=== PATIENT | female | born 1945 | race Caucasian/White ===

== ENCOUNTER 2023-02-12 10:29 | Outpatient (OUT) | payer MEDICARE, SELFPAY ==
[2023-02-12 11:35] LABS: Basophils Absolute Auto 0.1 10^3/uL (0.0-0.1); Basophils Percent Auto 0.8 % (0.2-2.0); Eosinophils Absolute Auto 0.7 10^3/uL (0.0-0.7); Eosinophils Percent Auto 9.3 % (0.9-7.0); Hematocrit 41.9 % (36.0-48.0); Hemoglobin 14.3 g/dL (12.0-16.0); Immature Granulocytes Abs Auto 0.03 10^3/uL (0.00-0.03); Immature Granulocytes Pct Auto 0.4 % (0.0-0.5); Lymphocytes Absolute Auto 1.8 10^3/uL (1.2-3.8); Lymphocytes Percent Auto 24.4 % (20.5-60.0); Mean Corpuscular HGB Conc 34.1 g/dL (29.9-35.2); Mean Corpuscular Hemoglobin 32.3 pg (26.7-34.0); Mean Corpuscular Volume 94.6 fL (81.0-99.0); Mean Platelet Volume 10.2 fL (9.5-13.5); Monocytes Absolute Auto 0.6 10^3/uL (0.3-0.8); Monocytes Percent Auto 8.4 % (1.7-12.0); Neutrophils Absolute Auto 4.2 10^3/uL (1.4-6.5); Neutrophils Percent Auto 56.7 % (43.0-75.0); Platelet Count 222 10^3/uL (150-450); Red Blood Count 4.43 10^6/uL (4.20-5.40); Red Cell Distribution Width 11.9 % (11.0-15.0); White Blood Count 7.4 10^3/uL (4.0-11.0)
[2023-02-12 11:58] LABS: Alanine Aminotransferase 14 U/L (14-59); Albumin Globulin Ratio 0.9; Albumin Level 3.6 g/dL (3.4-5.0); Alkaline Phosphatase 58 U/L (46-116); Anion Gap 7.5; Aspartate Amino Transferase 17 U/L (15-37); BUN Creatinine Ratio 9.6; Bilirubin Total 0.9 mg/dL (0.2-1.0); Calcium 8.9 mg/dL (8.5-10.1); Carbon Dioxide 30.7 mmol/L (21.0-32.0); Chloride 98 mmol/L (98-107); Chol HDL Ratio 2.7; Cholesterol 138 mg/dL (<=200); Estimated GFR (African America 50 (>=60); Estimated GFR (Non-African Ame 41 (>=60); Globulin 3.8 g/dL; Glucose 113 mg/dL (74-106); HDL Cholesterol 51 mg/dL (40-60); LDL Cholesterol Calculated 67.2 mg/dL; Potassium 3.2 mmol/L (3.5-5.1); Sodium 133 mmol/L (136-145); Thyroid Stimulating Hormone 1.622 uIU/mL (0.358-3.740); Total Protein 7.4 g/dL (6.4-8.2); Triglycerides 99 mg/dL (<=150); VLDL CHOLESTEROL 19.8 mg/dL
[2023-02-12 13:27] LABS: Free T4 1.16 ng/dL (0.76-1.46)
== END 2023-02-12 10:30 | disposition home or self-care (01) ==
LOC: LAB 10:34
PROVIDERS: PCP Family Medicine; Visit Provider Family Medicine
DX: N18.32 Chronic kidney disease, stage 3b (principal); R53.82 Chronic fatigue, unspecified; I51.89 Other ill-defined heart diseases
CPT/HCPCS: 36415; 80053; 80061; 82607; 82746; 84439; 84443; 84481; 85025

== ENCOUNTER 2023-03-17 09:43 | Observation (INO) | payer MEDICARE, SELFPAY ==
[2023-03-17] VITALS (24 sets, daily range): BP systolic 120–167; BP diastolic 66–120; PULSE 74–140; RESP 12–33; TEMP 36.6–36.8; O2SAT 91–100; BMI 28.3; BMI 33.1
--- NOTE | 2023-03-17 10:01 | XR_ITS ---
The [address] [address] Patient Name: DEEPA GRIER MRN: [id number] date: 1945 Sex: F Assigned Patient Location: ER Current Patient Location: ED.MAIN Accession/Order Number: [id number] Exam Date: 03/17/2023 10:18 Report Date: 03/17/2023 10:51 At the request of: KIKI CONWAY Procedure: XR chest 1V EXAM: XR chest 1V HISTORY: shortness of breath COMPARISON: 02/10/2021. TECHNIQUE: Chest X-ray, 1 view. FINDINGS: Support devices: None. Lungs/pleura: There is mild pulmonary vascular congestion and interstitial prominence. Hazy opacities are demonstrated within the lower lungs, greater in the right. Question minimal blunting of the right costophrenic angle. No evidence of pneumothorax. Heart and mediastinum: There is new fullness of the right parahilar region. Mild enlargement of cardiac silhouette. Bones: No acute abnormality identified. XR/XR chest 1V IMPRESSION: 1. Combination of findings is suspicious for pulmonary edema/CHF pattern. Basilar predominant infiltrate should be considered on clinical grounds. 2. Increased fullness of the right parahilar region may represent edema or infiltrate. Hilar mass cannot be excluded on this examination. At minimum, recommend short-term radiographic follow-up to resolution. Otherwise, CT with intravenous contrast could further characterize. Electronically authenticated by: KONG DEAL Date: 03/17/2023 10:51
--- NOTE | 2023-03-17 10:01 | ECG_ITS ---
The [facility] Test Date: 2023-03-17 Pat Name: DEEPA GRIER Department: Room: - Gender: Female Progressive Care Unit Registered Nurse: : 1945 Requested By: Brian Kilgore Order Number: [id number] Reading MD: DAVID FREDERICK Measurements Intervals Riva Rate: 90 P: -57127 TX: -85201 QRS: -37 QRSD: 138 T: 107 QT: 390 QTc: 438 Interpretive Statements 07354 Atrial fibrillation with aberrant conduction, or ventricular premature complexes 2550 Left bundle branch block 7200 Abnormal left axis deviation 9150 abnormal ECG No previous ECG available for comparison Electronically Signed On 03-17-2023 11:10:42 EDT by DAVID FREDERICK
--- NOTE | 2023-03-17 10:10 | ED.SOB1 ---
HPI - SOB/Dyspnea General Chief Complaint: Shortness of Breath/Dyspnea Stated Complaint: SHORTNESS OF BREATH Time Seen by Provider: 03/17/23 09:50 Source: patient Mode of arrival: Wheelchair History of Present Illness HPI Narrative: shortness of breath began last night. She told me that she worked in her garden for the first time in two years. She said that she had a lot of energy to start the day and tried to take frequent breaks. But by the evening she was tired and the shortness of breath began. She has atrial fibrillation and a leaky valve . No fever or chills. No cough. No leg swelling. Related Data Home Medications Medication Instructions Recorded Confirmed eszopiclone 1 mg tablet 1 mg PO .qhs PRN sleep 03/17/23 03/17/23 lansoprazole 30 mg capsule,delayed 30 mg PO DAILY 03/17/23 03/17/23 release meclizine 25 mg tablet 25 mg PO TID PRN dizziness 03/17/23 03/17/23 metoprolol tartrate 25 mg tablet 25 mg PO BID 03/17/23 03/17/23 pravastatin 40 mg tablet 40 mg PO BEDTIME 03/17/23 03/17/23 Allergies Allergy/AdvReac Type Severity Reaction Status Date / Time No Known Drug Allergies Allergy Verified 03/17/23 09:58 Exam Narrative Exam Narrative: Nurses notes and vital signs reviewed and patient is not hypoxic. afebrile General: Well-appearing and in no apparent distress. Skin: Warm, dry, no pallor noted. Head: Normocephalic, atraumatic. Neck: Supple, non-tender. Eye: Pupils are equal, round and EOMI. No scleral icterus. Cardiovascular: irregular rhythm, rate less than 100. Respiratory: No accessory muscle use or respiratory distress. Lungs with diffuse wheezing, bibasilar rales Chest Wall: no tenderness Musculoskeletal: normal ROM, no calf or popliteal tenderness, no lower extremity edema/swelling Neurological: A&O x4. No cranial nerve dysfunction observed. No truncal ataxia. Moves all extremities. Sensation intact. Psychiatric: Cooperative and interactive. Normal mood and affect. Constitutional Vital Signs, click to edit/add: Last Vital Signs Temp 98.2 F 03/17/23 09:50 Pulse 105 H 03/17/23 11:20 Resp 19 03/17/23 11:20 BP 152/104 H 03/17/23 11:18 Pulse Ox 99 03/17/23 11:20 O2 Del Method Room Air 03/17/23 09:50 Course Vital Signs Vital signs: Vital Signs Temperature 98.2 F 03/17/23 09:50 Pulse Rate 107 H 03/17/23 09:50 Respiratory Rate 24 03/17/23 09:50 Blood Pressure 160/100 H 03/17/23 09:50 Pulse Oximetry 95 03/17/23 09:50 Oxygen Delivery Method Room Air 03/17/23 09:50 Temperature 98.2 F 03/17/23 09:50 Pulse Rate 105 H 03/17/23 11:20 Respiratory Rate 19 03/17/23 11:20 Blood Pressure 152/104 H 03/17/23 11:18 Pulse Oximetry 99 03/17/23 11:20 Oxygen Delivery Method Room Air 03/17/23 09:50 MDM - SOB/Dyspnea MDM Narrative Medical decision making narrative: Patient was placed on quality assurance monitor final and EKG obtained. Blood drawn and sent for evaluation. Swabbed for Covid. Her room air pulse ox was normal but her RR was 24 - I placed her on 2LPM NC oxygen. CXR obtained. She was given IV Lasix, IV Solumedrol and nebulized albuterol. Workup consistent with CHF but she also had elevated wbc at 12.9k and right parahilar changes suggestive of an infiltrate. Blood cultures and lactate ordered. She was ordered to receive Levaquin 750mg IV. Call placed to Dr Foster to discuss admission. he agreed to admit the patient to his service - [facility], [facility]. Patient informed of results, diagnosis and plan for treatment including admission. Lab Data Attestation: I reviewed the patient's lab results. Labs: Lab Results 03/17/23 03/17/23 Range/Units 10:31 10:37 WBC 12.9 H (4.0-11.0) 10^3/uL RBC 4.30 (4.20-5.40) 10^6/uL Hgb 13.7 (12.0-16.0) g/dL Hct 40.9 (36.0-48.0) % MCV 95.1 (81.0-99.0) fL MCH 31.9 (26.7-34.0) pg MCHC 33.5 (29.9-35.2) g/dL RDW 12.1 (11.0-15.0) % Plt Count 193 (150-450) 10^3/uL MPV 10.3 (9.5-13.5) fL Neut % (Auto) 79.8 H (43.0-75.0) % Lymph % (Auto) 9.4 L (20.5-60.0) % [place] % (Auto) 6.1 (1.7-12.0) % Eos % (Auto) 3.8 (0.9-7.0) % Baso % (Auto) 0.5 (0.2-2.0) % Neut # (Auto) 10.3 H (1.4-6.5) 10^3/uL Lymph # (Auto) 1.2 (1.2-3.8) 10^3/uL [place] # (Auto) 0.8 (0.3-0.8) 10^3/uL Eos # (Auto) 0.5 (0.0-0.7) 10^3/uL Baso # (Auto) 0.1 (0.0-0.1) 10^3/uL Abs Immat Gran (auto) 0.05 H (0.00-0.03) 10^3/uL Imm/Tot Granulo (auto) 0.4 (0.0-0.5) % Sodium 135 L (136-145) mmol/L Potassium 3.7 (3.5-5.1) mmol/L Chloride 101 (98-107) mmol/L Carbon Dioxide 25.9 (21.0-32.0) mmol/L Anion Gap 11.8 BUN 12.0 (7.0-18.0) mg/dL Creatinine 1.13 H (0.55-1.02) mg/dL Est GFR ( Amer) 56 L (>=60) Est GFR (Non-Af Amer) 46 L (>=60) BUN/Creatinine Ratio 10.6 Glucose 123 H (74-106) mg/dL Calcium 8.5 (8.5-10.1) mg/dL Troponin I High Sens 15.5 (4.0-51.3) pg/mL NT-Pro-B Natriuret Pep 6908.0 H* (<=1800.0) pg/mL SARS-CoV-2 (PCR) Negative (NEGATIVE) Imaging Data Chest x-ray: Radiologist's impression: Patient Name: DEEPA GRIER MRN: [id number] date: 1945 Sex: F Assigned Patient Location: ER Current Patient Location: ED.MAIN Accession/Order Number: [id number] Exam Date: 03/17/2023 10:18 Report Date: 03/17/2023 10:51 At the request of: KIKI CONWAY Procedure: XR chest 1V EXAM: XR chest 1V HISTORY: shortness of breath COMPARISON: 02/10/2021. TECHNIQUE: Chest X-ray, 1 view. FINDINGS: Support devices: None. Lungs/pleura: There is mild pulmonary vascular congestion and interstitial prominence. Hazy opacities are demonstrated within the lower lungs, greater in the right. Question minimal blunting of the right costophrenic angle. No evidence of pneumothorax. Heart and mediastinum: There is new fullness of the right parahilar region. Mild enlargement of cardiac silhouette. Bones: No acute abnormality identified. IMPRESSION: 1. Combination of findings is suspicious for pulmonary edema/CHF pattern. Basilar predominant infiltrate should be considered on clinical grounds. 2. Increased fullness of the right parahilar region may represent edema or infiltrate. Hilar mass cannot be excluded on this examination. At minimum, recommend short-term radiographic follow-up to resolution. Otherwise, CT with intravenous contrast could further characterize. Electronically authenticated by: KONG DEAL Date: 03/17/2023 10:51 Discharge Plan Discharge Chief Complaint: Shortness of Breath/Dyspnea Clinical Impression: Congestive heart failure, Community acquired pneumonia Patient Disposition: Admitted as Observation Time of Disposition Decision: 11:12 Additional Instructions: Dr Foster's service
[2023-03-17] MEDS: FUROSEMIDE 40 MG/4 ML VIAL IVP ×2 (10:28→21:11)
[2023-03-17] MEDS: METHYLPREDNISOLONE SOD SUCC PF 125 MG/2 ML VIAL IVP (10:28)
[2023-03-17] MEDS: ALBUTEROL SULFATE 2.5 MG/3 ML VIAL NEB IH (10:32)
[2023-03-17 10:46] LABS: Basophils Absolute Auto 0.1 10^3/uL (0.0-0.1); Basophils Percent Auto 0.5 % (0.2-2.0); Eosinophils Absolute Auto 0.5 10^3/uL (0.0-0.7); Eosinophils Percent Auto 3.8 % (0.9-7.0); Hematocrit 40.9 % (36.0-48.0); Hemoglobin 13.7 g/dL (12.0-16.0); Immature Granulocytes Abs Auto 0.05 10^3/uL (0.00-0.03); Immature Granulocytes Pct Auto 0.4 % (0.0-0.5); Lymphocytes Absolute Auto 1.2 10^3/uL (1.2-3.8); Lymphocytes Percent Auto 9.4 % (20.5-60.0); Mean Corpuscular HGB Conc 33.5 g/dL (29.9-35.2); Mean Corpuscular Hemoglobin 31.9 pg (26.7-34.0); Mean Corpuscular Volume 95.1 fL (81.0-99.0); Mean Platelet Volume 10.3 fL (9.5-13.5); Monocytes Absolute Auto 0.8 10^3/uL (0.3-0.8); Monocytes Percent Auto 6.1 % (1.7-12.0); Neutrophils Absolute Auto 10.3 10^3/uL (1.4-6.5); Neutrophils Percent Auto 79.8 % (43.0-75.0); Platelet Count 193 10^3/uL (150-450); Red Cell Distribution Width 12.1 % (11.0-15.0); White Blood Count 12.9 10^3/uL (4.0-11.0)
[2023-03-17 11:06] LABS: Anion Gap 11.8; BUN Creatinine Ratio 10.6; Calcium 8.5 mg/dL (8.5-10.1); Carbon Dioxide 25.9 mmol/L (21.0-32.0); Chloride 101 mmol/L (98-107); Estimated GFR (African America 56 (>=60); Estimated GFR (Non-African Ame 46 (>=60); Glucose 123 mg/dL (74-106); Potassium 3.7 mmol/L (3.5-5.1); Sodium 135 mmol/L (136-145); Troponin I High Sensitivity 15.5 pg/mL (4.0-51.3)
[2023-03-17 11:14] LABS: SARS-CoV-2 Ag NEGATIVE (NEGATIVE)
[2023-03-17] MEDS: DILTIAZEM HCL 25 MG/5 ML VIAL 20 MG IV (11:26)
[2023-03-17] MEDS: LEVOFLOXACIN IN DEXTROSE 5 % 750 MG/150 ML IV.SOLN 150 MG IV (12:06)
[2023-03-17 12:45] LABS: Lactate/Lactic Acid 1.8 mmol/L (0.4-2.0)
[2023-03-17] MEDS: METOPROLOL TARTRATE 25 MG TABLET PO (16:00)
[2023-03-17] MEDS: METOPROLOL TARTRATE 5 MG/5 ML VIAL IVP (16:47)
[2023-03-17] MEDS: METHYLPREDNISOLONE SOD SUCC PF 125 MG/2 ML VIAL 60 MG IVP (21:11)
[2023-03-17] MEDS: METOPROLOL TARTRATE 25 MG TABLET 50 MG PO (21:12)
[2023-03-17] MEDS: ZOLPIDEM TARTRATE 5 MG TABLET 1 MG PO (21:12)
[2023-03-17] MEDS: ATORVASTATIN CALCIUM 10 MG TABLET PO (21:12)
[2023-03-18] VITALS (9 sets, daily range): BP systolic 125; BP diastolic 60; PULSE 77–120; RESP 18; TEMP 36.8; O2SAT 93–95
[2023-03-18] MEDS: METHYLPREDNISOLONE SOD SUCC PF 125 MG/2 ML VIAL 60 MG IVP ×2 (04:02→08:22)
[2023-03-18] MEDS: OMEPRAZOLE 40 MG CAPSULE.DR PO (05:43)
--- NOTE | 2023-03-18 06:00 | XR_ITS ---
[address] [address] Patient Name: DEEPA GRIER MRN: [id number] date: 1945 Sex: F Assigned Patient Location: Current Patient Location: Accession/Order Number: [id number] Exam Date: 03/18/2023 06:00 Report Date: 03/18/2023 09:02 At the request of: GIULIA FRIED Procedure: XR chest 2V CLINICAL HISTORY: Pneumonia. EXAMINATION: PA and lateral chest: 03/18/2023 COMPARISON: Portable AP upright chest: 03/17/2023. FINDINGS: The patient remains somewhat rotated, lordotic. The visualized soft tissues appear intact. The trachea is midline. The heart size remains enlarged. The aorta is slightly tortuous. There is blunting of both costophrenic angles, compatible with small effusions with some atelectatic changes at lung bases. However the previously described interstitial edema pattern/congestive heart failure has near completely resolved. The remaining lungs demonstrate no focal infiltrates, pulmonary edema or pneumothorax. XR/XR chest 2V IMPRESSION: 1. Stable cardiomegaly. 2. Small bilateral pleural effusions. 3. The previously described congestive changes seem to have resolved. 4. No new findings or focal consolidating infiltrates. Electronically authenticated by: RAZIA RENEE Date: 03/18/2023 09:02
[2023-03-18 06:19] LABS: Basophils Percent Auto 0.1 % (0.2-2.0); Eosinophils Percent Auto 0.2 % (0.9-7.0); Hemoglobin 13.6 g/dL (12.0-16.0); Immature Granulocytes Abs Auto 0.04 10^3/uL (0.00-0.03); Immature Granulocytes Pct Auto 0.4 % (0.0-0.5); Lymphocytes Absolute Auto 1.1 10^3/uL (1.2-3.8); Lymphocytes Percent Auto 10.4 % (20.5-60.0); Mean Corpuscular HGB Conc 34.9 g/dL (29.9-35.2); Mean Corpuscular Hemoglobin 32.2 pg (26.7-34.0); Mean Corpuscular Volume 92.4 fL (81.0-99.0); Mean Platelet Volume 10.3 fL (9.5-13.5); Monocytes Absolute Auto 0.2 10^3/uL (0.3-0.8); Monocytes Percent Auto 1.8 % (1.7-12.0); Neutrophils Absolute Auto 8.9 10^3/uL (1.4-6.5); Neutrophils Percent Auto 87.1 % (43.0-75.0); Platelet Count 246 10^3/uL (150-450); Red Blood Count 4.22 10^6/uL (4.20-5.40); White Blood Count 10.2 10^3/uL (4.0-11.0)
[2023-03-18 06:26] LABS: Anion Gap 12.3; BUN Creatinine Ratio 13.8; Calcium 8.5 mg/dL (8.5-10.1); Carbon Dioxide 29.1 mmol/L (21.0-32.0); Chloride 99 mmol/L (98-107); Estimated GFR (African America 40 (>=60); Estimated GFR (Non-African Ame 33 (>=60); Glucose 168 mg/dL (74-106); Potassium 3.4 mmol/L (3.5-5.1); Sodium 137 mmol/L (136-145)
[2023-03-18] MEDS: FUROSEMIDE 40 MG/4 ML VIAL IVP (08:21)
[2023-03-18] MEDS: METOPROLOL TARTRATE 25 MG TABLET 50 MG PO (08:21)
--- NOTE | 2023-03-18 12:05 | PM.HP ---
H&P: HPI History of Present Illness Chief complaint: SOB, weakness Narrative: 77 y/o female with history of afib and CHF to ER with SOB. C/o worsening fatigue and SOB for several days. Out working in garden and required several breaks. Out of lasix for 1 week and noticed increased swelling in feet and ankles. Increased SOB with activity and not able to lay flat without wheezing. C/o increased palpitations and heart racing over past several weeks. To ER due to symptoms. WBC slightly elevated at 12.9. Chest x-ray with evidence of fluid overload and questionable infiltrate. Reports mild cough but no sputum and afebrile. Admitted for treatment. Started IV lasix for CHF and levaquin for possible pneumonia. On floor noted tachycardia when up and moving and increased metoprolol. Prior watchman device placed. Records show echo 12/23/21 with EF >55% and diastolic dysfunction. Much improved overnight. Mild SOB and no edema. Still fast heart rate when up and moving. Review of Systems ROS Constitutional Denies: fever, chills or night sweats Respiratory Reports: shortness of breath, cough and wheezing Gastrointestinal Denies: abdominal pain, nausea, vomiting or diarrhea Genitourinary Denies: painful urination [facility] Medical History (Updated 03/18/23 @ 12:01 by Jared Foster MD) Surgical History (Updated 03/17/23 @ 12:31 by Kathrin Gonsalves) Family History (Updated 03/17/23 @ 12:32 by Kathrin Gonsalves) Mother Family history of CHF (congestive heart failure) Family history of cancer Family history of diabetes mellitus Family history of hypertension Father Family history of cancer Family history of hypertension Family history of myocardial infarction Sister Family history of cancer Family history of diabetes mellitus Family history of hypertension Social History (Updated 03/17/23 @ 12:33 by Kathrin Gonsalves) Within the past year, how often did you have a drink containing alcohol: never Within the past year, how many standard drinks containing alcohol did you have on a typical day: 1 or 2 Within the past year, how often did you have six or more drinks on one occasion: never Total score: 0 Score interpretation: A score less than 3 is consistent with normal alcohol consumption. Smoking status: Never smoker Non-prescribed substance use: denies use Previous occupational history: retired Highest level of school completed/degree received: high school graduate Are you now , , , , never or living with a partner: In a typical week, how many times do you talk on the telephone with family, friends, or neighbors: 3 or more times per week How often do you get together with friends or relatives: 3 or more times per week How often do you attend latter day or yazidism services: 1-3 times per year Do you belong to any clubs or organizations such as latter day groups unions, [employer] or athletic groups, or school groups: no Total score: 1 Score interpretation: A score of less than or equal to 1 indicates the most socially isolated. Little interest or pleasure in doing things: not at all Feeling down, depressed, or hopeless: several days Feel stressed/tense/nervous/anxious/difficulty sleeping: not at all Do you think of yourself as: straight/heterosexual Gender Identity: female Meds Home Medications and Allergies Home Medications Medication Instructions Recorded Confirmed Type aspirin 81 mg capsule 81 mg PO DAILY 03/17/23 03/17/23 History eszopiclone 1 mg tablet 1 mg PO .qhs PRN sleep 03/17/23 03/17/23 History lansoprazole 30 mg capsule,delayed 30 mg PO DAILY 03/17/23 03/17/23 History release loratadine 10 mg tablet 10 mg PO DAILY 03/17/23 03/17/23 History meclizine 25 mg tablet 25 mg PO TID PRN dizziness 03/17/23 03/17/23 History pravastatin 40 mg tablet 40 mg PO BEDTIME 03/17/23 03/17/23 History furosemide 40 mg tablet 40 mg PO DAILY #30 tabs 03/18/23 Rx metoprolol tartrate 25 mg tablet 50 mg PO BID #60 tabs 03/18/23 Rx Allergies Allergy/AdvReac Type Severity Reaction Status Date / Time No Known Drug Allergies Allergy Verified 03/17/23 09:58 Exam Constitutional Vital Signs, click to edit/add: Last Vital Signs Temp 98.2 F 03/18/23 05:47 Pulse 98 H 03/18/23 10:56 Resp 18 03/18/23 05:47 BP 125/60 03/18/23 05:47 Pulse Ox 95 03/18/23 11:52 O2 Del Method Room Air 03/18/23 11:52 Documenting provider has reviewed patient's vital signs: yes Common normals: no apparent distress, oriented x3 and alert HENMT Common normals: normocephalic Eye Common normals: PERRL and EOMs intact bilaterally Respiratory Common normals: normal respiratory effort and clear to auscultation bilaterally Cardio Common normals: no gallops, no murmurs and no rub Rhythm: abnormal rhythm irregularly irregular GI Common normals: Normal to inspection, nondistended, normoactive bowel sounds present and non-tender Extremity Common normals: no pedal edema Results Labs Labs: Short CBC 03/18/23 Range/Units 06:10 WBC 10.2 (4.0-11.0) 10^3/uL Hgb 13.6 (12.0-16.0) g/dL Hct 39.0 (36.0-48.0) % Plt Count 246 (150-450) 10^3/uL BMP 03/18/23 06:10 Sodium 137 Potassium 3.4 L Chloride 99 Carbon Dioxide 29.1 BUN 21.0 H Creatinine 1.52 H Glucose 168 H Calcium 8.5 ECG Attestation: ?I have reviewed the pertinent ECG results. Imaging Chest x-ray: Attestation: I have reviewed the pertinent imaging results. Assessment and Plan Assessment and Plan (1) Acute on chronic heart failure with preserved ejection fraction (HFpEF): (2) Paroxysmal atrial fibrillation: (3) Hypertension: (4) Mitral regurgitation: (5) Stage 3a chronic kidney disease: Plan Out of lasix for 1 week and presented with fluid overload. Patient did not have pneumonia. Afebrile and asymptomatic. Chest x-ray cleared after diuresis. EF normal last year at 55%. Improved with IV lasix and discharge home. Resume oral lasix. Remains in afib and pulse improved with increased metoprolol. Continue 50 mg BID. F/u with cardiology in 1 week. Resume home medication as directed.
[2023-03-18 14:10] LABS: SARS-CoV-2 NAA NOT DETECTED (NOT DETECTE)
--- NOTE | 2023-03-20 10:41 | CM.DCFOLLOWU ---
Person spoke with: patient How are you feeling? pretty good How is your pain? none Did you understand your discharge instructions? yes Do you have any questions about your discharge instructions? no Were you given any prescriptions at discharge? yes Were you able to get your prescriptions filled? yes Do you understand how to take your medications as ordered? yes Do you have any questions about your follow up appointment and do you plan to keep your follow up appointment? Dr. Wynn and Cardiology: patient will call today to get those follow up appointments scheduled ALPESH. Reinforced the importance of getting these appointments scheduled and patient voiced understanding and stated she will call today and try to get them scheduled within 7 days or sooner. Is there anything else that you would like to discuss? pt. denies Questions/Comments/Concerns/Other: none
== END 2023-03-18 13:02 | disposition home or self-care (01) ==
LOC: ER 11:12 → MS 11:54
PROVIDERS: Admitting Provider Family Medicine; Emergency Provider Emergency Medicine; PCP Family Medicine; Visit Provider Family Medicine
DX: I13.0 Hypertensive heart and chronic kidney disease with heart failure and stage 1 through stage 4 chronic kidney disease, or unspecified chronic kidney disease (principal); N18.31 Chronic kidney disease, stage 3a; I50.33 Acute on chronic diastolic (congestive) heart failure; I48.0 Paroxysmal atrial fibrillation; I34.0 Nonrheumatic mitral (valve) insufficiency; Z79.82 Long term (current) use of aspirin; Z79.899 Other long term (current) drug therapy; Z20.822 Contact with and (suspected) exposure to COVID-19
CPT/HCPCS: 36415; 71045; 71046; 80048; 83605; 83880; 84484; 85025; 87040; 87635; 87811; 93005; 94640; 94761; 96365; 96375; 96376; 99285; G0378; J2930; U0003

== ENCOUNTER 2023-03-28 11:29 | Outpatient (OUT) | payer MEDICARE, SELFPAY ==
[2023-03-28 12:33] LABS: Anion Gap 10.9; BUN Creatinine Ratio 12.6; Calcium 8.7 mg/dL (8.5-10.1); Carbon Dioxide 32.3 mmol/L (21.0-32.0); Chloride 99 mmol/L (98-107); Estimated GFR (African America 46 (>=60); Estimated GFR (Non-African Ame 38 (>=60); Glucose 115 mg/dL (74-106); Potassium 3.2 mmol/L (3.5-5.1); Sodium 139 mmol/L (136-145)
== END 2023-03-28 11:30 | disposition home or self-care (01) ==
LOC: LAB 11:30
PROVIDERS: PCP Family Medicine; Visit Provider Internal Medicine Cardiovascular Disease
DX: I50.40 Unspecified combined systolic (congestive) and diastolic (congestive) heart failure (principal)
CPT/HCPCS: 36415; 80048

== ENCOUNTER 2023-04-24 11:08 | Outpatient (OUT) | payer MEDICARE, SELFPAY ==
--- NOTE | 2023-04-24 13:11 | CA_ITS ---
Patient: DEEPA GRIER Exam Date: 04/24/2023 : 1945 Gender:F Ordering : KURT NDIAYE Admission #: [id number] Family : Order #: [id number] CLICK HERE TO VIEW EXAM ECHOCARDIOGRAM REPORT PROCEDURE: CA ECHO DOPPLER COMPLETE INDICATIONS: CHF COMPARISON: None. DESCRIPTION: COMPLETE ECHOCARDIOGRAM Real-time transthoracic echocardiography with 2D, M-mode, spectral and color flow Doppler performed. QUALITY: Technical quality was good. LEFT VENTRICLE: Normal chamber size. Moderate concentric left ventricular hypertrophy. Abnormal septal motion likely due to bundle branch block. Global left ventricular systolic function is mildly to moderately decreased. Visual estimation of left ventricular ejection fraction is 35-40%. LV EF: DIASTOLIC: Not adequately assessed due to heart rhythm. ATRIAL SEPTUM: LEFT ATRIUM: Severe dilatation. RIGHT ATRIUM: Moderate dilatation. RIGHT VENTRICLE: Normal chamber size. Normal right ventricular systolic function. TRICUSPID VALVE: Normal mobility and thickness. No stenosis with moderate regurgitation. Mild pulmonary hypertension. RVSP 41 mmHg MITRAL VALVE: Normal mobility and thickness. No evidence of mitral valve stenosis. Mitral annular calcification. Severe mitral regurgitation. Reversal of flow is seen into the pulmonary veins. AORTIC VALVE: Normal trileaflet appearance. No visible sclerosis. Normal leaflet mobility. No evidence of aortic valve stenosis. Trivial aortic regurgitation. AORTIC ROOT: Normal diameter and appearance. PULMONIC VALVE: Normal thickness and mobility. No stenosis. Trivial regurgitation. PERICARDIUM: No evidence of pericardial effusion. IVC: Collapses with inspirations. Normal size. PLEURA: CONCLUSION: 1. Moderate concentric left ventricular hypertrophy with mildly to moderately reduced systolic function. Estimated ejection fraction is 35 to 40%. 2. Moderate to severe biatrial dilatation. 3. Normal right ventricular size and systolic function. 4. Severe mitral valve regurgitation. 5. Mildly elevated right-sided pressures. Adult Echocardiography Procedure Report Left Ventricle LVEDD (3.7 - 5.6 cm): 4.84 cm LVESD (2.2 - 4.0 cm): 3.85 cm LVIVS thickness (0.6 - 1.2 cm): 1.44 cm LVPW thickness (0.5 - 1.0 cm): 1.42 cm e': 0.10 m/s E - e': 12.60 LVOT Max Gradient: 1.59 mm[Hg] LVOT Area (cm2): 0.63 m/s Peak Velocity (LVOT): 0.63 m/s Mean Velocity (LVOT): 0.47 m/s LVOT Diameter 2.03 cm Left Ventricular Ejection Fraction: 50.07 % Left Atrium LA Volume Index (2D A2C): 57.09 ml/m2 Left Atrium Systolic Dimension: 3.84 cm Mitral Valve Mitral Valve E-Wave Peak Velocity: 1.24 m/s Right Ventricle RV Internal Diastolic Dimension: 3.46 cm Aorta AO Root Diam: 2.98 cm Ascending Ao Diam: 2.83 cm Aortic Valve AoV Area (Peak Khari): 2.12 cm2, 2.08 cm2 AoV Area (VTI): 1.69 cm2, 1.92 cm2 Peak Velocity(Antegrade Flow): 0.98 m/s, 0.94 m/s Peak Gradient(Antegrade Flow): 3.86 mm[Hg], 3.55 mm[Hg] Mean Velocity(Antegrade Flow): 0.71 m/s, 0.72 m/s Mean Gradient(Antegrade Flow): 2.27 mm[Hg], 2.19 mm[Hg] Velocity Time Integral: 21.06 cm, 26.74 cm Tricuspid Valve Peak Velocity (Regurgitant Flow): 2.50 m/s, 2.60 m/s, 3.10 m/s, 2.81 m/s Pulmonic Valve Mean Gradient: 1.21 mm[Hg], 1.22 mm[Hg], 1.28 mm[Hg] Mean Velocity: 0.51 m/s, 0.51 m/s, 0.53 m/s Peak Velocity: 0.76 m/s Peak Gradient: 2.26 mm[Hg], 2.22 mm[Hg], 2.44 mm[Hg] Right Atrium Right Atrium Systolic Pressure: 53.20 ml, 53.20 ml Dictated by: Zhou Renee M.D. on 04/24/2023 at 18:58 Approved by: Zhou Renee M.D. on 04/24/2023 at 19:04
== END 2023-04-24 11:09 | disposition home or self-care (01) ==
PROVIDERS: PCP Family Medicine; Visit Provider Internal Medicine Cardiovascular Disease
DX: I50.40 Unspecified combined systolic (congestive) and diastolic (congestive) heart failure (principal); I34.0 Nonrheumatic mitral (valve) insufficiency
CPT/HCPCS: 93306

== ENCOUNTER 2023-04-28 10:41 | Outpatient (OUT) | payer MEDICARE, SELFPAY ==
[2023-04-28 11:45] LABS: Anion Gap 11.4; BUN Creatinine Ratio 11.8; Calcium 9.2 mg/dL (8.5-10.1); Carbon Dioxide 32.1 mmol/L (21.0-32.0); Chloride 97 mmol/L (98-107); Estimated GFR (African America 37 (>=60); Estimated GFR (Non-African Ame 31 (>=60); Glucose 122 mg/dL (74-106); Potassium 3.5 mmol/L (3.5-5.1); Sodium 137 mmol/L (136-145)
== END 2023-04-28 10:42 | disposition home or self-care (01) ==
PROVIDERS: PCP Family Medicine; Visit Provider Nurse Practitioner
DX: I50.41 Acute combined systolic (congestive) and diastolic (congestive) heart failure (principal)
CPT/HCPCS: 36415; 80048

== ENCOUNTER 2023-05-14 11:28 | Outpatient (OUT) | payer MEDICARE, SELFPAY ==
[2023-05-14 12:52] LABS: Anion Gap 9.2; BUN Creatinine Ratio 10.3; Calcium 8.9 mg/dL (8.5-10.1); Carbon Dioxide 33.8 mmol/L (21.0-32.0); Chloride 100 mmol/L (98-107); Estimated GFR (African America 39 (>=60); Estimated GFR (Non-African Ame 32 (>=60); Glucose 109 mg/dL (74-106); Sodium 139 mmol/L (136-145)
== END 2023-05-14 11:29 | disposition home or self-care (01) ==
LOC: LAB 11:36
PROVIDERS: PCP Family Medicine; Visit Provider Nurse Practitioner
DX: I50.41 Acute combined systolic (congestive) and diastolic (congestive) heart failure (principal); I11.0 Hypertensive heart disease with heart failure; I43 Cardiomyopathy in diseases classified elsewhere
CPT/HCPCS: 36415; 80048

== ENCOUNTER 2023-06-21 13:51 | Outpatient (OUT) | payer MEDICARE, SELFPAY ==
[2023-06-21 14:40] LABS: Anion Gap 10.9; BUN Creatinine Ratio 10.1; Chloride 100 mmol/L (98-107); Estimated GFR (African America 38 (>=60); Estimated GFR (Non-African Ame 31 (>=60); Glucose 113 mg/dL (74-106); Sodium 139 mmol/L (136-145)
[2023-06-21 14:44] LABS: Potassium 2.9 mmol/L (3.5-5.1)
== END 2023-06-21 13:52 | disposition home or self-care (01) ==
LOC: LAB 13:52
PROVIDERS: PCP Family Medicine; Visit Provider Nurse Practitioner Family
DX: I50.22 Chronic systolic (congestive) heart failure (principal)
CPT/HCPCS: 36415; 80048

== ENCOUNTER 2023-07-02 12:00 | Outpatient (OUT) | payer MEDICARE, SELFPAY ==
[2023-07-02 12:30] LABS: Anion Gap 12.8; BUN Creatinine Ratio 14.2; Calcium 9.3 mg/dL (8.5-10.1); Carbon Dioxide 27.2 mmol/L (21.0-32.0); Chloride 101 mmol/L (98-107); Estimated GFR (African America 34 (>=60); Estimated GFR (Non-African Ame 28 (>=60); Glucose 136 mg/dL (74-106); Sodium 137 mmol/L (136-145)
== END 2023-07-02 12:01 | disposition home or self-care (01) ==
LOC: LAB 12:01
PROVIDERS: PCP Family Medicine; Visit Provider Nurse Practitioner Family
DX: E87.6 Hypokalemia (principal)
CPT/HCPCS: 36415; 80048

== ENCOUNTER 2023-07-20 16:24 | Outpatient (OUT) | payer MEDICARE, SELFPAY ==
--- OUTSIDE RECORDS SUMMARY | 2023-07-20 16:30 | XMS_ITS | CCD ---
Author Name Unknown Address [address] [place] [address] Organization [facility] Care Team Providers Care Naturopath Name Role Phone BEE GUEVARA V Attending Unavailable FLANAGANZAKI Primary Care Unavailable FLANAGANZAKI Referring Unavailable MOUKARBELBEE V Admitting Unavailable MOUKARBELBEE V Attending Unavailable FLANAGAN, ZAKI Primary Care Unavailable FLANAGANZAKI Referring Unavailable MOUKARBEL, BEE Martino Admitting Unavailable FLANAGANZAKI Primary Care Unavailable FLANAGANZAKI Referring Unavailable MOUKARBELBEE V Admitting Unavailable MOUKARBELBEE V Attending Unavailable BRITNIJOSE M Admitting Unavailable BRITNIJOSE M Attending Unavailable FLANAGAN, DR ZAKI Braden Primary Care Unavailable BRITNIJOSE M Consulting Unavailable MOUKARBEL, DR GAMBOA Admitting Unavailable MOUKARBEL, DR GAMBOA Attending Unavailable FLANAGAN, DR ZAKI Braden Primary Care Unavailable MOUKARBEL, DR GAMBOA Consulting Unavailable BRITNI, JOSE M Admitting Unavailable BRITNIJOSE M Attending Unavailable FLANAGAN, DR ZAKI Braden Primary Care Unavailable BRITNIJOSE M Consulting Unavailable BRITNI, JOSE M Admitting Unavailable BRITNIJOSE M Attending Unavailable FLANAGAN, DR ZAKI Braden Primary Care Unavailable BRITNIJOSE M Consulting Unavailable BRITNI, JOSE M Admitting Unavailable BRITNIVALA Attending Unavailable FLANAGAN, DR ZAKI Braden Primary Care Unavailable FLANAGAN, DR ZAKI Braden Admitting Unavailable FLANAGAN, DR ZAKI Braden Attending Unavailable FLANAGAN, DR ZAKI Barden Primary Care Unavailable WEST, DR MERARY Martino Consulting Unavailable FLANAGAN, DR ZAKI Braden Consulting Unavailable ZIEBER, DR ETHEL Jacinto Consulting Unavailable MOUKARBEL, DR GAMBOA Admitting Unavailable MOUKARBEL, DR GAMBOA Attending Unavailable FLANAGAN, DR ZAKI Braden Primary Care Unavailable MOUKARBEL, DR GAMBOA Consulting Unavailable BRITNI, JOSE M Attending Unavailable JEFFERSON SERNA Attending Unavailable JEFFERSON SERNA Attending Unavailable KURT NDIAYE Attending Unavailable BEE GUEVARA Attending Unavailable JEFFERSON SERNA Attending Unavailable JOSE M CABRERA Attending Unavailable Allergies Allergy Classification Reported Allergen(s) Allergy Type Date of Onset Reaction(s) Facility (1 source) Diclofenac; Translations: [DICLOFENAC] Drug Allergy 06-06-2023 [facility] Repository Problems Active Problems Problem Classification Problem Date Documented Da te Episodic/Chronic Cardiac dysrhythmias (9 sources) Paroxysmal atrial fibrillation; Translations: [Unspecified atrial flutter] Onset: 12-19-2021 Chronic Congestive heart failure; nonhypertensive (8 sources) Chronic systolic (congestive) heart failure; Translations: [Acute combined systolic (congestive) and diastolic (congestive) heart failure] Onset: 03-28-2023 Chronic Disorders of lipid metabolism (3 sources) Mixed hyperlipidemia; Translations: [MIXED HYPERLIPIDEMIA] Onset: 07-29-2021 Chronic Esophageal disorders (2 sources) Gastro-esophageal reflux disease without esophagitis; Translations: [Gastro-esophageal reflux disease without esophagitis] Onset: 05-09-2023 Chronic Essential hypertension (3 sources) Essential (primary) hypertension; Translations: [ESSENTIAL PRIMARY HYPERTENSION] Onset: 07-29-2021 Chronic Fluid and electrolyte disorders (2 sources) Hypokalemia; Translations: [Hypokalemia] Onset: 07-11-2023 Episodic Heart valve disorders (6 sources) Nonrheumatic mitral (valve) insufficiency; Translations: [NONRHEUMATIC MITRAL INSUFFICIENCY] Onset: 01-23-2022 Chronic Hypertension with complications and secondary hypertension (2 sources) Hypertensive heart disease with heart failure; Translations: [Hypertensive heart disease with heart failure] Onset: 04-25-2023 Chronic Nutritional deficiencies (1 source) Vitamin D deficiency, unspecified; Translations: [VITAMIN D DEFICIENCY UNSPECIFIED] Onset: 07-29-2021 Chronic Other circulatory disease (2 sources) Orthostatic hypotension; Translations: [Orthostatic hypotension] Onset: 10-12-2022 Episodic Chanel-; endo-; and myocarditis; cardiomyopathy (except that caused by tuberculosis or sexually transmitted disease) (2 sources) Cardiomyopathy in diseases classified elsewhere; Translations: [Cardiomyopathy in diseases classified elsewhere] Onset: 04-25-2023 Chronic Syncope (2 sources) Syncope and collapse; Translations: [Syncope and collapse] Onset: 10-12-2022 Episodic Unclassified (4 sources) CONTACT W/AND (SUSP) EXPOS COVID-19; Translations: [CONTACT W/AND (SUSP) EXPOS COVID-19] Onset: 01-25-2022 Viral infection (1 source) COVID-19; Translations: [COVID-19] Onset: 04-12-2022 Past or Other Problems Problem Classification Problem Date Documented Da te Episodic/Chronic Diabetes mellitus without complication (1 source) Prediabetes; Translations: [PREDIABETES] Onset: 07-29-2021 Episodic Malaise and fatigue (1 source) Other fatigue; Translations: [OTHER FATIGUE] Onset: 01-25-2022 Episodic Other screening for suspected conditions (not mental disorders or infectious disease) (1 source) Encounter for screening mammogram for malignant neoplasm of breast; Translations: [ENC SCR MAMMO MALIG NEOPLASM BREAST] Onset: 07-29-2021 Episodic Residual codes; unclassified (4 sources) Asymptomatic menopausal state; Translations: [ASYMPTOMATIC MENOPAUSAL STATE] Onset: 07-25-2021 Episodic Unclassified (1 source) CONTACT W/AND (SUSP) EXPOS COVID-19; Translations: [CONTACT W/AND (SUSP) EXPOS COVID-19] Onset: 02-20-2022 Results Test Name Value Interpretation Reference Range Facility 37on 07-11-2023 37 Stop entresto Decrease lasix/furosemide to 20 mg daily, if having increased weight- leg swelling- shortness of breath increase lasix to 20 mg twice a day for about 3 days. Decrease potassium to 1 tablet per day Continue all other medications Please have blood drawn next week to check kidney function and potassium level Normal [facility] Office Visiton 07-11-2023 Follow-up visit [id number] Odilia Schroeder 1945 F Date Provider Department Center 07/11/2023 [facility] Family History Problem Relation Age of Onset Cancer Mother Heart attack Father Cancer Father Family Status - Relation Status Age at Mother Father Level of Service:10752 [place] OFFICE/OUTPATIENT ESTABLISHED MOD MDM 30 MIN Normal [facility] 36on 12-07-2023 36 Please have her star t potassium chloride 40mEq daily with follow-up BMP in 1 week. Thanks [facility] 37on 06-06-2023 37 *Cut lasix in half t o 20mg daily *Get labs done around 06/20/2023 *Call us if you want to proceed with cardioversion *Follow-up ECHO at the end of July [facility] Office Visiton 06-06-2023 Follow-up visit [id number] Odilia Schroeder 1945 F Date Provider Department [facility] 06/06/2023 JOSE M SUMMERS Family History Problem Relation Age of Onset Cancer Mother Heart attack Father Cancer Father Family Status - Relation Status Age at Mother Father Level of Service:83782 [place] OFFICE/OUTPATIENT ESTABLISHED MOD MDM 30 MIN Reason for Visit and Comments: Follow-up [[id number]] [facility] 29on 05-09-2023 29 Addended by: JOSE M CABRERA on: 05/09/2023 05:06 PM Modules accepted: Orders [facility] 37on 05-09-2023 37 *If heart rate is <50, skip your dose of metoprolol. *Cut Entresto in half. *Drink water instead of pop. Try to drink 3 bottles a day. Avoid drinking over 4 bottles a day. *Continue to monitor your blood pressure and heart rate daily. Bring in your readings to your next visit. *Talk with your PCP about resuming your vitamin B12 injections. [facility] Office Visiton 05-09-2023 Follow-up visit [id number] Odilia Schroeder 1945 Date Provider Department [facility] 05/09/2023 JOSE M SUMMERS Family History Problem Relation Age of Onset Cancer Mother Heart attack Father Cancer Father Family Status - Relation Status Age at Mother Father Level of Service:46892 [place] OFFICE/OUTPATIENT ESTABLISHED MOD MDM 30-39 MIN Reason for Visit and Comments: Fatigue [46] Hypotension [407] Atrial Fibrillation [80] Congestive Heart Failure [127] [facility] Office Visiton 04-30-2023 Follow-up visit [id number] Odilia Schroeder 1945 F Date Provider Department Center 04/30/2023 JOEGamal JEFFERSON JUAN [facility] Family History Problem Relation Age of Onset Cancer Mother Heart attack Father Cancer Father Family Status - Relation Status Age at Mother Father Level of Service:38616 [place] OFFICE/OUTPATIENT ESTABLISHED MOD MDM 30-39 MIN Normal [facility] Office Visiton 04-25-2023 Follow-up visit [id number] Odilia Schroeder N 1945 F Date Provider Department Center 04/25/2023 120JEFFERSON OLSON [facility] Family History Problem Relation Age of Onset Cancer Mother Heart attack Father Cancer Father Family Status - Relation Status Age at Mother Father Level of Service:11421 [place] OFFICE/OUTPATIENT ESTABLISHED MOD MDM 30-39 MIN Normal [facility] Office Visiton 03-28-2023 Follow-up visit [id number] Odilia Schroeder N 1945 F Date Provider Department Center 03/28/2023 [id number] NDIAYE LINH [facility] Family History Problem Relation Age of Onset Cancer Mother Heart attack Father Cancer Father Family Status - Relation Status Age at Mother Father Level of Service:58712 [place] OFFICE/OUTPATIENT ESTABLISHED MOD MDM 30-39 MIN Normal [facility] Office Visiton 10-23-2022 Follow-up visit [id number] Odilia Schroeder N 1945 F Date Provider Department Center 10/23/2022 BEE MARIN [facility] Family History Problem Relation Age of Onset Cancer Mother Heart attack Father Cancer Father Family Status - Relation Status Age at Mother Father Level of Service:02729 [place] OFFICE/OUTPATIENT ESTABLISHED LOW MDM 20-29 MIN Normal [facility] Covid-19 PCR ([facility])on 03-17 SARS-CoV-2 (COVID-19) RNA EULA+probe Ql (Unsp spec) Detected Critically abnormal NOT DETECTED [facility] Comment on above: Result Comment: This test is not yet approved or cleared by the [place] FDA. When there are no FDA-approved or cleared tests available, and other criteria are met, FDA can make tests available under an emergency access mechanism called an Emergency Use Authorization (EUA). The EUA for this test is supported by the [place] of Health and Human Service's (HHS's) declaration that circumstances exist to justify the emergency use of in vitro diagnostics for the detection and/or diagnosis of the virus that causes COVID-19. This EUA will remain in effect (meaning this test can be used) for the duration of the COVID-19 declaration justifying emergency of IVDs, unless it is terminated or revoked by FDA (after which the test may no longer be used). Performed By: #### C MP #### [facility] [address] [address] [address] Kay Singh CBC COMPLETE BLOOD COUNTon 02-23-2022 Erythrocyte distribution width (RBC) [Ratio] 12.1 % Normal 11.5-15.0 [facility] Comment on above: Order Comment: No: D o not add to previous draw Performed By: #### 0 0071 #### [facility] [address] Hematocrit (Bld) [Volume fraction] 31.6 % Low 36.0-45.0 [facility] Comment on above: Order Comment: No: D o not add to previous draw Performed By: #### 0 0071 #### [facility] [address] [facility] [place] [address], [facility] Hemoglobin (Bld) [Mass/Vol] 10.8 g/dL Low 12.0-15.0 [facility] Comment on above: Order Comment: No: D o not add to previous draw Performed By: #### 0 0071 #### [facility] [address] [place] [id number], [facility] MCH (RBC) [Entitic mass] 32.8 pg Normal 27.0-33.0 [facility] Comment on above: Order Comment: No: D o not add to previous draw Performed By: #### 0 0071 #### [facility] [address] [place] [id number], [facility] MCHC (RBC) [Mass/Vol] 34.2 g/dL Normal 32.0-35.0 [facility] Comment on above: Order Comment: No: D o not add to previous draw Performed By: #### 0 0071 #### [facility] [address] [place] [address], [facility] MCV (RBC) [Entitic vol] 96.0 fL Normal 82.0-98.0 [facility] Comment on above: Order Comment: No: D o not add to previous draw Performed By: #### 0 0071 #### [facility] [address] [place] [address], [facility] Nucleated RBC/100 WBC (Bld) [Ratio] 0 % Normal 0-0 [facility] Comment on above: Order Comment: No: D o not add to previous draw Performed By: #### 0 0071 #### [facility] [address] [facility] [place] [place] [address], [facility] PLAT CNT 160 10*3/uL Normal 150-400 [facility] Comment on above: Order Comment: No: D o not add to previous draw Performed By: #### 0 0071 #### [facility] [address] [facility] [place] [place] [address], [facility] RBC (Bld) [#/Vol] 3.29 10*6/uL Low 3.80-5.[address] [facility] Comment on above: Order Comment: No: D o not add to previous draw Performed By: #### 0 0071 #### [facility] [address] [facility] [place] [place] [address], [facility] WBC (Bld) [#/Vol] 7.19 10*3/uL Normal 4.00-10.[address] [facility] Comment on above: Order Comment: No: D o not add to previous draw Performed By: #### 0 0071 #### [facility] [address] [facility]. [address] *MRSA/MSSA DNA NASALon 02-22 *MRSA/MSSA DNA NASAL Clinical Report: (D) Specimen: NASAL SWAB Collected: 02/22/2022 09:45 Status: Final Last Updated: 02/22/2022 12:59 MSSA DNA (Final) Methicillin Susceptible Staphylococcus aureus DNA Detected MRSA DNA (Final) Negative Normal [facility] Comment on above: Performed By: #### 3 [id number] #### [facility] [address] [facility]. [address] Cardiovascular Lab Reporton 02-22-2022 Cardiovascular Lab Report [facility] Patient Name: Odilia Schroeder [facility] MR #: [id number] Physician: Bee Lewis of [facility] Service Date: 02/22/2022 Division of Birthdate: 1945 Cardiology Room #: CC Adult Cardiovascular Services [facility] [address] [facility]. [place] [address] Cardiovascular Laboratory Report INDICATION: The patient is a 76-year-old woman with history of paroxysmal atrial fibrillation, with a CHADS2-VASc score of 6, due to age, female gender, hypertension, and prior TIA. She has history of significant blood loss anemia, with no clear site of bleeding identified with investigations. She also has history of falls and unsteady gait. She was offered the Watchman procedure as an alternative to long-term anticoagulation, and had shared decision making with several physicians including most recently, Dr. Argelia Rodas from Cardiology. She is brought today for the procedure. PROCEDURES: 1. Successful left atrial appendage closure using a 27 mm Watchman FLX device deployed under fluoroscopic and transesophageal echocardiographic guidance. 2. Left atrial appendage angiogram. 3. Transseptal puncture performed under fluoroscopic and transesophageal echocardiographic guidance. 4. Preclosure in the right common femoral vein. 5. Access in the right common femoral vein under ultrasound guidance. METHODS: Procedure was explained to the patient with risks and benefits. She signed informed consent. She was brought to medical lab specialist in a fasting state. The right groin area was prepped and draped in usual fashion. Micropuncture technique and ultrasound guidance were used for access in the right common femoral vein. A 6-Dominican x 11 cm sheath was placed. A 3000 units of heparin were administered intravenously over a wire. The access sheath was exchanged to the SL1 transseptal sheath, which was advanced to the left superior vena cava. A BRK-1 needle was then advanced and transseptal puncture in a posterior and inferior position in the atrial septum was performed using echocardiographic and fluoroscopic guidance. The sheath was advanced to the left atrium. Additional heparin was given and therapeutic ACT confirmed during the rest of the procedure. Then, using an exchange length Amplatz Super Stiff wire, the transseptal sheath was exchanged to a 14-Dominican Watchman anterior curve sheath. A pigtail catheter angled 6-Dominican was advanced, and used to select the left atrial appendage. Left atrial appendage angiography was performed and in the right anterior oblique with caudal angulation view. Based on the transesophageal echocardiogram, which was performed by Dr. Argelia Rodas (see his dictation for details), the maximum width of the appendage was 19.5 mm and the depth was 20 mm. The appendage had a very large anterior chicken wing configuration. Angiography of the appendage was performed, and with measurement by fluoroscopy, the width was around the values we were getting by transesophageal echocardiography. At this time, because of the anterior chicken wing configuration, we decided to proceed with a 31 mm Watchman FLX device, which was prepped using standard techniques. This was advanced and attempts at deployment were performed multiple times. However, the device would not sit in a proper way across the ostium of the appendage, and would either come out or be too deep inside the appendage. The device was retracted, and we went for a 27 mm Watchman FLX device. This was prepped using standard techniques. Again, repeated deployments were attempted without ability to obtain adequate position of the device in the appendage from the ostium into the appendage. Therefore, this device was recaptured, and we decided to exchange the sheath to the Watchman double curve sheath, which was performed using an exchange length Amplatz Super Stiff wire. An angled pigtail catheter was used to select the appendage again. The sheath was advanced into the appendage, and we went with a 27 mm Watchman FLX device. This was a new device that was prepped according to standard techniques. The device was then advanced and deployed using standard techniques in the appendage. Few deployment attempts were performed, and echocardiography was showing that the device still did not sit right at the ostium either too deep or too much outside of the appendage. A final recapture and deployment were performed, and this attempt showed that the device appeared to be in the optimal position. A tug test was performed, which showed the device to be stable. Angiography was performed in the right anterior oblique with caudal angulation, and then with the right anterior oblique with cranial angulation views showing the device sitting right at the ostium of the appendage, with no contrast passage around the device, and adequate (more content not included)... Normal [facility] TYPE AND SCREENon 02-22-2022 ABO INTERPRETATION O [facility] Comment on above: Performed By: #### 6 [id number] #### [facility] [address] [facility] [place] [address], [facility] RH INTERPRETATION Negative Normal [facility] Comment on above: Performed By: #### 6 2586 #### [facility] [address] [place] [address], [facility]on SARS-CoV-2 (COVID-19) RNA EULA+probe Ql (Unsp spec) Not detected Normal NOT DETECTED [facility] Comment on above: Result Comment: This test is not yet approved or cleared by the [place] FDA. When there are no FDA-approved or cleared tests available, and other criteria are met, FDA can make tests available under an emergency access mechanism called an Emergency Use Authorization (EUA). The EUA for this test is supported by the [place] of Health and Human Service's (HHS's) declaration that circumstances exist to justify the emergency use of in vitro diagnostics for the detection and/or diagnosis of the virus that causes COVID-19. This EUA will remain in effect (meaning this test can be used) for the duration of the COVID-19 declaration justifying emergency of IVDs, unless it is terminated or revoked by FDA (after which the test may no longer be used). When diagnostic testing is negative, the possibility of a false negative should be considered in the context of a patient's recent exposures and the presence of clinical signs and symptoms consistent with SARS-CoV-2. Performed By: #### C VDTBH #### [facility] [address] [address] [address] Kay Singh BASIC METABOLIC PANELon 07 Calcium [Mass/Vol] 9.2 mg/dL Normal 8.6-10.3 [facility] Comment on above: Performed By: #### 0 0071 #### [facility] [address] [place] [address], [place] Chloride [Moles/Vol] 102 mmol/L Normal 98-107 [facility] Comment on above: Performed By: #### 0 0071 #### [facility] [address] [place] [address], [place] CO2 [Moles/Vol] 27 mmol/L Normal 21-31 [facility] Comment on above: Performed By: #### 0 0071 #### [facility] [address] [place] [address], [place] Creatinine [Mass/Vol] 1.38 mg/dL High 0.60-1.20 [facility] Comment on above: Performed By: #### 0 0071 #### [facility] [address] [place] [address], [place] eGFR- 45 ml/min/1.73sq m Abnormal >60 [facility] Comment on above: Result Comment: Calc ulation may not be valid for patients over 70 years Performed By: #### 0 0071 #### [facility] [address] [place] [address], [place] eGFR- non- 37 ml/min/1.73sq m Abnormal >60 [facility] Comment on above: Result Comment: Calc ulation may not be valid for patients over 70 years Performed By: #### 0 0071 #### [facility] [address] [place] [address], [facility] Glucose [Mass/Vol] 102 mg/dL High 70-100 [facility] Comment on above: Performed By: #### 0 0071 #### [facility] [address] [place] [address], [facility] Potassium [Moles/Vol] 3.3 mmol/L Low 3.5-5.1 [facility] Comment on above: Performed By: #### 0 0071 #### [facility] [address] [place] [address], [facility] Sodium [Moles/Vol] 139 mmol/L Normal 136-145 [facility] Comment on above: Performed By: #### 0 0071 #### [facility] [address] [place] [address], [facility] Urea nitrogen [Mass/Vol] 16 mg/dL Normal 7-25 [facility] Comment on above: Performed By: #### 0 0071 #### [facility] [address] [place] [address], [facility] CBC COMPLETE BLOOD COUNTon - Erythrocyte distribution width (RBC) [Ratio] 12.3 % Normal 11.5-15.0 [facility] Comment on above: Performed By: #### 5 0608 #### [facility] [address] [place] [address], [facility] Hematocrit (Bld) [Volume fraction] 37.8 % Normal 36.0-45.0 [facility] Comment on above: Performed By: #### 5 0608 #### [facility] [address] [place] [address], [facility] Hemoglobin (Bld) [Mass/Vol] 13.3 g/dL Normal 12.0-15.0 [facility] Comment on above: Performed By: #### 5 0608 #### [facility] [address] [place], [place] [address] [place] [address] MCH (RBC) [Entitic mass] 32.6 pg Normal 27.0-33.0 [facility] Comment on above: Performed By: #### 5 0608 #### [facility] [address] [facility]. [address] MCHC (RBC) [Mass/Vol] 35.2 g/dL High 32.0-35.0 [facility] Comment on above: Performed By: #### 5 0608 #### [facility] [address] MCV (RBC) [Entitic vol] 92.6 fL Normal 82.0-98.0 [facility] Comment on above: Performed By: #### 5 [id number] #### [facility] [address] Nucleated RBC/100 WBC (Bld) [Ratio] 0 % Normal 0-0 [facility] Comment on above: Performed By: #### 5 0608 #### [facility] [address] PLAT CNT 187 10*3/uL Normal 150-400 [facility] Comment on above: Performed By: #### 5 0608 #### [facility] [address] RBC (Bld) [#/Vol] 4.08 10*6/uL Normal 3.80-5.[address] [facility] Comment on above: Performed By: #### 5 0608 #### [facility] [address] WBC (Bld) [#/Vol] 7.62 10*3/uL Normal 4.00-10.[address] [facility] Comment on above: Performed By: #### 5 0608 #### [facility] [address] Cardiovascular Lab Reporton 01-25-2022 Cardiovascular Lab Report [facility] Patient Name: Odilia Schroeder [facility] MR #: [id number] Physician: Bee Robles M.D. Medicine Service Date: 01/25/2022 Division of Birthdate: 1945 Cardiology Room #: [facility] Cardiovascular Services [address] [place] [address] Cardiovascular Laboratory Report INDICATION: Mitral regurgitation. PROCEDURES: 1. Right heart catheterization. 2. Access into the right internal jugular vein under ultrasound guidance. METHODS: Procedure was explained to the patient with risks and benefits. She signed informed consent. She was brought to medical lab specialist in a fasting state. The right neck area was prepped and draped in usual fashion. Micropuncture technique and ultrasound guidance were used for access in the right internal jugular vein. A 7-Dominican x 11 cm sheath was placed. A 7-Dominican Morelos catheter was used for right heart catheterization and measurement of pressures and calculation of cardiac output using the estimated Jeff method. Morelos catheter was removed. Access sheath was removed. Manual compression applied for hemostasis. She will be observed for 1 hour and then discharged to home. TOTAL SEDATION TIME: 0 minutes. TOTAL CONTRAST VOLUME: 0 mL. TOTAL FLUORO TIME: 1.46 minutes. TOTAL AIR KERMA: 70 mGy. HEMODYNAMICS: 1. RA 2. 2. RV 33/2, 6. 3. PA 25/7, mean 15. 4. Pulmonary capillary wedge pressure 5. 5. Blood pressure 112/56, mean 79. 6. Cardiac output 8.59. 7. Cardiac index 4.9. 8. PA sat 78%. 9. AO sat 96%. 10. SVC sat 79%. 11. IVC sat 81%. SUMMARY OF THE FINDINGS: 1. Normal filling pressures. 2. Normal pulmonary arterial pressures. 3. Mildly increased cardiac output and cardiac index. 4. No evidence of intracardiac shunt. RECOMMENDATIONS: 1. Continue current medical therapy. 2. The patient will proceed with evaluation for the Watchman procedure. The above study is not consistent with any significant mitral regurgitation. Electronically Signed by: Bee Guevara M.D. 01/29/2022 08:21 P Bee Guevara M.D. Date Dict: 01/25/2022/04:11 P/Bee Guevara M.D. Date Trans: 01/25/2022 08:47 P/vincento [id number] cc: Zaki Flanagan D.O. [address] [place] [id number] Normal [facility] Covid-19 PCR (CVDTBH)on 01-13 SARS-CoV-2 (COVID-19) RNA EULA+probe Ql (Unsp spec) Not detected Normal NOT DETECTED [facility] Comment on above: Result Comment: This test is not yet approved or cleared by the [place] FDA. When there are no FDA-approved or cleared tests available, and other criteria are met, FDA can make tests available under an emergency access mechanism called an Emergency Use Authorization (EUA). The EUA for this test is supported by the [place]n Tester of Health and Human Service's (HHS's) declaration that circumstances exist to justify the emergency use of in vitro diagnostics for the detection and/or diagnosis of the virus that causes COVID-19. This EUA will remain in effect (meaning this test can be used) for the duration of the COVID-19 declaration justifying emergency of IVDs, unless it is terminated or revoked by FDA (after which the test may no longer be used). When diagnostic testing is negative, the possibility of a false negative should be considered in the context of a patient's recent exposures and the presence of clinical signs and symptoms consistent with SARS-CoV-2. Performed By: #### C VDTBH #### [facility] [address] [place] [address] Dr. Kay Singh FREE T4on 01-23-2022 Free T4 [Mass/Vol] 1.10 ng/dL Normal 0.76-1.46 [facility] Comment on above: Performed By: #### C MP #### [facility] [address] [place] [address] Dr. Kay Singh TSHon 01-23-2022 TSH 1.794 uIU/mL Normal 0.358-3.740 [facility] Comment on above: Performed By: #### T #### [facility] [address] [place] [address] Dr. Kay Singh ECHOCARDIO M/2D COMPLETEon 0 12-23-2021 ECHOCARDIO M/2D COMPLETE Patient: ODILIA SCHROEDER Exam Date: 12/23/2021 : 1945 Gender:F Ordering : JOSE M CABRERA Admission #: [id number] Family : Order #: [id number] CLICK HERE TO VIEW EXAM ECHOCARDIOGRAM REPORT PROCEDURE: CARDIO PULMONARY ECHOCARDIO M/2D COMP INDICATIONS: Mitral valve regurgitation, hypertension COMPARISON: None. DESCRIPTION: COMPLETE ECHOCARDIOGRAM Real-time transthoracic echocardiography with 2D, M-mode, spectral and color flow Doppler performed. QUALITY: Technical quality was adequate. LEFT VENTRICLE: Normal chamber size. Thickened septal wall. Abnormal septal motion likely related to bundle branch block. Left ventricular systolic function is normal. LV EF: Normal left ventricular ejection fraction, (55%). DIASTOLIC: Grade I diastolic dysfunction. ATRIAL SEPTUM: Visually appears intact. LEFT ATRIUM: Mildly dilated. RIGHT ATRIUM: Normal chamber size. RIGHT VENTRICLE: Normal chamber size. Normal right ventricular systolic function. TRICUSPID VALVE: Normal mobility and thickness. No stenosis with mild regurgitation. No evidence of pulmonary hypertension. RVSP 21 mmHg MITRAL VALVE: Normal mobility and thickness. No evidence of mitral valve stenosis. Mild mitral annular calcification. Mild to moderate mitral regurgitation. AORTIC VALVE: Normal trileaflet appearance. No visible sclerosis. Normal leaflet mobility. No evidence of aortic valve stenosis. No aortic regurgitation. AORTIC ROOT: Normal diameter and appearance. PULMONIC VALVE: Not well visualized. No stenosis. No regurgitation. PERICARDIUM: No evidence of pericardial effusion. IVC: Collapses with inspirations. PLEURA: CONCLUSION: 1. Normal left ventricular systolic function. LVEF is 55%. 2. Normal right ventricular systolic function. 3. Mild diastolic dysfunction. 4. Mild to moderate mitral regurgitation. 5. Mild tricuspid regurgitation. 6. Normal right-sided pressures. Adult Echocardiography Procedure Report Left Ventricle LVEDD (3.7 - 5.6 cm): 3.46 cm LVESD (2.2 - 4.0 cm): 2.56 cm LVIVS thickness (0.6 - 1.2 cm): 1.55 cm LVPW thickness (0.5 - 1.0 cm): 1.21 cm e': 5.92 cm/s E - e': 9.70 LVOT Area (cm2): 3.14 cm2 LVOT Diameter 2.00 cm Left Ventricular Ejection Fraction: 55 % Left Atrium LA Volume Index (2D A2C): 27.60 ml/m2 Left Atrium Systolic Dimension: 2.70 cm Left Atrium Systolic Area(A2C): 17.60 cm2 Left Atrium Systolic Area(A4C): 15.50 cm2 Left Atrium Systolic Volume(A2C): 65600 mm3 Left Atrium Systolic Volume(A4C): 50013 mm3 Mitral Valve MV E to A Ratio: 0.60 Mitral Valve A-Wave Peak Velocity: 92.80 cm/s Mitral Valve E-Wave Peak Velocity: 57.30 cm/s Deceleration Time: 396 ms Right Ventricle Aorta AO Root Diam: 3.30 cm Aortic Valve AoV Area (Peak Khari): 2.22 cm2 Peak Velocity(Antegrade Flow): 113.00 cm/s Peak Gradient(Antegrade Flow): 5 mm[Hg] Tricuspid Valve Pulmonic Valve Peak Velocity: 64.00 cm/s Peak Gradient: 2 mm[Hg] Right Atrium Dictated by: Bee Guevara M.D. on 12/23/2021 at 15:13 Approved by: Bee Guevara M.D. on 12/23/2021 at 15:18 Normal [place] PROF 14(COMP METB)on 022 Albumin [Mass/Vol] 3.4 g/dL Normal 3.4-5.0 [facility] Comment on above: Performed By: #### C MP #### [facility] [address] [place] [address] [address] Kay Singh Albumin/Globulin [Mass ratio] 0.9 {ratio} Normal [place] Comment on above: Performed By: #### C MP #### [facility] [address] [place], [place] [address] Dr. Kay Singh ALP [Catalytic activity/Vol] 42 U/L Critically low 46-116 [place] Comment on above: Performed By: #### C MP #### [facility] [address] [place] [address] [address] Kay Singh ALT [Catalytic activity/Vol] 15 U/L Normal 14-59 [place] Comment on above: Performed By: #### C MP #### [facility] [address] [place] [address] [address] Kay Singh Anion gap [Moles/Vol] 8.9 mmol/L Normal [place] Comment on above: Performed By: #### C MP #### [facility] [address] [place] [address] [address] Kay Singh AST [Catalytic activity/Vol] 16 U/L Normal 15-37 [place] Comment on above: Performed By: #### C MP #### [facility] [address] [place] [address] Dr. Kay Singh Bilirubin [Mass/Vol] 0.5 mg/dL Normal 0.2-1.0 [place] Comment on above: Performed By: #### C MP #### [facility] [address] [place] [address] Dr. Kay Singh Calcium [Mass/Vol] 8.8 mg/dL Normal 8.5-10.1 [facility] Comment on above: Performed By: #### C MP #### [facility] [address] [place] [address] Dr. Kay Singh Chloride [Moles/Vol] 102 mmol/L Normal 98-107 [facility] Comment on above: Performed By: #### C MP #### [facility] [address] [place] [address] [address] Kay Singh CO2 [Moles/Vol] 31.3 mmol/L Normal 21.0-32.[address] [facility] Comment on above: Performed By: #### C MP #### [facility] [address] [place] [address] Dr. Kay Singh Creatinine [Mass/Vol] 1.30 mg/dL Critically high 0.55-1.02 [place] Comment on above: Performed By: #### C MP #### [facility] [address] [place] [address] [address] Kay Singh EGFR-AF VINCENTIAN 48 mL/min/1.73m2 Critically low >=60 [place] Comment on above: Performed By: #### C MP #### [facility] [address] [place] [address] [address] Kay Singh EGFR-NON AF VINCENTIAN 40 mL/min/1.73m2 Critically low >=60 [facility] Comment on above: Performed By: #### C MP #### [facility] [address] [place] [address] [address] Kay Singh Globulin (S) [Mass/Vol] 3.8 g/dL Normal [place] Comment on above: Performed By: #### C MP #### [facility] [address] [place] [address] [address] Kay Singh Glucose [Mass/Vol] 94 mg/dL Normal 74-106 [facility] Comment on above: Performed By: #### C MP #### [facility] [address] [place] [address] [address] Kay Singh Potassium [Moles/Vol] 4.2 mmol/L Normal 3.5-5.1 [place] Comment on above: Performed By: #### C MP #### [facility] [address] [place] [address] [address] Kay Singh Protein [Mass/Vol] 7.2 g/dL Normal 6.4-8.2 [facility] Comment on above: Performed By: #### C MP #### [facility] [address] [place] [address] [address] Kay Singh Sodium [Moles/Vol] 138 mmol/L Normal 136-145 [facility] Comment on above: Performed By: #### C MP #### [facility] [address] [place] [address] [address] Kay Singh Urea nitrogen [Mass/Vol] 17.0 mg/dL Normal 7.0-18.0 [facility] Comment on above: Performed By: #### C MP #### [facility] [address] [place] [address] [address] Kay Singh Urea nitrogen/Creatinine [Mass ratio] 13.1 mg/mg Normal [place] Comment on above: Performed By: #### C MP #### [facility] [address] [place] [address] [address] Kay Singh *MRSA/MSSA DNA NASALon 12-14 *MRSA/MSSA DNA NASAL Clinical Report: (D) Specimen: NASAL SWAB Collected: 12/14/2021 13:00 Status: Final Last Updated: 12/15/2021 14:36 MSSA DNA (Final) Methicillin Susceptible Staphylococcus aureus DNA Detected MRSA DNA (Final) Negative Normal [facility] Comment on above: Performed By: #### 3 [id number] #### [facility] [address] [place] [address], [facility] BASIC METABOLIC PANELon Calcium [Mass/Vol] 8.9 mg/dL Normal 8.6-10.3 [facility] Comment on above: Performed By: #### 0 0071 #### [facility] [address] [place] [address], [place] Chloride [Moles/Vol] 101 mmol/L Normal 98-107 [facility] Comment on above: Performed By: #### 0 0071 #### [facility] [address] [place] [address], [place] CO2 [Moles/Vol] 26 mmol/L Normal 21-31 [facility] Comment on above: Performed By: #### 0 0071 #### [facility] [address] [place] [address], [place] Creatinine [Mass/Vol] 1.18 mg/dL Normal 0.60-1.20 [facility] Comment on above: Performed By: #### 0 0071 #### [facility] [address] [place] [address], [place] eGFR- 53 ml/min/1.73sq m Abnormal >60 [facility] Comment on above: Result Comment: Calc ulation may not be valid for patients over 70 years Performed By: #### 0 0071 #### [facility] [address] [place] [address], [place] eGFR- non- 45 ml/min/1.73sq m Abnormal >60 [facility] Comment on above: Result Comment: Calc ulation may not be valid for patients over 70 years Performed By: #### 0 0071 #### [facility] [address] [place] [address], [place] Glucose [Mass/Vol] 95 mg/dL Normal 70-100 [facility] Comment on above: Performed By: #### 0 0071 #### [facility] [address] [place] [address], [place] Potassium [Moles/Vol] 4.5 mmol/L Normal 3.5-5.1 [facility] Comment on above: Performed By: #### 0 0071 #### [facility] [address] [place] [address], [place] Sodium [Moles/Vol] 133 mmol/L Low 136-145 [facility] Comment on above: Performed By: #### 0 0071 #### [facility] [address] [place] [address], [place] Urea nitrogen [Mass/Vol] 17 mg/dL Normal 7-25 [facility] Comment on above: Performed By: #### 0 0071 #### [facility] [address] [place] [address], [place] CBC COMPLETE BLOOD COUNTon 0 12-14-2021 Erythrocyte distribution width (RBC) [Ratio] 13.0 % Normal 11.5-15.0 [facility] Comment on above: Performed By: #### 0 0071 #### [facility] [address] [place] [address], [place] Hematocrit (Bld) [Volume fraction] 37.7 % Normal 36.0-45.0 [facility] Comment on above: Performed By: #### 0 0071 #### [facility] [address] [place] [address], [facility] Hemoglobin (Bld) [Mass/Vol] 13.2 g/dL Normal 12.0-15.0 [facility] Comment on above: Performed By: #### 0 0071 #### [facility] [address] [facility] [address] MCH (RBC) [Entitic mass] 32.9 pg Normal 27.0-33.0 [facility] Comment on above: Performed By: #### 0 0071 #### [facility] [address] MCHC (RBC) [Mass/Vol] 35.0 g/dL Normal 32.0-35.0 [facility] Comment on above: Performed By: #### 0 0071 #### [facility] [address] [facility] [place] [address], [facility] MCV (RBC) [Entitic vol] 94.0 fL Normal 82.0-98.0 [facility] Comment on above: Performed By: #### 0 0071 #### [facility] [address] [facility] [address] Nucleated RBC/100 WBC (Bld) [Ratio] 0 % Normal 0-0 [facility] Comment on above: Performed By: #### 0 0071 #### [facility] [address] [facility] [address], [facility] PLAT CNT 175 10*3/uL Normal 150-400 [facility] Comment on above: Performed By: #### 0 0071 #### [facility] [address] [place] [address], [facility] RBC (Bld) [#/Vol] 4.01 10*6/uL Normal 3.80-5.[address] [facility] Comment on above: Performed By: #### 0 0071 #### [address] WBC (Bld) [#/Vol] 6.40 10*3/uL Normal 4.00-10.[address] [facility] Comment on above: Performed By: #### 0 0071 #### [address] CHEST AND LATERALon 12-15-19 CHEST AND LATERAL [facility] Department of Radiology [address] [place] [id number] Patient Name: ODILIA SCHROEDER : 1945 Sex: F Age: Race: White Pt. Location: OUTP Patient Status: O Ordered Date: 12/14/2021 2:55:00 PM Completed Date: 12/14/2021 02:59 PM Requesting Provider: BEE GUEVARA V Attending Provider: BEE GUEVARA V Report Copy To: Signs & Symptoms: post cath procedure History: Comments: post cath procedure Exam: CHEST AND LATERAL CHEST AND LATERAL 12/14/2021 2:59 PM CLINICAL INDICATIONS: post cath procedure chest pain TECHNOLOGIST COMMENTS: Cardiac size evaluation; Pre watchmen procedure. QUESTION FOR THE RADIOLOGIST: post cath procedure PROTOCOL: AP(PA) and Lateral views were obtained. COMPARISON: 08/05/2019 FINDINGS: No focal airspace disease or infiltrate. No congestive features or pleural effusion. The degree of kyphosis appears unchanged. Degenerative changes along the lower thoracic spine are noted. No pneumothorax or acute process IMPRESSION: Stable exam Electronically signed: Nereida Vasquez. Transcribed by: [email or web address], User Resident: Electronically Signed by: NEREIDA VASQUEZ @ 12/14/2021 03:29 PM Normal [facility] Comment on above: Order Comment: post cath procedure POC SARS COV2 IDon SARS-CoV-2 (COVID-19) RNA EULA+probe Ql (Unsp spec) Negative Normal NEGATIVE [facility] Comment on above: Result Comment: ID N OW COVID-19 assay performed on the ID NOW Instrument is a rapid molecular in vitro diagnostic test utilizing an isothermal nucleic acid amplification technology intended for the qualitative detection of nucleic acid from the SARS-CoV-2 virus in direct anterior nasal (nasal), nasopharyngeal or throat swabs from individuals who are suspected of COVID-19 by their healthcare provider within the first seven days of the onset of symptoms. Testing is limited to laboratories certified under the Clinical Laboratory Improvement Amendments of 1988 (CLIA), 42 U.S.C. ???263a,that meet the requirements to perform high, moderate, or waived complexity tests. The ID NOW COVID-19 assay is also authorized for use at the Point of Care (POC), i.e., in patient care settings operating under a CLIA Certificate of Waiver, Certificate of Compliance, or Certificate of Accreditation. Performed By: #### 0 [id number] #### [facility] [address] [facility]. [address] Covid-19 PCR (CVDTB)on 11-15 SARS-CoV-2 (COVID-19) RNA EULA+probe Ql (Unsp spec) Not detected Normal NOT DETECTED [facility] Comment on above: Result Comment: This test is not yet approved or cleared by the [place] FDA. When there are no FDA-approved or cleared tests available, and other criteria are met, FDA can make tests available under an emergency access mechanism called an Emergency Use Authorization (EUA). The EUA for this test is supported by the [place] of Health and Human Service's (HHS's) declaration that circumstances exist to justify the emergency use of in vitro diagnostics for the detection and/or diagnosis of the virus that causes COVID-19. This EUA will remain in effect (meaning this test can be used) for the duration of the COVID-19 declaration justifying emergency of IVDs, unless it is terminated or revoked by FDA (after which the test may no longer be used). When diagnostic testing is negative, the possibility of a false negative should be considered in the context of a patient's recent exposures and the presence of clinical signs and symptoms consistent with SARS-CoV-2. Performed By: #### C MP #### [facility] [address] [place] [address] Dr. Kay Singh FOLATE ([facility])on Folate 7.3 ng/mL Normal >3.0 [facility] Comment on above: Result Comment: A se rum folate concentration of less than 3.1 ng/mL is considered to represent clinical deficiency. Performed By: #### C MP #### [facility] [address] [place] [address] Dr. Kay Singh VIT D 25-OH LABCORPon 2021 Vitamin D, 25-Hydroxy 62.3 ng/mL Normal 30.0-100.0 [facility] Comment on above: Result Comment: Nicky min D deficiency has been defined by the [place] of Medicine and an Endocrine Society practice guideline as a level of serum 25-OH vitamin D less than 20 ng/mL (1,2). The Endocrine Society went on to further define vitamin D insufficiency as a level between 21 and 29 ng/mL (2). 1. IOM ([place] of Medicine). 2010. Dietary reference intakes for calcium and D. [place]: The National Academies Press. 2. Jayesh MF, [place], Elizabet OWENS, et al. Evaluation, treatment, and prevention of vitamin D deficiency: an Endocrine Society clinical practice guideline. JCEM. 2010; 96(7):1911-30. Performed By: #### C MP #### [facility] [address] [place] [address] Dr. Kay Singh VITAMIN B12on 07-26-2021 Cobalamin (Vitamin B12) [Mass/Vol] 373 pg/mL Normal 232-1245 [place] Comment on above: Performed By: #### V B12LC #### [facility] [address] [place] [address] Dr. Kay Singh CBC AUTO DIFFon 07-25-2021 BASO # 0.0 103/ul Normal 0.0-0.1 [place] Comment on above: Performed By: #### C BC #### [facility] [address] [place] [address] Dr. Kay Singh Basophils/100 WBC (Bld) 0.5 % Normal 0.2-2.0 [place] Comment on above: Performed By: #### C BC #### [facility] [address] [place] [address] Dr. Kay Singh EO # 0.7 103/ul Normal 0.0-0.7 [place] Comment on above: Performed By: #### C BC #### [facility] [address] [place] [address] Dr. Kay Singh Eosinophils/100 WBC (Bld) 8.8 % Critically high 0.9-7.0 [place] Comment on above: Performed By: #### C BC #### [facility] [address] [place] [address] Dr. Kay Singh Erythrocyte distribution width (RBC) [Ratio] 11.8 % Normal 11.0-15.0 [facility] Comment on above: Performed By: #### C BC #### [facility] [address] [place] [address] Dr. Kay Singh Hematocrit (Bld) [Volume fraction] 37.3 % Normal 36.0-48.0 [facility] Comment on above: Performed By: #### C BC #### [facility] [address] [place] [address] Dr. Kay Singh Hemoglobin (Bld) [Mass/Vol] 12.8 g/dL Normal 12.0-16.0 [facility] Comment on above: Performed By: #### C BC #### [facility] [address] [place] [address] Dr. Kay Singh IG # 0.03 10e3/ul Normal 0.00-0.03 [place] Comment on above: Performed By: #### C BC #### [facility] [address] [place] [address] Dr. Kay Singh IG % 0.4 % Normal 0.0-0.5 [place] Comment on above: Performed By: #### C BC #### [facility] [address] [place] [address] Dr. Kay Singh LYMPH # 1.6 103/ul Normal 1.2-3.8 [place] Comment on above: Performed By: #### C BC #### [facility] [address] [place] [address] Dr. Kay Singh Lymphocytes/100 WBC (Bld) 19.5 % Critically low 20.5-60.0 [place] Comment on above: Performed By: #### C BC #### [facility] [address] [place] [address] Dr. Kay Singh MANUAL DIFF REQ NO Normal [facility] Comment on above: Performed By: #### C BC #### [facility] [address] [place] [address] Dr. Kay Singh MCH (RBC) [Entitic mass] 32.1 pg Normal 26.7-34.0 [place] Comment on above: Performed By: #### C BC #### [facility] [address] [place] [address] Dr. Kay Singh MCHC (RBC) [Mass/Vol] 34.3 g/dL Normal 29.9-35.2 [place] Comment on above: Performed By: #### C BC #### [facility] [address] [place] [address] Dr. Kya Singh MCV (RBC) [Entitic vol] 93.5 fL Normal 81.0-99.0 [place] Comment on above: Performed By: #### C BC #### [facility] [address] [place] [address] Dr. Kay Singh MONO # 0.7 103/ul Normal 0.3-0.8 [place] Comment on above: Performed By: #### C BC #### [facility] [address] [address] [address] Kay Singh Monocytes/100 WBC (Bld) 8.3 % Normal 1.7-12.0 [place] Comment on above: Performed By: #### C BC #### [facility] [address] [address] [address] Kay Singh NEUT # 5.2 103/ul Normal 1.4-6.5 [place] Comment on above: Performed By: #### C BC #### [facility] [address] [place] [address] Dr. Kay Singh Neutrophils/100 WBC (Bld) 62.5 % Normal 43.0-75.0 [place] Comment on above: Performed By: #### C BC #### [facility] [address] [place] [address] Dr. Kay Singh Platelet mean volume (Bld) [Entitic vol] 10.1 fL Normal 9.5-13.5 [facility] Comment on above: Performed By: #### C BC #### [facility] [address] [place] [address] Dr. Kay Singh PLT 221 103/ul Normal 150-450 [facility] Comment on above: Performed By: #### C BC #### [facility] [address] [address] [address] Kay Singh RBC 3.99 106/ul Critically low 4.20-5.40 [facility] Comment on above: Performed By: #### C BC #### [facility] [address] [place] [address] Dr. Kay Singh WBC 8.3 103/ul Normal 4.0-11.0 [facility] Comment on above: Performed By: #### C BC #### [facility] [address] [place] [address] Dr. Kay Singh GLYCOHEMOGLOBIN A1Con 2021 ADA RECOMMENDATION ADA THERAPEUTIC TARGET 6.0 - 7.0 ACTION SUGGESTED > 7.0 Normal [place] Comment on above: Performed By: #### A 1C #### [facility] [address] [address] [address] Kay Singh Glucose [Mass/Vol] 108 mg/dL Normal [facility] Comment on above: Performed By: #### A 1C #### [facility] [address] [address] [address] Kay Singh HbA1c (Bld) [Mass fraction] 5.4 % Normal <=6.0 [place] Comment on above: Performed By: #### A 1C #### [facility] [address] [place] [address] Dr. Kay Singh LIPID PROFILEon 07-25-2021 CHOL-HDL RATIO NORM SEE BELOW Normal [facility] Comment on above: Result Comment: 3.3 - 4.4 LOW RISK 4.4 - 7.1 AVERAGE RISK 7.1 - 11.0 MODERATE RISK >11.0 HIGH RISK Performed By: #### T SH, LIPID, CMP #### [facility] [address] [address] [address] Kay Singh Cholesterol [Mass/Vol] 139 mg/dL Normal <=200 [place] Comment on above: Performed By: #### T SH, LIPID, CMP #### [facility] [address] [address] [address] Kay Singh Cholesterol in HDL [Mass/Vol] 52 mg/dL Normal [place] Comment on above: Performed By: #### T SH, LIPID, CMP #### [facility] [address] [address] [address] Kay Singh Cholesterol in LDL [Mass/Vol] 69.8 mg/dL Normal [place] Comment on above: Performed By: #### T SH, LIPID, CMP #### [facility] [address] [address] [address] Kay Singh Cholesterol.total/C holesterol in HDL [Mass ratio] 2.7 {ratio} Normal [place] Comment on above: Performed By: #### T SH, LIPID, CMP #### [facility] [address] [address] [address] Kay Singh HDL NORMAL > or = 60 mg/dl - LO W CARDIOVASCULAR RISK <40 mg/dl - HIGH CARDIOVASCULAR RISK Normal [facility] Comment on above: Performed By: #### T BARB, LIPID, CMP #### [facility] [address] [address] [address] Kay Singh LDL CALC NORMAL SEE BELOW Normal [facility] Comment on above: Result Comment: <100 mg/dl OPTIMAL 100 - 129 mg/dl NEAR OR ABOVE OPTIMAL 130 - 159 mg/dl BORDERLINE HIGH 160 - 189 mg/dl HIGH >190 mg/dl VERY HIGH Performed By: #### T SH, LIPID, CMP #### [facility] [address] [address] [address] Kay Singh Triglyceride [Mass/Vol] 86 mg/dL Normal <=150 [facility] Comment on above: Performed By: #### T BARB, LIPID, CMP #### [facility] [address] [address] [address] Kay Singh VLDL CALC 17.2 mg/dL Normal [facility] Comment on above: Performed By: #### T BARB, LIPID, CMP #### [facility] [address] [address] [address] Kay Singh MG MAMM SCREEN 3D TRINITY CADon 07-25-2021 MG MAMM SCREEN 3D TRINITY CAD Patient: ODILIA SCHROEDER Exam Date: 07/25/2021 : 1945 Gender:F Ordering : DR ZAKI FLANAGAN DSalazar Admission #: [id number] Family : Order #: [id number] CLICK HERE TO VIEW EXAM RADIOLOGY REPORT PROCEDURE: MAMMOGRAM SCREENING 3D BILATERAL CAD COMPARISON: MG MAMM TRINITY SCRN W CAD DIG, 09/07/2015. MG MAMM SCREEN TRINITY W CAD, 07/24/2019. INDICATIONS: Screening mammography Calculator Name NCI Breast Cancer Risk Assessment Tool 5 Year Breast Cancer Risk Not Reported. Lifetime Breast Cancer Risk Not Reported. Personal Breast Cancer No Personal Ovarian Cancer No Treatments None Family Cancers None LOCATION: [facility] BREAST COMPOSITION: Scattered areas fibroglandular density. FINDINGS: DIAGNOSTIC CATEGORY 2--BENIGN FINDING. NO CHANGE FROM COMPARISON. Scattered benign-appearing nodules are present. Scattered benign-appearing calcifications are present. Scattered benign-appearing lymph nodes are present. RIGHT BREAST: No significant suspicious finding. LEFT BREAST: No significant suspicious finding. RECOMMENDATIONS: ROUTINE MAMMOGRAM AND CLINICAL EVALUATION IN 12 MONTHS. PLEASE NOTE: A NORMAL MAMMOGRAM DOES NOT EXCLUDE THE POSSIBILITY OF BREAST CANCER. A CLINICALLY SUSPICIOUS PALPABLE LUMP SHOULD BE BIOPSIED. Dictated by: Merary Tirado MD on 07/25/2021 at 10:50 Approved by: Merary Tirado MD on 07/25/2021 at 11:10 Normal [place] PROF 14(COMP METB)on 022 Albumin [Mass/Vol] 3.7 g/dL Normal 3.5-5.0 [facility] Comment on above: Performed By: #### T SH, LIPID, CMP #### [facility] [address] [place] [address] Dr. Kay Singh Albumin/Globulin [Mass ratio] 1.1 {ratio} Normal [place] Comment on above: Performed By: #### T SH, LIPID, CMP #### [facility] [address] [place] [address] Dr. Kay Singh ALP [Catalytic activity/Vol] 46 U/L Normal 38-126 [place] Comment on above: Performed By: #### T SH, LIPID, CMP #### [facility] [address] [place] [address] Dr. Kay Singh ALT [Catalytic activity/Vol] 12 U/L Normal 9-52 [place] Comment on above: Performed By: #### T SH, LIPID, CMP #### [facility] [address] [place] [address] Dr. Kay Singh Anion gap [Moles/Vol] 12.1 mmol/L Normal [place] Comment on above: Performed By: #### T SH, LIPID, CMP #### [facility] [address] [place] [address] Dr. Kay Singh AST [Catalytic activity/Vol] 18 U/L Normal 14-36 [place] Comment on above: Performed By: #### T SH, LIPID, CMP #### [facility] [address] [address] [address] Kay Singh Bilirubin [Mass/Vol] 0.6 mg/dL Normal 0.2-1.3 [place] Comment on above: Performed By: #### T SH, LIPID, CMP #### [facility] [address] [address] [address] Kay Singh Calcium [Mass/Vol] 9.1 mg/dL Normal 8.4-10.2 [facility] Comment on above: Performed By: #### T SH, LIPID, CMP #### [facility] [address] [place] [address] Dr. Kay Singh Chloride [Moles/Vol] 99 mmol/L Normal 98-107 [place] Comment on above: Performed By: #### T SH, LIPID, CMP #### [facility] [address] [place] [address] Dr. Kay Singh CO2 [Moles/Vol] 29.4 mmol/L Normal 22.0-30.0 [facility] Comment on above: Performed By: #### T SH, LIPID, CMP #### [facility] [address] [address] [address] Kay Singh Creatinine [Mass/Vol] 1.39 mg/dL Critically high 0.52-1.04 [place] Comment on above: Performed By: #### T SH, LIPID, CMP #### [facility] [address] [place] [address] Dr. Kay Singh EGFR-AF VINCENTIAN 44 mL/min/1.73m2 Critically low >=60 [place] Comment on above: Performed By: #### T SH, LIPID, CMP #### [facility] [address] [place] [address] Dr. Kay Singh EGFR-NON AF VINCENTIAN 37 mL/min/1.73m2 Critically low >=60 [place] Comment on above: Performed By: #### T SH, LIPID, CMP #### [facility] [address] [address] [address] Kay Singh Globulin (S) [Mass/Vol] 3.3 g/dL Normal [place] Comment on above: Performed By: #### T BARB, LIPID, CMP #### [facility] [address] [place] [address] Dr. Kay Singh Glucose [Mass/Vol] 118 mg/dL Critically high 74-106 [facility] Comment on above: Performed By: #### T BARB, LIPID, CMP #### [facility] [address] [place] [address] Dr. Kay Singh Potassium [Moles/Vol] 3.5 mmol/L Normal 3.4-5.0 [place] Comment on above: Performed By: #### T BARB LIPID, CMP #### [facility] [address] [place] [address] Dr. Kay Singh Protein [Mass/Vol] 7.0 g/dL Normal 6.1-8.2 [facility] Comment on above: Performed By: #### T BARB LIPID, CMP #### [facility] [address] [place] [address] Dr. Kay Singh Sodium [Moles/Vol] 137 mmol/L Normal 137-145 [facility] Comment on above: Performed By: #### T BARB LIPID, CMP #### [facility] [address] [place] [address] Dr. Kay Singh Urea nitrogen [Mass/Vol] 16.0 mg/dL Normal 7.0-17.0 [place] Comment on above: Performed By: #### T BARB, LIPID, CMP #### [facility] [address] [place] [address] Dr. Kay iSngh Urea nitrogen/Creatinine [Mass ratio] 11.5 mg/mg Normal [place] Comment on above: Performed By: #### T BARB, LIPID, CMP #### [facility] [address] [place] [address] Dr. Kay Singh TSHon 07-25-2021 TSH 3.226 uIU/mL Normal 0.470-4.680 [facility] Comment on above: Performed By: #### T BARB, LIPID, CMP #### [facility] [address] [place], [place] [address] Dr. Kay Singh TSH RANGE SEE BELOW Normal [place] Comment on above: Result Comment: <0.3 4 UIU/ml HYPERTHYROID 0.34-5.60 UIU/ml EUTHYROID >5.60 UIU/ml HYPOTHYROID Performed By: #### T SH, LIPID, CMP #### [facility] [address] [place], [place] [address] Dr. Kay Singh XR DEXA BONE DENSITYon 07-25 XR DEXA BONE DENSITY EXAMINATION: XR DEXA BONE DENSITY, 07/25/2021 9:42 AM EST HISTORY: Menopause present COMPARISON: DEXA bone densitometry 07/24/2019 TECHNIQUE: Dual-energy X-ray absorptiometry (DEXA) bone density study performed for the axial skeleton. FINDINGS: SPINE ANALYSIS: Average bone mineral density is 1.593 g/cm2. T-score (standard deviation relative to young adult mean): 3.4 . -1.6% change since prior study. FOREARM ANALYSIS: Average bone mineral density is 0.501 g/cm2. T-score (standard deviation relative to young adult mean): -3.0 . -15.2% change since prior study. HIP ANALYSIS: Lowest bone mineral density is within the femoral neck, 1.025 g/cm2. T-score (standard deviation relative to young adult mean): -0.1 . -2.3% change since prior study. IMPRESSION: 1. Patient is considered osteoporotic by left forearm density, however, femur and spine place patient in normal range. World Nick Organization Classification: Osteoporosis - High Fracture Risk Electronically authenticated by: ETHEL SANDERSON Date: 2021-07-25 10:44 Normal [place] Encounters Encounter Date Encounter Type Care Provider Facility Start: 07-11-2023 End: 07-11-2023 ambulatory [facility] Start: 06-06-2023 End: 06-06-2023 ambulatory [facility] Start: 05-09-2023 End: 05-09-2023 ambulatory [facility] Start: 04-30-2023 End: 04-30-2023 ambulatory [facility] Start: 04-25-2023 End: 04-25-2023 ambulatory JEFFERSON [facility] Start: 03-28-2023 End: 03-28-2023 ambulatory KURT PALOMARESROBERTRACHNA [facility] Start: 10-23-2022 End: 10-23-2022 ambulatory BEE GUEVARA [facility] Start: 04-10-2022 End: 04-11-2022 ambulatory JOSE M CABRERA Facility:[facility] Start: 02-22-2022 End: 02-23-2022 Evaluation and management of inpatient ZAKI FLANAGAN Facility:[facility] Start: 02-20-2022 End: 02-21-2022 ambulatory JOSE M CABRERA Facility:[facility] Start: 01-25-2022 End: 01-26-2022 ambulatory BEE GUEVARA Facility:[facility] Start: 01-23-2022 End: 01-24-[address] BEE GUEVARA Facility:[facility] Start: 12-23-2021 End: 12-24-2021 ambulatory JOSE M CABRERA Facility:[facility] Start: 12-14-2021 End: 12-15-2021 ambulatory BEE GUEVARA Facility:[facility] Start: 12-12-2021 End: 12-13-[address] BEE GUEVARA Facility:[facility] Start: 07-25-2021 End: 07-26-[address] ZAKI FLANAGAN Facility:[facility] Procedures Date Procedure Procedure Detail Performing Clinician Start: 02-22-2022 Antibody screen BEE GUEVARA Comment on above: Performed By: #### 6 [id number] #### [address] Payers Date Payer Category Payer Private Health Insurance [id number] 1945 Unknown [id number] 2.16.8 [id number] 1945 Unknown [id number] 2.16.8 [id number] 1945 Unknown [id number] 2.16.8 [id number] 1945 Unknown [id number] 2.16.84 [id number] 1945 Unknown [id number] 2.16.84 [id number] 1945 Unknown [id number] 2.16.84 [id number] 1945 Unknown [id number] 2.16.84 [id number] 1945 Unknown [id number] 2.16.84 [id number] 1945 Unknown [id number] 2.16.84 [id number] 1945 Unknown [id number] 2.16.84 [id number] Clinical Notes 02-24-2022 to 07-11-2023 Note Date & Type Note Facility 07-11-2023 Note B/p currently labile 90/60 with generalized fatigue [facility] 07-11-2023 Note [facility] III- currently euvolemic if not a bit dehydrated today. Continue GDMT- Will stop entresto with elevated renal function and diarrhea, continue farxiga as long as this is affordable- she may need to stop after this script runs out, continue ASA, toprol and pravastatin Diuretic therapy- decrease lasix to 20 mg daily and may increase to 20 mg bid for 3 days as needed for fluid retention. Monitor daily weights, I&O, fluid restriction 1.5-2L/day, renal function and electrolytes- Repeat BMP in 1 week [facility] 07-11-2023 Note Currently I feel she is dehydrated, therefore again instructed her to decrease lasix to 20 mg daily. Monitor fluid status and may increase to bid for 3 days as needed for fluid overload. [facility] 07-11-2023 Note EKG today remains in A fib States anticoagulation was unaffordable and she stopped taking it, voiced understanding of risk ofr stroke yearly. Today she is agreeable to proceeding with CELINA/CV in about 2 weeks- hopefully her daughters are recovered from illness and she is feeling better herself- she will call office to schedule. [facility] 07-11-2023 Note Patient here for 1 m o follow up. Metoprolol was switched to Toprol XL at 100mg daily. Furosemide was reduced to 20mg daily, but patient states she is still taking 40mg daily. She is due for echo in Jul 2023. C/o weakness and diarrhea. Denies chest pain, palpitations, and lightheadedness. Review of Systems Constitutional: Positive for decreased appetite and malaise/fatigue. Cardiovascular: Positive for dyspnea on exertion. Musculoskeletal: Positive for muscle weakness. Gastrointestinal: Positive for diarrhea. Neurological: Positive for loss of balance and weakness. All other systems reviewed and are negative. [facility] 07-11-2023 Note [facility] CARDIOLOGY PROGR ESS NOTE HPI: Odilia Schroeder is a 78 y.o. female here for 1 month F/U for HFrEF, Persistent a fib- tachy/rich, hypotension and fatigue Patient here for 1 mo follow up. Metoprolol was switched to Toprol XL at 100mg daily. Furosemide was reduced to 20mg daily, but patient states she is still taking 40mg daily. She is due for echo in Jul 2023. C/o weakness and diarrhea. Denies chest pain, palpitations, and lightheadedness. Overall states she is rather tired and fatigued, admits diarrhea started about the time she started entresto and farxiga. States that currently both of her daughters are currently sick and in bed at home. Review of Systems Constitutional: Positive for decreased appetite and malaise/fatigue. Cardiovascular: Positive for dyspnea on exertion. Musculoskeletal: Positive for muscle weakness. Gastrointestinal: Positive for diarrhea. Neurological: Positive for loss of balance and weakness. All other systems reviewed and are negative. Visit Vitals BP 90/60 (BP Location: Left arm, Patient Position: Sitting) Pulse 71 Ht 1.575 m (5' 2 ) Wt 71.2 kg (157 lb) SpO2 99% BMI 28.72 kg/m??? Smoking Status Never BSA 1.76 m??? Allergies Allergen Reactions Diclofenac Other reaction(s): diarrhea/stomach cramping Medications: Current Outpatient Medications on File Prior to Visit Medication Sig Dispense Refill aspirin 81 mg EC tablet Take 81 mg by mouth in the morning. dapagliflozin propanediol (Farxiga) 10 mg Take 1 tablet (10 mg) by mouth in the morning. 30 tablet 11 DULoxetine (Cymbalta) [address] capsule 1 capsule 1 (one) time each day at the same time. eszopiclone (Lunesta) 1 mg tablet 1 (one) time each day at the same time. lansoprazole (Prevacid) [address] capsule TAKE 1 CAPSULE BY MOUTH ONCE DAILY before a meal 90 capsule 3 loratadine (Claritin) 10 mg tablet Take 10 mg by mouth in the morning. meclizine (Antivert) 25 mg tablet Take 25 mg by mouth if needed in the morning, at noon, and at bedtime for dizziness. metoprolol succinate XL (Toprol-XL) 100 mg 24 hr tablet Take 1 tablet (100 mg) by mouth in the morning. Do not crush or chew. 90 tablet 3 pravastatin (Pravachol) 40 mg tablet Take 1 tablet (40 mg) by mouth at bedtime. 90 tablet 3 [DISCONTINUED] furosemide (Lasix) 40 mg tablet Take 1 tablet (40 mg) by mouth once daily as directed. 90 tablet 3 [DISCONTINUED] potassium chloride CR (K-Tab) 20 mEq ER tablet Take 2 tablets (40 mEq) by mouth in the morning. Do not crush, chew, or split. 180 tablet 3 [DISCONTINUED] sacubitril-valsartan (Entresto) 24-26 mg tablet Take 1 tablet in the AM and 1/2 tablet in the PM 180 tablet 3 [DISCONTINUED] metoprolol tartrate (Lopressor) 50 mg tablet Take 50 mg by mouth in the morning and at bedtime. No current facility-administered medications on file prior to visit. Physical Exam: Constitutional: Appearance: Normal appearance. Without apparent distress, chronically ill HENT: Head: Normocephalic and atraumatic. Nose: Nose normal. Mouth/Throat: Mouth: Mucous membranes are moist. Eyes: Extraocular Movements: Extraocular movements intact. Conjunctiva/sclera: Conjunctivae normal. Neck: Vascular: No JVD. Cardiovascular: Rate and Rhythm: Irregular rate and rhythm. Pulses: Dorsalis pedis pulses are 3 on the right side and 3on the left side. Posterior tibial pulses are 3 on the right side and 3 on the left side. Heart sounds: Normal heart sounds, S1 normal and S2 normal. Pulmonary: Effort: Pulmonary effort is normal. Breath sounds: Normal breath sounds. Abdominal: General: Bowel sounds are normal. Palpations: Abdomen is soft. Musculoskeletal: General: Normal range of motion. Cervical back: Normal range of motion. Right lower leg: No edema. Left lower leg: No edema. Skin: General: Skin is warm and dry. Capillary Refill: Capillary refill takes less than 2 seconds. Neurological: General: No focal deficit present. Mental Status: She is alert and oriented to person, place, and time. Psychiatric: Mood and Affect: Mood normal. Behavior: Behavior normal. Thought Content: Thought content normal. Judgment: Judgment normal. Labs: 07/02/23 renal function elevated Labs 05/14/23: Cr 1.56, BUN 15, K 4, Na 139, eGFR 32 BUN 19, Cr 1.61- elevated- will repeat BMP in 1-2 weeks NA- 137, K + 3.5 03/28/23 BUN 17, CR 1.35- elevated but typical for her K+ 3.2 Blood testing 12/23/2021: BUN 17, creatinine 1.3, potassium 4.2, EGFR 40. Testing/Procedures: 04/24/23 TTE- Reduced EF and severe MR with elevated Rt sided pressures [id number] CELINA (01/25/22) Left Ventricle: The left ventricle is normal size. Global left ventricular systolic function is normal. The EF is 55 % visually. No regional wall motion abnormality. Right Ventricle: The right ventricle is normal in size. Normal right ventricular systolic function. Left Atrium: The left atrium is mildly enlarged. Left (more content not included)... [facility] 06-06-2023 Note Cardiovascular Medic [facility] SUBJECTIVE Chief Complaint Patient presents with Follow-up Odilia Schroeder is a 78 y.o. female here for follow-up on her dizziness and a low BP/low HR. Her daughter accompanied her today. HPI PMHx: persisent a.fib s/p Watchman implant, systolic and diastolic heart failure, mitral regurg, HTN, hypotension, [place] 05/09/23 She hasn't been feeling well. She c/o fatigue and weakness. She feels more nauseated lately. Thinking it may be due to her Farxiga. She has been having constant heart burn for the past week or so. Sx's start after she eats something. She has been without her prevacid, waiting her PCP to call in a Rx. She tried taking pepto-bismal, tums, omeprazole, etc without relief. She c/o dizziness since starting Entresto. Her BP has been running 90s-100s/60-70s. Her HR has been running 50-80. Intermittently it has ran in the 40s. She previously was taking vit b12 injections from her PCP when I last saw her. She hasn't had one in a while for no known reason. Recommended she follow-up with PCP regarding this as this can contribute to her fatigue. 06/06/2023 She has noticed some improvement with adjusting her medications after her last visit. Dizziness is better and she is no longer having nausea. She c/o continued fatigue along with intermittent palpitations/jittering that cause her body to shake. She gets the jitteriness 2-3 times a day. She brought her home BP cuff with her. BP at home has been running 100-120s/50-60s ... HR 55-70. She states she thinks she has been taking 100mg of metoprolol twice daily instead of 50mg BID. Denies CP, dyspnea, orthopnea, PND, leg swelling, syncope. 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) Dyslipidemia Congestive heart failure, NYHA class IV, acute, combined (CMS/HCC) Chronic kidney disease, stage 3a (CMS/HCC) Major depressive disorder, single episode, mild (CMS/HCC) Past Medical History: Diagnosis Date AF (paroxysmal atrial fibrillation) (CMS/HCC) Hyperlipidemia Hypertension Stroke (CMS/HCC) TIA (transient ischemic attack) Family History Problem Relation Name Age of Onset Cancer Mother Heart attack Father Cancer Father Social History Tobacco Use Smoking status: Never Passive exposure: Current Smokeless tobacco: Never Substance Use Topics Alcohol use: Not Currently Allergies Allergen Reactions Diclofenac Other reaction(s): diarrhea/stomach cramping Review of Systems Constitutional: Positive for malaise/fatigue. Negative for chills, decreased appetite, fever and weight gain. Cardiovascular: Positive for palpitations. Negative for chest pain, dyspnea on exertion, irregular heartbeat, leg swelling, near-syncope, orthopnea, paroxysmal nocturnal dyspnea and syncope. Hematologic/Lymphatic: Negative for bleeding problem. Does not bruise/bleed easily. OBJECTIVE Visit Vitals BP 106/78 (BP Location: Left arm, Patient Position: Sitting, BP Cuff Size: Adult) Pulse 67 Resp 12 Ht 1.575 m (5' 2 ) Wt 73.1 kg (161 lb 3.2 oz) SpO2 99% BMI 29.48 kg/m??? Smoking Status Never BSA 1.79 m??? Medications: Current Outpatient Medications: aspirin 81 mg EC tablet, Take 81 mg by mouth in the morning., Disp: , Rfl: dapagliflozin propanediol (Farxiga) 10 mg, Take 1 tablet (10 mg) by mouth in the morning., Disp: 30 tablet, Rfl: 11 DULoxetine (Cymbalta) [address] capsule, 1 capsule 1 (one) time each day at the same time., Disp: , Rfl: eszopiclone (Lunesta) 1 mg tablet, 1 (one) time each day at the same time., Disp: , Rfl: furosemide (Lasix) 40 mg tablet, Take 1 tablet (40 mg) by mouth once daily as directed., Disp: 90 tablet, Rfl: 3 lansoprazole (Prevacid) [address] capsule, TAKE 1 CAPSULE BY MOUTH ONCE DAILY before a meal, Disp: 90 capsule, Rfl: 3 loratadine (Claritin) 10 mg tablet, Take 10 mg by mouth in the morning., Disp: , Rfl: meclizine (Antivert) 25 mg tablet, Take 25 mg by mouth if needed in the morning, at noon, and at bedtime for dizziness., Disp: , Rfl: metoprolol tartrate (Lopressor) 50 mg tablet, Take 50 mg by mouth in the morning and at bedtime., Disp: , Rfl: metoprolol succinate XL (Toprol-XL) 100 mg 24 hr tablet, Take 1 tablet (100 mg) by mouth in the morning. Do not crush or chew., Disp: 90 tablet, Rfl: 3 pravastatin (Pravachol) 40 mg tablet, Take 1 tablet (40 mg) by mouth at bedtime., Disp: 90 tablet, Rfl: 3 sacubitril-valsartan (Entresto) 24-26 mg tablet, Take 1 tablet in the AM and 1/2 tablet in the PM, Disp: 180 tablet, Rfl: 3 Physical Exam Vitals reviewed. Constitutional: (more content not included)... [facility] 05-09-2023 Note Patient here today f or heart rate and blood pressure all over the place per daughter. She had labs last week after she saw Marley Serna CNP in clinic. Daughter states her heartburn has been horrible lately. She's been nauseated and vomiting. Thinks it may be from the Farxiga. Says she's been out of Prevacid but she's been taking her other daughter's omeprazole. Daughter is concerned about this as heartburn is a sign of a heart attack . C/o fatigue. Says her LE edema has been much better since resuming lasix. Has been taking her meclizine lately for vertigo/dizziness. Review of Systems Constitutional: Positive for malaise/fatigue. Eyes: Positive for blurred vision. Cardiovascular: Positive for chest pain ( tightness ) and palpitations. Respiratory: Positive for cough. Hematologic/Lymphatic: Bruises/bleeds easily. Gastrointestinal: Positive for heartburn, nausea and vomiting. Neurological: Positive for light-headedness, loss of balance and vertigo. All other systems reviewed and are negative. [facility] 05-09-2023 Note Cardiovascular Medic ine [facility] SUBJECTIVE Chief Complaint Patient presents with Fatigue Hypotension Atrial Fibrillation Congestive Heart Failure Odilia Schroeder is a 78 y.o. female here for a sick visit for concerns of dizziness and a low BP/low HR. Her daughter accompanied her today. HPI PMHx: persisent a.fib s/p Watchman implant, systolic and diastolic heart failure, mitral regurg, HTN, hypotension She hasn't been feeling well. She c/o fatigue and weakness. She feels more nauseated lately. Thinking it may be due to her Farxiga. She has been having constant heart burn for the past week or so. Sx's start after she eats something. She has been without her prevacid, waiting her PCP to call in a Rx. She tried taking pepto-bismal, tums, omeprazole, etc without relief. She c/o dizziness since starting Entresto. Her BP has been running 90s-100s/60-70s. Her HR has been running 50-80. Intermittently it has ran in the 40s. She previously was taking vit b12 injections from her PCP when I last saw her. She hasn't had one in a while for no known reason. Recommended she follow-up with PCP regarding this as this can contribute to her fatigue. 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) Dyslipidemia Congestive heart failure, NYHA class IV, acute, combined (CMS/HCC) Chronic kidney disease, stage 3a (CMS/HCC) Major depressive disorder, single episode, mild (CMS/HCC) Past Medical History: Diagnosis Date AF (paroxysmal atrial fibrillation) (CMS/HCC) Hyperlipidemia Hypertension Stroke (CMS/HCC) TIA (transient ischemic attack) Family History Problem Relation Name Age of Onset Cancer Mother Heart attack Father Cancer Father Social History Tobacco Use Smoking status: Never Passive exposure: Current Smokeless tobacco: Never Substance Use Topics Alcohol use: Not Currently No Known Allergies ROS Constitutional: Positive for malaise/fatigue. Eyes: Positive for blurred vision. Cardiovascular: Positive for chest pain ( burning/tightness ) and palpitations. Respiratory: Positive for cough. Hematologic/Lymphatic: Bruises/bleeds easily. Gastrointestinal: Positive for heartburn, nausea and vomiting. Neurological: Positive for light-headedness, loss of balance and vertigo. All other systems reviewed and are negative. OBJECTIVE Visit Vitals BP 104/72 (BP Location: Left wrist, Patient Position: Sitting) Pulse 64 Ht 1.575 m (5' 2 ) Wt 73.5 kg (162 lb) SpO2 97% BMI 29.63 kg/m??? Smoking Status Never BSA 1.79 m??? Medications: Current Outpatient Medications: aspirin 81 mg EC tablet, Take 81 mg by mouth in the morning., Disp: , Rfl: dapagliflozin propanediol (Farxiga) 10 mg, Take 1 tablet (10 mg) by mouth in the morning., Disp: 30 tablet, Rfl: 11 furosemide (Lasix) 40 mg tablet, Take 1 tablet (40 mg) by mouth once daily as directed., Disp: 90 tablet, Rfl: 3 loratadine (Claritin) 10 mg tablet, Take 10 mg by mouth in the morning., Disp: , Rfl: meclizine (Antivert) 25 mg tablet, Take 25 mg by mouth if needed in the morning, at noon, and at bedtime for dizziness., Disp: , Rfl: metoprolol tartrate (Lopressor) 25 mg tablet, Take 50 mg by mouth in the morning and at bedtime., Disp: , Rfl: pravastatin (Pravachol) 40 mg tablet, Take 40 mg by mouth at bedtime., Disp: , Rfl: sacubitril-valsartan (Entresto) 24-26 mg tablet, Take 1 tablet by mouth in the morning and at bedtime., Disp: 180 tablet, Rfl: 3 DULoxetine (Cymbalta) [address] capsule, 1 capsule 1 (one) time each day at the same time., Disp: , Rfl: eszopiclone (Lunesta) 1 mg tablet, 1 (one) time each day at the same time., Disp: , Rfl: lansoprazole (Prevacid) [address] capsule, Take 1 capsule (30 mg) by mouth before breakfast. Do not crush or chew., Disp: 90 capsule, Rfl: 3 Physical Exam Vitals reviewed. Constitutional: Appearance: Normal appearance. She is normal weight. She is ill-appearing. HENT: Head: Normocephalic and atraumatic. Right Ear: External ear normal. Left Ear: External ear normal. Eyes: Extraocular Movements: Extraocular movements intact. Conjunctiva/sclera: Conjunctivae normal. Pupils: Pupils are equal, round, and reactive to light. Neck: Vascular: No carotid bruit. Cardiovascular: Rate and Rhythm: Normal rate. Rhythm irregular. Pulses: Normal pulses. Heart sounds: Normal heart sounds. Pulmonary: Effort: Pulmonary effort is normal. Breath sounds: Normal breath sounds. Abdominal: General: Bowel sounds are normal. Palpations: Abdomen is soft. Musculoskeletal: Cervical back: Neck supple. Right lower leg: No edema. Left lower (more content not included)... [facility] 04-30-2023 Note Currently stable wit hout any lightheadedness, dizziness or syncope since last visit [facility] 04-30-2023 Note Currently hypertensi on is well controlled [facility] 04-30-2023 Note [facility] II-IIIc, Curren tly pt is euvolemic without Continue GDMT- Aspirin, pravastatin, Entresto, Farxiga, Lasix and metoprolol ( she states she has a lot of metoprolol tartrate currently at home and does not want to change to toprol as of yet.) Diuretic therapy- lasix 40 mg daily with prn lasix 40 mg bid for fluid gain. Monitor daily weights, I&O, fluid restriction 1.5-2L/day, renal function and electrolytes Renal function was slightly more elevated this past Sunday, but she was most likely still fluid overloaded. [facility] 04-30-2023 Note Currently stable [facility] 04-30-2023 Note Patient here for 1 w nulato follow up. Had BMP 2 days ago. She was started on Entresto and Farxiga last week, and lasix was resumed. Review of Systems Constitutional: Positive for weight loss (6# since last week). Eyes: Positive for blurred vision. Cardiovascular: Positive for dyspnea on exertion and palpitations (intermittent). Respiratory: Positive for wheezing. Neurological: Positive for light-headedness, loss of balance and vertigo. All other systems reviewed and are negative. [facility] 04-30-2023 Note [facility] CARDIOLOGY PROGR ESS NOTE HPI: Odilia Schroeder is a 78 y.o. female here for 1 week f/U Combined Heart failure, PAF HPI 78-year-old female presents today for 1 week follow-up status post recent addition of heart failure optimization with Entresto, Farxiga, increase Lasix. She states she had difficulty obtaining Lasix and Farxiga from pharmacy so she was not able to start these until Sunday or Sunday. States she lost 7 pounds since Sunday, leg swelling is resolved. She admits continued shortness of breath with exertion, denies orthopnea, denies chest pain. Labs were drawn on Sunday which showed slightly elevated renal function, with normal potassium and sodium. Denies dizziness, lightheadedness, syncope since last visit. Review of Systems Constitutional: Positive for fatigue. Respiratory: Positive for shortness of breath. Cardiovascular: Negative. Neurological: Negative. All other systems reviewed and are negative. Visit Vitals BP 122/74 (BP Location: Left arm, Patient Position: Sitting) Pulse 62 Ht 1.575 m (5' 2 ) Wt 73.9 kg (163 lb) SpO2 97% BMI 29.81 kg/m??? Smoking Status Never BSA 1.8 m??? No Known Allergies Medications: Current Outpatient Medications on File Prior to Visit Medication Sig Dispense Refill aspirin 81 mg EC tablet Take 81 mg by mouth in the morning. dapagliflozin propanediol (Farxiga) 10 mg Take 1 tablet (10 mg) by mouth in the morning. 30 tablet 11 DULoxetine (Cymbalta) [address] capsule 1 capsule 1 (one) time each day at the same time. eszopiclone (Lunesta) 1 mg tablet 1 (one) time each day at the same time. furosemide (Lasix) 40 mg tablet Take 1 tablet (40 mg) by mouth once daily as directed. 90 tablet 3 furosemide (Lasix) 40 mg tablet Take 1 tablet (40 mg) by mouth if needed each day (Take lasix 40 mg twice a day for 2-3 days as needed for 2-3 days and then return to 40 mg daily.). 15 tablet 11 lansoprazole (Prevacid) [address] capsule Take 30 mg by mouth before breakfast. Do not crush or chew. loratadine (Claritin) 10 mg tablet Take 10 mg by mouth in the morning. meclizine (Antivert) 25 mg tablet Take 25 mg by mouth if needed in the morning, at noon, and at bedtime for dizziness. metoprolol tartrate (Lopressor) 25 mg tablet Take 50 mg by mouth in the morning and at bedtime. pravastatin (Pravachol) 40 mg tablet Take 40 mg by mouth at bedtime. sacubitril-valsartan (Entresto) 24-26 mg tablet Take 1 tablet by mouth in the morning and at bedtime. 180 tablet 3 [DISCONTINUED] furosemide (Lasix) 40 mg tablet Take 40 mg by mouth in the morning. No current facility-administered medications on file prior to visit. Physical Exam: Constitutional: Appearance: Normal appearance. Without apparent distress, chronically ill HENT: Head: Normocephalic and atraumatic. Nose: Nose normal. Mouth/Throat: Mouth: Mucous membranes are moist. Eyes: Extraocular Movements: Extraocular movements intact. Conjunctiva/sclera: Conjunctivae normal. Neck: Vascular: No JVD. Cardiovascular: Rate and Rhythm: Normal rate and regular rhythm. Pulses: Dorsalis pedis pulses are 3 on the right side and 3on the left side. Posterior tibial pulses are 3 on the right side and 3 on the left side. Heart sounds: Normal heart sounds, S1 normal and S2 normal. Pulmonary: Effort: Pulmonary effort is normal. Breath sounds: Normal breath sounds. Abdominal: General: Bowel sounds are normal. Palpations: Abdomen is soft. Musculoskeletal: General: Normal range of motion. Cervical back: Normal range of motion. Right lower leg: No edema. Left lower leg: No edema. Skin: General: Skin is warm and dry. Capillary Refill: Capillary refill takes less than 2 seconds. Neurological: General: No focal deficit present. Mental Status: She is alert and oriented to person, place, and time. Psychiatric: Mood and Affect: Mood normal. Behavior: Behavior normal. Thought Content: Thought content normal. Judgment: Judgment normal. Labs: BUN 19, Cr 1.61- elevated- will repeat BMP in 1-2 weeks NA- 137, K + 3.5 03/28/23 BUN 17, CR 1.35- elevated but typical for her K+ 3.2 last lab values have been reviewed CV Testin04/24/23 TTE- Reduced EF and severe MR with elevated Rt sided pressures [id number] CELINA (01/25/22) Left Ventricle: The left ventricle is normal size. Global left ventricular systolic function is normal. The EF is 55 % visually. No regional wall motion abnormality. Right Ventricle: The right ventricle is normal in size. Normal right ventricular systolic function. Left Atrium: The left atrium is mildly enlarged. Left Atrium Appendage: The left atrial appendage is multilobular. Normal left atrial appendage, no thrombus seen. Mitral Valve: Mild to moderate mitral regurgitation. Pericardium: There is a small anterior pericardial effusion nothing posteriorly. Overall Conclusions: Mild to moderate mitral regurgitation i (more content not included)... [facility] 04-25-2023 Note [facility] IVc- currently fluid overloaded, dyspneic at rest and had ran out of lasix. Continue GDMT- continue ASA, pravastatin, and will start entresto 24-26mg bid- sample given, and farxiga 10 mg daily- coupon for 1 month free provided. Diuretic therapy- resume lasix 40 mg daily and script for 40 mg bid prn given Repeat BMP next week and RTC next week Monitor daily weights, I&O, fluid restriction 1.5-2L/day, renal function and electrolytes [facility] 04-25-2023 Note Stable- no syncope [facility] 04-25-2023 Note Currently uncontroll ed, add entresto and farxga, continue lasix Monitor b/p at home [facility] 04-25-2023 Note stable [facility] 04-25-2023 Note [id number]= 6 Age, female, HTN, CHF, TIA No anticoagulation s/p watchman implantation Continue metoprolol tartrate- will plan to transition to GDMT- for CHF possibly at next visit- toprol, coreg or bisprolol [facility] 04-25-2023 Note [facility] CARDIOLOGY PROGR ESS NOTE HPI: Odilia Schroeder is a 78 y.o. female here for Combined Heart failure, PAF, Patient here for follow up echo done yesterday. Didn't take lasix for a few days last week. Had some chest tightness a few days ago. Reports that she ran out of lasix a while ago and was admitted to [facility]. Admits weight gain of about 3-4 pounds, increased shortness of breath- at rest and + orthopnea and difficulty sleeping. Was recently admitted to [facility] for SOB, weakness, CHF, A fib with RVR. 03/17/23-03/18/23. She was diuresed and metoprolol increased. Review of Systems Eyes: Positive for blurred vision. Cardiovascular: Positive for dyspnea on exertion and palpitations (intermittent). Respiratory: Positive for wheezing. Neurological: Positive for light-headedness, loss of balance and vertigo. All other systems reviewed and are negative. Visit Vitals BP (!) 154/102 (BP Location: Left arm, Patient Position: Sitting) Pulse 68 Ht 1.575 m (5' 2 ) Wt 76.7 kg (169 lb) SpO2 97% BMI 30.91 kg/m??? Smoking Status Never BSA 1.83 m??? No Known Allergies Medications: Current Outpatient Medications on File Prior to Visit Medication Sig Dispense Refill aspirin 81 mg EC tablet Take 81 mg by mouth in the morning. DULoxetine (Cymbalta) [address] capsule 1 capsule 1 (one) time each day at the same time. eszopiclone (Lunesta) 1 mg tablet 1 (one) time each day at the same time. lansoprazole (Prevacid) [address] capsule Take 30 mg by mouth before breakfast. Do not crush or chew. loratadine (Claritin) 10 mg tablet Take 10 mg by mouth in the morning. meclizine (Antivert) 25 mg tablet Take 25 mg by mouth if needed in the morning, at noon, and at bedtime for dizziness. metoprolol tartrate (Lopressor) 25 mg tablet Take 50 mg by mouth in the morning and at bedtime. pravastatin (Pravachol) 40 mg tablet Take 40 mg by mouth at bedtime. [DISCONTINUED] furosemide (Lasix) 40 mg tablet Take 40 mg by mouth in the morning. No current facility-administered medications on file prior to visit. Physical Exam: Constitutional: Appearance: Normal appearance. Without apparent distress, obese, chronically ill HENT: Head: Normocephalic and atraumatic. Nose: Nose normal. Mouth/Throat: Mouth: Mucous membranes are moist. Eyes: Extraocular Movements: Extraocular movements intact. Conjunctiva/sclera: Conjunctivae normal. Neck: Vascular: No JVD. Cardiovascular: Rate and Rhythm: Normal rate and regular rhythm. Pulses: Dorsalis pedis pulses are 3 on the right side and 3on the left side. Posterior tibial pulses are 3 on the right side and 3 on the left side. Heart sounds: Normal heart sounds, S1 normal and S2 normal. Pulmonary: Effort: Pulmonary effort is normal. Breath sounds: Normal breath sounds. Abdominal: General: Bowel sounds are normal. Palpations: Abdomen is soft. Musculoskeletal: General: Normal range of motion. Ambulatory via cane Right lower le+ pitting edema. Left lower le+ pitting edema. Skin: General: Skin is warm and dry. Capillary Refill: Capillary refill takes less than 2 seconds. Neurological: General: No focal deficit present. Mental Status: She is alert and oriented to person, place, and time. Psychiatric: Mood and Affect: Mood normal. Behavior: Behavior normal. Thought Content: Thought content normal. Judgment: Judgment normal. Labs: 03/28/23 BUN 17, CR 1.35- elevated but typical for her K+ 3.2 Last lab values have been reviewed CV Testing: CELINA (01/25/22) Left Ventricle: The left ventricle is normal size. Global left ventricular systolic function is normal. The EF is 55 % visually. No regional wall motion abnormality. Right Ventricle: The right ventricle is normal in size. Normal right ventricular systolic function. Left Atrium: The left atrium is mildly enlarged. Left Atrium Appendage: The left atrial appendage is multilobular. Normal left atrial appendage, no thrombus seen. Mitral Valve: Mild to moderate mitral regurgitation. Pericardium: There is a small anterior pericardial effusion nothing posteriorly. Overall Conclusions: Mild to moderate mitral regurgitation is seen with BP 119/61 mmHg. Compared to the study of 12/14/2021 the mitral regurgitation severity is significantly reduced and the left ventricular function is now normal. Prior findings were likely related to elevated blood pressure at the time of the previous study. [facility] (01/25/22) SUMMARY OF THE FINDINGS: 1. Normal filling pressures. 2. Normal pulmonary arterial pressures. 3. Mildly increased cardiac output and cardiac index. 4. No evidence of intracardiac shunt. RECOMMENDATIONS: 1. Continue current medical therapy. 2. The patient will proceed with evaluation for the Watchman procedure. The above study is not consistent with any significant mitral regurgitation. Echocardiogram 12/23/2021: Normal LV systolic function, EF is 55%, nor (more content not included)... [facility] 04-25-2023 Note Patient here for [facility] up echo done yesterday. Didn't take lasix for a few days last week. Had some chest tightness a few days ago. Review of Systems Eyes: Positive for blurred vision. Cardiovascular: Positive for dyspnea on exertion and palpitations (intermittent). Respiratory: Positive for wheezing. Neurological: Positive for light-headedness, loss of balance and vertigo. All other systems reviewed and are negative. [facility] 03-28-2023 Note Patient here for [facility]. She presented to the ED for worsening fatigue and SOB. She had been out of her lasix for about a week. Metoprolol was doubled to 50mg bid. Lasix was also doubled to 40mg. Review of Systems Eyes: Positive for blurred vision. Cardiovascular: Positive for dyspnea on exertion and palpitations (intermittent). Neurological: Positive for light-headedness, loss of balance and vertigo. All other systems reviewed and are negative. [facility] 03-28-2023 Note [facility] Subjective Odilia Schroeder is a 77 y.o. year old female who follows with our clinic for PAF and hypertension. Patient presents today for follow-up. She was recently evaluated in the emergency department for worsening shortness of breath. She states that she had been out of her Lasix for several weeks. Her Lasix was increased to 40 mg, and her metoprolol was increased to 50 mg twice daily given some tachycardia with her atrial fibrillation. She was asked to follow-up with cardiology. Today, patient states that she is doing significantly better. She states that her symptoms have resolved. She denies any shortness of breath. She adamantly denies any chest pain. She denies any lower extremity edema, orthopnea, or paroxysmal nocturnal dyspnea. Her weight has been stable. Her heart rates have been well controlled at home. She is accompanied by her daughter, who corroborates her story. Patient Active Problem List Diagnosis Tremor of right hand Syncope and collapse Paroxysmal atrial flutter (CMS/HCC) Paroxysmal atrial fibrillation (CMS/HCC) Orthostatic hypotension Normocytic anemia Iron deficiency anemia due to chronic blood loss History of transient ischemic attack Essential hypertension Dyslipidemia Acute diastolic (congestive) heart failure (CMS/HCC) Chronic kidney disease, stage 3a (CMS/HCC) Major depressive disorder, single episode, mild (CMS/HCC) Family History Problem Relation Name Age of Onset Cancer Mother Heart attack Father Cancer Father Social History Tobacco Use Smoking status: Never Passive exposure: Current Smokeless tobacco: Never Substance Use Topics Alcohol use: Not Currently ROS 10 point ROS is performed and is negative unless otherwise specified in HPI Objective Visit Vitals BP 112/74 (BP Location: Left arm, Patient Position: Sitting) Pulse 65 Ht 1.575 m (5' 2 ) Wt 74.4 kg (164 lb) SpO2 98% BMI 30.00 kg/m??? Smoking Status Never BSA 1.8 m??? Physical Exam Constitutional: Appearance: She is well-developed. She is not ill-appearing. HENT: Head: Normocephalic and atraumatic. Nose: Nose normal. Eyes: General: No scleral icterus. Pupils: Pupils are equal, round, and reactive to light. Neck: Thyroid: No thyromegaly. Vascular: No JVD. Cardiovascular: Rate and Rhythm: Normal rate and regular rhythm. Pulses: Radial pulses are 2+ on the right side and 2+ on the left side. Heart sounds: Normal heart sounds. No murmur heard. No friction rub. No gallop. Pulmonary: Effort: Pulmonary effort is normal. No respiratory distress. Breath sounds: Normal breath sounds. No wheezing or rales. Chest: Chest wall: No tenderness. Abdominal: General: Bowel sounds are normal. There is no distension. Palpations: Abdomen is soft. Tenderness: There is no abdominal tenderness. Musculoskeletal: General: No swelling. Cervical back: Neck supple. Skin: General: Skin is warm and dry. Neurological: General: No focal deficit present. Mental Status: She is alert and oriented to person, place, and time. Psychiatric: Mood and Affect: Mood normal. Behavior: Behavior is cooperative. Judgment: Judgment normal. Allergies No Known Allergies Medications Current Outpatient Medications: aspirin 81 mg EC tablet, Take 81 mg by mouth in the morning., Disp: , Rfl: DULoxetine (Cymbalta) [address] capsule, 1 capsule 1 (one) time each day at the same time., Disp: , Rfl: eszopiclone (Lunesta) 1 mg tablet, 1 (one) time each day at the same time., Disp: , Rfl: furosemide (Lasix) 40 mg tablet, Take 40 mg by mouth in the morning., Disp: , Rfl: lansoprazole (Prevacid) [address] capsule, Take 30 mg by mouth before breakfast. Do not crush or chew., Disp: , Rfl: loratadine (Claritin) 10 mg tablet, Take 10 mg by mouth in the morning., Disp: , Rfl: meclizine (Antivert) 25 mg tablet, Take 25 mg by mouth if needed in the morning, at noon, and at bedtime for dizziness., Disp: , Rfl: metoprolol tartrate (Lopressor) 25 mg tablet, Take 50 mg by mouth in the morning and at bedtime., Disp: , Rfl: pravastatin (Pravachol) 40 mg tablet, Take 40 mg by mouth at bedtime., Disp: , Rfl: Recent Labs No visits with results within 6 Month(s) from this visit. Latest known visit with results is: [facility] Encounter on 02/22/2022 Component Date Value Ventricular Rate 02/22/2022 64 Atrial Rate 02/22/2022 64 VT Interval 02/22/2022 228 QRS DURATION 02/22/2022 164 QT Interval 02/22/2022 502 QTC CALCULATION(BAZETT) 02/22/2022 517 P [place] 02/22/2022 58 R-[place] 02/22/2022 -57 T Wave [place] 02/22/2022 59 Diagnosis 02/22/2022 Value:Sinus rhythm with 1st degree A-V block Left axis deviation Left bundle branch block Abnormal ECG When compared with ECG of 22-FEB-2022 09:58, (unconfirmed) No significant change was found Confirmed by Julian Bolivar ([id number]) on 02/23/2022 12:55:57 AM Blood testing (more content not included)... [facility] 10-23-2022 Note [facility] - [facility] Subjective Odilia Schroeder is a 77 y.o. year old female patient being seen for 6 mo follow up PAF and hypertension. Took her last dose of Plavix a few days ago. She also stopped taking furosemide a few months ago because her BP has been normal . She denies LE edema. Says her SOB w/wo exertion has been stable, same as it was the past 2 years . Denies chest pain. Patient Active Problem List Diagnosis Tremor of right hand Syncope and collapse Paroxysmal atrial flutter (CMS/HCC) Paroxysmal atrial fibrillation (CMS/HCC) Orthostatic hypotension Normocytic anemia Iron deficiency anemia due to chronic blood loss History of transient ischemic attack Essential hypertension Dyslipidemia Family History Problem Relation Name Age of Onset Cancer Mother Heart attack Father Cancer Father Social History Tobacco Use Smoking status: Never Passive exposure: Current Smokeless tobacco: Never Substance Use Topics Alcohol use: Not Currently HPI Odilia is seen in follow-up. She is a 77-year-old woman with prior history of paroxysmal atrial fibrillation and atrial flutter. She has prior history of TIA, hypertension and hyperlipidemia. She was previously maintained on anticoagulation therapy for atrial fibrillation. Her [id number] score is 6 for age, history of TIA, female gender and hypertension. Due to prior to unexplained profound blood loss anemia she was recommended the Watchman procedure which she underwent on 02/22/2022. This was a 27 mm Watchman FLX device. Follow-up transesophageal echocardiogram on 04/21/2022 showed adequate device placement with no peridevice leak and no thrombus. She has been maintained on dual antiplatelet therapy with aspirin and Plavix. She recently stopped the Plavix. She is currently on aspirin only. What is noteworthy is that during her investigation for the Watchman procedure she underwent a transesophageal echocardiogram and was found to have severe mitral valve regurgitation at the time when her blood pressure was very elevated. Follow-up transesophageal echocardiogram showed only mild mitral regurgitation when her blood pressure was under good control. Today she reports that she has been doing reasonably well. No angina. He has she has occasional shortness of breath on exertion and palpitations. She reports that her blood pressure usually at home is well controlled but it is mildly elevated today. She has stopped taking furosemide as she did not feel she needs it. No significant leg swelling. Review of Systems Cardiovascular: Positive for dyspnea on exertion and palpitations (intermittent). Respiratory: Positive for shortness of breath. Neurological: Positive for light-headedness, loss of balance and vertigo. Objective Visit Vitals BP 140/84 (BP Location: Left arm, Patient Position: Sitting) Pulse 69 Ht 1.575 m (5' 2 ) Wt 74.4 kg (164 lb) SpO2 97% BMI 30.00 kg/m??? Smoking Status Never BSA 1.8 m??? Physical Exam Constitutional: Appearance: She is well-developed. She is not ill-appearing. HENT: Head: Normocephalic and atraumatic. Nose: Nose normal. Eyes: General: No scleral icterus. Pupils: Pupils are equal, round, and reactive to light. Neck: Thyroid: No thyromegaly. Vascular: No JVD. Cardiovascular: Rate and Rhythm: Normal rate and regular rhythm. Pulses: Radial pulses are 2+ on the right side and 2+ on the left side. Heart sounds: Normal heart sounds. No murmur heard. No friction rub. No gallop. Pulmonary: Effort: Pulmonary effort is normal. No respiratory distress. Breath sounds: Normal breath sounds. No wheezing or rales. Chest: Chest wall: No tenderness. Abdominal: General: Bowel sounds are normal. There is no distension. Palpations: Abdomen is soft. Tenderness: There is no abdominal tenderness. Musculoskeletal: General: No swelling. Cervical back: Neck supple. Skin: General: Skin is warm and dry. Neurological: General: No focal deficit present. Mental Status: She is alert and oriented to person, place, and time. Psychiatric: Mood and Affect: Mood normal. Behavior: Behavior is cooperative. Judgment: Judgment normal. Allergies No Known Allergies Medications Current Outpatient Medications: aspirin 81 mg EC tablet, Take 81 mg by mouth in the morning., Disp: , Rfl: celecoxib (CeleBREX) 200 mg capsule, Take 200 mg by mouth in the morning., Disp: , Rfl: lansoprazole (Prevacid) [address] capsule, Take 30 mg by mouth before breakfast. Do not crush or chew., Disp: , Rfl: loratadine (Claritin) 10 mg tablet, Take 10 mg by mouth in the morning., Disp: , Rfl: meclizine (Antivert) 25 mg tablet, Take 25 mg by mouth if needed in the morning, at noon, and at bedtime for dizziness., Disp: , Rfl: metoprolol tartrate (Lopressor) 25 mg tablet, Take 25 mg by mouth in the morning and at bedtime., Disp: , Rfl: pravastatin (Pravachol (more content not included)... [facility] 02-24-2022 Note MR#: [id number] [facility] Pt. Name: Odilia Schroeder Admitted: 02/22/2022 Discharged: 02/23/2022 Date of : 1945 Physician: Bee Guevara M.D. DISCHARGE SUMMARY PRIMARY DIAGNOSIS: Paroxysmal atrial fibrillation. SECONDARY DIAGNOSES: 1. History of significant blood loss anemia. 2. History of falls and unsteady gait. 3. Hypertension. 4. Prior transient ischemic attack. PROCEDURES PERFORMED: JUAN RAMON occlusion with a 27 mm Watchman FLX device. HOSPITAL COURSE: The patient is a 76-year-old female with a history of paroxysmal atrial fibrillation and a CHADS2-VASc score of 6 due to age, female gender, hypertension, prior TIAs. She is noted to have a history of falls, unsteady gait, along with significant blood loss anemia with no clear source identified. The Watchman device was discussed with several physicians, including most recently Dr. Argelia Rodas from [facility] and they all agreed she should be considered for Watchman device, which is what brought her to the medical lab specialist on admission. On 02/22/2022, she underwent successful implantation of the Watchman device via right transfemoral access with transesophageal echocardiography guidance. The patient tolerated the procedure well and had no acute issues overnight. Her followup limited echocardiogram showed no evidence of pericardial effusion. Her vitals were stable and she was discharged to home. DISCHARGE MEDICATIONS: Eliquis 2.5 mg b.i.d., aspirin 81 mg daily, please see discharge reconcile medication list for further list of medications. DISCHARGE INSTRUCTIONS: 1. Continue to take current medications as prescribed. Do not stop taking Eliquis or aspirin unless instructed by your dampproofer. 2. Follow up with Cardiology as scheduled, with POLICE CAPTAIN SENIOR, Jose M Cabrera in the [facility]. 3. A followup transesophageal echocardiogram will be performed around 6 weeks post implant for Watchman protocol. 4. She will need endocarditis prophylaxis for 6 months following the Watchman procedure. Electronically Signed by: Bee Guevara M.D. 02/26/2022 09:50 P Bee Guevara M.D. I have reviewed this discharge summary and confirmed the resident's documentation. Please note that there may be additional documentation from me. Date Dict: 02/23/2022/02:46 P/Jose M Cabrera, ZANJERO Date Trans: 02/24/2022 09:55 A/deja [id number] cc: Zaki Flanagan D.O. [id number] [place] [id number] [facility] Summary Purpose Family History No Family History Records FoundNo Family History Records FoundNo Family History Records Found Advance Directives No Advanced Directives Records FoundNo Advanced Directives Records FoundNo Advanced Directives Records Found Additional Source Comments INFORMATION SOURCE (unrecogn ized section and content) DATE CREATED AUTHOR 03/08/2022 [facility] DATE CREATED AUTHOR AUTHOR'S ORGANIZ ATION 05/06/2022 [facility] DATE CREATED AUTHOR AUTHOR'S ORGANIZ ATION 07/13/2023 [facility] FOR RECORDS PERTAINING TO PATIENTS WHO ARE OR HAVE BEEN ENROLLED IN A CHEMICAL DEPENDENCY/SUBSTANCEABUSE PROGRAM, SOME INFORMATION MAY BE OMITTED. This clinical summary was aggregated from multiple sources. Caution should be exercised in using it in the provision of clinical care. This summary normalizes information from multiple sources, and as a consequence, information in this document may materially change the coding, format and clinical context of patient data. In addition, data may be omitted in some cases. CLINICAL DECISIONS SHOULD BE BASED ON THE PRIMARY CLINICAL RECORDS. [facility] [employer] provides no warranty or guarantee of the accuracy or completeness of information in this document.
[2023-07-20 16:59] LABS: Anion Gap 8.2; BUN Creatinine Ratio 17.6; Calcium 9.3 mg/dL (8.5-10.1); Carbon Dioxide 31.1 mmol/L (21.0-32.0); Chloride 101 mmol/L (98-107); Estimated GFR (African America 40 (>=60); Estimated GFR (Non-African Ame 33 (>=60); Glucose 114 mg/dL (74-106); Potassium 4.3 mmol/L (3.5-5.1); Sodium 136 mmol/L (136-145)
== END 2023-07-20 16:25 | disposition home or self-care (01) ==
LOC: LAB 16:27
PROVIDERS: PCP Family Medicine; Visit Provider Nurse Practitioner
DX: I50.41 Acute combined systolic (congestive) and diastolic (congestive) heart failure (principal)
CPT/HCPCS: 36415; 80048

== ENCOUNTER 2023-08-13 13:40 | Outpatient (OUT) | payer MEDICARE, SELFPAY ==
--- OUTSIDE RECORDS SUMMARY | 2023-08-13 13:48 | XMS_ITS | CCD ---
Author Name Unknown Address [address] [place] [address] Organization [facility] Care Team Providers Care Ambulatory Care Coordinator Name Role Phone BEE GUEVARA V Attending [...] ZAKI Braden Attending Unavailable FLANAGAN, DR ZAKI Braden Primary Care Unavailable WEST, DR MERARY Martino [...] source) Diclofenac; Translations: [DICLOFENAC] Drug Allergy 06-06-2023 [facility] Repository Problems Active Problems Problem Classification Problem [...] check kidney function and potassium level Normal [facility] Office Visiton 07-11-2023 Follow-up visit [id number] Odilia Schroeder 1945 F Date Provider Department Center 07/11/2023 [facility] Family History Problem Relation Age of Onset Cancer Mother Heart attack Father Cancer Father Family Status - Relation Status Age at Mother Father Level of Service:23804 NM OFFICE/OUTPATIENT ESTABLISHED MOD MDM 30 MIN Normal [facility] 36on 12-07-2023 36 Please have her star t potassium chloride 40mEq daily with follow-up BMP in 1 week. Thanks [facility] 37on 06-06-2023 37 *Cut lasix in half t o 20mg daily *Get labs done around 06/20/2023 *Call us if you want to proceed with cardioversion *Follow-up ECHO at the end of July [facility] Office Visiton 06-06-2023 Follow-up visit [id number] Odilia Schroeder 1945 F Date Provider Department [place] 06/06/2023 JOSE M SUMMERS Family History Problem Relation Age of Onset Cancer Mother Heart attack Father Cancer Father Family Status - Relation Status Age at Mother Father Level of Service:76501 NM OFFICE/OUTPATIENT ESTABLISHED MOD MDM 30 MIN Reason for Visit and Comments: Follow-up [[id number]] [facility] 29on 05-09-2023 29 Addended by: JOSE M CABRERA on: 05/09/2023 05:06 PM Modules accepted: Orders [facility] 37on 05-09-2023 37 *If heart rate [...] PCP about resuming your vitamin B12 injections. [facility] Office Visiton 05-09-2023 Follow-up visit [id number] Odilia Schroeedr 1945 Date Provider Department [place] 05/09/2023 JOSE M SUMMERS Family History Problem Relation Age of Onset Cancer Mother Heart attack Father Cancer Father Family Status - Relation Status Age at Mother Father Level of Service:37862 NM OFFICE/OUTPATIENT ESTABLISHED MOD MDM 30-39 MIN Reason for Visit and Comments: Fatigue [46] Hypotension [407] Atrial Fibrillation [80] Congestive Heart Failure [127] [facility] Office Visiton 04-30-2023 Follow-up visit [id number] Odilia Schroeder 1945 F Date Provider Department Center 04/30/2023 JOEGamal JEFFERSON JUAN [facility] Family History Problem Relation Age of Onset Cancer Mother Heart attack Father Cancer Father Family Status - Relation Status Age at Mother Father Level of Service:99620 NM OFFICE/OUTPATIENT ESTABLISHED MOD MDM 30-39 MIN Normal [facility] Office Vis[place] 04-25-2023 Follow-up visit [id number] Odilia Schroeder N 1945 F Date Provider Department Center 04/25/2023 120JEFFERSON OLSON [facility] Family History Problem Relation Age of Onset Cancer Mother Heart attack Father Cancer Father Family Status - Relation Status Age at Mother Father Level of Service:97448 NM OFFICE/OUTPATIENT ESTABLISHED MOD MDM 30-39 MIN Normal [facility] Office Vis[place] 03-28-2023 Follow-up visit [id number] Odilia Schroeder N 1945 F Date Provider Department Center 03/28/2023 [id number] NDIAYE LINH [facility] Family History Problem Relation Age of Onset Cancer Mother Heart attack Father Cancer Father Family Status - Relation Status Age at Mother Father Level of Service:11270 NM OFFICE/OUTPATIENT ESTABLISHED MOD MDM 30-39 MIN Normal [facility] Office Vis[place] 10-23-2022 Follow-up visit [id number] Odilia Schroeder N 1945 F Date Provider Department Center 10/23/2022 BEE MARIN Zulema [facility] Family History Problem Relation Age of Onset Cancer Mother Heart attack Father Cancer Father Family Status - Relation Status Age at Mother Father Level of Service:26305 NM OFFICE/OUTPATIENT ESTABLISHED LOW MDM 20-29 MIN Normal [facility] Covid-19 PCR (CVDTBH)on 03-17 SARS-CoV-2 (COVID-19) RNA EULA+probe Ql (Unsp spec) Detected Critically abnormal NOT DETECTED [facility] Comment on above: Result Comment: This test is not yet approved or cleared by the [place] FDA. When there are no FDA-approved or cleared tests available, and other criteria are met, FDA can make tests available under an emergency access mechanism called an Emergency Use Authorization (EUA). The EUA for this test is supported by the [place] of Health and Human Service's (HHS's) declaration [...] used). Performed By: #### C MP #### [facility] [address] [address] [address] Kay Singh CBC COMPLETE BLOOD COUNTon 02-23-2022 Erythrocyte distribution width (RBC) [Ratio] 12.1 % Normal 11.5-15.0 [facility] Comment on above: Order Comment: No: D o not add to previous draw Performed By: #### 0 0071 #### [facility] [address] Hematocrit (Bld) [Volume fraction] 31.6 % Low 36.0-45.0 [facility] Comment on above: Order Comment: No: D o not add to previous draw Performed By: #### 0 0071 #### [facility] [address] [place] [address], [facility] Hemoglobin (Bld) [Mass/Vol] 10.8 g/dL Low 12.0-15.0 [facility] Comment on above: Order Comment: No: D o not add to previous draw Performed By: #### 0 0071 #### [facility] [address] [place] [id number], [facility] MCH (RBC) [Entitic mass] 32.8 pg Normal 27.0-33.0 [facility] Comment on above: Order Comment: No: D o not add to previous draw Performed By: #### 0 0071 #### [facility] [address] [place] [id number], [facility] MCHC (RBC) [Mass/Vol] 34.2 g/dL Normal 32.0-35.0 [facility] Comment on above: Order Comment: No: D o not add to previous draw Performed By: #### 0 0071 #### [facility] [address] [place] [address], [facility] MCV (RBC) [Entitic vol] 96.0 fL Normal 82.0-98.0 [facility] Comment on above: Order Comment: No: D o not add to previous draw Performed By: #### 0 0071 #### [facility] [address] [place] [address], [facility] Nucleated RBC/100 WBC (Bld) [Ratio] 0 % Normal 0-0 [facility] Comment on above: Order Comment: No: D o not add to previous draw Performed By: #### 0 0071 #### [facility] [address] [place] [address], [facility] PLAT CNT 160 10*3/uL Normal 150-400 [facility] Comment on above: Order Comment: No: D o not add to previous draw Performed By: #### 0 0071 #### [facility] [address] [place] [address], [facility] RBC (Bld) [#/Vol] 3.29 10*6/uL Low 3.80-5.00 The [facility] Comment on above: Order Comment: No: D o not add to previous draw Performed By: #### 0 0071 #### [facility] [address] [place] [address], [facility] WBC (Bld) [#/Vol] 7.19 10*3/uL Normal 4.00-10.60 The [facility] Comment on above: Order Comment: No: D o not add to previous draw Performed By: #### 0 0071 #### [facility] [address] [facility]. [address] *MRSA/MSSA DNA NASALon 02-22 *MRSA/MSSA DNA NASAL Clinical Report: (D) Specimen: NASAL SWAB Collected: 02/22/2022 09:45 Status: Final Last Updated: 02/22/2022 12:59 MSSA DNA (Final) Methicillin Susceptible Staphylococcus aureus DNA Detected MRSA DNA (Final) Negative Normal [facility] Comment on above: Performed By: #### 3 1595 #### [facility] [address] [facility]. [address] Cardiovascular Lab Reporton 02-22-2022 Cardiovascular Lab Report [facility] Patient Name: Odilia Schroeder [facility] MR #: [id number] Physician: Bee Lewis of Kiana Guevara Medicine Service Date: 02/22/2022 Division of Birthdate: 1945 Cardiology Room #: [facility] Adult Cardiovascular Services [facility] [address] [facility]. [place] [address] Cardiovascular Laboratory Report INDICATION: The patient is [...] signed informed consent. She was brought to slabbing machine operator in a fasting state. The right groin area was prepped and draped in usual fashion. Micropuncture technique and ultrasound guidance were used for access in the right common femoral vein. A 6-Haitian x 11 cm sheath was placed. A [...] the transseptal sheath was exchanged to a 14-Haitian Watchman anterior curve sheath. A pigtail catheter angled 6-Haitian was advanced, and used to select the [...] adequate (more content not included)... Normal [facility] TYPE AND SCREENon 02-22-2022 ABO INTERPRETATION O Normal [facility] Comment on above: Performed By: #### 6 2586 #### [facility] [address] [place] [place] [address], [facility] RH INTERPRETATION Negative Normal The [facility] Comment on above: Performed By: #### 6 2586 #### [facility] [address] [place] [address], [facility] Cov[facility]19 [facility]on SARS-CoV-2 (COVID-19) RNA EULA+probe Ql (Unsp spec) Not detected Normal NOT DETECTED [facility] Comment on above: Result Comment: This test is not yet approved or cleared by the [place] FDA. When there are no FDA-approved or cleared tests available, and other criteria are met, FDA can make tests available under an emergency access mechanism called an Emergency Use Authorization (EUA). The EUA for this test is supported by the [place] [employer] of Health and Human Service's (HHS's) declaration [...] SARS-CoV-2. Performed By: #### C VDTBH #### [facility] [address] [address] [address] Kay Singh BASIC METABOLIC PANELon 07 Calcium [Mass/Vol] 9.2 mg/dL Normal 8.6-10.3 [facility] Comment on above: Performed By: #### 0 0071 #### [facility] [address] [place] [address], [place] Chloride [Moles/Vol] 102 mmol/L Normal 98-107 [facility] Comment on above: Performed By: #### 0 0071 #### [facility] [address] [place] [address], [place] CO2 [Moles/Vol] 27 mmol/L Normal 21-31 [facility] Comment on above: Performed By: #### 0 0071 #### [facility] [address] [place] [address], [place] Creatinine [Mass/Vol] 1.38 mg/dL High 0.60-1.20 [facility] Comment on above: Performed By: #### 0 0071 #### [facility] [address] [place] [address], [place] eGFR- 45 ml/min/1.73sq m Abnormal >60 The [facility] Comment on above: Result Comment: Calc ulation may not be valid for patients over 70 years Performed By: #### 0 0071 #### [facility] [address] [place] [address], [place] eGFR- non- 37 ml/min/1.73sq m Abnormal >60 [facility] Comment on above: Result Comment: Calc ulation may not be valid for patients over 70 years Performed By: #### 0 0071 #### [facility] [address] [place] [address], [facility] Glucose [Mass/Vol] 102 mg/dL High 70-100 The [facility] Comment on above: Performed By: #### 0 0071 #### [facility] [address] [place] [address], [facility] Potassium [Moles/Vol] 3.3 mmol/L Low 3.5-5.1 [facility] Comment on above: Performed By: #### 0 0071 #### [facility] [address] [place] [address], [facility] Sodium [Moles/Vol] 139 mmol/L Normal 136-145 [facility] Comment on above: Performed By: #### 0 0071 #### [facility] [address] [place] [address], [facility] Urea nitrogen [Mass/Vol] 16 mg/dL Normal 7-25 [facility] Comment on above: Performed By: #### 0 0071 #### [facility] [address] [place] [address], [facility] CBC COMPLETE BLOOD COUNTon - Erythrocyte distribution width (RBC) [Ratio] 12.3 % Normal 11.5-15.0 [facility] Comment on above: Performed By: #### 5 0608 #### [facility] [address] [place] [address], [facility] Hematocrit (Bld) [Volume fraction] 37.8 % Normal 36.0-45.0 [facility] Comment on above: Performed By: #### 5 0608 #### [facility] [address] [place] [address], [facility] Hemoglobin (Bld) [Mass/Vol] 13.3 g/dL Normal 12.0-15.0 [facility] Comment on above: Performed By: #### 5 0608 #### [facility] [address] [place], [place] [address] [place] [address] MCH (RBC) [Entitic mass] 32.6 pg Normal 27.0-33.0 [facility] Comment on above: Performed By: #### 5 0608 #### [facility] [address] [facility]. [address] MCHC (RBC) [Mass/Vol] 35.2 g/dL High 32.0-35.0 [facility] Comment on above: Performed By: #### 5 0608 #### [facility] [address] MCV (RBC) [Entitic vol] 92.6 fL Normal 82.0-98.0 [facility] Comment on above: Performed By: #### 5 0608 #### [facility] [address] Nucleated RBC/100 WBC (Bld) [Ratio] 0 % Normal 0-0 [facility] Comment on above: Performed By: #### 5 0608 #### [facility] [address] PLAT CNT 187 10*3/uL Normal 150-400 The [facility] Comment on above: Performed By: #### 5 0608 #### [facility] [address] RBC (Bld) [#/Vol] 4.08 10*6/uL Normal 3.80-5.00 The [facility] Comment on above: Performed By: #### 5 0608 #### [facility] [address] WBC (Bld) [#/Vol] 7.62 10*3/uL Normal 4.00-10.60 [facility] Comment on above: Performed By: #### 5 0608 #### [facility] [address] Cardiovascular Lab Reporton 01-25-2022 Cardiovascular Lab Report [facility] Patient Name: Odilia Schroeder [facility] MR #: [id number] Physician: Bee Robles M.D. Medicine Service Date: 01/25/2022 Division of Birthdate: 1945 Cardiology Room #: [facility] Cardiovascular Services [address] [place] [address] Cardiovascular Laboratory Report INDICATION: Mitral regurgitation. PROCEDURES: 1. Right heart catheterization. 2. Access into the right internal jugular vein under ultrasound guidance. METHODS: Procedure was explained to the patient with risks and benefits. She signed informed consent. She was brought to slabbing machine operator in a fasting state. The right neck area was prepped and draped in usual fashion. Micropuncture technique and ultrasound guidance were used for access in the right internal jugular vein. A 7-Haitian x 11 cm sheath was placed. A 7-Haitian Morelos catheter was used for right heart [...] Guevara M.D. Date Trans: 01/25/2022 08:47 P/vincento [id number] cc: Zaki Flanagan D.O. [address] [place] [address] Normal [facility] Covid-19 PCR (CVDTBH)on 01-13 SARS-CoV-2 (COVID-19) RNA EULA+probe Ql (Unsp spec) Not detected Normal NOT DETECTED [facility] Comment on above: Result Comment: This test is not yet approved or cleared by the [place] FDA. When there are no FDA-approved or cleared tests available, and other criteria are met, FDA can make tests available under an emergency access mechanism called an Emergency Use Authorization (EUA). The EUA for this test is supported by the [place] [employer] of Health and Human Service's (HHS's) declaration [...] SARS-CoV-2. Performed By: #### C VDTBH #### [facility] [address] [place] [address] Dr. Kay Singh FREE T4on 01-23-2022 Free T4 [Mass/Vol] 1.10 ng/dL Normal 0.76-1.46 [facility] Comment on above: Performed By: #### C MP #### [facility] [address] [place] [address] Dr. Kay Singh TSHon 01-23-2022 TSH 1.794 uIU/mL Normal 0.358-3.740 [facility] Comment on above: Performed By: #### T #### [facility] [address] [place] [address] Dr. Kay Singh ECHOCARDIO M/2D COMPLETEon 0 12-23-2021 ECHOCARDIO M/2D COMPLETE Patient: ODILIA SCHROEDER Exam Date: 12/23/2021 : 1945 Gender:F Ordering : JOSE M CABRERA Admission #: [id number] Family : Order #: [id number] CLICK HERE TO VIEW EXAM ECHOCARDIOGRAM REPORT [...] Area(A4C): 15.50 cm2 Left Atrium Systolic Volume(A2C): 01455 mm3 Left Atrium Systolic Volume(A4C): 07061 mm3 Mitral Valve MV E to A [...] Guevara M.D. on 12/23/2021 at 15:18 Normal [facility] PROF 14(COMP METB)on 022 Albumin [Mass/Vol] 3.4 g/dL Normal 3.4-5.0 [facility] Comment on above: Performed By: #### C MP #### [facility] [address] [address] [address] Kay Singh Albumin/Globulin [Mass ratio] 0.9 {ratio} Normal [facility] Comment on above: Performed By: #### C MP #### [facility] [address] [place], [place] [address] Dr. Kay Singh ALP [Catalytic activity/Vol] 42 U/L Critically low 46-116 [facility] Comment on above: Performed By: #### C MP #### [facility] [address] [address] [address] Kay Singh ALT [Catalytic activity/Vol] 15 U/L Normal 14-59 [facility] Comment on above: Performed By: #### C MP #### [facility] [address] [address] [address] Kay Singh Anion gap [Moles/Vol] 8.9 mmol/L Normal [facility] Comment on above: Performed By: #### C MP #### [facility] [address] [address] [address] Kay Singh AST [Catalytic activity/Vol] 16 U/L Normal 15-37 [facility] Comment on above: Performed By: #### C MP #### [facility] [address] [place] [address] Dr. Kay Singh Bilirubin [Mass/Vol] 0.5 mg/dL Normal 0.2-1.0 [facility] Comment on above: Performed By: #### C MP #### [facility] [address] [place] [address] Dr. Kay Singh Calcium [Mass/Vol] 8.8 mg/dL Normal 8.5-10.1 [facility] Comment on above: Performed By: #### C MP #### [facility] [address] [place] [address] Dr. Kay Singh Chloride [Moles/Vol] 102 mmol/L Normal 98-107 [facility] Comment on above: Performed By: #### C MP #### [facility] [address] [address] [address] Kay Singh CO2 [Moles/Vol] 31.3 mmol/L Normal 21.0-32.0 The [facility] Comment on above: Performed By: #### C MP #### [facility] [address] [place] [address] Dr. Kay Singh Creatinine [Mass/Vol] 1.30 mg/dL Critically high 0.55-1.02 [facility] Comment on above: Performed By: #### C MP #### [facility] [address] [place] [address] [address] Kay Singh EGFR-AF ROMANIAN 48 mL/min/1.73m2 Critically low >=60 [facility] Comment on above: Performed By: #### C MP #### [facility] [address] [address] [address] Kay Singh EGFR-NON AF ROMANIAN 40 mL/min/1.73m2 Critically low >=60 [facility] Comment on above: Performed By: #### C MP #### [facility] [address] [place] [address] [address] Kay Singh Globulin (S) [Mass/Vol] 3.8 g/dL Normal [facility] Comment on above: Performed By: #### C MP #### [facility] [address] [place] [address] [address] Kay Singh Glucose [Mass/Vol] 94 mg/dL Normal 74-106 [facility] Comment on above: Performed By: #### C MP #### [facility] [address] [address] [address] Kay Singh Potassium [Moles/Vol] 4.2 mmol/L Normal 3.5-5.1 [facility] Comment on above: Performed By: #### C MP #### [facility] [address] [address] [address] Kay Singh Protein [Mass/Vol] 7.2 g/dL Normal 6.4-8.2 [facility] Comment on above: Performed By: #### C MP #### [facility] [address] [place] [address] [address] Kay Singh Sodium [Moles/Vol] 138 mmol/L Normal 136-145 [facility] Comment on above: Performed By: #### C MP #### [facility] [address] [address] [address] Kay Singh Urea nitrogen [Mass/Vol] 17.0 mg/dL Normal 7.0-18.0 [facility] Comment on above: Performed By: #### C MP #### [facility] [address] [place] [address] [address] Kay Singh Urea nitrogen/Creatinine [Mass ratio] 13.1 mg/mg Normal [facility] Comment on above: Performed By: #### C MP #### [facility] [address] [address] [address] Kay Singh *MRSA/MSSA DNA NASALon 12-14 *MRSA/MSSA DNA NASAL Clinical Report: (D) Specimen: NASAL SWAB Collected: 12/14/2021 13:00 Status: Final Last Updated: 12/15/2021 14:36 MSSA DNA (Final) Methicillin Susceptible Staphylococcus aureus DNA Detected MRSA DNA (Final) Negative Normal [facility] Comment on above: Performed By: #### 3 1595 #### [facility] [address] [place] [address], [facility] BASIC METABOLIC PANELon Calcium [Mass/Vol] 8.9 mg/dL Normal 8.6-10.3 [facility] Comment on above: Performed By: #### 0 0071 #### [facility] [address] [place] [address], [place] Chloride [Moles/Vol] 101 mmol/L Normal 98-107 [facility] Comment on above: Performed By: #### 0 0071 #### [facility] [address] [place] [address], [place] CO2 [Moles/Vol] 26 mmol/L Normal 21-31 [facility] Comment on above: Performed By: #### 0 0071 #### [facility] [address] [place] [address], [place] Creatinine [Mass/Vol] 1.18 mg/dL Normal 0.60-1.20 [facility] Comment on above: Performed By: #### 0 0071 #### [facility] [address] [place] [address], [place] eGFR- 53 ml/min/1.73sq m Abnormal >60 [facility] Comment on above: Result Comment: Calc ulation may not be valid for patients over 70 years Performed By: #### 0 0071 #### [facility] [address] [place] [address], [place] eGFR- non- 45 ml/min/1.73sq m Abnormal >60 [facility] Comment on above: Result Comment: Calc ulation may not be valid for patients over 70 years Performed By: #### 0 0071 #### [facility] [address] [place] [address], [place] Glucose [Mass/Vol] 95 mg/dL Normal 70-100 [facility] Comment on above: Performed By: #### 0 0071 #### [facility] [facility] [address] [place] [address], [place] Potassium [Moles/Vol] 4.5 mmol/L Normal 3.5-5.1 [facility] Comment on above: Performed By: #### 0 [id number] #### [facility] [address] [place] [address], [place] Sodium [Moles/Vol] 133 mmol/L Low 136-145 The [facility] Comment on above: Performed By: #### 0 [id number] #### [facility] [address] [place] [address], [place] Urea nitrogen [Mass/Vol] 17 mg/dL Normal 7-25 [facility] Comment on above: Performed By: #### 0 [id number] #### [facility] [address] [place] [address], [place] CBC COMPLETE BLOOD COUNTon 0 12-14-2021 Erythrocyte distribution width (RBC) [Ratio] 13.0 % Normal 11.5-15.0 [facility] Comment on above: Performed By: #### 0 [id number] #### [facility] [address] [place] [address], [place] Hematocrit (Bld) [Volume fraction] 37.7 % Normal 36.0-45.0 [facility] Comment on above: Performed By: #### 0 [id number] #### [facility] [address] [place] [address], [facility] Hemoglobin (Bld) [Mass/Vol] 13.2 g/dL Normal 12.0-15.0 [facility] Comment on above: Performed By: #### 0 [id number] #### [facility] [address] MCH (RBC) [Entitic mass] 32.9 pg Normal 27.0-33.0 [facility] Comment on above: Performed By: #### 0 [id number] #### [facility] [address] MCHC (RBC) [Mass/Vol] 35.0 g/dL Normal 32.0-35.0 [facility] Comment on above: Performed By: #### 0 [id number] #### [facility] [address] [place] [address], [facility] MCV (RBC) [Entitic vol] 94.0 fL Normal 82.0-98.0 [facility] Comment on above: Performed By: #### 0 [id number] #### [facility] [address] Nucleated RBC/100 WBC (Bld) [Ratio] 0 % Normal 0-0 [facility] Comment on above: Performed By: #### 0 [id number] #### [facility] [address] [facility] [place] [address], [facility] PLAT CNT 175 10*3/uL Normal 150-400 The [facility] Comment on above: Performed By: #### 0 [id number] #### [facility] [address] [place] [address], [facility] RBC (Bld) [#/Vol] 4.01 10*6/uL Normal 3.80-5.00 The [facility] Comment on above: Performed By: #### 0 0071 #### [address] WBC (Bld) [#/Vol] 6.40 10*3/uL Normal 4.00-10.60 The [facility] Comment on above: Performed By: #### 0 0071 #### [address] CHEST AND LATERALon 12-15-19 CHEST AND LATERAL [facility] Department of Radiology [address] [place] [id number] Patient Name: ODILIA SCHROEDER : 1945 [...] exam Electronically signed: Nereida Vasquez. Transcribed by: [email or web address], User Resident: Electronically Signed by: NEREIDA VASQUEZ @ 12/14/2021 03:29 PM Normal [facility] Comment on above: Order Comment: post cath procedure POC SARS COV2 IDon SARS-CoV-2 (COVID-19) RNA EULA+probe Ql (Unsp spec) Negative Normal NEGATIVE [facility] Comment on above: Result Comment: ID N [...] Accreditation. Performed By: #### 0 [id number] #### [facility] [address] [facility]. [address] Covid-19 PCR (CVDTB)on 11-15 SARS-CoV-2 (COVID-19) RNA EULA+probe Ql (Unsp spec) Not detected Normal NOT DETECTED The [facility] Comment on above: Result Comment: This test is not yet approved or cleared by the [place] FDA. When there are no FDA-approved or cleared tests available, and other criteria are met, FDA can make tests available under an emergency access mechanism called an Emergency Use Authorization (EUA). The EUA for this test is supported by the [place] of Health and Human Service's (HHS's) declaration [...] SARS-CoV-2. Performed By: #### C MP #### [facility] [address] [place] [address] Dr. Kay Singh FOLATE ([facility])on Folate 7.3 ng/mL Normal >3.0 [facility] Comment on above: Result Comment: A se rum folate concentration of less than 3.1 ng/mL is considered to represent clinical deficiency. Performed By: #### C MP #### [facility] [address] [place] [address] Dr. Kay Singh VIT D 25-OH LABCORPon 2021 Vitamin D, 25-Hydroxy 62.3 ng/mL Normal 30.0-100.0 [facility] Comment on above: Result Comment: Nicky min D deficiency has been defined by the [place] of Medicine and an Endocrine Society practice guideline as a level of serum 25-OH vitamin D less than 20 ng/mL (1,2). The Endocrine Society went on to further define vitamin D insufficiency as a level between 21 and 29 ng/mL (2). 1. IOM ([place] [employer]). 2010. Dietary reference intakes for calcium and D. [place]: The National Academies Press. 2. Jayesh MF, [place], Elizabet OWENS, et al. Evaluation, treatment, and prevention of vitamin D deficiency: an Endocrine Society clinical practice guideline. JCEM. 2010; 96(7):1911-30. Performed By: #### C MP #### [facility] [address] [place] [address] Dr. Kay Singh VITAMIN B12on 07-26-2021 Cobalamin (Vitamin B12) [Mass/Vol] 373 pg/mL Normal 232-1245 [facility] Comment on above: Performed By: #### V B12LC #### [facility] [address] [place] [address] Dr. Kay Singh CBC AUTO DIFFon 07-25-2021 BASO # 0.0 103/ul Normal 0.0-0.1 [facility] Comment on above: Performed By: #### C BC #### [facility] [address] [place] [address] Dr. Kay Singh Basophils/100 WBC (Bld) 0.5 % Normal 0.2-2.0 [facility] Comment on above: Performed By: #### C BC #### [facility] [address] [place] [address] Dr. Kay Singh EO # 0.7 103/ul Normal 0.0-0.7 [facility] Comment on above: Performed By: #### C BC #### [facility] [address] [place] [address] Dr. Kay Singh Eosinophils/100 WBC (Bld) 8.8 % Critically high 0.9-7.0 [facility] Comment on above: Performed By: #### C BC #### [facility] [address] [place] [address] Dr. Kay Singh Erythrocyte distribution width (RBC) [Ratio] 11.8 % Normal 11.0-15.0 [facility] Comment on above: Performed By: #### C BC #### [facility] [address] [place] [address] Dr. Kay Singh Hematocrit (Bld) [Volume fraction] 37.3 % Normal 36.0-48.0 [facility] Comment on above: Performed By: #### C BC #### [facility] [address] [place] [address] Dr. Kay Singh Hemoglobin (Bld) [Mass/Vol] 12.8 g/dL Normal 12.0-16.0 [facility] Comment on above: Performed By: #### C BC #### [facility] [address] [place] [address] Dr. Kay Singh IG # 0.03 10e3/ul Normal 0.00-0.03 [facility] Comment on above: Performed By: #### C BC #### [facility] [address] [place] [address] Dr. Kay Singh IG % 0.4 % Normal 0.0-0.5 [facility] Comment on above: Performed By: #### C BC #### [facility] [address] [place] [address] Dr. Kay Singh LYMPH # 1.6 103/ul Normal 1.2-3.8 [facility] Comment on above: Performed By: #### C BC #### [facility] [address] [place] [address] Dr. Kay Singh Lymphocytes/100 WBC (Bld) 19.5 % Critically low 20.5-60.0 [facility] Comment on above: Performed By: #### C BC #### [facility] [address] [place] [address] Dr. Kay Singh MANUAL DIFF REQ NO Normal [facility] Comment on above: Performed By: #### C BC #### [facility] [address] [place] [address] Dr. Kay Singh MCH (RBC) [Entitic mass] 32.1 pg Normal 26.7-34.0 [facility] Comment on above: Performed By: #### C BC #### [facility] [address] [place] [address] Dr. Kay Singh MCHC (RBC) [Mass/Vol] 34.3 g/dL Normal 29.9-35.2 [facility] Comment on above: Performed By: #### C BC #### [facility] [address] [place] [address] Dr. Kay Singh MCV (RBC) [Entitic vol] 93.5 fL Normal 81.0-99.0 [facility] Comment on above: Performed By: #### C BC #### [facility] [address] [place] [address] Dr. Kay Singh MONO # 0.7 103/ul Normal 0.3-0.8 [facility] Comment on above: Performed By: #### C BC #### [facility] [address] [address] [address] Kay Singh Monocytes/100 WBC (Bld) 8.3 % Normal 1.7-12.0 [facility] Comment on above: Performed By: #### C BC #### [facility] [address] [address] [address] Kay Singh NEUT # 5.2 103/ul Normal 1.4-6.5 [facility] Comment on above: Performed By: #### C BC #### [facility] [address] [place] [address] Dr. Kay Singh Neutrophils/100 WBC (Bld) 62.5 % Normal 43.0-75.0 [facility] Comment on above: Performed By: #### C BC #### [facility] [address] [place] [address] Dr. Kay Singh Platelet mean volume (Bld) [Entitic vol] 10.1 fL Normal 9.5-13.5 [facility] Comment on above: Performed By: #### C BC #### [facility] [address] [place] [address] Dr. Kay Singh PLT 221 103/ul Normal 150-450 [facility] Comment on above: Performed By: #### C BC #### [facility] [address] [address] [address] Kay Singh RBC 3.99 106/ul Critically low 4.20-5.40 [facility] Comment on above: Performed By: #### C BC #### [facility] [address] [place] [address] Dr. Kay Singh WBC 8.3 103/ul Normal 4.0-11.0 [facility] Comment on above: Performed By: #### C BC #### [facility] [address] [place] [address] Dr. Kay Singh GLYCOHEMOGLOBIN A1Con 2021 ADA RECOMMENDATION ADA THERAPEUTIC TARGET 6.0 - 7.0 ACTION SUGGESTED > 7.0 Normal [facility] Comment on above: Performed By: #### A 1C #### [facility] [address] [address] [address] Kay Singh Glucose [Mass/Vol] 108 mg/dL Normal [facility] Comment on above: Performed By: #### A 1C #### [facility] [address] [address] [address] Kay Singh HbA1c (Bld) [Mass fraction] 5.4 % Normal <=6.0 [facility] Comment on above: Performed By: #### A 1C #### [facility] [address] [place] [address] Dr. Kay Singh LIPID PROFILEon 07-25-2021 CHOL-HDL RATIO NORM SEE BELOW Normal [facility] Comment on above: Result Comment: 3.3 - 4.4 LOW RISK 4.4 - 7.1 AVERAGE RISK 7.1 - 11.0 MODERATE RISK >11.0 HIGH RISK Performed By: #### T SH, LIPID, CMP #### [facility] [address] [address] [address] Kay Singh Cholesterol [Mass/Vol] 139 mg/dL Normal <=200 [facility] Comment on above: Performed By: #### T SH, LIPID, CMP #### [facility] [address] [address] [address] Kay Singh Cholesterol in HDL [Mass/Vol] 52 mg/dL Normal [facility] Comment on above: Performed By: #### T SH, LIPID, CMP #### [facility] [address] [address] [address] Kay Singh Cholesterol in LDL [Mass/Vol] 69.8 mg/dL Normal [facility] Comment on above: Performed By: #### T SH, LIPID, CMP #### [facility] [address] [address] [address] Kay Singh Cholesterol.total/C holesterol in HDL [Mass ratio] 2.7 {ratio} Normal [facility] Comment on above: Performed By: #### T SH, LIPID, CMP #### [facility] [address] [address] [address] Kay Singh HDL NORMAL > or = 60 mg/dl - LO W CARDIOVASCULAR RISK <40 mg/dl - HIGH CARDIOVASCULAR RISK Normal [facility] Comment on above: Performed By: #### T BARB, LIPID, CMP #### [facility] [address] [address] [address] Kay Singh LDL CALC NORMAL SEE BELOW Normal [facility] Comment on above: Result Comment: <100 mg/dl OPTIMAL 100 - 129 mg/dl NEAR OR ABOVE OPTIMAL 130 - 159 mg/dl BORDERLINE HIGH 160 - 189 mg/dl HIGH >190 mg/dl VERY HIGH Performed By: #### T SH, LIPID, CMP #### [facility] [address] [address] [address] Kay Singh Triglyceride [Mass/Vol] 86 mg/dL Normal <=150 [facility] Comment on above: Performed By: #### T BARB, LIPID, CMP #### [facility] [address] [address] [address] Kay Singh VLDL CALC 17.2 mg/dL Normal [facility] Comment on above: Performed By: #### T BARB, LIPID, CMP #### [facility] [address] [address] [address] Kay Singh MG MAMM SCREEN 3D TRINITY CADon 07-25-2021 MG MAMM SCREEN 3D TRINITY CAD Patient: ODILIA SCHROEDER Exam Date: 07/25/2021 : 1945 Gender:F Ordering : DR ZAKI FLANAGAN DSalazar Admission #: [id number] Family : Order #: [id number] CLICK HERE TO VIEW EXAM RADIOLOGY REPORT [...] Treatments None Family Cancers None LOCATION: [facility] BREAST COMPOSITION: Scattered areas fibroglandular density. [...] Tirado MD on 07/25/2021 at 11:10 Normal [facility] PROF 14(COMP METB)on 022 Albumin [Mass/Vol] 3.7 g/dL Normal 3.5-5.0 [facility] Comment on above: Performed By: #### T SH, LIPID, CMP #### [facility] [address] [place] [address] Dr. Kay Singh Albumin/Globulin [Mass ratio] 1.1 {ratio} Normal [facility] Comment on above: Performed By: #### T SH, LIPID, CMP #### [facility] [address] [place] [address] Dr. Kay Singh ALP [Catalytic activity/Vol] 46 U/L Normal 38-126 [facility] Comment on above: Performed By: #### T SH, LIPID, CMP #### [facility] [address] [place] [address] Dr. Kay Singh ALT [Catalytic activity/Vol] 12 U/L Normal 9-52 [facility] Comment on above: Performed By: #### T SH, LIPID, CMP #### [facility] [address] [place] [address] Dr. Kay Singh Anion gap [Moles/Vol] 12.1 mmol/L Normal [facility] Comment on above: Performed By: #### T SH, LIPID, CMP #### [facility] [address] [place] [address] Dr. Kay Singh AST [Catalytic activity/Vol] 18 U/L Normal 14-36 [facility] Comment on above: Performed By: #### T SH, LIPID, CMP #### [facility] [address] [address] [address] Kay Singh Bilirubin [Mass/Vol] 0.6 mg/dL Normal 0.2-1.3 [facility] Comment on above: Performed By: #### T SH, LIPID, CMP #### [facility] [address] [address] [address] Kay Singh Calcium [Mass/Vol] 9.1 mg/dL Normal 8.4-10.2 [facility] Comment on above: Performed By: #### T SH, LIPID, CMP #### [facility] [address] [place] [address] Dr. Kay Singh Chloride [Moles/Vol] 99 mmol/L Normal 98-107 [facility] Comment on above: Performed By: #### T SH, LIPID, CMP #### [facility] [address] [place] [address] Dr. Kay Singh CO2 [Moles/Vol] 29.4 mmol/L Normal 22.0-30.0 [facility] Comment on above: Performed By: #### T SH, LIPID, CMP #### [facility] [address] [address] [address] Kay Singh Creatinine [Mass/Vol] 1.39 mg/dL Critically high 0.52-1.04 [facility] Comment on above: Performed By: #### T SH, LIPID, CMP #### [facility] [address] [place] [address] Dr. Kay Singh EGFR-AF ROMANIAN 44 mL/min/1.73m2 Critically low >=60 [facility] Comment on above: Performed By: #### T SH, LIPID, CMP #### [facility] [address] [place] [address] Dr. Kay Singh EGFR-NON AF ROMANIAN 37 mL/min/1.73m2 Critically low >=60 [facility] Comment on above: Performed By: #### T SH, LIPID, CMP #### [facility] [address] [address] [address] Kay Singh Globulin (S) [Mass/Vol] 3.3 g/dL Normal [facility] Comment on above: Performed By: #### T BARB, LIPID, CMP #### [facility] [address] [place] [address] Dr. Kay Singh Glucose [Mass/Vol] 118 mg/dL Critically high 74-106 [facility] Comment on above: Performed By: #### T BARB, LIPID, CMP #### [facility] [address] [place] [address] Dr. Kay Singh Potassium [Moles/Vol] 3.5 mmol/L Normal 3.4-5.0 [facility] Comment on above: Performed By: #### T BARB LIPID, CMP #### [facility] [address] [place] [address] Dr. Kay Singh Protein [Mass/Vol] 7.0 g/dL Normal 6.1-8.2 [facility] Comment on above: Performed By: #### T BARB LIPID, CMP #### [facility] [address] [place] [address] Dr. Kay Singh Sodium [Moles/Vol] 137 mmol/L Normal 137-145 [facility] Comment on above: Performed By: #### T BARB LIPID, CMP #### [facility] [address] [place] [address] Dr. Kay Singh Urea nitrogen [Mass/Vol] 16.0 mg/dL Normal 7.0-17.0 [facility] Comment on above: Performed By: #### T BARB, LIPID, CMP #### [facility] [address] [place] [address] Dr. Kay Singh Urea nitrogen/Creatinine [Mass ratio] 11.5 mg/mg Normal [facility] Comment on above: Performed By: #### T BARB, LIPID, CMP #### [facility] [address] [place] [address] Dr. Kay Singh TSHon 07-25-2021 TSH 3.226 uIU/mL Normal 0.470-4.680 [facility] Comment on above: Performed By: #### T BARB, LIPID, CMP #### [facility] [address] [place], [place] [address] Dr. Kay Singh TSH RANGE SEE BELOW Normal [facility] Comment on above: Result Comment: <0.3 4 UIU/ml HYPERTHYROID 0.34-5.60 UIU/ml EUTHYROID >5.60 UIU/ml HYPOTHYROID Performed By: #### T SH, LIPID, CMP #### [facility] [address] [place], [place] [address] Dr. Kay Singh XR DEXA BONE DENSITYon [...] by: ETHEL SANDERSON Date: 2021-07-25 10:44 Normal [facility] Encounters Encounter Date Encounter Type Care Provider Facility Start: 07-11-2023 End: 07-11-2023 ambulatory [facility] Start: 06-06-2023 End: 06-06-2023 ambulatory [facility] Start: 05-09-2023 End: 05-09-2023 ambulatory [facility] Start: 04-30-2023 End: 04-30-2023 ambulatory [facility] Start: 04-25-2023 End: 04-25-2023 ambulatory JEFFERSON [facility] Start: 03-28-2023 End: 03-28-2023 ambulatory KURT PALOMARESROBERTRACHNA [facility] Start: 10-23-2022 End: 10-23-2022 ambulatory BEE GUEVARA [facility] Start: 04-10-2022 End: 04-11-2022 ambulatory JOSE M CABRERA Facility:[facility] Start: 02-22-2022 End: 02-23-2022 Evaluation and management of inpatient ZAKI FLANAGAN Facility:[facility] Start: 02-20-2022 End: 02-21-2022 ambulatory JOSE M CABRERA Facility:[facility] Start: 01-25-2022 End: 01-26-2022 ambulatory BEE GUEVARA Facility:[facility] Start: 01-23-2022 End: 01-24-[address] BEE GUEVARA Facility:[facility] Start: 12-23-2021 End: 12-24-2021 ambulatory JOSE M CABRERA Facility:[facility] Start: 12-14-2021 End: 12-15-2021 ambulatory BEE GUEVARA Facility:[facility] Start: 12-12-2021 End: 12-13-[address] BEE GUEVARA Facility:[facility] Start: 07-25-2021 End: 07-26-[address] ZAKI FLANAGAN Facility:[facility] Procedures Date Procedure Procedure Detail Performing Clinician Start: 02-22-2022 Antibody screen BEE GUEVARA Comment on above: Performed By: #### 6 [id number] #### [address] Payers Date Payer Category Payer Private Health Insurance [id number] 1945 Unknown [id number] 2.16.8 [id number] 1945 Unknown [id number] 2.16.8 [id number] 1945 Unknown [id number] 2.16.8 [id number] 1945 Unknown [id number] 2.16.84 [id number] 1945 Unknown [id number] 2.16.84 [id number] 1945 Unknown [id number] 2.16.84 [id number] 1945 Unknown [id number] 2.16.84 [id number] 1945 Unknown [id number] 2.16.84 [id number] 1945 Unknown [id number] 2.16.84 [id number] 1945 Unknown [id number] 2.16.84 [id number] Clinical Notes 02-24-2022 to 07-11-2023 Note Date & Type Note Facility 07-11-2023 Note B/p currently labile 90/60 with generalized fatigue [facility] 07-11-2023 Note [facility] III- currently euvolemic if not a bit [...] and electrolytes- Repeat BMP in 1 week [facility] 07-11-2023 Note Currently I feel she is dehydrated, therefore again instructed her to decrease lasix to 20 mg daily. Monitor fluid status and may increase to bid for 3 days as needed for fluid overload. [facility] 07-11-2023 Note EKG today remains in A fib States anticoagulation was unaffordable and she stopped taking it, voiced understanding of risk ofr stroke yearly. Today she is agreeable to proceeding with CELINA/CV in about 2 weeks- hopefully her daughters are recovered from illness and she is feeling better herself- she will call office to schedule. [facility] 07-11-2023 Note Patient here for 1 m [...] All other systems reviewed and are negative. [facility] 07-11-2023 Note [facility] CARDIOLOGY PROGR ESS NOTE [...] mildly enlarged. Left (more content not included)... [facility] 06-06-2023 Note Cardiovascular Medic [facility] SUBJECTIVE Chief Complaint Patient presents with [...] Vitals reviewed. Constitutional: (more content not included)... [facility] 05-09-2023 Note Patient here today f or [...] All other systems reviewed and are negative. [facility] 05-09-2023 Note Cardiovascular Medic ine [facility] SUBJECTIVE Chief Complaint Patient presents with [...] edema. Left lower (more content not included)... [facility] 04-30-2023 Note Currently stable wit hout any lightheadedness, dizziness or syncope since last visit [facility] 04-30-2023 Note Currently hypertensi on is well controlled [facility] 04-30-2023 Note [facility] II-IIIc, Curren tly pt [...] she was most likely still fluid overloaded. [facility] 04-30-2023 Note Currently stable [facility] 04-30-2023 Note Patient here for 1 w crow follow up. Had BMP 2 days ago. [...] All other systems reviewed and are negative. [facility] 04-30-2023 Note [facility]TP CARDIOLOGY PROGR ESS NOTE [...] mitral regurgitation i (more content not included)... [facility] 04-25-2023 Note [facility] IVc- currently fluid overloaded, dyspneic at rest [...] fluid restriction 1.5-2L/day, renal function and electrolytes [facility] 04-25-2023 Note Stable- no syncope [facility] 04-25-2023 Note Currently uncontroll ed, add entresto and farxga, continue lasix Monitor b/p at home [facility] 04-25-2023 Note stable [facility] 04-25-2023 Note [id number]= 6 Age, female, HTN, CHF, TIA No anticoagulation s/p watchman implantation Continue metoprolol tartrate- will plan to transition to GDMT- for CHF possibly at next visit- toprol, coreg or bisprolol [facility] 04-25-2023 Note [facility]TP CARDIOLOGY PROGR ESS NOTE HPI: Odilia Schroeder is a 78 y.o. female here for Combined Heart failure, PAF, Patient here for follow up echo done yesterday. Didn't take lasix for a few days last week. Had some chest tightness a few days ago. Reports that she ran out of lasix a while ago and was admitted to [facility]. Admits weight gain of about 3-4 pounds, increased shortness of breath- at rest and + orthopnea and difficulty sleeping. Was recently admitted to [facility] for SOB, weakness, CHF, A fib [...] is 55%, nor (more content not included)... [facility] 04-25-2023 Note Patient here for fol [facility] up echo done yesterday. Didn't take lasix for a few days last week. Had some chest tightness a few days ago. Review of Systems Eyes: Positive for blurred vision. Cardiovascular: Positive for dyspnea on exertion and palpitations (intermittent). Respiratory: Positive for wheezing. Neurological: Positive for light-headedness, loss of balance and vertigo. All other systems reviewed and are negative. [facility] 03-28-2023 Note Patient here for [facility]. She presented to the ED for worsening [...] All other systems reviewed and are negative. [facility] 03-28-2023 Note [facility] Subjective Odilia Schroeder is a 77 [...] Rate 02/22/2022 64 Atrial Rate 02/22/2022 64 NM Interval 02/22/2022 228 QRS DURATION 02/22/2022 164 QT Interval 02/22/2022 502 QTC CALCULATION(BAZETT) 02/22/2022 517 P [place] 02/22/2022 58 R-[place] 02/22/2022 -57 T Wave [place] 02/22/2022 59 Diagnosis 02/22/2022 Value:Sinus rhythm with 1st degree A-V block Left axis deviation Left bundle branch block Abnormal ECG When compared with ECG of 22-FEB-2022 09:58, (unconfirmed) No significant change was found Confirmed by Julian Bolivar ([id number]) on 02/23/2022 12:55:57 AM Blood testing (more content not included)... [facility] 10-23-2022 Note [facility] Subjective Odilia Schroeder is a 77 [...] on anticoagulation therapy for atrial fibrillation. Her [id number] score is 4 for age, history of [...] Rfl: pravastatin (Pravachol (more content not included)... [facility] 02-24-2022 Note MR#: [id number] [facility] Pt. Name: Odilia Schroeder Admitted: 02/22/2022 Discharged: [...] including most recently Dr. Argelia Rodas from [facility] and they all agreed she should be considered for Watchman device, which is what brought her to the slabbing machine operator on admission. On 02/22/2022, she underwent successful [...] Eliquis or aspirin unless instructed by your small boat engineer. 2. Follow up with Cardiology as scheduled, with BAT BOY/GIRL, Jose M Cabrera in the [facility]. 3. A followup transesophageal echocardiogram will be [...] me. Date Dict: 02/23/2022/02:46 P/Jose M Cabrera, PACKAGE CENTER SUPERVISOR Date Trans: 02/24/2022 09:55 A/deja [id number] cc: Zaki Flanagan D.O. [id number] [place] [id number] [facility] Summary Purpose Family History No Family History Records FoundNo Family History Records FoundNo Family History Records Found Advance Directives No Advanced Directives Records FoundNo Advanced Directives Records FoundNo Advanced Directives Records Found Additional Source Comments INFORMATION SOURCE (unrecogn ized section and content) DATE CREATED AUTHOR 03/08/2022 [facility] DATE CREATED AUTHOR AUTHOR'S ORGANIZ ATION 05/06/2022 [facility] DATE CREATED AUTHOR AUTHOR'S ORGANIZ ATION 07/13/2023 [facility] FOR RECORDS PERTAINING TO PATIENTS WHO [...] BE BASED ON THE PRIMARY CLINICAL RECORDS. [facility] [employer] provides no warranty or guarantee of the accuracy or completeness of information in this document.
--- NOTE | 2023-08-13 14:43 | CA_ITS ---
Patient Name: DEEPA GRIER MR#: [id number] : 1945 Exam Date: 08/13/2023 Ordering Doctor: JOSE M RYDER CNP ECHOCARDIOGRAM REPORT PROCEDURE: CA ECHO DOPPLER COMPLETE INDICATIONS: Heart failure with reduced ejection fraction, hypertension COMPARISON: None. DESCRIPTION: COMPLETE ECHOCARDIOGRAM Real-time transthoracic echocardiography with 2D, M-mode, spectral and color flow Doppler performed. QUALITY: Technical quality was good. 60 , 157#, BSA 1.68 m2 LEFT VENTRICLE: Normal chamber size. Proximal septal hypertrophy (sigmoid septum). Systolic function is difficult to assess but appears moderately reduced. LV EF: Moderately reduced left ventricular ejection fraction, (35-40%). DIASTOLIC: Not adequately assessed due to heart rhythm. ATRIAL SEPTUM: LEFT ATRIUM: Moderate dilatation. RIGHT ATRIUM: Moderate dilatation. RIGHT VENTRICLE: Mild dilatation. Normal systolic function. TRICUSPID VALVE: Normal mobility and thickness. No stenosis with moderate regurgitation. No evidence of pulmonary hypertension. RVSP 34 mmHg MITRAL VALVE: Normal mobility and thickness. Mitral annular calcification. Moderate mitral regurgitation. AORTIC VALVE: Normal trileaflet appearance. No visible sclerosis. Normal leaflet mobility. No evidence of aortic valve stenosis. Trivial aortic regurgitation. AORTIC ROOT: Normal diameter and appearance. PULMONIC VALVE: Normal thickness and mobility. No stenosis. Trivial regurgitation. PERICARDIUM: No evidence of pericardial effusion. IVC: Collapses with inspirations. IVC is normal in size. PLEURA: CONCLUSION: 1. Left ventricular systolic function is difficult to assess due to rhythm but appears moderately reduced. LVEF is 35 to 40%. 2. Mildly dilated right ventricle with normal systolic function. 3. Moderate biatrial dilatation. 4. Moderate mitral and tricuspid regurgitation. 5. Normal right-sided pressures. Adult Echocardiography Procedure Report Left Ventricle LVEDD (3.7 - 5.6 cm): 4.80 cm LVESD (2.2 - 4.0 cm): 3.33 cm LVIVS thickness (0.6 - 1.2 cm): 0.92 cm LVPW thickness (0.5 - 1.0 cm): 0.94 cm LVOT Max Gradient: 1.01 mm[Hg], 1.18 mm[Hg] LVOT Area (cm2): 0.52 m/s Peak Velocity (LVOT): 0.50 m/s, 0.54 m/s Mean Velocity (LVOT): 0.37 m/s LVOT Diameter 2.03 cm Left Atrium LA Volume Index (2D A2C): 42.88 ml/m2 Left Atrium Systolic Dimension: 3.57 cm Mitral Valve Mitral Valve E-Wave Peak Velocity: 0.89 m/s Right Ventricle Aorta AO Root Diam: 2.70 cm Ascending Ao Diam: 2.97 cm Aortic Valve Tricuspid Valve Peak Velocity (Regurgitant Flow): 2.40 m/s, 2.70 m/s, 2.77 m/s Pulmonic Valve Mean Gradient: 1.27 mm[Hg], 1.09 mm[Hg] Mean Velocity: 0.53 m/s, 0.47 m/s Peak Velocity: 0.75 m/s, 0.85 m/s Peak Gradient: 2.91 mm[Hg], 2.44 mm[Hg], 2.05 mm[Hg] Right Atrium Right Atrium Systolic Pressure: 51.47 ml, 51.47 ml Dictated by: Zhou Renee M.D. on 08/14/2023 at 18:51 Approved by: Zhou Renee M.D. on 08/14/2023 at 18:55
== END 2023-08-13 13:41 | disposition home or self-care (01) ==
LOC: CARD 13:41
PROVIDERS: PCP Family Medicine; Visit Provider Nurse Practitioner Family
DX: I50.31 Acute diastolic (congestive) heart failure (principal); I50.23 Acute on chronic systolic (congestive) heart failure; I08.1 Rheumatic disorders of both mitral and tricuspid valves
CPT/HCPCS: 93306

== ENCOUNTER 2023-09-12 12:42 | Outpatient (OUT) | payer MEDICARE, SELFPAY ==
[2023-09-12 13:26] LABS: Basophils Absolute Auto 0.1 10^3/uL (0.0-0.1); Basophils Percent Auto 1.3 % (0.2-2.0); Eosinophils Absolute Auto 0.6 10^3/uL (0.0-0.7); Eosinophils Percent Auto 8.5 % (0.9-7.0); Hematocrit 42.5 % (36.0-48.0); Immature Granulocytes Abs Auto 0.02 10^3/uL (0.00-0.03); Immature Granulocytes Pct Auto 0.3 % (0.0-0.5); Lymphocytes Absolute Auto 2.1 10^3/uL (1.2-3.8); Lymphocytes Percent Auto 30.6 % (20.5-60.0); Mean Corpuscular HGB Conc 32.9 g/dL (29.9-35.2); Mean Platelet Volume 10.3 fL (9.5-13.5); Monocytes Absolute Auto 0.6 10^3/uL (0.3-0.8); Monocytes Percent Auto 7.9 % (1.7-12.0); Neutrophils Absolute Auto 3.6 10^3/uL (1.4-6.5); Neutrophils Percent Auto 51.4 % (43.0-75.0); Platelet Count 201 10^3/uL (150-450); Red Blood Count 4.38 10^6/uL (4.20-5.40); Red Cell Distribution Width 12.8 % (11.0-15.0); White Blood Count 6.9 10^3/uL (4.0-11.0)
[2023-09-12 13:37] LABS: Anion Gap 9.5; Calcium 8.7 mg/dL (8.5-10.1); Carbon Dioxide 31.5 mmol/L (21.0-32.0); Chloride 103 mmol/L (98-107); Estimated GFR (African America 45 (>=60); Estimated GFR (Non-African Ame 37 (>=60); Glucose 96 mg/dL (74-106); Sodium 140 mmol/L (136-145)
== END 2023-09-12 12:43 | disposition home or self-care (01) ==
LOC: LAB 12:46
PROVIDERS: PCP Family Medicine; Visit Provider Nurse Practitioner
DX: I10 Essential (primary) hypertension (principal)
CPT/HCPCS: 36415; 80048; 85025

== ENCOUNTER 2023-10-15 13:30 | Outpatient (OUT) | payer MEDICARE, SELFPAY ==
[2023-10-15 14:00] LABS: Anion Gap 11.2; BUN Creatinine Ratio 17.6; Calcium 8.7 mg/dL (8.5-10.1); Carbon Dioxide 30.7 mmol/L (21.0-32.0); Chloride 101 mmol/L (98-107); Estimated GFR (African America 43 (>=60); Estimated GFR (Non-African Ame 36 (>=60); Glucose 93 mg/dL (74-106); Potassium 3.9 mmol/L (3.5-5.1); Sodium 139 mmol/L (136-145)
== END 2023-10-15 13:31 | disposition home or self-care (01) ==
LOC: LAB 13:31
PROVIDERS: PCP Family Medicine; Visit Provider Internal Medicine Interventional Cardiology
DX: I50.22 Chronic systolic (congestive) heart failure (principal)
CPT/HCPCS: 36415; 80048

== ENCOUNTER 2023-12-19 10:11 | Outpatient (OUT) | payer MEDICARE, SELFPAY ==
--- OUTSIDE RECORDS SUMMARY | 2023-12-19 10:34 | XMS_ITS | CCD ---
Author Organization [facility] Care Team Providers Care Director Of Logistics Name Role Phone BEE GUEVARA V Attending Unavailable FLANAGANZAKI Primary Care Unavailable FLANAGANZAKI Referring Unavailable MOUKARBEL, BEE Martino Admitting Unavailable MOUKARBELBEE V Attending Unavailable FLANAGANZAKI Primary Care Unavailable FLANAGANZAKI Referring Unavailable MOUKARBEL, [...] Primary Care Unavailable BRITNIJOSE M Consulting Unavailable BRITNIVALA Admitting Unavailable BRITNIJOSE M Attending Unavailable FLANAGAN, DR ZAKI Braden Primary Care Unavailable BRITNIJOSE M Consulting Unavailable BRITNIVALA Admitting Unavailable BRITNIJOSE M Attending Unavailable FLANAGAN, [...] Care Unavailable MOUKARBEL, DR GAMBOA Consulting Unavailable JEFFERSON SERNA Attending Unavailable ALGHOTHANI, MOHAMAD Attending Unavailable ARGELIA RODAS Attending Unavailable BEE GUEVARA Attending Unavailable MOBEE SELLERS Attending Unavailable JEFFERSON SERNA Attending Unavailable JOSE M CABRERA Attending Unavailable DANIEL RODRÍGUEZ Referring Unavailable RODRÍGUEZ, DANIEL Referring Unavailable RODRÍGUEZ, DANIEL Admitting Unavailable DANIEL RODRÍGUEZ Attending Unavailable JEFFERSON SERNA Referring Unavailable BEE GUEVARA Admitting Unavailable BEE GUEVARA Attending Unavailable ELIS CORTEZ Referring Unavailable JOSE M CABRERA Attending Unavailable DAPHNE, JEFFERSON Attending Unavailable Allergies Allergy Classification Reported Allergen(s) Allergy Type Date of Onset Reaction(s) Facility (1 source) Diclofenac; Translations: [DICLOFENAC] Drug Allergy 06-06-2023 [facility] Repository Problems Active Problems Problem [...] Translations: [ESSENTIAL PRIMARY HYPERTENSION] Onset: 07-29-2021 Chronic Heart valve disorders (6 sources) Nonrheumatic mitral (valve) insufficiency; Translations: [NONRHEUMATIC MITRAL INSUFFICIENCY] Onset: 01-23-2022 Chronic Hypertension with complications and secondary hypertension (2 sources) Hypertensive heart disease with heart failure; Translations: [Hypertensive heart disease with heart failure] Onset: 04-25-2023 Chronic Nutritional deficiencies (1 source) Vitamin D deficiency, unspecified; Translations: [VITAMIN D DEFICIENCY UNSPECIFIED] Onset: 07-29-2021 Chronic Other circulatory disease (2 sources) Presence of other cardiac implants and grafts; Translations: [Presence of other cardiac implants and grafts] Onset: 11-02-2023 Chronic Chanel-; endo-; and myocarditis; cardiomyopathy (except that caused by tuberculosis or sexually transmitted disease) (2 sources) Cardiomyopathy in diseases classified elsewhere; Translations: [Cardiomyopathy in diseases classified elsewhere] Onset: 04-25-2023 Chronic Unclassified (4 sources) CONTACT W/AND (SUSP) EXPOS COVID-19; Translations: [CONTACT W/AND (SUSP) EXPOS COVID-19] Onset: 01-25-2022 Viral infection (1 source) COVID-19; Translations: [COVID-19] Onset: 04-12-2022 Past or Other Problems Problem Classification Problem Date Documented Da te Episodic/Chronic Diabetes mellitus without complication (1 source) Prediabetes; Translations: [PREDIABETES] Onset: 07-29-2021 Episodic Fluid and electrolyte disorders (2 sources) Hypokalemia; Translations: [Hypokalemia] Onset: 07-11-2023 Episodic Malaise and fatigue (1 source) Other fatigue; Translations: [OTHER FATIGUE] Onset: 01-25-2022 Episodic Other circulatory disease (2 sources) Orthostatic hypotension; Translations: [Orthostatic hypotension] Onset: 10-12-2022 Episodic Other screening for suspected conditions (not mental disorders or infectious disease) (1 source) Encounter for screening mammogram for malignant neoplasm of breast; Translations: [ENC SCR MAMMO MALIG NEOPLASM BREAST] Onset: 07-29-2021 Episodic Residual codes; unclassified (4 sources) Asymptomatic menopausal state; Translations: [ASYMPTOMATIC MENOPAUSAL STATE] Onset: 07-25-2021 Episodic Syncope (2 sources) Syncope and collapse; Translations: [Syncope and collapse] Onset: 10-12-2022 Episodic Unclassified (1 source) CONTACT W/AND (SUSP) EXPOS COVID-19; Translations: [CONTACT W/AND (SUSP) EXPOS COVID-19] Onset: 02-20-2022 Results Test Name Value Interpretation Reference Range Facility BASIC METABOLIC PANELon 05-2 Anion gap [Moles/Vol] 12 mmol/L Normal 7-20 [facility] Comment on above: Performed By: #### L [id number] ####[facility] ([facility])[address] [place] [address] Calcium [Mass/Vol] 9.5 mg/dL Normal 8.6-10.3 [facility] Comment on above: Performed By: #### L [id number] ####[facility] ([facility])[address] [place] [address] Chloride [Moles/Vol] 97 mmol/L Low 98-107 [facility] Comment on above: Performed By: #### L [id number] ####[facility] ([facility])[address] [place] [address] CO2 [Moles/Vol] 27 mmol/L Normal 21-31 [facility] Comment on above: Performed By: #### L [id number] ####[facility] ([facility])[address] [place] [address] Creatinine [Mass/Vol] 1.64 mg/dL High 0.60-1.20 [facility] Comment on above: Performed By: #### L [id number] ####[facility] ([facility])[address] [place] [address] GLOMERULAR FILTRATION RATE ML/MIN/1.73 SQ M.PREDICTED 31.5 mL/min/1.73m*2 Low >60.0 [facility] Comment on above: Result Comment: The [facility]???s estimated glomerular filtration rate (eGFR) will no longer include consideration of race in its calculation. The National Kidney Foundation???s eGFR Task Force developed new recommendations for the estimation of the glomerular filtration rate in the [place] They recommend immediate implementation of the new equation refit without the race variable in all laboratories because the calculation does not include race. In addition to not including race in the calculation and reporting, it included diversity in its development, and has acceptable performance characteristics and potential consequences that do not disproportionately affect any one group of individuals. Performed By: #### L [id number] ####[facility] ([facility])[address] [place] [address] Glucose [Mass/Vol] 100 mg/dL Normal 70-100 [facility] Comment on above: Performed By: #### L [id number] ####[facility] ([facility])[address] [place] [address] Potassium [Moles/Vol] 3.9 mmol/L Normal 3.5-5.1 [facility] Comment on above: Performed By: #### L [id number] ####[facility] ([facility])[address] [place] [address] Sodium [Moles/Vol] 132 mmol/L Low 136-145 [facility] Comment on above: Performed By: #### L [id number] ####[facility] ([facility])[address] [place] [address] Urea nitrogen [Mass/Vol] 27 mg/dL High 7-25 [facility] Comment on above: Performed By: #### L [id number] ####[facility] ([facility])[address] [place] [address] UREA NITROGEN/CREATININE (MASS RATIO) IN SER/PLAS 16.5 Normal [facility] Comment on above: Performed By: #### L [id number] ####[facility] ([facility])[address] [place] [address] CBC WITH AUTO DIFFERENTIALon 12-05-2023 Basophils (Bld) [#/Vol] 0.05 10*3/uL Normal 0.00-0.20 [facility] Comment on above: Performed By: #### L [id number] #### [facility] ([facility]) [address] [place] [address] Basophils/100 WBC (Bld) 0.6 % Normal 0.0-1.0 [facility] Comment on above: Performed By: #### L [id number] #### [facility] ([facility]) [address] [place] [address] Eosinophils (Bld) [#/Vol] 0.89 10*3/uL High 0.00-0.50 [facility] Comment on above: Performed By: #### L [id number] #### [facility] ([facility]) [address] [place] [address] Eosinophils/100 WBC (Bld) 10.0 % High 0.0-6.0 [facility] Comment on above: Performed By: #### L [id number] #### [facility] ([facility]) [address] [place] [address] Erythrocyte distribution width (RBC) [Ratio] 12.6 % Normal 11.5-15.0 [facility] Comment on above: Performed By: #### L [id number] #### [facility] ([facility] [address] [place] [address] ERYTHROCYTE MEAN CORPUSCULAR HEMOGLOBIN CONCENTRATION (G/DL) BY AUTOMATED 35.5 g/dL High 32.0-35.0 [facility] Comment on above: Performed By: #### L [id number] #### [facility] ([facility]) [address] [place] [address] Hematocrit (Bld) [Volume fraction] 38.6 % Normal 36.0-48.0 [facility] Comment on above: Performed By: #### L [id number] #### [facility] ([facility]) [address] [place] [address] Hemoglobin (Bld) [Mass/Vol] 13.7 g/dL Normal 12.0-15.0 [facility] Comment on above: Performed By: #### L [id number] #### [facility] ([facility] [place]) [address] [place] [address] Immature granulocytes (Bld) [#/Vol] 0.04 10*3/uL Normal 0.00-0.20 [facility] Comment on above: Performed By: #### L [id number] #### [facility] ([facility] [place]) [address] [place] [address] Immature granulocytes/100 WBC (Bld) 0.4 % Normal 0.0-1.0 [facility] Comment on above: Performed By: #### L [id number] #### [facility] ([facility]) [address] [place] [address] Lymphocytes (Bld) [#/Vol] 2.11 10*3/uL Normal 1.20-4.00 [facility] Comment on above: Performed By: #### L [id number] #### [facility] ([facility]) [address] [place] [address] Lymphocytes/100 WBC (Bld) 23.7 % Normal 20.0-45.0 [facility] Comment on above: Performed By: #### L [id number] #### [facility] ([facility] [place]) [address] [place] [address] MCH (RBC) [Entitic mass] 32.9 pg Normal 27.0-33.0 [facility] Comment on above: Performed By: #### L [id number] #### [facility] ([facility] [place]) [address] [place] [address] MCV (RBC) [Entitic vol] 92.6 fL Normal 82.0-98.0 [facility] Comment on above: Performed By: #### L [id number] #### [facility] ([facility]) [address] [place] [address] Monocytes (Bld) [#/Vol] 0.81 10*3/uL Normal 0.10-1.00 [facility] Comment on above: Performed By: #### L [id number] #### [facility] ([facility] [place]) [address] [place] [address] Monocytes/100 WBC (Bld) 9.1 % Normal 5.0-12.0 [facility] Comment on above: Performed By: #### L [id number] #### [facility] ([facility]) [address] [place] [address] Neutrophils (Bld) [#/Vol] 5.00 10*3/uL Normal 1.60-7.60 [facility] Comment on above: Performed By: #### L [id number] #### [facility] ([facility]) [address] [place] [address] Neutrophils/100 WBC (Bld) 56.2 % Normal 40.0-72.0 [facility] Comment on above: Performed By: #### L [id number] #### [facility] ([facility]) [address] [place] [address] NRBC (PER 100 WBCS) BY AUTOMATED COUNT 0.0 % Normal 0 [facility] Comment on above: Performed By: #### L [id number] #### [facility] ([facility]) [address] [place] [address] PLATELETS (10*3/UL) IN BLOOD AUTOMATED COUNT 207 10*3/uL Normal 150-400 [facility] Comment on above: Performed By: #### L [id number] #### [facility] ([facility]) [address] [place] [address] RBC (Bld) [#/Vol] 4.17 10*6/uL Normal 3.80-5.00 [facility] Comment on above: Performed By: #### L [id number] #### [facility] ([facility]) [address] [place] [address] WBC (Bld) [#/Vol] 8.90 10*3/uL Normal 4.00-10.60 [facility] Comment on above: Performed By: #### L [id number] #### [facility] ([facility]) [address] [place] [address] DSon 12-05-2023 DS Admission Admitted 12/05/2023 for Nonrheumatic mitral valve regurgitation. Discharge Diagnosis Nonrheumatic mitral valve regurgitation Discharge Disposition Home or Self Care () Discharge Medications Your medication list CONTINUE taking these medications Instructions Last Dose Given Next Dose Due aspirin 81 mg EC tablet furosemide 20 mg tablet Commonly known as: Lasix Take 1 tablet (20 mg) by mouth in the morning. lansoprazole [address] capsule Commonly known as: Prevacid TAKE 1 CAPSULE BY MOUTH ONCE DAILY before a meal loratadine 10 mg tablet Commonly known as: Claritin losartan 50 mg tablet Commonly known as: Cozaar Take 0.5 tablets (25 mg) by mouth in the morning. Lunesta 1 mg tablet Generic drug: eszopiclone meclizine 25 mg tablet Commonly known as: Antivert metoprolol succinate XL 100 mg 24 hr tablet Commonly known as: Toprol-XL Take 1 tablet (100 mg) by mouth in the morning. Do not crush or chew. potassium chloride CR 20 mEq ER tablet Commonly known as: K-Tab Take 1 tablet (20 mEq) by mouth in the morning. Do not crush, chew, or split. pravastatin 40 mg tablet Commonly known as: Pravachol Take 1 tablet (40 mg) by mouth at bedtime. spironolactone 25 mg tablet Commonly known as: Aldactone Take 0.5 tablets (12.5 mg) by mouth in the morning. Vitamin D3 25 MCG (1000 units) tablet Generic drug: cholecalciferol Where to Get Your Medications You can get these medications from any pharmacy Bring a paper prescription for each of these medications losartan 50 mg tablet Activity Patient currently has no discharge activity orders Diet Patient currently has no discharge diet orders Allergies Patient has no known allergies. Hospital Course The patient was admitted for MitraClip procedure for treatment of her nonrheumatic mitral valve regurgitation. She was placed under general anesthesia and mechanical ventilation. Baseline transesophageal echocardiogram showed the mitral regurgitation to be mild to moderate in severity when her blood pressure was low. After multidisciplinary discussions between interventional cardiology and echocardiography attendings, it was decided to abort the MitraClip procedure and not proceed at this time. Efforts will be taken to maintain adequate blood pressure control at all times and reassess the mitral regurgitation for need of further therapy in the future. The patient was extubated and recovered by the anesthesiology team and was discharged home. Pertinent Physical Exam At Time of Discharge Physical Exam Constitutional: Appearance: She is well-developed. [...] 2+ on the left side. Heart sounds: Murmur heard. Systolic (apex) murmur is present with a grade of 2/6. No friction rub. No gallop. Pulmonary: Effort: [...] Behavior: Behavior is cooperative. Judgment: Judgment normal. Lab Results Labs Reviewed BASIC METABOLIC PANEL - Abnormal Result Value Sodium 132 (*) Potassium 3.9 Chloride 97 (*) CO2 27 BUN 27 (*) Creatinine 1.64 (*) Glucose 100 Calcium 9.5 Anion Gap 12 eGFR 31.5 (*) BUN/Creatinine Ratio 16.5 CBC WITH AUTO DIFFERENTIAL - Abnormal Auto WBC 8.90 RBC 4.17 Hemoglobin 13.7 Hematocrit 38.6 MCV 92.6 MCH 32.9 MCHC 35.5 (*) RDW 12.6 Neutrophils Relative 56.2 Lymphocytes Relative 23.7 Monocytes Relative 9.1 Eosinophils Relative 10.0 (*) Basophils Relative 0.6 Neutrophils Absolute 5.00 Lymphocytes Absolute 2.11 Monocytes Absolute 0.81 Eosinophils Absolute 0.89 (*) Basophils Absolute 0.05 Platelets 207 nRBC % 0.0 Immature Granulocytes Relative 0.4 Immature Granulocytes Absolute 0.04 POCT GLUCOSE METER UNSOLICITED RESULTS - Normal Glucose POC 105 Narrative: Waived Testing in the ED is performed under the ED CLIA certificate #[id number]. MRSA/MSSA DNA NASAL TYPE AND SCREEN ABO Grouping O Rh Type NEG Ab Scrn NEG CBC AND DIFFERENTIAL Narrative: The following orders were created for panel order CBC and differential. Procedu (more content not included)... Normal [facility] HPon 12-05-2023 HP H&P reviewed. The patient was examined and there are no changes to the H&P. 78-year-old woman with prior history of Paroxysmal atrial fibrillation and atrial flutter s/p Watchman FLX device, TIA, Hypertension and Hyperlipidemia and Severe mitral valve regurgitation, patient is here for her scheduled mitral clip procedure. Patient is NYHA Class III, EF 40-45% Patient will be undergoing Mitral clip today. I explained the risks and benefits of the procedure. She would like to proceed. [facility] MRSA/MSSA DNA NASALon 2023 MRSA DNA Negative Normal Negative [facility] Comment on above: Order Comment: Testi ng methodology is an automated qualitative in vitro diagnostic test for the directdetection and differentiation of Staphylococcus aureus (SA) DNA and methicillin-resistant Staphylococcus aureus (MRSA) DNA from nasal swabs in patients at risk for nasal colonization. The test utilizes real-time polymerase chain reaction (PCR) for the amplification of MRSA/SA DNA and fluorogenic target-specific hybridization probes for the detection of the amplified DNA. A negative result does not preclude nasal colonization. Performed By: #### L [id number] ####[facility] ([facility])[address] [place] [address] MSSA DNA Positive Abnormal Negative [facility] Comment on above: Order Comment: Testi ng methodology is an automated qualitative in vitro diagnostic test for the directdetection and differentiation of Staphylococcus aureus (SA) DNA and methicillin-resistant Staphylococcus aureus (MRSA) DNA from nasal swabs in patients at risk for nasal colonization. The test utilizes real-time polymerase chain reaction (PCR) for the amplification of MRSA/SA DNA and fluorogenic target-specific hybridization probes for the detection of the amplified DNA. A negative result does not preclude nasal colonization. Performed By: #### L [id number] ####[facility] ([facility])[address] [place] [address] POCT GLUCOSE METER UNSOLICIT ED RESULTSon 12-05-2023 Glucose [Mass/Vol] 105 mg/dL Normal 70-105 [facility] Comment on above: Order Comment: Waive d Testing in the ED is performed under the ED CLIA certificate #[id number]. Result Comment: [email or web address] [email or web address] Performed By: #### L [id number] ####[facility] ([facility] [place])[address] [place] [address] TYPE AND SCREENon 12-05-2023 AB SCREEN Negative Normal [facility] Comment on above: Performed By: #### L [id number] #### [facility] , ABO group Nom (Bld) O Normal [facility] Comment on above: Performed By: #### L [id number] #### [facility] , RH TYPE IN BLOOD Negative Normal [facility] Comment on above: Performed By: #### L [id number] #### [facility] , Orders Onlyon 12-04-2023 Orders Only [id number] Ada Schroeder en N 1945 F Date Provider Department Center 12/04/2023 Mary Jane-LISA JAEGER [facility] Family History Problem Relation Age of Onset Cancer Mother Heart attack Father Cancer Father Family Status - Relation Status Age at Mother Father Normal [facility] [id number] 12-03-2023 [id number] ARRIVAL TIME 0930, P T COMING EARLY FOR LABS DUE TO AGE AND LIVES OUT OF TOWN. NO MEDICATIONS TO HOLD PRIOR TO PROCEDURE DATE 12/04 MEDICATIONS TO TAKE DAY OF SURGERY WITH SIP OF WATER PREVACID METOPROLOL PRE OP INSTRUCTIONS GIVEN NOTHING TO EAT OR DRINK AFTER MIDNIGHT Normal [facility] Orders Onlyon 12-03-2023 Orders Only [id number] Ada Schroeder en N 1945 F Date Provider Department [place] 12/03/2023 ELIS BEGUM HV CARD [facility] Family History Problem Relation Age of Onset Cancer Mother Heart attack Father Cancer Father Family Status - Relation Status Age at Mother Father Normal [facility] Telephoneon 12-03-2023 Telephone [id number] Ada Schroeder en N 1945 F Date Provider Department [place] 12/03/2023 [id number] [place] [facility] Family History Problem Relation Age of Onset Cancer Mother Heart attack Father Cancer Father Family Status - Relation Status Age at Mother Father Reason for Visit and Comments: [facility] [Other] Normal [facility] Orders Onlyon 11-29-2023 Orders Only [id number] Ada Schroeder en N 1945 F Date Provider Department [place] 11/29/2023 ELIS BEGUM HVC CARD [facility] Family History Problem Relation Age of Onset Cancer Mother Heart attack Father Cancer Father Family Status - Relation Status Age at Mother Father Normal [facility] 36on 11-27-2023 36 Elis is organizing the clips. I'll let her know. Thanks! Normal [facility] Follow-Upon 11-21-2023 Follow-Up [id number] Ada Schroeder 1945 F Date Provider Department Center 11/21/2023 ARGELIA ROSALES [facility] Family History Problem Relation Age of Onset Cancer Mother Heart attack Father Cancer Father Family Status - Relation Status Age at Mother Father Level of Service:[id number] [place] OFFICE/OUTPATIENT ESTABLISHED MOD MDM 30 MIN (GC) [facility] 11-21-2023 [facility] Clinic Note Chief Complaint: SOB HPI: Odilia Schroeder is a She is a 78-year-old woman with prior history of paroxysmal atrial fibrillation and atrial flutter. She has prior history of TIA, hypertension and hyperlipidemia. She was previously maintained on anticoagulation therapy for atrial fibrillation. Her [id number] score is 6 for age, history of TIA, female gender and hypertension. Due to prior to unexplained profound blood loss anemia she was recommended the Watchman procedure which she underwent on 02/22/2022. This was a 27 mm Watchman FLX device. Follow-up transesophageal echocardiogram on 04/21/2022 showed adequate device placement with no peridevice leak and no thrombus. She was maintained on dual antiplatelet therapy with aspirin and Plavix for 6 months post JUAN RAMON closure followed by aspirin only. During her investigation for the Watchman procedure she underwent a transesophageal echocardiogram and was found to have severe mitral valve regurgitation at the time when her blood pressure was very elevated. Follow-up transesophageal echocardiogram showed only mild mitral regurgitation when her blood pressure was under good control. Recently she was evaluated in cardiology clinic and was in atrial fibrillation. Eventually she underwent CELINA guided cardioversion into sinus rhythm. She has been maintained on Eliquis therapy since then. Of note her transesophageal echocardiogram during the cardioversion on 09/19/2023 showed evidence of severe mitral regurgitation. Her ejection fraction was 40 to 45%. Following the cardioversion she had a lot of shortness of breath and wheezing. She had to increase the Lasix to double dose for 3 days based on our instruction and this helped with improvement in her symptoms. She is currently on heart failure GDMT with ARB, BB and Aldactone. She complains to complain of shortness of breath on exertion NYHA class III symptoms. No chest pain. She feels occasional palpitations. No significant leg swelling. She continues to take aspirin 81 mg daily. She says she can hardly do anything due to limitations from shortness of breath. She is being evaluated for valeri clip by Dr. Guevara. Cardiology ROS: Negative except as mentioned. Past Medical History She has a past medical history of AF (paroxysmal atrial fibrillation) (CMS/HCC), Hyperlipidemia, Hypertension, Stroke (CMS/HCC), and TIA (transient ischemic attack). Surgical History She has a past surgical history that includes MRA head wo IV contrast (08/08/2019); MRA neck w and wo IV contrast (08/08/2019); CTA Lower Extremity Left W IV Contrast (Left, 08/10/2019); Hysterectomy; and Cardiac catheterization. Social History She reports that she has never smoked. She has been exposed to tobacco smoke. She has never used smokeless tobacco. She reports that she does not currently use alcohol. No history on file for drug use. Family History Family History Problem Relation Name Age of Onset Cancer Mother Heart attack Father Cancer Father Allergies Patient has no known allergies. Medications (Not in a hospital admission) Last Recorded Vitals @IPVITALS@ Physical Examination: GENERAL: alert and oriented x3, well developed, in no acute distress. HEAD: atraumatic, normocephalic. EYES: DEWAYNE, EOMI. NECK: trachea midline, no JVD present, no carotid bruits present. CARDIAC: S1, S2 present. RRR. No murmur, rubs, or gallops. RESPIRATORY: CTAB, no increased effort of breathing, no rales, rhonchi, or wheezing. ABDOMEN: soft, nontender, nondistended. EXTREMITIES: no lower extremity edema, peripheral pulses are 2+ bilaterally. No rash/skin discoloration present. NEURO: strength/sensation equal and symmetric in bilateral upper and lower extremities. PSYCH: appropriate mood, affect, and judgement. Assessment and plan: Chronic heart failure with reduced EF, NYHA III; EF 40-45%; Euvolemic on physical exam. Stable symptoms but has severe dyspnea on minimal exertion. Volume control with lasix GDMT: metoprolol 100 mg po daily, aldactone 25 mg po daily and Losartan 25 mg po daily. Documented to have not tolerated SGLT2i and ARNi in the past. Pt is on maximal GDMT that she can tolerate. Severe MR Noted on last CELINA Evaluation for Mitraclip per Dr. Guevara Paroxysmal Atrial fibrillation s/p cardioversion Has watchman device Off of AC due to high bleeding risk Now on ASA monotherapy Continue metoprolol HTN BP controlled Continue current meds Follow up with Dr. Guevara in 3 months for Valeri Cade MD PGY-4 Cardiology Fellowship Program [facility] Pager # [phone] By using the attestations below, the signing clinician agrees that I have read and verify that the documentation has been personally reviewed by me and ensure that the documentation accurately reflects the encounter. GC: I personally saw th (more content not included)... Normal [facility] Office Visiton 11-02-2023 Follow-up visit [id number] Eldridge low N 1945 Date Provider Department Center 11/02/2023 BEE MARIN Family History Problem Relation Age of Onset Cancer Mother Heart attack Father Cancer Father Family Status - Relation Status Age at Mother Father Level of Service:72512 [place] OFFICE/OUTPATIENT ESTABLISHED HIGH MDM 40 MIN Reason for Visit and Comments: Follow-up [323753] - 1 month follow up [facility] 36on 10-25-2023 36 Daughter called to make you aware of her mother's BP running low lately. She's been dizzy. BP around 90's/40's. Can she cut back her losartan until she sees you next Sunday? You also added spironolactone at last visit. Do you have other recommendations? Please advise. Normal [facility] Office Visiton 10-01-2023 Follow-up visit [id number] Eldridge low N 1945 F Date Provider Department Center 10/01/2023 BEE MARIN Family History Problem Relation Age of Onset Cancer Mother Heart attack Father Cancer Father Family Status - Relation Status Age at Mother Father Level of Service:79136 [place] OFFICE/OUTPATIENT ESTABLISHED MOD MDM 30 MIN [facility] HPon 09-19-2023 HP History Of Present Illness Odilia Schroeder is a 78 y.o. female presenting with past medical history of persistent a.fib s/p Watchman implant, systolic and diastolic heart failure, mitral regurg, HTN, hypotension, [place]. She is here today for CELINA and potentially cardioversion. Past Medical History She has a past medical history of AF (paroxysmal atrial fibrillation) (CMS/HCC), Hyperlipidemia, Hypertension, Stroke (CMS/HCC), and TIA (transient ischemic attack). Surgical History She has a past surgical history that includes MRA head wo IV contrast (08/08/2019); MRA neck w and wo IV contrast (08/08/2019); CTA Lower Extremity Left W IV Contrast (Left, 08/10/2019); Hysterectomy; and Cardiac catheterization. Social History She reports that she has never smoked. She has been exposed to tobacco smoke. She has never used smokeless tobacco. She reports that she does not currently use alcohol. No history on file for drug use. Allergies Patient has no known allergies. Medications Medications Prior to Admission Medication Sig Dispense Refill Last Dose aspirin 81 mg EC tablet Take 81 mg by mouth in the morning. 09/19/2023 cholecalciferol (Vitamin D3) 25 MCG (1000 units) tablet Take 1,000 Units by mouth in the morning. 09/19/2023 eszopiclone (Lunesta) 1 mg tablet 1 (one) time each day at the same time. 09/18/2023 furosemide (Lasix) 20 mg tablet Take 1 tablet (20 mg) by mouth in the morning. 90 tablet 3 09/19/2023 lansoprazole (Prevacid) [address] capsule TAKE 1 CAPSULE BY MOUTH ONCE DAILY before a meal 90 capsule 3 09/19/2023 loratadine (Claritin) 10 mg tablet Take 10 mg by mouth in the morning. 09/19/2023 meclizine (Antivert) 25 mg tablet Take 25 mg by mouth if needed in the morning, at noon, and at bedtime for dizziness. 09/19/2023 metoprolol succinate XL (Toprol-XL) 100 mg 24 hr tablet Take 1 tablet (100 mg) by mouth in the morning. Do not crush or chew. 30 tablet 0 09/18/2023 potassium chloride CR (K-Tab) 20 mEq ER tablet Take 1 tablet (20 mEq) by mouth in the morning. Do not crush, chew, or split. 90 tablet 3 09/19/2023 pravastatin (Pravachol) 40 mg tablet Take 1 tablet (40 mg) by mouth at bedtime. 90 tablet 3 09/18/2023 Limited Echo (TTE) w/wo Limited Doppler, Color Flow, Imaging Agent, Strain, 3D, Bubble Study 02/23/2022 [id number] Final Review of Systems Constitutional: Negative for activity change. Respiratory: Negative for apnea. Cardiovascular: Negative for chest pain. Physical Exam Cardiovascular: Rate and Rhythm: Normal rate. Rhythm irregular. Pulses: Normal pulses. Heart sounds: Normal heart sounds. Pulmonary: Effort: Pulmonary effort is normal. No respiratory distress. Breath sounds: Normal breath sounds. Abdominal: General: Abdomen is flat. Neurological: Mental Status: She is alert. Last Recorded Vitals Blood pressure (!) 144/96, pulse 80, resp. rate 13, weight 71.2 kg (157 lb), SpO2 98 %. Relevant Results 04/24/23 TTE- Reduced EF and severe MR [...] Normal LV systolic function, EF is 55%, normal RV systolic function, mild diastolic dysfunction, mild to moderate mitral regurgitation, mild tricuspid regurgitation, normal right-sided pressures. CELINA 12/14/2021: The left ventricle is normal size. Global left ventricular systolic function is mildly reduced. The EF is 45 % visually. The septum is abnormal in its motion; maybe due to bundle branch block. The right ventricle appears normal in size. Right ventricular systolic function appears normal. The left atrium appears enlarged. N (more content not included)... [facility] NURSNOTEon 09-19-2023 NURSNOTE Pt was wheeled off o f unit with all of belongings. [facility] NURSNOTE Bedside swallow stud y completed and passed. [facility] NURSNOTE RN educated pt on d/ c instructions. RN encouraged pt to voice any questions or concerns. Pt verbalizes no questions or concerns at this time. [facility] Orders Onlyon 09-19-2023 Orders Only [id number] Ada Schroeder N 1945 F Date Provider Department Center 09/19/2023 TIMMY LR [facility] Family History Problem Relation Age of Onset Cancer Mother Heart attack Father Cancer Father Family Status - Relation Status Age at Mother Father [facility] 36on 09-18-2023 36 I called and spoke with her. Thanks [facility] 36 PLEASE CALL DAUGHTER [phone] [facility] 09-13-2023 36 Regarding lab result s from 09/12/2023: Jose M Cabrera, KEVON Coles MA Can let her know her labs look okay. Kidney function is better. Thanks. LM on patient's VM. [facility] 09-11-2023 29 Addended by: JOSE M CABRERA on: 09/11/2023 12:35 PM Modules accepted: Orders [facility] 09-11-2023 36 Error [facility] 36 Patient is scheduled to have a CELINA with cardioversion on 09/19/2023. I called and spoke with patient that she will need to be on anticoagulation after the cardioversion x4 weeks for stroke prophylaxis. She states understanding. [facility] Telephoneon 09-11-2023 Telephone [id number] Ada Schroeder N 1945 F Date Provider Department Center 09/11/2023 JOSE M SUMMERS Family History Problem Relation Age of Onset Cancer Mother Heart attack Father Cancer Father Family Status - Relation Status Age at Mother Father Normal [facility] Telephone [id number] Ada Schroeder N 1945 Date Provider Department [place] 09/11/2023 TIMMY LR [facility] Family History Problem Relation Age of Onset Cancer Mother Heart attack Father Cancer Father Family Status - Relation Status Age at Mother Father Normal [facility] 36on 08-16-2023 36 Please let her know her heart function remains reduced. She last saw Marley and they discussed doing the CELINA with cardioversion to help try to get her out of a.fib to help with her heart failure. Please see if she is agreeable to proceed with this. Thank you! Normal [facility] Telephoneon 08-15-2023 Telephone [id number] Ada Schroeder N 1945 Date Provider Department [place] 08/15/2023 JOSE M SUMMERS Family History Problem Relation Age of Onset Cancer Mother Heart attack Father Cancer Father Family Status - Relation Status Age at Mother Father [facility] 37on 07-11-2023 37 Stop entresto Decrease lasix/furosemide to 20 mg daily, if having increased weight- leg swelling- shortness of breath increase lasix to 20 mg twice a day for about 3 days. Decrease potassium to 1 tablet per day Continue all other medications Please have blood drawn next week to check kidney function and potassium level Normal [facility] Office Visiton 07-11-2023 Follow-up visit [id number] Ada Schroeder N 1945 Date Provider Department Center 07/11/2023 Diamond-JEFFERSON SERNA Family History Problem Relation Age of Onset Cancer Mother Heart attack Father Cancer Father Family Status - Relation Status Age at Mother Father Level of Service:99974 [place] OFFICE/OUTPATIENT ESTABLISHED MOD MDM 30 MIN [facility] 36on 06-21-2023 36 Please have her star t potassium chloride 40mEq daily with follow-up BMP in 1 week. Thanks [facility] 37on 06-06-2023 37 *Cut lasix in half t o 20mg daily *Get labs done around 06/20/2023 *Call us if you want to proceed with cardioversion *Follow-up ECHO at the end of July [facility] Office Visiton 06-06-2023 Follow-up visit [id number] Ada Schroeder N 1945 F Date Provider Department [place] 06/06/2023 JOSE M SUMMERS Family History Problem Relation Age of Onset Cancer Mother Heart attack Father Cancer Father Family Status - Relation Status Age at Mother Father Level of Service:29976 [place] OFFICE/OUTPATIENT ESTABLISHED MOD MDM 30 MIN Reason for Visit and Comments: Follow-up [[id number]] [facility] 29on 05-09-2023 29 Addended by: JOSE M CABRERA on: 05/09/2023 05:06 PM Modules accepted: Orders [facility] 37on 05-09-2023 37 *If heart rate is <5 0, skip your dose of metoprolol. *Cut Entresto in half. *Drink water instead of pop. Try to drink 3 bottles a day. Avoid drinking over 4 bottles a day. *Continue to monitor your blood pressure and heart rate daily. Bring in your readings to your next visit. *Talk with your PCP about resuming your vitamin B12 injections. [facility] Office Visiton 05-09-2023 Follow-up visit [id number] Ada Schroeder N 1945 Date Provider Department [place] 05/09/2023 JOSE M SUMMERS Family History Problem Relation Age of Onset Cancer Mother Heart attack Father Cancer Father Family Status - Relation Status Age at Mother Father Level of Service:16395 [place] OFFICE/OUTPATIENT ESTABLISHED MOD MDM 30-39 MIN Reason for Visit and Comments: Fatigue [46] Hypotension [407] Atrial Fibrillation [80] Congestive Heart Failure [127] [facility] Office Visiton 04-30-2023 Follow-up visit [id number] Ada Schroeder N 1945 F Date Provider Department Center 04/30/2023 KORIN JEFFERSON [facility] Family History Problem Relation Age of Onset Cancer Mother Heart attack Father Cancer Father Family Status - Relation Status Age at Mother Father Level of Service:02095 [place] OFFICE/OUTPATIENT ESTABLISHED MOD MDM 30-39 MIN Normal [facility] Office Visiton 04-25-2023 Follow-up visit [id number] Ada Schroeder en N 1945 F Date Provider Department Center 04/25/2023 120JEFFERSON [facility] Family History Problem Relation Age of Onset Cancer Mother Heart attack Father Cancer Father Family Status - Relation Status Age at Mother Father Level of Service:50088 [place] OFFICE/OUTPATIENT ESTABLISHED MOD MDM 30-39 MIN Normal [facility] Office Visiton 03-28-2023 Follow-up visit [id number] Ada Schroeder en N 1945 F Date Provider Department Center 03/28/2023 [id number] NDIAYE JUAN [facility] Family History Problem Relation Age of Onset Cancer Mother Heart attack Father Cancer Father Family Status - Relation Status Age at Mother Father Level of Service:65302 [place] OFFICE/OUTPATIENT ESTABLISHED MOD MDM 30-39 MIN Normal [facility] Covid-19 PCR (CVDTB)on 03-17 SARS-CoV-2 (COVID-19) RNA EULA+probe Ql (Unsp spec) Detected Critically abnormal NOT DETECTED [facility] Comment on above: Result Comment: This test is not yet approved or cleared by the [place] FDA. When there are no FDA-approved or cleared tests available, and other criteria are met, FDA can make tests available under an emergency access mechanism called an Emergency Use Authorization (EUA). The EUA for this test is supported by the [place] of Health and Human Service's (HHS's) declaration [...] used). Performed By: #### C MP #### [facility] Laboratory [address] [place], [place] [address] Dr. Kay Singh CBC COMPLETE BLOOD COUNTon 0 02-23-2022 Erythrocyte distribution width (RBC) [Ratio] 12.1 % Normal 11.5-15.0 [facility] Comment on above: Order Comment: No: D o not add to previous draw Performed By: #### 0 0071 #### [facility] [address] [place] [address], [facility] [[email or web address]] Hematocrit (Bld) [Volume fraction] 31.6 % Low 36.0-45.0 [facility] Comment on above: Order Comment: No: D o not add to previous draw Performed By: #### 0 0071 #### [facility] [address] [place] [address], [facility] [[email or web address]] Hemoglobin (Bld) [Mass/Vol] 10.8 g/dL Low 12.0-15.0 [facility] Comment on above: Order Comment: No: D o not add to previous draw Performed By: #### 0 0071 #### [facility] [address] [place] [address], [facility] [[email or web address]] MCH (RBC) [Entitic mass] 32.8 pg Normal 27.0-33.0 [facility] Comment on above: Order Comment: No: D o not add to previous draw Performed By: #### 0 0071 #### [facility] [address] [place] [address], [facility] [[email or web address]] MCHC (RBC) [Mass/Vol] 34.2 g/dL Normal 32.0-35.0 [facility] Comment on above: Order Comment: No: D o not add to previous draw Performed By: #### 0 0071 #### [facility] [address] [place] [address], [place] MCV (RBC) [Entitic vol] 96.0 fL Normal 82.0-98.0 [facility] Comment on above: Order Comment: No: D o not add to previous draw Performed By: #### 0 0071 #### [facility] [address] [place] [address], [facility] [[email or web address]] Nucleated RBC/100 WBC (Bld) [Ratio] 0 % Normal 0-0 [facility] Comment on above: Order Comment: No: D o not add to previous draw Performed By: #### 0 0071 #### [facility] [address] [facility] [place] [address], [facility] [[email or web address]] PLAT CNT 160 10*3/uL Normal 150-400 [facility] Comment on above: Order Comment: No: D o not add to previous draw Performed By: #### 0 0071 #### [facility] [address] [place] [address], [facility] [[email or web address]] RBC (Bld) [#/Vol] 3.29 10*6/uL Low 3.80-5.00 [facility] Comment on above: Order Comment: No: D o not add to previous draw Performed By: #### 0 0071 #### [facility] [address] [place] [address], [facility] [[email or web address]] WBC (Bld) [#/Vol] 7.19 10*3/uL Normal 4.00-10.60 [facility] Comment on above: Order Comment: No: D o not add to previous draw Performed By: #### 0 0071 #### [facility] [address] *MRSA/MSSA DNA NASALon 02-22 *MRSA/MSSA DNA NASAL Clinical Report: (D) Specimen: NASAL SWAB Collected: 02/22/2022 09:45 Status: Final Last Updated: 02/22/2022 12:59 MSSA DNA (Final) Methicillin Susceptible Staphylococcus aureus DNA Detected MRSA DNA (Final) Negative Normal [facility] Comment on above: Performed By: #### 3 1595 #### [facility] [address] Cardiovascular Lab Reporton 02-22-2022 Cardiovascular Lab Report [facility] Patient Name: Odilia Schroeder [facility] MR #: [id number] Physician: Bee Lewis of [facility] Medicine Service Date: 02/22/2022 Division of Birthdate: 1945 Cardiology Room #: [facility] Cardiovascular Services [address] [place] [address] Cardiovascular Laboratory Report INDICATION: The patient is [...] consent. She was brought to medical lab assistant in a fasting state. The right groin area was prepped and draped in usual fashion. Micropuncture technique and ultrasound guidance were used for access in the right common femoral vein. A 6-Gibraltarian x 11 cm sheath was placed. A [...] the transseptal sheath was exchanged to a 14-Gibraltarian Watchman anterior curve sheath. A pigtail catheter angled 6-Gibraltarian was advanced, and used to select the [...] adequate (more content not included)... Normal [facility] TYPE AND SCREENon 02-22-2022 ABO INTERPRETATION O Normal [facility] Comment on above: Performed By: #### 6 2586 #### [facility] [address] [place] [address], [facility] [[email or web address]] RH INTERPRETATION Negative Normal [facility] Comment on above: Performed By: #### 6 2586 #### [facility] [address] [place] [address], [facility] [[email or web address]] Covid-19 PCR (CVDTB)on SARS-CoV-2 (COVID-19) RNA EULA+probe Ql (Unsp spec) Not detected Normal NOT DETECTED [facility] Comment on above: Result Comment: This test is not yet approved or cleared by the [place] FDA. When there are no FDA-approved or cleared tests available, and other criteria are met, FDA can make tests available under an emergency access mechanism called an Emergency Use Authorization (EUA). The EUA for this test is supported by the [place] of Health and Human Service's (HHS's) declaration [...] SARS-CoV-2. Performed By: #### C VDTBH #### [facility] [address] [place] [address] Dr. Kay Singh BASIC METABOLIC PANELon 01-13 Calcium [Mass/Vol] 9.2 mg/dL Normal 8.6-10.3 [facility] Comment on above: Performed By: #### 0 0071 #### [facility] [address] [place] [address], [facility] [[email or web address]] Chloride [Moles/Vol] 102 mmol/L Normal 98-107 [facility] Comment on above: Performed By: #### 0 0071 #### [facility] [address] [place] [address], [place] CO2 [Moles/Vol] 27 mmol/L Normal 21-31 [facility] Comment on above: Performed By: #### 0 0071 #### [facility] [address] [place] [address], [facility] [[email or web address]] Creatinine [Mass/Vol] 1.38 mg/dL High 0.60-1.20 [facility] Comment on above: Performed By: #### 0 0071 #### [facility] [address] [place] [address], [facility] [[email or web address]] eGFR- 45 ml/min/1.73sq m Abnormal >60 [facility] Comment on above: Result Comment: Calc ulation may not be valid for patients over 70 years Performed By: #### 0 0071 #### [facility] [address] [place] [address], [facility] [[email or web address]] eGFR- non- 37 ml/min/1.73sq m Abnormal >60 [facility] Comment on above: Result Comment: Calc ulation may not be valid for patients over 70 years Performed By: #### 0 0071 #### [facility] [address] [place] [address], [place] Glucose [Mass/Vol] 102 mg/dL High 70-100 [facility] Comment on above: Performed By: #### 0 0071 #### [facility] [address] [place] [address], [place] Potassium [Moles/Vol] 3.3 mmol/L Low 3.5-5.1 [facility] Comment on above: Performed By: #### 0 0071 #### [facility] [address] Sodium [Moles/Vol] 139 mmol/L Normal 136-145 [facility] Comment on above: Performed By: #### 0 1 #### [facility] [address] [facility] [place] [address], [facility] [[email or web address]] Urea nitrogen [Mass/Vol] 16 mg/dL Normal 7-25 [facility] Comment on above: Performed By: #### 0 1 #### [facility] [address] [place] [place] [id number] [place] [address] CBC COMPLETE BLOOD COUNTon 0 01-25-2022 Erythrocyte distribution width (RBC) [Ratio] 12.3 % Normal 11.5-15.0 [facility] Comment on above: Performed By: #### 5 0608 #### [facility] [address] Hematocrit (Bld) [Volume fraction] 37.8 % Normal 36.0-45.0 [facility] Comment on above: Performed By: #### 5 0608 #### [facility] [address] [facility] [address], [facility] [[email or web address]] Hemoglobin (Bld) [Mass/Vol] 13.3 g/dL Normal 12.0-15.0 [facility] Comment on above: Performed By: #### 5 0608 #### [facility] [address] [facility] [place] [address], [facility] [[email or web address]] MCH (RBC) [Entitic mass] 32.6 pg Normal 27.0-33.0 [facility] Comment on above: Performed By: #### 5 0608 #### [facility] [address] [place] [address], [facility] [[email or web address]] MCHC (RBC) [Mass/Vol] 35.2 g/dL High 32.0-35.0 [facility] Comment on above: Performed By: #### 5 0608 #### [facility] [address] MCV (RBC) [Entitic vol] 92.6 fL Normal 82.0-98.0 [facility] Comment on above: Performed By: #### 5 0608 #### [facility] [address] Nucleated RBC/100 WBC (Bld) [Ratio] 0 % Normal 0-0 [facility] Comment on above: Performed By: #### 5 0608 #### [facility] [address] PLAT CNT 187 10*3/uL Normal 150-400 [facility] Comment on above: Performed By: #### 5 0608 #### [facility] [address] RBC (Bld) [#/Vol] 4.08 10*6/uL Normal 3.80-5.00 [facility] Comment on above: Performed By: #### 5 0608 #### [facility] [address] [place] [address], [facility] [[email or web address]] WBC (Bld) [#/Vol] 7.62 10*3/uL Normal 4.00-10.60 [facility] Comment on above: Performed By: #### 5 0608 #### [facility] [address] Cardiovascular Lab Reporton 01-25-2022 Cardiovascular Lab Report [facility] Patient Name: Odilia Schroeder [facility] MR #: [id number] Physician: Bee Robles M.D. Medicine Service Date: 01/25/2022 Division of Birthdate: 1945 Cardiology Room #: [facility] [place] [address] Cardiovascular Laboratory Report INDICATION: Mitral regurgitation. PROCEDURES: 1. Right heart catheterization. 2. Access into the right internal jugular vein under ultrasound guidance. METHODS: Procedure was explained to the patient with risks and benefits. She signed informed consent. She was brought to medical lab assistant in a fasting state. The right neck area was prepped and draped in usual fashion. Micropuncture technique and ultrasound guidance were used for access in the right internal jugular vein. A 7-Gibraltarian x 11 cm sheath was placed. A 7-Gibraltarian Morelos catheter was used for right heart [...] P/Bee Guevara M.D. Date Trans: 01/25/2022 08:47 P/deja [id number] cc: Zaki Flanagan D.O. [address] [place] [address] [facility] Covid-19 PCR (CVDTB)on 01-13 SARS-CoV-2 (COVID-19) RNA EULA+probe Ql (Unsp spec) Not detected Normal NOT DETECTED [facility] Comment on above: Result Comment: This test is not yet approved or cleared by the [place] FDA. When there are no FDA-approved or cleared tests available, and other criteria are met, FDA can make tests available under an emergency access mechanism called an Emergency Use Authorization (EUA). The EUA for this test is supported by the [place] of Health and Human Service's (HHS's) declaration [...] SARS-CoV-2. Performed By: #### C VDTBH #### [facility] [address] [place] [address] Dr. Kay Singh FREE T4on 01-23-2022 Free T4 [Mass/Vol] 1.10 ng/dL Normal 0.76-1.46 [facility] Comment on above: Performed By: #### C MP #### [facility] [address] [place] [address] [address] Kay Singh TSHon 01-23-2022 TSH 1.794 uIU/mL Normal 0.358-3.740 [facility] Comment on above: Performed By: #### T SH #### [facility] [address] [place] [address] Dr. Kay Singh ECHOCARDIO M/2D COMPLETEon 0 12-23-2021 ECHOCARDIO M/2D COMPLETE Patient: ODILIA SCHROEDER Exam Date: 12/23/2021 : 1945 Gender:F Ordering : JOSE M CABRERA Admission #: [id number] Family : Order #: [id number] CLICK HERE TO VIEW EXAM ECHOCARDIOGRAM REPORT [...] Area(A4C): 15.50 cm2 Left Atrium Systolic Volume(A2C): 19620 mm3 Left Atrium Systolic Volume(A4C): 66565 mm3 Mitral Valve MV E to A [...] Guevara M.D. on 12/23/2021 at 15:18 Normal [facility] PROF 14(COMP METB)on 022 Albumin [Mass/Vol] 3.4 g/dL Normal 3.4-5.0 [facility] Comment on above: Performed By: #### C MP #### [facility] [address] [place] [address] Dr. Kay Singh Albumin/Globulin [Mass ratio] 0.9 {ratio} Normal [facility] Comment on above: Performed By: #### C MP #### [facility] [address] [place] [address] Dr. Kay Singh ALP [Catalytic activity/Vol] 42 U/L Critically low 46-116 [facility] Comment on above: Performed By: #### C MP #### [facility] [address] [place] [address] Dr. Kay Singh ALT [Catalytic activity/Vol] 15 U/L Normal 14-59 [facility] Comment on above: Performed By: #### C MP #### [facility] [address] [place] [address] Dr. Kay Singh Anion gap [Moles/Vol] 8.9 mmol/L Normal [facility] Comment on above: Performed By: #### C MP #### [facility] [address] [place] [address] Dr. Kay Singh AST [Catalytic activity/Vol] 16 U/L Normal 15-37 [facility] Comment on above: Performed By: #### C MP #### [facility] [address] [place] [address] [address] Kay Singh Bilirubin [Mass/Vol] 0.5 mg/dL Normal 0.2-1.0 [facility] Comment on above: Performed By: #### C MP #### [facility] [address] [place] [address] [address] Kay Singh Calcium [Mass/Vol] 8.8 mg/dL Normal 8.5-10.1 [facility] Comment on above: Performed By: #### C MP #### [facility] [address] [place] [address] Dr. Kay Singh Chloride [Moles/Vol] 102 mmol/L Normal 98-107 [facility] Comment on above: Performed By: #### C MP #### [facility] [address] [place] [address] [address] Kay Singh CO2 [Moles/Vol] 31.3 mmol/L Normal 21.0-32.0 [facility] Comment on above: Performed By: #### C MP #### [facility] [address] [place] [address] Dr. Kay Singh Creatinine [Mass/Vol] 1.30 mg/dL Critically high 0.55-1.02 [facility] Comment on above: Performed By: #### C MP #### [facility] [address] [place] [address] [address] Kay Singh EGFR-AF BAHRAINI 48 mL/min/1.73m2 Critically low >=60 [facility] Comment on above: Performed By: #### C MP #### [facility] [address] [place] [address] Dr. Kay Singh EGFR-NON AF BAHRAINI 40 mL/min/1.73m2 Critically low >=60 [facility] Comment on above: Performed By: #### C MP #### [facility] [address] [place] [address] Dr. Kay Singh Globulin (S) [Mass/Vol] 3.8 g/dL Normal [facility] Comment on above: Performed By: #### C MP #### [facility] [address] [place] [address] Dr. Kay Singh Glucose [Mass/Vol] 94 mg/dL Normal 74-106 [facility] Comment on above: Performed By: #### C MP #### [facility] [address] [place] [address] Dr. Kay Singh Potassium [Moles/Vol] 4.2 mmol/L Normal 3.5-5.1 [facility] Comment on above: Performed By: #### C MP #### [facility] [address] [place] [address] Dr. Kay Singh Protein [Mass/Vol] 7.2 g/dL Normal 6.4-8.2 [facility] Comment on above: Performed By: #### C MP #### [facility] [address] [place] [address] Dr. Kay Singh Sodium [Moles/Vol] 138 mmol/L Normal 136-145 [facility] Comment on above: Performed By: #### C MP #### [facility] [address] [place] [address] Dr. Kay Singh Urea nitrogen [Mass/Vol] 17.0 mg/dL Normal 7.0-18.0 [facility] Comment on above: Performed By: #### C MP #### [facility] [address] [place] [address] Dr. Kay Singh Urea nitrogen/Creatinine [Mass ratio] 13.1 mg/mg Normal [facility] Comment on above: Performed By: #### C MP #### [facility] [address] [place] [address] Dr. Kay Singh *MRSA/MSSA DNA NASALon 12-14 *MRSA/MSSA DNA NASAL Clinical Report: (D) Specimen: NASAL SWAB Collected: 12/14/2021 13:00 Status: Final Last Updated: 12/15/2021 14:36 MSSA DNA (Final) Methicillin Susceptible Staphylococcus aureus DNA Detected MRSA DNA (Final) Negative Normal [facility] Comment on above: Performed By: #### 3 [id number] #### [facility] [address] [place] [address], [facility] [[email or web address]] BASIC METABOLIC PANELon 06-0 Calcium [Mass/Vol] 8.9 mg/dL Normal 8.6-10.3 [facility] Comment on above: Performed By: #### 0 0071 #### [facility] [address] [place] [address], [facility] [[email or web address]] Chloride [Moles/Vol] 101 mmol/L Normal 98-107 [facility] Comment on above: Performed By: #### 0 0071 #### [facility] [address] [place] [address], [facility] [[email or web address]] CO2 [Moles/Vol] 26 mmol/L Normal 21-31 [facility] Comment on above: Performed By: #### 0 0071 #### [facility] [address] [place] [address], [place] Creatinine [Mass/Vol] 1.18 mg/dL Normal 0.60-1.20 [facility] Comment on above: Performed By: #### 0 0071 #### [facility] [address] [place] [address], [facility] [[email or web address]] eGFR- 53 ml/min/1.73sq m Abnormal >60 [facility] Comment on above: Result Comment: Calc ulation may not be valid for patients over 70 years Performed By: #### 0 0071 #### [facility] [address] [place] [address], [place] eGFR- non- 45 ml/min/1.73sq m Abnormal >60 [facility] Comment on above: Result Comment: Calc ulation may not be valid for patients over 70 years Performed By: #### 0 0071 #### [facility] [address] [place] [address], [place] Glucose [Mass/Vol] 95 mg/dL Normal 70-100 [facility] Comment on above: Performed By: #### 0 0071 #### [facility] [address] [place] [address], [facility] [[email or web address]] Potassium [Moles/Vol] 4.5 mmol/L Normal 3.5-5.1 [facility] Comment on above: Performed By: #### 0 0071 #### [facility] [address] [place] [address], [facility] [[email or web address]] Sodium [Moles/Vol] 133 mmol/L Low 136-145 [facility] Comment on above: Performed By: #### 0 0071 #### [facility] [address] [facility]. [address] Urea nitrogen [Mass/Vol] 17 mg/dL Normal 7-25 [facility] Comment on above: Performed By: #### 0 0071 #### [facility] [address] [facility]. [address] CBC COMPLETE BLOOD COUNTon 0 12-14-2021 Erythrocyte distribution width (RBC) [Ratio] 13.0 % Normal 11.5-15.0 [facility] Comment on above: Performed By: #### 0 0071 #### [facility] [address] [facility] [place], [place] [id number] [place] [address] Hematocrit (Bld) [Volume fraction] 37.7 % Normal 36.0-45.0 [facility] Comment on above: Performed By: #### 0 0071 #### [facility] [address] [facility] [address], [facility] [[email or web address]] Hemoglobin (Bld) [Mass/Vol] 13.2 g/dL Normal 12.0-15.0 [facility] Comment on above: Performed By: #### 0 0071 #### [facility] [address] [place] [id number], [facility] [[email or web address]] MCH (RBC) [Entitic mass] 32.9 pg Normal 27.0-33.0 [facility] Comment on above: Performed By: #### 0 0071 #### [facility] [address] MCHC (RBC) [Mass/Vol] 35.0 g/dL Normal 32.0-35.0 [facility] Comment on above: Performed By: #### 0 0071 #### [facility] [address] MCV (RBC) [Entitic vol] 94.0 fL Normal 82.0-98.0 [facility] Comment on above: Performed By: #### 0 0071 #### [address] Nucleated RBC/100 WBC (Bld) [Ratio] 0 % Normal 0-0 [facility] Comment on above: Performed By: #### 0 0071 #### [address] PLAT CNT 175 10*3/uL Normal 150-400 [facility] Comment on above: Performed By: #### 0 0071 #### [address] RBC (Bld) [#/Vol] 4.01 10*6/uL Normal 3.80-5.00 [facility] Comment on above: Performed By: #### 0 0071 #### [address] WBC (Bld) [#/Vol] 6.40 10*3/uL Normal 4.00-10.60 [facility] Comment on above: Performed By: #### 0 0071 #### [address] CHEST AND LATERALon 12-15-19 CHEST AND LATERAL [facility] Department of Radiology [address] [place] [address] ======== Patient Name: ODILIA SCHROEDER : 1945 Sex: F Age: Race: White Pt. Location: OUTP Patient Status: O Ordered Date: 12/14/2021 2:55:00 PM Completed Date: 12/14/2021 02:59 PM Requesting Provider: BEE GUEVARA V Attending Provider: BEE GUEVARA V Report Copy To: Signs & Symptoms: post cath procedure History: Comments: post cath procedure Exam: CHEST AND LATERAL ======== CHEST AND LATERAL 12/14/2021 2:59 PM CLINICAL [...] exam Electronically signed: Nereida Vasquez. Transcribed by: [email or web address], User Resident: Electronically Signed by: NEREIDA VASQUEZ @ 12/14/2021 03:29 PM Normal [facility] Comment on above: Order Comment: post cath procedure POC SARS COV2 IDon 2 SARS-CoV-2 (COVID-19) RNA EULA+probe Ql (Unsp spec) Negative Normal NEGATIVE [facility] Comment on above: Result Comment: [...] Accreditation. Performed By: #### 0 0071 #### [address] Covid-19 PCR (CVDTB)on 11-15 SARS-CoV-2 (COVID-19) RNA EULA+probe Ql (Unsp spec) Not detected Normal NOT DETECTED [facility] Comment on above: Result Comment: This test is not yet approved or cleared by the [place] FDA. When there are no FDA-approved or cleared tests available, and other criteria are met, FDA can make tests available under an emergency access mechanism called an Emergency Use Authorization (EUA). The EUA for this test is supported by the [place] of Health and Human Service's (HHS's) declaration [...] SARS-CoV-2. Performed By: #### C MP #### [facility] [address] [place] [address] [address] Kay Singh FOLATE ([facility])on 2 Folate 7.3 ng/mL Normal >3.0 [facility] Comment on above: Result Comment: A se rum folate concentration of less than 3.1 ng/mL is considered to represent clinical deficiency. Performed By: #### C MP #### [facility] [address] [address] [address] Kay Singh VIT D 25-[place] LABCORPon 2021 Vitamin D, 25-Hydroxy 62.3 ng/mL Normal 30.0-100.0 [facility] Comment on above: Result Comment: Nicky min D deficiency has been defined by the [place] of Medicine and an Endocrine Society practice guideline as a level of serum 25-OH vitamin D less than 20 ng/mL (1,2). The Endocrine Society went on to further define vitamin D insufficiency as a level between 21 and 29 ng/mL (2). 1. IOM ([place] of Medicine). 2010. Dietary reference intakes for calcium and D. [place]: The National Academies Press. 2. Jayesh MF, [place], Elizabet OWENS, et al. Evaluation, treatment, and prevention of vitamin D deficiency: an Endocrine Society clinical practice guideline. JCEM. 2010; 96(7):1911-30. Performed By: #### C MP #### [facility] [address] [address] [address] Kay Singh VITAMIN B12on 07-26-2021 Cobalamin (Vitamin B12) [Mass/Vol] 373 pg/mL Normal 232-1245 [facility] Comment on above: Performed By: #### V B12LC #### [facility] [address] [address] [address] Kay Singh CBC AUTO DIFFon 07-25-2021 BASO # 0.0 103/ul Normal 0.0-0.1 [facility] Comment on above: Performed By: #### C BC #### [facility] [address] [address] [address] Kay Singh Basophils/100 WBC (Bld) 0.5 % Normal 0.2-2.0 [facility] Comment on above: Performed By: #### C BC #### [facility] [address] [address] [address] Kay Singh EO # 0.7 103/ul Normal 0.0-0.7 [facility] Comment on above: Performed By: #### C BC #### [facility] [address] [place] [address] Dr. Kay Singh Eosinophils/100 WBC (Bld) 8.8 % Critically high 0.9-7.0 [facility] Comment on above: Performed By: #### C BC #### [facility] [address] [place] [address] Dr. Kay Singh Erythrocyte distribution width (RBC) [Ratio] 11.8 % Normal 11.0-15.0 [facility] Comment on above: Performed By: #### C BC #### [facility] [address] [place] [address] Dr. Kay Singh Hematocrit (Bld) [Volume fraction] 37.3 % Normal 36.0-48.0 [facility] Comment on above: Performed By: #### C BC #### [facility] [address] [place] [address] Dr. Kay Singh Hemoglobin (Bld) [Mass/Vol] 12.8 g/dL Normal 12.0-16.0 [facility] Comment on above: Performed By: #### C BC #### [facility] [address] [place] [address] Dr. Kay Singh IG # 0.03 10e3/ul Normal 0.00-0.03 [facility] Comment on above: Performed By: #### C BC #### [facility] [address] [place] [address] Dr. Kay Singh IG % 0.4 % Normal 0.0-0.5 [facility] Comment on above: Performed By: #### C BC #### [facility] [address] [place] [address] Dr. Kay Singh LYMPH # 1.6 103/ul Normal 1.2-3.8 [facility] Comment on above: Performed By: #### C BC #### [facility] [address] [place] [address] Dr. Kay Singh Lymphocytes/100 WBC (Bld) 19.5 % Critically low 20.5-60.0 [facility] Comment on above: Performed By: #### C BC #### [facility] [address] [place] [address] Dr. Kay Singh MANUAL DIFF REQ NO Normal [facility] Comment on above: Performed By: #### C BC #### [facility] [address] [place] [address] Dr. Kay Singh MCH (RBC) [Entitic mass] 32.1 pg Normal 26.7-34.0 [facility] Comment on above: Performed By: #### C BC #### [facility] [address] [place] [address] Dr. Kay Singh MCHC (RBC) [Mass/Vol] 34.3 g/dL Normal 29.9-35.2 [facility] Comment on above: Performed By: #### C BC #### [facility] [address] [place] [address] Dr. Kay Singh MCV (RBC) [Entitic vol] 93.5 fL Normal 81.0-99.0 [facility] Comment on above: Performed By: #### C BC #### [facility] [address] [place] [address] Dr. Kay Singh MONO # 0.7 103/ul Normal 0.3-0.8 [facility] Comment on above: Performed By: #### C BC #### [facility] [address] [place] [address] Dr. Kay Singh Monocytes/100 WBC (Bld) 8.3 % Normal 1.7-12.0 [facility] Comment on above: Performed By: #### C BC #### [facility] [address] [place] [address] Dr. Kay Singh NEUT # 5.2 103/ul Normal 1.4-6.5 [facility] Comment on above: Performed By: #### C BC #### [facility] [address] [address] [address] Kay Singh Neutrophils/100 WBC (Bld) 62.5 % Normal 43.0-75.0 [facility] Comment on above: Performed By: #### C BC #### [facility] [address] [address] [address] Kay Singh Platelet mean volume (Bld) [Entitic vol] 10.1 fL Normal 9.5-13.5 [facility] Comment on above: Performed By: #### C BC #### [facility] [address] [address] [address] Kay Singh PLT 221 103/ul Normal 150-450 [facility] Comment on above: Performed By: #### C BC #### [facility] [address] [address] [address] Kay Singh RBC 3.99 106/ul Critically low 4.20-5.40 [facility] Comment on above: Performed By: #### C BC #### [facility] [address] [address] [address] Kay Singh WBC 8.3 103/ul Normal 4.0-11.0 [facility] Comment on above: Performed By: #### C BC #### [facility] [address] [place] [address] Dr. Kay Singh GLYCOHEMOGLOBIN A1Con 2021 ADA RECOMMENDATION ADA THERAPEUTIC TARG ET 6.0 - 7.0 ACTION SUGGESTED > 7.0 Normal [facility] Comment on above: Performed By: #### A 1C #### [facility] [address] [place] [address] Dr. Kay Singh Glucose [Mass/Vol] 108 mg/dL Normal [facility] Comment on above: Performed By: #### A 1C #### [facility] [address] [address] [address] Kay Singh HbA1c (Bld) [Mass fraction] 5.4 % Normal <=6.0 [facility] Comment on above: Performed By: #### A 1C #### [facility] [address] [address] [address] Kay Singh LIPID PROFILEon 07-25-2021 CHOL-HDL RATIO NORM SEE BELOW Normal [facility] Comment on above: Result Comment: 3.3 - 4.4 LOW RISK 4.4 - 7.1 AVERAGE RISK 7.1 - 11.0 MODERATE RISK >11.0 HIGH RISK Performed By: #### T SH, LIPID, CMP #### [facility] [address] [address] [address] Kay Singh Cholesterol [Mass/Vol] 139 mg/dL Normal <=200 [facility] Comment on above: Performed By: #### T SH, LIPID, CMP #### [facility] [address] [address] [address] Kay Singh Cholesterol in HDL [Mass/Vol] 52 mg/dL Normal [facility] Comment on above: Performed By: #### T SH, LIPID, CMP #### [facility] [address] [address] [address] Kay Singh Cholesterol in LDL [Mass/Vol] 69.8 mg/dL Normal [facility] Comment on above: Performed By: #### T SH, LIPID, CMP #### [facility] [address] [place] [address] [address] Kay Singh Cholesterol.total/C holesterol in HDL [Mass ratio] 2.7 {ratio} Normal [facility] Comment on above: Performed By: #### T SH, LIPID, CMP #### [facility] [address] [address] [address] Kay Singh HDL NORMAL > or = 60 mg/dl - LO W CARDIOVASCULAR RISK <40 mg/dl - HIGH CARDIOVASCULAR RISK Normal [facility] Comment on above: Performed By: #### T SH, LIPID, CMP #### [facility] [address] [place] [address] Dr. Kay Singh LDL CALC NORMAL SEE BELOW Normal [facility] Comment on above: Result Comment: <100 mg/dl OPTIMAL 100 - 129 mg/dl NEAR OR ABOVE OPTIMAL 130 - 159 mg/dl BORDERLINE HIGH 160 - 189 mg/dl HIGH >190 mg/dl VERY HIGH Performed By: #### T SH, LIPID, CMP #### [facility] [address] [place], [place] [address] Dr. Kay Singh Triglyceride [Mass/Vol] 86 mg/dL Normal <=150 [facility] Comment on above: Performed By: #### T SH, LIPID, CMP #### [facility] [address] [place], [place] [address] Dr. Kay Singh VLDL CALC 17.2 mg/dL Normal [facility] Comment on above: Performed By: #### T SH, LIPID, CMP #### [facility] [facility] [address], [place] [address] Dr. Kay Singh MG MAMM SCREEN 3D TRINITY CADon 07-25-2021 MG MAMM SCREEN 3D TRINITY CAD Patient: ODILIA SCHROEDER Exam Date: 07/25/2021 : 1945 Gender:F Ordering : DR ZAKI FLANAGAN D.O. Admission #: [id number] Family : Order #: [id number] CLICK HERE TO VIEW EXAM RADIOLOGY REPORT [...] Treatments None Family Cancers None LOCATION: [facility] BREAST COMPOSITION: Scattered areas fibroglandular density. FINDINGS: [...] Tirado MD on 07/25/2021 at 11:10 Normal [facility] PROF 14(COMP METB)on 022 Albumin [Mass/Vol] 3.7 g/dL Normal 3.5-5.0 [facility] Comment on above: Performed By: #### T SH, LIPID, CMP #### [facility] [address] [place] [address] Dr. Kay Singh Albumin/Globulin [Mass ratio] 1.1 {ratio} Normal [facility] Comment on above: Performed By: #### T SH, LIPID, CMP #### [facility] [address] [address] [address] Kay Singh ALP [Catalytic activity/Vol] 46 U/L Normal 38-126 [facility] Comment on above: Performed By: #### T SH, LIPID, CMP #### [facility] [address] [place] [address] Dr. Kay Singh ALT [Catalytic activity/Vol] 12 U/L Normal 9-52 [facility] Comment on above: Performed By: #### T SH, LIPID, CMP #### [facility] [address] [place] [address] Dr. Kay Singh Anion gap [Moles/Vol] 12.1 mmol/L Normal [facility] Comment on above: Performed By: #### T SH, LIPID, CMP #### [facility] [address] [place] [address] Dr. Kay Singh AST [Catalytic activity/Vol] 18 U/L Normal 14-36 [facility] Comment on above: Performed By: #### T SH, LIPID, CMP #### [facility] [address] [place] [address] Dr. Kay Singh Bilirubin [Mass/Vol] 0.6 mg/dL Normal 0.2-1.3 [facility] Comment on above: Performed By: #### T SH, LIPID, CMP #### [facility] [address] [place] [address] Dr. Kay Singh Calcium [Mass/Vol] 9.1 mg/dL Normal 8.4-10.2 [facility] Comment on above: Performed By: #### T SH, LIPID, CMP #### [facility] [address] [place] [address] Dr. Kay Singh Chloride [Moles/Vol] 99 mmol/L Normal 98-107 [facility] Comment on above: Performed By: #### T SH, LIPID, CMP #### [facility] [address] [place] [address] Dr. Kay Singh CO2 [Moles/Vol] 29.4 mmol/L Normal 22.0-30.0 [facility] Comment on above: Performed By: #### T SH, LIPID, CMP #### [facility] [address] [place] [address] Dr. Kay Singh Creatinine [Mass/Vol] 1.39 mg/dL Critically high 0.52-1.04 [facility] Comment on above: Performed By: #### T SH, LIPID, CMP #### [facility] [address] [place] [address] Dr. Kay Singh EGFR-AF BAHRAINI 44 mL/min/1.73m2 Critically low >=60 [facility] Comment on above: Performed By: #### T SH, LIPID, CMP #### [facility] [address] [place] [address] Dr. Kay Singh EGFR-NON AF BAHRAINI 37 mL/min/1.73m2 Critically low >=60 [facility] Comment on above: Performed By: #### T SH, LIPID, CMP #### [facility] [address] [place] [address] Dr. Kay Singh Globulin (S) [Mass/Vol] 3.3 g/dL Normal [facility] Comment on above: Performed By: #### T SH, LIPID, CMP #### [facility] [address] [place] [address] Dr. Kay Singh Glucose [Mass/Vol] 118 mg/dL Critically high 74-106 [facility] Comment on above: Performed By: #### T SH, LIPID, CMP #### [facility] [address] [place] [address] Dr. Kay Singh Potassium [Moles/Vol] 3.5 mmol/L Normal 3.4-5.0 [facility] Comment on above: Performed By: #### T SH, LIPID, CMP #### [facility] [address] [place] [address] Dr. Kay Singh Protein [Mass/Vol] 7.0 g/dL Normal 6.1-8.2 [facility] Comment on above: Performed By: #### T SH, LIPID, CMP #### [facility] [address] [place] [address] Dr. Kay Singh Sodium [Moles/Vol] 137 mmol/L Normal 137-145 [facility] Comment on above: Performed By: #### T SH, LIPID, CMP #### [facility] [address] [place] [address] Dr. Kay Singh Urea nitrogen [Mass/Vol] 16.0 mg/dL Normal 7.0-17.0 [facility] Comment on above: Performed By: #### T SH, LIPID, CMP #### [facility] [address] [place] [address] Dr. Kay Singh Urea nitrogen/Creatinine [Mass ratio] 11.5 mg/mg Normal [facility] Comment on above: Performed By: #### T SH, LIPID, CMP #### [facility] [address] [place] [address] Dr. Kay Singh TSHon 07-25-2021 TSH 3.226 uIU/mL Normal 0.470-4.680 [facility] Comment on above: Performed By: #### T SH, LIPID, CMP #### [facility] [address] [place] [address] Dr. Kay Singh TSH RANGE SEE BELOW Normal [facility] Comment on above: Result Comment: <0.3 4 UIU/ml HYPERTHYROID 0.34-5.60 UIU/ml EUTHYROID >5.60 UIU/ml HYPOTHYROID Performed By: #### T SH, LIPID, CMP #### [facility] [address] [place] [address] Dr. Kay Singh XR DEXA BONE DENSITYon [...] by: ETHEL SANDERSON Date: 2021-07-25 10:44 Normal [facility] Encounters Encounter Date Encounter Type Care Provider Facility Start: 12-05-2023 ambulatory ELIS CORTEZ [facility] Start: 12-05-2023 End: 12-05-2023 Evaluation and management of inpatient [facility] Start: 11-21-2023 End: 11-21-2023 ambulatory ARGELIA Dowling [facility] Start: 11-02-2023 End: 11-02-2023 ambulatory [facility] Start: 10-01-2023 End: 10-01-2023 ambulatory [facility] Start: 09-19-2023 ambulatory [facility] Start: 09-19-2023 End: 09-19-2023 ambulatory [facility] Start: 07-11-2023 End: 07-11-2023 ambulatory JEFFERSON SERNA [facility] Start: 06-06-2023 End: 06-06-2023 ambulatory [facility] Start: 05-09-2023 End: 05-09-2023 ambulatory [facility] Start: 04-30-2023 End: 04-30-2023 ambulatory [facility] Start: 04-25-2023 End: 04-25-2023 ambulatory [facility] Start: 03-28-2023 End: 03-28-2023 ambulatory KURT MARIELLEBENNYPAPITO [facility] Start: 04-10-2022 End: 04-11-2022 ambulatory JOSE M CABRERA Facility:[facility] Start: 02-22-2022 End: 02-23-2022 Evaluation and management of inpatient ZAKI FLANAGAN Facility:[facility] Start: 02-20-2022 End: 02-21-2022 ambulatory JOSE M CABRERA Facility:[facility] Start: 01-25-2022 End: 01-26-2022 ambulatory BEE GUEVARA Facility:[facility] Start: 01-23-2022 End: 01-24-[address] BEE GUEVARA Facility:[facility] Start: 12-23-2021 End: 12-24-2021 ambulatory JOSE M CABRERA Facility:[facility] Start: 12-14-2021 End: 12-15-2021 ambulatory BEE GUEVARA Facility:[facility] Start: 12-12-2021 End: 12-13-[address] BEE GUEVARA Facility:[facility] Start: 07-25-2021 End: 07-26-[address] ZAKI FLANAGAN Facility:[facility] Procedures Date Procedure Procedure Detail Performing Clinician Start: 02-22-2022 Antibody screen BEE GUEVARA Comment on above: Performed By: #### 6 [id number] #### [address] Payers Date Payer Category Payer Private Health Insurance [id number] 1945 Unknown [id number] 2.16.8 [id number] 1945 Unknown [id number] 2.16.8 [id number] 1945 Unknown [id number] 2.16.8 [id number] 1945 Unknown [id number] 2.16.84 [id number] 1945 Unknown [id number] 2.16.84 [id number] 1945 Unknown [id number] 2.16.84 [id number] 1945 Unknown [id number] 2.16.84 [id number] 1945 Unknown [id number] 2.16.84 [id number] 1945 Unknown [id number] 2.16.84 [id number] 1945 Unknown [id number] 2.16.84 [id number] Clinical Notes 02-24-2022 to 12-05-2023 Note Date & Type Note Facility 12-05-2023 Note Patient: Odilia ames Procedure Summary Date: 12/05/23 Room / Location: [facility] / [facility] (Cath) Anesthesia Start: 1322 Anesthesia Stop: 1518 Procedure: Procedure aborted Diagnosis: Nonrheumatic mitral valve regurgitation (Nonrheumatic mitral valve regurgitation [I34.0]) Providers: Bee Guevara MD Responsible Provider: Josephine Colón MD Anesthesia Type: general ASA Status: 3 Anesthesia Type: general Vitals Value Taken Time BP 116/76 12/05/23 1626 Temp 36,9 12/05/23 1626 Pulse 78 12/05/23 1626 Resp 15 12/05/23 1626 SpO2 100 12/05/23 1626 Anesthesia Post Evaluation Patient location during evaluation: PACU Patient participation: complete - patient participated Level of consciousness: awake Pain score: 0 Pain management: adequate Cardiovascular status: acceptable Respiratory status: acceptable and room air Hydration status: acceptable Patient is hemodynamically stable and is able to be discharged from PACU per anesthesia protocol. There were no known notable events for this encounter. [facility] 12-05-2023 Note Airway Date/Time: 12/05/2023 1:39 PM Urgency: elective Airway not difficult General Information and Staff Patient location during procedure: OR Anesthesiologist: Josephine Colón MD Resident/MEAT SOAKER/CAA: Luca Peterson MD Performed: resident/MEAT SOAKER/CAA Indications and Patient Condition Indications for airway management: anesthesia Spontaneous Ventilation: absent Sedation level: deep Preoxygenated: yes Patient position: sniffing Mask difficulty assessment: 1 - vent by mask Final Airway Details Final airway type: endotracheal airway Successful airway: ETT Cuffed: yes Successful intubation technique: video laryngoscopy Facilitating devices/methods: intubating stylet Endotracheal tube insertion site: oral Blade: Mccormick Blade size: #3 ETT size (mm): 7.5 Cormack-Lehane Classification: grade I - full view of glottis Placement verified by: chest auscultation and capnometry Measured from: lips ETT to lips (cm): 22 Number of attempts at approach: 1 Number of other approaches attempted: 0 [facility] 12-05-2023 Note Patient: Odilia ames Procedure Information Date/Time: 12/05/23 113 Procedure: Transcatheter mitral valve repair Location: [facility] / [facility] (Cath) Providers: Bee Guevara MD Clinical information reviewed: Tobacco Allergies Meds Problems Med Hx Surg Hx OB Status Fam Hx Soc Hx Physical Exam Airway Mallampati: III Cardiovascular Rhythm: irregular Rate: normal Dental Pulmonary - normal exam Abdominal - normal exam Anesthesia Plan ASA 3 other and general intravenous induction Anesthetic plan and risks discussed with patient. Use of blood products discussed with patient who consented to blood products. Plan discussed with attending. Additional Equipment Requests [facility] 12-05-2023 Note Patient: Odilia ames Procedure Information Date/Time: 12/05/23 1130 Procedure: Transcatheter mitral valve repair Location: [facility] / [facility] (Cath) Providers: Bee Guevara MD Relevant Problems Cardio (+) Chronic systolic congestive heart failure (CMS/HCC) (+) Nonrheumatic mitral valve regurgitation (+) Paroxysmal atrial fibrillation (CMS/HCC) (+) Paroxysmal atrial flutter (CMS/HCC) (+) Primary hypertension (+) Severe mitral regurgitation /Renal (+) Chronic kidney disease, stage 3a ([facility]) Clinical information reviewed: Tobacco Allergies Meds Problems Med Hx Surg Hx OB Status Fam Hx Soc Hx Physical Exam Airway Mallampati: II TM distance: >3 FB Neck ROM: full Cardiovascular Rhythm: irregular Rate: normal Dental - normal exam Pulmonary (+) decreased breath sounds Abdominal Abdomen: soft Anesthesia Plan ASA 3 general (A line) intravenous induction Anesthetic plan and risks discussed with patient and sibling. Use of blood products discussed with patient and sibling who. Plan discussed with resident and attending. Additional Equipment Requests [facility] 12-03-2023 Note Medications to take AM day of procedure with sips water only: Medication Hold instructions: NSAIDs (Motrin,Aleve): 5 days prior to procedure Vitamins/Supplements: 5 days prior to procedure IF YOU ARE GOING HOME AFTER YOUR SURGERY OR PROCEDURE, FOR YOUR SAFETY, YOUR SURGERY WILL BE CANCELLED IF BOTH OF THE FOLLOWING ARE NOT AVAILABLE: An adult assembly line driver over the age of 18, that can receive information about your care after surgery, and drive you home. A responsible adult to stay with you for 24 hours in case of an emergency. Can be same as above. The highest risk of complications is within the first 24 hours after sedation/anesthesia. Nothing to eat or drink after midnight the night before surgery. This includes gum, candy, mints, and lozenges. No alcohol, marijuana, or tobacco products including vaping for 24 hours. Please brush your teeth; don't swallow the toothpaste or water. If you use dentures, wear them but do not use paste. Please leave any other removable dental hardware at home. Do not put in contact lenses. Do not wear perfume, make-up, nail icelandic, or lotions on the day of your surgery or procedure. Follow skin-prep/wipe instructions as below if required. Bring with you: *Insurance card *Photo ID *Medication list *Co-pay for visit/prescriptions If applicable: *Rescue inhalers *Green bracelet from lab *CPAP or BiPAP machine, if staying overnight *Any braces, splints, or equipment ordered preoperatively *Remote controls for implanted devices Leave at home: *Purse/Wallet/Pollack- unless needed for co-pay *Cell phone (can leave with family/friend or place in locker if needed) *Jewelry (including piercings and wedding bands) *If not possible, ask the person who is waiting with you to keep them Children under the age of 12 will not be allowed into patient care areas. We will call you between 3pm and 4pm the day before your surgery to give you an arrival time. If you do not receive this call, have any questions, or need to make any changes, please call [phone]. Notify your surgeon if you develop any illness such as a cold, cough, fever, sore throat or vomiting between now and your surgery. Thank you for entrusting us with your care. [facility] Surgical Services Team [facility] 11-21-[address] [facility] Note Chief Complaint: SOB HPI: Odilia Schroeder is a She is a 78-year-old woman with prior history of paroxysmal atrial fibrillation and atrial flutter. She has prior history of TIA, hypertension and hyperlipidemia. She was previously maintained on anticoagulation therapy for atrial fibrillation. Her [id number]-VJSy score is 6 for age, history of TIA, female gender and hypertension. Due to prior to unexplained profound blood loss anemia she was recommended the Watchman procedure which she underwent on 02/22/2022. This was a 27 mm Watchman FLX device. Follow-up transesophageal echocardiogram on 04/21/2022 showed adequate device placement with no peridevice leak and no thrombus. She was maintained on dual antiplatelet therapy with aspirin and Plavix for 6 months post JUAN RAMON closure followed by aspirin only. During her investigation for the Watchman procedure she underwent a transesophageal echocardiogram and was found to have severe mitral valve regurgitation at the time when her blood pressure was very elevated. Follow-up transesophageal echocardiogram showed only mild mitral regurgitation when her blood pressure was under good control. Recently she was evaluated in cardiology clinic and was in atrial fibrillation. Eventually she underwent CELINA guided cardioversion into sinus rhythm. She has been maintained on Eliquis therapy since then. Of note her transesophageal echocardiogram during the cardioversion on 09/19/2023 showed evidence of severe mitral regurgitation. Her ejection fraction was 40 to 45%. Following the cardioversion she had a lot of shortness of breath and wheezing. She had to increase the Lasix to double dose for 3 days based on our instruction and this helped with improvement in her symptoms. She is currently on heart failure GDMT with ARB, BB and Aldactone. She complains to complain of shortness of breath on exertion NYHA class III symptoms. No chest pain. She feels occasional palpitations. No significant leg swelling. She continues to take aspirin 81 mg daily. She says she can hardly do anything due to limitations from shortness of breath. She is being evaluated for valeri clip by Dr. Guevara. Cardiology ROS: Negative except as mentioned. Past Medical History She has a past medical history of AF (paroxysmal atrial fibrillation) (CMS/HCC), Hyperlipidemia, Hypertension, Stroke (CMS/HCC), and TIA (transient ischemic attack). Surgical History She has a past surgical history that includes MRA head wo IV contrast (08/08/2019); MRA neck w and wo IV contrast (08/08/2019); CTA Lower Extremity Left W IV Contrast (Left, 08/10/2019); Hysterectomy; and Cardiac catheterization. Social History She reports that she has never smoked. She has been exposed to tobacco smoke. She has never used smokeless tobacco. She reports that she does not currently use alcohol. No history on file for drug use. Family History Family History Problem Relation Name Age of Onset Cancer Mother Heart attack Father Cancer Father Allergies Patient has no known allergies. Medications (Not in a hospital admission) Last Recorded Vitals @IPVITALS@ Physical Examination: GENERAL: alert and oriented x3, well developed, in no acute distress. HEAD: atraumatic, normocephalic. EYES: DEWAYNE, EOMI. NECK: trachea midline, no JVD present, no carotid bruits present. CARDIAC: S1, S2 present. RRR. No murmur, rubs, or gallops. RESPIRATORY: CTAB, no increased effort of breathing, no rales, rhonchi, or wheezing. ABDOMEN: soft, nontender, nondistended. EXTREMITIES: no lower extremity edema, peripheral pulses are 2+ bilaterally. No rash/skin discoloration present. NEURO: strength/sensation equal and symmetric in bilateral upper and lower extremities. PSYCH: appropriate mood, affect, and judgement. Assessment and plan: Chronic heart failure with reduced EF, NYHA III; EF 40-45%; Euvolemic on physical exam. Stable symptoms but has severe dyspnea on minimal exertion. Volume control with lasix GDMT: metoprolol 100 mg po daily, aldactone 25 mg po daily and Losartan 25 mg po daily. Documented to have not tolerated SGLT2i and ARNi in the past. Pt is on maximal GDMT that she can tolerate. Severe MR Noted on last CELINA Evaluation for Mitraclip per Dr. Guevara Paroxysmal Atrial fibrillation s/p cardioversion Has watchman device Off of AC due to high bleeding risk Now on ASA monotherapy Continue metoprolol HTN BP controlled Continue current meds Follow up with Dr. Guevara in 3 months for Valeri Clip Bonnie Cade MD PGY-4 Cardiology Fellowship Program [facility] Pager # [phone] By using the attestations below, the signing clinician agrees that I have read and verify that the documentation has been personally reviewed by me and ensure that the documentation accurately reflects the encounter. GC: I personally saw th (more content not included)... [facility] 11-02-2023 Note [place] [facility] - [facility] Subjective Odilia Schroeder is a 78 y.o. year old female patient being seen for follow up. Patient Active Problem List Diagnosis Tremor of [...] is seen in follow-up. She is a 78-year-old woman with prior history of paroxysmal atrial fibrillation and atrial flutter. She has prior history of TIA, hypertension and hyperlipidemia. She was previously maintained on anticoagulation therapy for atrial fibrillation. Her [id number]-WHNm score is 6 for age, history of TIA, female gender and hypertension. Due to prior to unexplained profound blood loss anemia she was recommended the Watchman procedure which she underwent on 02/22/2022. This was a 27 mm Watchman FLX device. Follow-up transesophageal echocardiogram on 04/21/2022 showed adequate device placement with no peridevice leak and no thrombus. She was maintained on dual antiplatelet therapy with aspirin and Plavix for 6 months post JUAN RAMON closure followed by aspirin only. What is noteworthy is that during her investigation for the Watchman procedure she underwent a transesophageal echocardiogram and was found to have severe mitral valve regurgitation at the time when her blood pressure was very elevated. Follow-up transesophageal echocardiogram showed only mild mitral regurgitation when her blood pressure was under good control. Recently she was evaluated in cardiology clinic and was in atrial fibrillation. Eventually she underwent CELINA guided cardioversion into sinus rhythm. She has been maintained on Eliquis therapy since then. Of note her transesophageal echocardiogram during the cardioversion on 09/19/2023 showed evidence of severe mitral regurgitation. Her ejection fraction was 40 to 45%. Following the cardioversion she had a lot of shortness of breath and wheezing. She had to increase the Lasix to double dose for 3 days based on our instruction and this helped with improvement in her symptoms. At last visit of 10/01/2023 I added losartan 50 mg daily and spironolactone 12.5 mg daily. I continued metoprolol succinate 100 mg once daily. I then reduced losartan to 25 mg daily due to low blood pressure. Today she complains of shortness of breath on exertion NYHA class III symptoms. No chest pain. She feels occasional palpitations. No significant leg swelling. She continues to take aspirin 81 mg daily. She says she can hardly do anything due to limitations from shortness of breath. Review of Systems Constitutional: Positive for decreased appetite and malaise/fatigue. Cardiovascular: Positive for dyspnea on exertion. Negative for irregular heartbeat and palpitations. Respiratory: Positive for shortness of breath. Hematologic/Lymphatic: Bruises/bleeds easily. Musculoskeletal: Positive for muscle weakness. Gastrointestinal: Positive for diarrhea. Neurological: Positive for loss of balance, vertigo and weakness. All other systems reviewed and are negative. Objective Visit Vitals BP 120/82 (BP Location: Left arm, Patient Position: Sitting, BP Cuff Size: Adult) Pulse 65 Resp 12 Ht 1.575 m (5' 2 ) Wt 69.4 kg (153 lb) SpO2 99% BMI 27.98 kg/m??? Smoking Status Never BSA 1.74 m??? Physical Exam Constitutional: Appearance: She is well-developed. She is not ill-appearing. [place]IS[place]: Head: Normocephalic and atraumatic. Nose: Nose normal. Eyes: General: No scleral icterus. Pupils: Pupils are equal, round, and reactive to light. Neck: Thyroid: No thyromegaly. Vascular: No JVD. Cardiovascular: Rate and Rhythm: Normal rate and regular rhythm. Pulses: Radial pulses are 2+ on the right side and 2+ on the left side. Heart sounds: Murmur heard. Systolic (apex) murmur is present with a grade of 2/6. No friction rub. No gallop. Pulmonary: Effort: Pulmonary effort is normal. No respiratory distress. Breath sounds: Normal breath sounds. No wheezing or rales. Chest: Chest wall: No tenderness. Abdominal: General: Bowel sounds are normal. There is no distension. Palpations: Abdomen is soft. Tenderness: There is no abdominal tenderness. Musculoskeletal: General: No swelling. Cervical back: Neck supple. Skin: General: Ski (more content not included)... [facility] 10-01-2023 Note [place] [facility] Subjective Odilia Schroeder is a 78 y.o. year old female patient being seen for follow up CELINA with cardioversion. She called the office 2 days after procedure c/o wheezing, SOB, and LE edema. She was advised to double her lasix x3 days. Patient states she did this for 3 days and it helped. Currently taking Eliquis and wants to know when she can stop. Denies bleeding issues but is bruising easily. Patient Active Problem List Diagnosis Tremor of [...] is seen in follow-up. She is a 78-year-old woman with prior history of paroxysmal atrial fibrillation and atrial flutter. She has prior history of TIA, hypertension and hyperlipidemia. She was previously maintained on anticoagulation therapy for atrial fibrillation. Her [id number] score is 6 for age, history of TIA, female gender and hypertension. Due to prior to unexplained profound blood loss anemia she was recommended the Watchman procedure which she underwent on 02/22/2022. This was a 27 mm Watchman FLX device. Follow-up transesophageal echocardiogram on 04/21/2022 showed adequate device placement with no peridevice leak and no thrombus. She was maintained on dual antiplatelet therapy with aspirin and Plavix for 6 months post JUAN RAMON closure followed by aspirin only. What is noteworthy is that during her investigation for the Watchman procedure she underwent a transesophageal echocardiogram and was found to have severe mitral valve regurgitation at the time when her blood pressure was very elevated. Follow-up transesophageal echocardiogram showed only mild mitral regurgitation when her blood pressure was under good control. Recently she was evaluated in cardiology clinic and was in atrial fibrillation. Eventually she underwent CELINA guided cardioversion into sinus rhythm. She has been maintained on Eliquis therapy since then. Of note her transesophageal echocardiogram during the cardioversion on 09/19/2023 showed evidence of severe mitral regurgitation. Her ejection fraction was 40 to 45%. Following the cardioversion she had a lot of shortness of breath and wheezing. She had to increase the Lasix to double dose for 3 days based on our instruction and this helped with improvement in her symptoms. Today she complains of shortness of breath on exertion NYHA class II-III symptoms. No chest pain. She feels occasional palpitations. No significant leg swelling. She continues to take aspirin 81 mg daily along with Eliquis 5 mg twice daily. Review of Systems Constitutional: Positive for decreased appetite and malaise/fatigue. Cardiovascular: Positive for dyspnea on exertion, irregular heartbeat and palpitations. Respiratory: Positive for shortness of breath. Hematologic/Lymphatic: Bruises/bleeds easily. Musculoskeletal: Positive for muscle weakness. Gastrointestinal: Positive for diarrhea. Neurological: Positive for loss of balance, vertigo and weakness. All other systems reviewed and are negative. Objective Visit Vitals BP 160/90 (BP Location: Left arm, Patient Position: Sitting) Pulse 62 Ht 1.575 m (5' 2 ) Wt 68.9 kg (152 lb) SpO2 99% BMI 27.80 kg/m??? Smoking Status Never BSA 1.74 m??? Physical Exam Constitutional: Appearance: She is [...] 2+ on the left side. Heart sounds: Murmur heard. Systolic (apex) murmur is present with a grade of 2/6. No friction rub. No gallop. Pulmonary: Effort: Pulmonary effort is normal. No respiratory distress. Breath sounds: Normal breath sounds. No wheezing or rales. Chest: Chest wall: No tenderness. Abdominal: General: Bowel sounds are normal. There is no distension. Palpations: Abdomen is soft. Tenderness: There is no abdominal tenderness. Musculoskeletal: General: No swelling. Cervical back: Neck supple. Ski (more content not included)... [facility] 09-19-2023 Note Pt is seeing Dr Nayely sawyer today in office [facility] 09-19-2023 Note Patient: Odilia ames Procedure Information Date/Time: 09/19/23 1130 Procedure: TRANSESOPHAGEAL ECHO (CELINA) W/ POSSIBLE CARDIOVERSION Location: [facility] Vascular Lab Clinical information reviewed: Allergies Meds Physical Exam Airway Mallampati: III Cardiovascular Rhythm: irregular Dental Pulmonary Abdominal Anesthesia Plan ASA 3 other (Subconscious sedation. ) Additional Equipment Requests [facility] 07-11-2023 Note B/p currently labile 90/60 with generalized fatigue [facility] 07-11-2023 Note [facility] III- currently euvolemic if not a bit [...] and electrolytes- Repeat BMP in 1 week [facility] 07-11-2023 Note Currently I feel she is dehydrated, therefore again instructed her to decrease lasix to 20 mg daily. Monitor fluid status and may increase to bid for 3 days as needed for fluid overload. [facility] 07-11-2023 Note EKG today remains in A fib States anticoagulation was unaffordable and she stopped taking it, therefore persisent a.fib s/p Watchman implant Today she is agreeable to proceeding with CELINA/CV in about 2 weeks- hopefully her daughters are recovered from illness and she is feeling better herself- she will call office to schedule. [facility] 07-11-2023 Note [facility] [...] mildly enlarged. Left (more content not included)... [facility] 07-11-2023 Note Patient here for [...] All other systems reviewed and are negative. [facility] 06-06-2023 Note [facility] SUBJECTIVE Chief Complaint Patient presents with Follow-up Odilia Schroeder is a 78 y.o. female here for follow-up on her dizziness and a low BP/low HR. Her daughter accompanied her today. HPI PMHx: fco glover s/p Watchman implant, systolic and diastolic heart [...] Vitals reviewed. Constitutional: (more content not included)... [facility] 05-09-2023 Note Patient here today [...] All other systems reviewed and are negative. [facility] 05-09-2023 Note Cardi[facility] Medic [facility] SUBJECTIVE Chief Complaint Patient presents with Fatigue Hypotension Atrial Fibrillation Congestive Heart Failure Odilia Schroeder is a 78 y.o. female here for a sick visit for concerns of dizziness and a low BP/low HR. Her daughter accompanied her today. HPI PMHx: persismaelt shashifib s/p Watchman implant, systolic and diastolic heart [...] edema. Left lower (more content not included)... [facility] 04-30-2023 Note Currently stable wit hout any lightheadedness, dizziness or syncope since last visit [facility] 04-30-2023 Note Currently hypertensi on is well controlled [facility] 04-30-2023 Note [facility] II-IIIc, Curren [...] she was most likely still fluid overloaded. [facility] 04-30-2023 Note Currently stable [facility] 04-30-2023 Note Patient here for 1 w [employer] follow up. Had BMP 2 days ago. [...] All other systems reviewed and are negative. [facility] 04-30-2023 Note [facility] C[facility] [...] mitral regurgitation i (more content not included)... [facility] 04-25-2023 Note [facility] IVc- currently fluid overloaded, dyspneic at rest [...] fluid restriction 1.5-2L/day, renal function and electrolytes [facility] 04-25-2023 Note Stable- no syncope [facility] 04-25-2023 Note Currently uncontroll ed, add entresto and farxga, continue lasix Monitor b/p at home [facility] 04-25-2023 Note stable [facility] 04-25-2023 Note [id number]= 6 Age, female, HTN, CHF, TIA No anticoagulation s/p watchman implantation Continue metoprolol tartrate- will plan to transition to GDMT- for CHF possibly at next visit- toprol, coreg or bisprolol [facility] 04-25-2023 Note [facility] PRO[facility] ESS NOTE HPI: Odilia Schroeder is a 78 y.o. female here for Combined Heart failure, PAF, Patient here for follow up echo done yesterday. Didn't take lasix for a few days last week. Had some chest tightness a few days ago. Reports that she ran out of lasix a while ago and was admitted to [facility]. Admits weight gain of about 3-4 pounds, increased shortness of breath- at rest and + orthopnea and difficulty sleeping. Was recently admitted to [facility] for SOB, weakness, CHF, A fib [...] is 55%, nor (more content not included)... [facility] 04-25-2023 Note Patient here for fol low up echo done yesterday. Didn't take lasix for a few days last week. Had some chest tightness a few days ago. Review of Systems Eyes: Positive for blurred vision. Cardiovascular: Positive for dyspnea on exertion and palpitations (intermittent). Respiratory: Positive for wheezing. Neurological: Positive for light-headedness, loss of balance and vertigo. All other systems reviewed and are negative. [facility] 03-28-2023 Note Patient here for fol low up [facility]. She presented to the ED for worsening [...] All other systems reviewed and are negative. [facility] 03-28-2023 Note [place] [facility] Subjective Odilia Schroeder is a 77 [...] Rate 02/22/2022 64 Atrial Rate 02/22/2022 64 FL Interval 02/22/2022 228 QRS DURATION 02/22/2022 164 QT Interval 02/22/2022 502 QTC CALCULATION(BAZETT) 02/22/2022 517 P Reliance 02/22/2022 58 R-Reliance 02/22/2022 -57 T Wave Reliance 02/22/2022 59 Diagnosis 02/22/2022 Value:Sinus rhythm with 1st degree A-V block Left axis deviation Left bundle branch block Abnormal ECG When compared with ECG of 22-FEB-2022 09:58, (unconfirmed) No significant change was found Confirmed by Julian Bolivar ([id number]) on 02/23/2022 12:55:57 AM Blood testing 10/10/ (more content not included)... [facility] 02-24-2022 Note MR#: [id number] I [facility] Pt. Name: Odilia Schroeder Admitted: [...] including most recently Dr. Argelia Rodas from [facility] and they all agreed she should be considered for Watchman device, which is what brought her to the medical lab assistant on admission. On 02/22/2022, she underwent successful [...] Eliquis or aspirin unless instructed by your stamp presser. 2. Follow up with Cardiology as scheduled, with WORKERS COMPENSATION DEFENSE ATTORNEY, Jose M Cabrera in the [facility]. 3. A followup transesophageal echocardiogram will be [...] me. Date Dict: 02/23/2022/02:46 P/Jose M Cabrera, END PACKER Date Trans: 02/24/2022 09:55 A/deja [id number] cc: Zaki Flanagan D.O. [address] [facility] [id number] [facility] Summary Purpose Family History No Family History Records FoundNo Family History Records FoundNo Family History Records Found Advance Directives No Advanced Directives Records FoundNo Advanced Directives Records FoundNo Advanced Directives Records Found Additional Source Comments INFORMATION SOURCE (unrecogn ized section and content) DATE CREATED AUTHOR 03/08/2022 [facility] DATE CREATED AUTHOR AUTHOR'S ORGANIZ ATION 05/06/2022 [facility] DATE CREATED AUTHOR AUTHOR'S ORGANIZ ATION 12/07/2023 [facility] FOR RECORDS PERTAINING TO PATIENTS WHO [...] BE BASED ON THE PRIMARY CLINICAL RECORDS. [facility] [employer] [facility]. provides no warranty or guarantee of the accuracy or completeness of information in this document.
[2023-12-19 11:18] LABS: Basophils Absolute Auto 0.1 10^3/uL (0.0-0.1); Basophils Percent Auto 0.9 % (0.2-2.0); Eosinophils Absolute Auto 0.7 10^3/uL (0.0-0.7); Eosinophils Percent Auto 8.3 % (0.9-7.0); Hemoglobin 12.9 g/dL (12.0-16.0); Immature Granulocytes Abs Auto 0.05 10^3/uL (0.00-0.03); Immature Granulocytes Pct Auto 0.6 % (0.0-0.5); Lymphocytes Absolute Auto 2.5 10^3/uL (1.2-3.8); Lymphocytes Percent Auto 31.3 % (20.5-60.0); Mean Corpuscular HGB Conc 33.9 g/dL (29.9-35.2); Mean Corpuscular Hemoglobin 31.3 pg (26.7-34.0); Mean Corpuscular Volume 92.2 fL (81.0-99.0); Mean Platelet Volume 10.2 fL (9.5-13.5); Monocytes Absolute Auto 0.6 10^3/uL (0.3-0.8); Monocytes Percent Auto 7.3 % (1.7-12.0); Neutrophils Percent Auto 51.6 % (43.0-75.0); Platelet Count 265 10^3/uL (150-450); Red Blood Count 4.12 10^6/uL (4.20-5.40); Red Cell Distribution Width 12.3 % (11.0-15.0); White Blood Count 7.8 10^3/uL (4.0-11.0)
[2023-12-19 12:31] LABS: Erythrocyte Sedimentation Rate 40 mm/hr (<=30)
[2023-12-19 12:34] LABS: Alanine Aminotransferase 13 U/L (14-59); Albumin Level 3.7 g/dL (3.4-5.0); Alkaline Phosphatase 57 U/L (46-116); Anion Gap 12.8; Aspartate Amino Transferase 17 U/L (15-37); BUN Creatinine Ratio 13.2; Bilirubin Total 0.8 mg/dL (0.2-1.0); C Reactive Protein <0.50 mg/dL (<=0.50); Calcium 9.3 mg/dL (8.5-10.1); Carbon Dioxide 26.2 mmol/L (21.0-32.0); Chloride 98 mmol/L (98-107); Chol HDL Ratio 2.9; Cholesterol 131 mg/dL (<=200); Estimated GFR (African America 40 (>=60); Estimated GFR (Non-African Ame 33 (>=60); Globulin 3.6 g/dL; Glucose 99 mg/dL (74-106); HDL Cholesterol 45 mg/dL (40-60); LDL Cholesterol Calculated 64.2 mg/dL; Sodium 133 mmol/L (136-145); Total Protein 7.3 g/dL (6.4-8.2); Triglycerides 109 mg/dL (<=150); Uric Acid 6.5 mg/dL (2.6-6.0); VLDL CHOLESTEROL 21.8 mg/dL
--- NOTE | 2023-12-19 13:16 | XR_ITS ---
[address] [address] Patient Name: DEEPA GRIER MRN: [id number] date: 1945 Sex: F Assigned Patient Location: [facility] Current Patient Location: [facility] Accession/Order Number: [id number] Exam Date: 12/19/2023 13:40 Report Date: 12/19/2023 13:59 At the request of: DELGADO FLANAGAN Procedure: XR DEXA axial skeleton EXAMINATION: XR DEXA axial skeleton HISTORY: Age Related Osteoporosis M81.0 COMPARISON: DEXA bone densitometry 07/25/2021 TECHNIQUE: Dual-energy X-ray absorptiometry (DXA) was performed. FINDINGS: SPINE ANALYSIS: Average bone mineral density is 1.590 g/cm2. T-score (standard deviation relative to young adult mean): 3.4 . -0.2% change since prior study. HIP ANALYSIS: Lowest bone mineral density is within the right femoral neck, 0.930 g/cm2. T-score (standard deviation relative to young adult mean): -0.8 . -5.6% change since prior study. XR/XR DEXA axial skeleton IMPRESSION: World Nick Organization Classification: Normal - Low Fracture Risk FRAX: Electronically authenticated by: ETHEL SANDERSON Date: 12/19/2023 13:59
--- NOTE | 2023-12-19 13:22 | XR_ITS ---
The [address] [address] Patient Name: DEEPA GRIER MRN: [id number] date: 1945 Sex: F Assigned Patient Location: [facility] Current Patient Location: Accession/Order Number: [id number] Exam Date: 12/19/2023 13:25 Report Date: 12/21/2023 07:19 At the request of: DELGADO FLANAGAN Procedure: XR shoulder RT min 2V PROCEDURE: XR shoulder RT min 2V HISTORY: Pain In Right Shoulder M25.511 COMPARISON: XR chest 03/18/2023, XR shoulder bilateral 08/28/2016 FINDINGS: BONES:Small, thin ossification along inferior margin of the glenoid. Unremarkable humeral head which remains seated within the glenoid. Narrowing of the acromioclavicular joint with small undersurface osteophytes. SOFT TISSUES:No visible soft tissue swelling. EFFUSION:None visible. OTHER: Negative. XR/XR shoulder RT min 2V IMPRESSION: 1. Small ossification along the inferior margin of the glenoid which may represent a small fracture fragment or a degenerative enthesophyte; finding is new versus better seen compared to 03/18/2023. 2. Mild degenerative changes of the acromioclavicular joint. Electronically authenticated by: ETHEL SANDERSON Date: 12/21/2023 07:19
[2023-12-20 06:11] LABS: Rheumatoid Factor (RF) <10.0 IU/mL (<14.0)
[2023-12-20 15:10] LABS: ANA Direct Negative (Negative)
== END 2023-12-19 10:12 | disposition home or self-care (01) ==
LOC: RAD 10:11
PROVIDERS: PCP Family Medicine; Visit Provider Family Medicine
DX: M81.0 Age-related osteoporosis without current pathological fracture (principal); M25.50 Pain in unspecified joint; E55.9 Vitamin D deficiency, unspecified; I10 Essential (primary) hypertension; M25.511 Pain in right shoulder
CPT/HCPCS: 36415; 73030; 77080; 80053; 80061; 82306; 84550; 85025; 85652; 86038; 86140; 86431

== ENCOUNTER 2023-12-20 11:00 | Outpatient (OUT) | payer MEDICARE, SELFPAY ==
--- OUTSIDE RECORDS SUMMARY | 2023-12-20 11:21 | XMS_ITS ---
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 Role Phone BEE GUEVARA V Attending Unavailable FLANAGANZAKI Primary Care Unavailable FLANAGANZAKI Referring Unavailable MOUKARBEL, BEE Martino Admitting Unavailable MOUKARBEL, BEE Martino Attending Unavailable FLANAGAN, ZAKI Primary Care Unavailable FLANAGANZAKI Referring Unavailable MOUKARBEL, BEE Martino Admitting Unavailable FLANAGAN, ZAKI Primary Care Unavailable FLANAGANZAKI Referring Unavailable MOUKARBELBEE V Admitting Unavailable MOUKARBEL, BEE Martino Attending Unavailable BRITNI, JOSE M Admitting Unavailable BRITNIVALA Attending Unavailable FLANAGAN, DR ZAKI Braden Primary Care Unavailable BRITNIJOSE M Consulting Unavailable MOUKARBEL, DR GAMBOA Admitting Unavailable MOUKARBEL, DR GAMBOA Attending Unavailable FLANAGAN, DR ZAKI Braden Primary Care Unavailable MOUKARBEL, DR GAMBOA Consulting Unavailable BRITNI, JOSE M Admitting Unavailable BRITNIVALA Attending Unavailable FLANAGAN, DR ZAKI Braden Primary Care Unavailable BRITNI, JOSE M Consulting Unavailable BRITNI, JOSEM Admitting Unavailable BRITNIJOSE M Attending Unavailable FLANAGAN, [...] GAMBOA Consulting Unavailable JEFFERSON SERNA Attending Unavailable KURT NDIAYE Attending Unavailable ARGELIA BELTRE Attending Unavailable BEE GUEVARA Attending Unavailable BEE GUEVARA Attending Unavailable JEFFERSON SERNA Attending Unavailable JOSE M CABRERA Attending Unavailable DANIEL RODRÍGUEZ Referring Unavailable DANIEL RODRÍGUEZ Referring Unavailable DANIEL RODRÍGUEZ Admitting Unavailable DANIEL RODRÍGUEZ Attending Unavailable JEFFERSON SERNA Referring Unavailable BEE GUEVARA Admitting Unavailable BEE GUEVARA Attending Unavailable ELIS CORTEZ Referring Unavailable JOSE M CABRERA Attending Unavailable JEFFERSON SERNA Attending Unavailable Allergies Allergy Classification Reported Allergen(s) Allergy Type Date of Onset Reaction(s) Facility (1 source) Diclofenac; Translations: [DICLOFENAC] Drug Allergy 06-06-2023 [facility] Repository Encounters Encounter Date Encounter Type Care Provider Facility Start: 12-05-2023 ambulatory ELIS CORTEZ [facility] Start: 12-05-2023 End: 12-05-2023 Evaluation and management of inpatient [facility] Start: 11-21-2023 End: 11-21-2023 ambulatory ARGELIA Dowling [facility] Start: 11-02-2023 End: 11-02-2023 ambulatory [facility] Start: 10-01-2023 End: 10-01-2023 ambulatory [facility]: [facility]: [facility] End[facility]: 07-11-2023 End: 07-11-2023 ambulatory [facility] Start: 06-06-2023 End: 06-06-2023 ambulatory JOSE M [facility] Start: 05-09-2023 End: 05-09-2023 ambulatory [facility] Start: 04-30-2023 End: 04-30-2023 ambulatory [facility] Start: 04-25-2023 End: 04-25-2023 ambulatory JEFFERSON DAPHNE [facility] Start: 03-28-2023 End: 03-28-2023 ambulatory KURT NDIAYE [facility] Start: 04-10-2022 End: 04-11-2022 ambulatory JOSE M CABRERA Facility:[facility] Start: 02-22-2022 End: 02-23-2022 Evaluation and management of inpatient ZAKI FLANAGAN Facility:[facility] Start: 02-20-2022 End: 02-21-2022 ambulatory JOSE M CABRERA Facility:[facility] Start: 01-25-2022 End: 01-26-2022 ambulatory BEE GUEVARA Facility:[facility] Start: 01-23-2022 End: 01-24-[address] BEE GUEVARA Facility:[facility] Start: 12-23-2021 End: 12-24-2021 ambulatory JOSE M CABRERA Facility:[facility] Start: 12-14-2021 End: 12-15-2021 ambulatory BEE GUEVARA Facility:[facility] Start: 12-12-2021 End: 12-13-[address] BEE GUEVARA Facility:[facility] Start: 07-25-2021 End: 07-26-[address] ZAKI FLANAGAN Facility:[facility] Payers Date Payer Category Payer Private Health Insurance [id number] 1945 Unknown [id number] 2.16.8 [id number] 1945 Unknown [id number] 2.16.8 [id number] 1945 Unknown [id number] 2.16.8 [id number] 1945 Unknown [id number] 2.16.84 [id number] 1945 Unknown [id number] 2.16.84 [id number] 1945 Unknown [id number] 2.16.84 [id number] 1945 Unknown [id number] 2.16.84 [id number] 1945 Unknown [id number] 2.16.84 [id number] 1945 Unknown [id number] 2.16.84 [id number] 1945 Unknown [id number] 2.16.84 [id number] Problems Active Problems Problem Classification Problem Date [...] [CONTACT W/AND (SUSP) EXPOS COVID-19] Onset: 02-20-2022 Procedures Date Procedure Procedure Detail Performing Clinician Start: 02-22-2022 Antibody screen BEE GUEVARA Comment on above: Performed By: #### 6 [id number] #### [facility] [address] [place] [address], [facility] Results Test Name Value Interpretation Reference Range Facility BASIC METABOLIC PANELon 11-14 Anion gap [Moles/Vol] 12 mmol/L Normal 7-20 [facility] Comment on above: Performed By: #### L [id number] ####[facility] ([facility])[address] [place] [address] Calcium [Mass/Vol] 9.5 mg/dL Normal 8.6-10.3 [facility] Comment on above: Performed By: #### L [id number] ####[facility] ([facility] [place] [address] Chloride [Moles/Vol] 97 mmol/L Low 98-107 [facility] Comment on above: Performed By: #### L [id number] ####[facility] ([facility])[address] [place] [address] CO2 [Moles/Vol] 27 mmol/L Normal 21-31 [facility] Comment on above: Performed By: #### L [id number] ####[facility] ([facility])[address] [place] [address] Creatinine [Mass/Vol] 1.64 mg/dL High 0.60-1.20 [facility] Comment on above: Performed By: #### L [id number] ####[facility] ([facility])[address] [place] [address] GLOMERULAR FILTRATION RATE ML/MIN/1.73 SQ M.PREDICTED 31.5 mL/min/1.73m*2 Low >60.0 [facility] Comment on above: Result Comment: The [facility]???s estimated glomerular filtration rate (eGFR) [...] of individuals. Performed By: #### L [id number] ####[facility] ([facility] [place] [address] Glucose [Mass/Vol] 100 mg/dL Normal 70-100 [facility] Comment on above: Performed By: #### L [id number] ####[facility] ([facility] [place] [address] Potassium [Moles/Vol] 3.9 mmol/L Normal 3.5-5.1 [facility] Comment on above: Performed By: #### L [id number] ####[facility] ([facility])[address] [place] [address] Sodium [Moles/Vol] 132 mmol/L Low 136-145 [facility] Comment on above: Performed By: #### L [id number] ####[facility] ([facility])[address] [place] [address] Urea nitrogen [Mass/Vol] 27 mg/dL High 7-25 [facility] Comment on above: Performed By: #### L [id number] ####[facility] ([facility])[address] [place] [address] UREA NITROGEN/CREATININE (MASS RATIO) IN SER/PLAS 16.5 Normal [facility] Comment on above: Performed By: #### L [id number] ####[facility] ([facility])[address] [place] [address] CBC WITH AUTO DIFFERENTIALon 12-05-2023 Basophils (Bld) [#/Vol] 0.05 10*3/uL Normal 0.00-0.20 [facility] Comment on above: Performed By: #### L [id number] #### [facility] ([facility]) [address] [place] [address] Basophils/100 WBC (Bld) 0.6 % Normal 0.0-1.0 [facility] Comment on above: Performed By: #### L [id number] #### [facility] ([facility] [address] [place] [address] Eosinophils (Bld) [#/Vol] 0.89 10*3/uL High 0.00-0.50 [facility] Comment on above: Performed By: #### L [id number] #### [facility] ([facility] [address] [place] [address] Eosinophils/100 WBC (Bld) 10.0 % High 0.0-6.0 [facility] Comment on above: Performed By: #### L [id number] #### [facility] ([facility] [address] [place] [address] Erythrocyte distribution width (RBC) [Ratio] 12.6 % Normal 11.5-15.0 [facility] Comment on above: Performed By: #### L [id number] #### [facility] ([facility]) [address] [place] [address] ERYTHROCYTE MEAN CORPUSCULAR HEMOGLOBIN CONCENTRATION (G/DL) BY AUTOMATED 35.5 g/dL High 32.0-35.0 [facility] Comment on above: Performed By: #### L [id number] #### [facility] ([facility]) [address] [place] [address] Hematocrit (Bld) [Volume fraction] 38.6 % Normal 36.0-48.0 [facility] Comment on above: Performed By: #### L [id number] #### [facility] ([facility]) [address] [place] [address] Hemoglobin (Bld) [Mass/Vol] 13.7 g/dL Normal 12.0-15.0 [facility] Comment on above: Performed By: #### L [id number] #### [facility] ([facility]) [address] [place] [address] Immature granulocytes (Bld) [#/Vol] 0.04 10*3/uL Normal 0.00-0.20 [facility] Comment on above: Performed By: #### L [id number] #### [facility] ([facility]) [address] [place] [address] Immature granulocytes/100 WBC (Bld) 0.4 % Normal 0.0-1.0 [facility] Comment on above: Performed By: #### L [id number] #### [facility] ([facility]) [address] [place] [address] Lymphocytes (Bld) [#/Vol] 2.11 10*3/uL Normal 1.20-4.00 [facility] Comment on above: Performed By: #### L [id number] #### [facility] ([facility] [address] [place] [address] Lymphocytes/100 WBC (Bld) 23.7 % Normal 20.0-45.0 [facility] Comment on above: Performed By: #### L [id number] #### [facility] ([facility]) [address] [place] [address] MCH (RBC) [Entitic mass] 32.9 pg Normal 27.0-33.0 [facility] Comment on above: Performed By: #### L [id number] #### [facility] ([facility]) [address] [place] [address] MCV (RBC) [Entitic vol] 92.6 fL Normal 82.0-98.0 [facility] Comment on above: Performed By: #### L [id number] #### [facility] ([facility]) [address] [place] [address] Monocytes (Bld) [#/Vol] 0.81 10*3/uL Normal 0.10-1.00 [facility] Comment on above: Performed By: #### L [id number] #### [facility] ([facility] [address] [place] [address] Monocytes/100 WBC (Bld) 9.1 % Normal 5.0-12.0 [facility] Comment on above: Performed By: #### L [id number] #### [facility] ([facility] [address] [place] [address] Neutrophils (Bld) [#/Vol] 5.00 10*3/uL Normal 1.60-7.60 [facility] Comment on above: Performed By: #### L [id number] #### [facility] ([facility]) [address] [place] [address] Neutrophils/100 WBC (Bld) 56.2 % Normal 40.0-72.0 [facility] Comment on above: Performed By: #### L [id number] #### [facility] ([facility]) [address] [place] [address] NRBC (PER 100 WBCS) BY AUTOMATED COUNT 0.0 % Normal 0 [facility] Comment on above: Performed By: #### L [id number] #### [facility] ([facility]) [address] [place] [address] PLATELETS (10*3/UL) IN BLOOD AUTOMATED COUNT 207 10*3/uL Normal 150-400 [facility] Comment on above: Performed By: #### L [id number] #### [facility] ([facility]) [address] [place] [address] RBC (Bld) [#/Vol] 4.17 10*6/uL Normal 3.80-5.00 [facility] Comment on above: Performed By: #### L [id number] #### [facility] ([facility]) [address] [place] [address] WBC (Bld) [#/Vol] 8.90 10*3/uL Normal 4.00-10.60 [facility] Comment on above: Performed By: #### L [id number] #### [facility] ([facility]) [address] [place] [address] DSon 12-05-2023 DS Admission Admitted 12/05/2023 for [...] is performed under the ED CLIA certificate #[id number]. MRSA/MSSA DNA NASAL TYPE AND SCREEN ABO Grouping O Rh Type NEG Ab Scrn NEG CBC AND DIFFERENTIAL Narrative: The following orders were created for panel order CBC and differential. Procedu (more content not included)... [facility] HPon 12-05-2023 HP H&P reviewed. [...] the procedure. She would like to proceed. [facility] MRSA/MSSA DNA NASALon 2023 MRSA DNA Negative Normal Negative [facility] Comment on above: Order Comment: [...] preclude nasal colonization. Performed By: #### L [id number] ####[facility] ([facility])[address] [place] [address] MSSA DNA Positive Abnormal Negative [facility] Comment on above: Order Comment: [...] preclude nasal colonization. Performed By: #### L [id number] ####[facility] ([facility])[address] [place] [address] POCT GLUCOSE METER UNSOLICIT ED RESULTSon 12-05-2023 Glucose [Mass/Vol] 105 mg/dL Normal 70-105 [facility] Comment on above: Order Comment: Waive d Testing in the ED is performed under the ED CLIA certificate #[id number]. Result Comment: asor ia3 Performed By: #### L [id number] ####[facility] ([facility])[address] [place] [address] TYPE AND SCREENon 12-05-2023 AB SCREEN Negative Normal [facility] Comment on above: Performed By: #### L [id number] #### [facility] , ABO group Nom (Bld) O Normal [facility] Comment on above: Performed By: #### L [id number] #### [facility] , RH TYPE IN BLOOD Negative Normal [facility] Comment on above: Performed By: #### L [id number] #### [facility] , Orders Onlyon 12-04-2023 Orders Only [id number] AlexandreAda en N 1945 F Date Provider Department [place] 12/04/2023 Mary Jane-THUY JAEGERA [facility] PAT MD Medical C Family History Problem Relation Age of Onset Cancer Mother Heart attack Father Cancer Father Family Status - Relation Status Age at Mother Father Normal [facility] [id number] 12-03-2023 [id number] ARRIVAL TIME 0930, P T COMING EARLY FOR LABS DUE TO AGE AND LIVES OUT OF TOWN. NO MEDICATIONS TO HOLD PRIOR TO PROCEDURE DATE 12/04 MEDICATIONS TO TAKE DAY OF SURGERY WITH SIP OF WATER PREVACID METOPROLOL PRE OP INSTRUCTIONS GIVEN NOTHING TO EAT OR DRINK AFTER MIDNIGHT Normal [facility] Orders Onlyon 12-03-2023 Orders Only [id number] Ada Schroeder en N 1945 F Date Provider Department [place] 12/03/2023 ELIS BEGUM [facility] Family History Problem Relation Age of Onset Cancer Mother Heart attack Father Cancer Father Family Status - Relation Status Age at Mother Father Normal [facility] Telephoneon 12-03-2023 Telephone [id number] AlexandreAda en N 1945 F Date Provider Department [place] 12/03/2023 [id number] CROUCH [facility] MD [facility] Family History Problem Relation Age of Onset Cancer Mother Heart attack Father Cancer Father Family Status - Relation Status Age at Mother Father Reason for Visit and Comments: KCCQ [Other] Normal [facility] Orders Onlyon 11-29-2023 Orders Only [id number] Ada Schroeder en N 1945 F Date Provider Department [place] 11/29/2023 ELIS BEGUM [facility] Family History Problem Relation Age of Onset Cancer Mother Heart attack Father Cancer Father Family Status - Relation Status Age at Mother Father Normal [facility] 36on 11-27-2023 36 Elis is organizing the clips. I'll let her know. Thanks! Normal [facility] Follow-Upon 11-21-2023 Follow-Up [id number] Ada Schroeder 1945 F Date Provider Department Center 11/21/2023 [facility] Family History Problem Relation Age of Onset Cancer Mother Heart attack Father Cancer Father Family Status - Relation Status Age at Mother Father Level of Service:73630 NM OFFICE/OUTPATIENT ESTABLISHED MOD MDM 30 MIN (GC) Normal [facility] 11-21-2023 [facility] Note Chief Complaint: SOB HPI: Odilia Schroeder is a She is a 78-year-old woman with prior history of paroxysmal atrial fibrillation and atrial flutter. She has prior history of TIA, hypertension and hyperlipidemia. She was previously maintained on anticoagulation therapy for atrial fibrillation. Her [id number] score is 6 for age, history of [...] Bonnie Cade MD PGY-4 Cardiology Fellowship Program [facility] Pager # [phone] By using the attestations below, the signing clinician agrees that I have read and verify that the documentation has been personally reviewed by me and ensure that the documentation accurately reflects the encounter. GC: I personally saw th (more content not included)... Normal [facility] Office Visiton 11-02-2023 Follow-up visit [id number] Eldridge low N 1945 F Date Provider Department Center 11/02/2023 BEE MARIN Family History Problem Relation Age of Onset Cancer Mother Heart attack Father Cancer Father Family Status - Relation Status Age at Mother Father Level of Service:73870 NM OFFICE/OUTPATIENT ESTABLISHED HIGH MDM 40 MIN Reason for Visit and Comments: Follow-up [553925] - 1 month follow up [facility] 36on 10-25-2023 36 Daughter called to make you aware of her mother's BP running low lately. She's been dizzy. BP around 90's/40's. Can she cut back her losartan until she sees you next Sunday? You also added spironolactone at last visit. Do you have other recommendations? Please advise. Normal [facility] Office Visiton 10-01-2023 Follow-up visit [id number] SchroederAda low N 1945 F Date Provider Department Center 10/01/2023 BEE MARIN Family History Problem Relation Age of Onset Cancer Mother Heart attack Father Cancer Father Family Status - Relation Status Age at Mother Father Level of Service:50173 NM OFFICE/OUTPATIENT ESTABLISHED MOD MDM 30 MIN [facility] HPon 09-19-2023 HP History Of Present Illness [...] Imaging Agent, Strain, 3D, Bubble Study 02/23/2022 [id number] Final Review of Systems Constitutional: Negative for [...] appears enlarged. N (more content not included)... [facility] NURSNOTEon 09-19-2023 NURSNOTE RN educated pt on d/ c instructions. RN encouraged pt to voice any questions or concerns. Pt verbalizes no questions or concerns at this time. [facility] NURSNOTE Bedside swallow stud y completed and passed. [facility] NURSNOTE Pt was wheeled off o f unit with all of belongings. [facility] Orders Onlyon 09-19-2023 Orders Only [id number] AlexandreAda kelsey N 1945 F Date Provider Department Center 09/19/2023 TIMMY LR [facility] Family History Problem Relation Age of Onset Cancer Mother Heart attack Father Cancer Father Family Status - Relation Status Age at Mother Father [facility] 3609-18-2023 36 PLEASE CALL DAUGHTER [phone] [facility] 36 I called and spoke with her. Thanks [facility] 09-13-2023 36 Regarding lab result s from 09/12/2023: Jose M Cabrera, KEVON Coles MA Can let her know her labs look okay. Kidney function is better. Thanks. LM on patient's VM. [facility] 09-11-2023 29 Addended by: JOSE M CABRERA on: 09/11/2023 12:35 PM Modules accepted: Orders [facility] 09-11-2023 36 Patient is scheduled to have a CELINA with cardioversion on 09/19/2023. I called and spoke with patient that she will need to be on anticoagulation after the cardioversion x4 weeks for stroke prophylaxis. She states understanding. [facility] 36 Error [facility] Telephoneon 09-11-2023 Telephone [id number] Ada Schroeder en N 1945 Date Provider Department Center 09/11/2023 JOSE M SUM[facility]ERS Family History Problem Relation Age of Onset Cancer Mother Heart attack Father Cancer Father Family Status - Relation Status Age at Mother Father Normal [facility] Telephone [id number] Ada Schroeder en N 1945 Date Provider Department [place] 09/11/2023 TIMMY LR [facility] Family History Problem Relation Age of Onset Cancer Mother Heart attack Father Cancer Father Family Status - Relation Status Age at Mother Father Normal [facility] 36on 08-16-2023 36 Please let her know her heart function remains reduced. She last saw Marley and they discussed doing the CELINA with cardioversion to help try to get her out of a.fib to help with her heart failure. Please see if she is agreeable to proceed with this. Thank you! Normal [facility] Telephoneon 08-15-2023 Telephone [id number] Ada Schroeder en N 1945 Provider Department [place] 08/15/2023 JOSE M SUMMERS Family History Problem Relation Age of Onset Cancer Mother Heart attack Father Cancer Father Family Status - Relation Status Age at Mother Father Normal [facility] 37on 07-11-2023 37 Stop entresto Decrease lasix/furosemide to 20 mg daily, if having increased weight- leg swelling- shortness of breath increase lasix to 20 mg twice a day for about 3 days. Decrease potassium to 1 tablet per day Continue all other medications Please have blood drawn next week to check kidney function and potassium level Normal [facility] Office Visiton 07-11-2023 Follow-up visit [id number] Ada Schroeder en N 1945 Date Provider Department [place] 07/11/2023 JEFFERSON LANGLEY LINH Lieberman Family History Problem Relation Age of Onset Cancer Mother Heart attack Father Cancer Father Family Status - Relation Status Age at Mother Father Level of Service:66533 NM OFFICE/OUTPATIENT ESTABLISHED MOD MDM 30 MIN [facility] 36on 06-21-2023 36 Please have her star t potassium chloride 40mEq daily with follow-up BMP in 1 week. Thanks [facility] 37on 06-06-2023 37 *Cut lasix in half t o 20mg daily *Get labs done around 06/20/2023 *Call us if you want to proceed with cardioversion *Follow-up ECHO at the end of July [facility] Office Visiton 06-06-2023 Follow-up visit [id number] Ada Schroeder en N 1945 F Date Provider Department [place] 06/06/2023 JOSE M SUMMERS Family History Problem Relation Age of Onset Cancer Mother Heart attack Father Cancer Father Family Status - Relation Status Age at Mother Father Level of Service:38916 NM OFFICE/OUTPATIENT ESTABLISHED MOD MDM 30 MIN Reason for Visit and Comments: Follow-up [[id number]] [facility] 05-09-2023 29 Addended by: JOSE M CABRERA on: 05/09/2023 05:06 PM Modules accepted: Orders [facility] 37on 05-09-2023 37 *If heart rate is [...] PCP about resuming your vitamin B12 injections. [facility] Office Visiton 05-09-2023 Follow-up visit [id number] Ada Schroeder low N 1945 F Date Provider Department Center 05/09/2023 JOSE M SUMMERS Family History Problem Relation Age of Onset Cancer Mother Heart attack Father Cancer Father Family Status - Relation Status Age at Mother Father Level of Service:04915 NM OFFICE/OUTPATIENT ESTABLISHED MOD MDM 30-39 MIN Reason for Visit and Comments: Fatigue [46] Hypotension [407] Atrial Fibrillation [80] Congestive Heart Failure [127] [facility] Office Visiton 04-30-2023 Follow-up visit [id number] Ada Schroeder en N 1945 F Date Provider Department Center 04/30/2023 JOEGamal JEFFERSON [facility] Family History Problem Relation Age of Onset Cancer Mother Heart attack Father Cancer Father Family Status - Relation Status Age at Mother Father Level of Service:65087 NM OFFICE/OUTPATIENT ESTABLISHED MOD MDM 30-39 MIN Normal [facility] Office Visiton 04-25-2023 Follow-up visit [id number] Ada Schroeder en N 1945 F Date Provider Department Center 04/25/2023 120WHITNEY JEFFERSON [facility] Family History Problem Relation Age of Onset Cancer Mother Heart attack Father Cancer Father Family Status - Relation Status Age at Mother Father Level of Service:05260 NM OFFICE/OUTPATIENT ESTABLISHED MOD MDM 30-39 MIN Normal [facility] Office Visiton 03-28-2023 Follow-up visit [id number] Ada Schroeder en N 1945 F Date Provider Department Center 03/28/2023 Sebastián8-KURT NDIAYE JUAN [facility] Family History Problem Relation Age of Onset Cancer Mother Heart attack Father Cancer Father Family Status - Relation Status Age at Mother Father Level of Service:09073 NM OFFICE/OUTPATIENT ESTABLISHED MOD MDM 30-39 MIN Normal [facility] Covid-19 PCR (CVDTB)on 03-17 SARS-CoV-2 (COVID-19) RNA EULA+probe Ql (Unsp spec) Detected Critically abnormal NOT DETECTED [facility] Comment on above: Result Comment: This test is not yet approved or cleared by the [place] FDA. When there are no FDA-approved or cleared tests available, and other criteria are met, FDA can make tests available under an emergency access mechanism called an Emergency Use Authorization (EUA). The EUA for this test is supported by the Filler S[employer] Helper of Health and Human Service's (HHS's) declaration [...] longer be used). Performed By: #### C #### [facility] [address] [address] [address] Kay Singh CBC COMPLETE BLOOD COUNTon 0 02-23-2022 Erythrocyte distribution width (RBC) [Ratio] 12.1 % Normal 11.5-15.0 [facility] Comment on above: Order Comment: No: D o not add to previous draw Performed By: #### 0 0071 #### [facility] [address] [place] [address], [facility] Hematocrit (Bld) [Volume fraction] 31.6 % Low 36.0-45.0 [facility] Comment on above: Order Comment: No: D o not add to previous draw Performed By: #### 0 0071 #### [facility] [address] [place] [address], [facility] Hemoglobin (Bld) [Mass/Vol] 10.8 g/dL Low 12.0-15.0 [facility] Comment on above: Order Comment: No: D o not add to previous draw Performed By: #### 0 0071 #### [facility] [address] [place] [address], [facility] MCH (RBC) [Entitic mass] 32.8 pg Normal 27.0-33.0 [facility] Comment on above: Order Comment: No: D o not add to previous draw Performed By: #### 0 0071 #### [facility] [address] [place] [address], [facility] MCHC (RBC) [Mass/Vol] 34.2 g/dL Normal 32.0-35.0 [facility] Comment on above: Order Comment: No: D o not add to previous draw Performed By: #### 0 0071 #### [facility] [address] [place] [address], [place] MCV (RBC) [Entitic vol] 96.0 fL Normal 82.0-98.0 [facility] Comment on above: Order Comment: No: D o not add to previous draw Performed By: #### 0 0071 #### [facility] [address] [place] [address], [facility] Nucleated RBC/100 WBC (Bld) [Ratio] 0 % Normal 0-0 [facility] Comment on above: Order Comment: No: D o not add to previous draw Performed By: #### 0 0071 #### [facility] [address] [place] [address], [facility] PLAT CNT 160 10*3/uL Normal 150-400 [facility] Comment on above: Order Comment: No: D o not add to previous draw Performed By: #### 0 0071 #### [facility] [address] [place] [address], [facility] RBC (Bld) [#/Vol] 3.29 10*6/uL Low 3.80-5.00 [facility] Comment on above: Order Comment: No: D o not add to previous draw Performed By: #### 0 0071 #### [facility] [address] [place] [address], [facility] WBC (Bld) [#/Vol] 7.19 10*3/uL Normal 4.00-10.60 [facility] Comment on above: Order Comment: No: D o not add to previous draw Performed By: #### 0 0071 #### [facility] [address] [place] [address], [facility] *MRSA/MSSA DNA NASALon 02-22 *MRSA/MSSA DNA NASAL Clinical Report: (D) Specimen: NASAL SWAB Collected: 02/22/2022 09:45 Status: Final Last Updated: 02/22/2022 12:59 MSSA DNA (Final) Methicillin Susceptible Staphylococcus aureus DNA Detected MRSA DNA (Final) Negative Normal [facility] Comment on above: Performed By: #### 3 1595 #### [facility] [address] [facility] [place] [address], [facility] Cardiovascular Lab Reporton 02-22-2022 Cardiovascular Lab Report [facility] Patient Name: Odilia Schroeder [facility] MR #: [id number] Physician: Bee Lewis of [facility]iana Guevara Medicine Service Date: 02/22/2022 Division of Birthdate: 1945 Cardiology Room #: [facility] Cardiovascular Services [facility] [address] [facility] [place] [address] Cardiovascular Laboratory Report INDICATION: The patient is [...] several physicians including most recently, Dr. Argelia Beltre from Cardiology. She is brought today for [...] informed consent. She was brought to medical laboratory manager in a fasting state. The right groin area was prepped and draped in usual fashion. Micropuncture technique and ultrasound guidance were used for access in the right common femoral vein. A 6-Armenian x 11 cm sheath was placed. A [...] the transseptal sheath was exchanged to a 14-Armenian Watchman anterior curve sheath. A pigtail catheter angled 6-Armenian was advanced, and used to select the left atrial appendage. Left atrial appendage angiography was performed and in the right anterior oblique with caudal angulation view. Based on the transesophageal echocardiogram, which was performed by Dr. Argelia Beltre (see his dictation for details), the maximum [...] adequate (more content not included)... Normal [facility] TYPE AND SCREENon 02-22-2022 ABO INTERPRETATION O Normal [facility] Comment on above: Performed By: #### 6 2586 #### [facility] [address] [place] [address], [facility] RH INTERPRETATION Negative Normal [facility] Comment on above: Performed By: #### 6 2586 #### [facility] [address] [place] [address], [facility] SARS-CoV-2 (COVID-19) RNA EULA+probe Ql (Unsp spec) Not detected Normal NOT DETECTED [facility] Comment on above: Result Comment: This test is not yet approved or cleared by the [place] FDA. When there are no FDA-approved or cleared tests available, and other criteria are met, FDA can make tests available under an emergency access mechanism called an Emergency Use Authorization (EUA). The EUA for this test is supported by the Filler S[employer] Helper of Health and Human Service's (HHS's) declaration [...] SARS-CoV-2. Performed By: #### C VDTBH #### [facility] [address] [place] [address] Dr. Kay Singh BASIC METABOLIC PANELon 07- Calcium [Mass/Vol] 9.2 mg/dL Normal 8.6-10.3 [facility] Comment on above: Performed By: #### 0 0071 #### [facility] [address] [place] [address], [place] Chloride [Moles/Vol] 102 mmol/L Normal 98-107 [facility] Comment on above: Performed By: #### 0 0071 #### [facility] [address] [place] [address], [place] CO2 [Moles/Vol] 27 mmol/L Normal 21-31 [facility] Comment on above: Performed By: #### 0 0071 #### [facility] [address] [place] [address], [place] Creatinine [Mass/Vol] 1.38 mg/dL High 0.60-1.20 [facility] Comment on above: Performed By: #### 0 0071 #### [facility] [address] [place] [address], [place] eGFR- 45 ml/min/1.73sq m Abnormal >60 [facility] Comment on above: Result Comment: Calc ulation may not be valid for patients over 70 years Performed By: #### 0 0071 #### [facility] [address] [place] [address], [place] eGFR- non- 37 ml/min/1.73sq m Abnormal >60 [facility] Comment on above: Result Comment: Calc ulation may not be valid for patients over 70 years Performed By: #### 0 0071 #### [facility] [address] [place] [address], [place] Glucose [Mass/Vol] 102 mg/dL High 70-100 [facility] Comment on above: Performed By: #### 0 0071 #### [facility] [address] [place] [address], [place] Potassium [Moles/Vol] 3.3 mmol/L Low 3.5-5.1 [facility] Comment on above: Performed By: #### 0 0071 #### [facility] [address] [facility] [place] [address], [facility] Sodium [Moles/Vol] 139 mmol/L Normal 136-145 [facility] Comment on above: Performed By: #### 0 1 #### [facility] [address] [place] [address], [facility] Urea nitrogen [Mass/Vol] 16 mg/dL Normal 7-25 [facility] Comment on above: Performed By: #### 0 1 #### [facility] [address] [facility]. [address] CBC COMPLETE BLOOD COUNTon 01-25-2022 Erythrocyte distribution width (RBC) [Ratio] 12.3 % Normal 11.5-15.0 [facility] Comment on above: Performed By: #### 5 08 #### [facility] [address] Hematocrit (Bld) [Volume fraction] 37.8 % Normal 36.0-45.0 [facility] Comment on above: Performed By: #### 5 0608 #### [facility] [address] [facility]. [address] Hemoglobin (Bld) [Mass/Vol] 13.3 g/dL Normal 12.0-15.0 [facility] Comment on above: Performed By: #### 5 0608 #### [facility] [address] [facility]. [address] MCH (RBC) [Entitic mass] 32.6 pg Normal 27.0-33.0 [facility] Comment on above: Performed By: #### 5 0608 #### [facility] [address] [facility] [place] [address], [facility] MCHC (RBC) [Mass/Vol] 35.2 g/dL High 32.0-35.0 [facility] Comment on above: Performed By: #### 5 0608 #### [facility] [address] [place] [address], [facility] MCV (RBC) [Entitic vol] 92.6 fL Normal 82.0-98.0 [facility] Comment on above: Performed By: #### 5 0608 #### [facility] [address] [place] [address], [facility] Nucleated RBC/100 WBC (Bld) [Ratio] 0 % Normal 0-0 [facility] Comment on above: Performed By: #### 5 0608 #### [facility] [address] [place] [address], [facility] PLAT CNT 187 10*3/uL Normal 150-400 [facility] Comment on above: Performed By: #### 5 0608 #### [facility] [address] [place] [address], [facility] RBC (Bld) [#/Vol] 4.08 10*6/uL Normal 3.80-5.00 [facility] Comment on above: Performed By: #### 5 0608 #### [facility] [address] [place] [address], [facility] WBC (Bld) [#/Vol] 7.62 10*3/uL Normal 4.00-10.60 [facility] Comment on above: Performed By: #### 5 0608 #### [facility] [address] Cardiovascular Lab Reporton 01-25-2022 Cardiovascular Lab Report [facility] Patient Name: Odilia Schroeder [facility] MR #: [id number] Physician: Bee Lewis of Kiana Guevara Medicine Service Date: 01/25/2022 Division of Birthdate: 1945 Cardiology Room #: Adult Cardiovascular Services [place] [address] Cardiovascular Laboratory Report INDICATION: Mitral regurgitation. PROCEDURES: 1. Right heart catheterization. 2. Access into the right internal jugular vein under ultrasound guidance. METHODS: Procedure was explained to the patient with risks and benefits. She signed informed consent. She was brought to medical laboratory manager in a fasting state. The right neck area was prepped and draped in usual fashion. Micropuncture technique and ultrasound guidance were used for access in the right internal jugular vein. A 7-Armenian x 11 cm sheath was placed. A 7-Armenian Morelos catheter was used for right heart [...] Guevara M.D. Date Trans: 01/25/2022 08:47 P/deja [id number] cc: Zaki Flanagan D.O. [address] [facility] [address] [facility] Covid-19 PCR ([facility]H)on 01-13 SARS-CoV-2 (COVID-19) RNA EULA+probe Ql (Unsp spec) Not detected Normal NOT DETECTED [facility] Comment on above: Result Comment: This test is not yet approved or cleared by the [place] FDA. When there are no FDA-approved or cleared tests available, and other criteria are met, FDA can make tests available under an emergency access mechanism called an Emergency Use Authorization (EUA). The EUA for this test is supported by the Filler S[employer] Helper of Health and Human Service's (HHS's) declaration [...] SARS-CoV-2. Performed By: #### C VDTBH #### [facility] [address] [place] [address] Dr. Kay Singh FREE T4on 01-23-2022 Free T4 [Mass/Vol] 1.10 ng/dL Normal 0.76-1.46 [facility] Comment on above: Performed By: #### C MP #### [facility] [address] [place] [address] Dr. Kay Singh TSHon 01-23-2022 TSH 1.794 uIU/mL Normal 0.358-3.740 [facility] Comment on above: Performed By: #### T SH #### [facility] [address] [place] [address] Dr. Kay Singh ECHOCARDIO M/2D COMPLETEon 0 12-23-2021 ECHOCARDIO M/2D COMPLETE Patient: ODILIA SCHROEDER Exam Date: 12/23/2021 : 1945 Gender:F Ordering : JOSE M CABRERA Admission #: [id number] Family : Order #: [id number] CLICK HERE TO VIEW EXAM ECHOCARDIOGRAM REPORT [...] Area(A4C): 15.50 cm2 Left Atrium Systolic Volume(A2C): 44276 mm3 Left Atrium Systolic Volume(A4C): 82773 mm3 Mitral Valve MV E to A [...] Guevara M.D. on 12/23/2021 at 15:18 Normal [facility] PROF 14(COMP METB)on 022 Albumin [Mass/Vol] 3.4 g/dL Normal 3.4-5.0 [facility] Comment on above: Performed By: #### C MP #### [facility] [address] [address] [address] Kay Singh Albumin/Globulin [Mass ratio] 0.9 {ratio} Normal [facility] Comment on above: Performed By: #### C MP #### [facility] [address] [address] [address] Kay Singh ALP [Catalytic activity/Vol] 42 U/L Critically low 46-116 [facility] Comment on above: Performed By: #### C MP #### [facility] [address] [address] [address] Kay Singh ALT [Catalytic activity/Vol] 15 U/L Normal 14-59 [facility] Comment on above: Performed By: #### C MP #### [facility] [address] [address] [address] Kay Singh Anion gap [Moles/Vol] 8.9 mmol/L Normal [facility] Comment on above: Performed By: #### C MP #### [facility] [address] [address] [address] Kay Singh AST [Catalytic activity/Vol] 16 U/L Normal 15-37 [facility] Comment on above: Performed By: #### C MP #### [facility] [address] [address] [address] Kay Singh Bilirubin [Mass/Vol] 0.5 mg/dL Normal 0.2-1.0 [facility] Comment on above: Performed By: #### C MP #### [facility] [address] [address] [address] Kay Singh Calcium [Mass/Vol] 8.8 mg/dL Normal 8.5-10.1 [facility] Comment on above: Performed By: #### C MP #### [facility] [address] [address] [address] Kay Singh Chloride [Moles/Vol] 102 mmol/L Normal 98-107 [facility] Comment on above: Performed By: #### C MP #### [facility] [address] [address] [address] Kya Singh CO2 [Moles/Vol] 31.3 mmol/L Normal 21.0-32.0 [facility] Comment on above: Performed By: #### C MP #### [facility] [address] [address] [address] Kay Singh Creatinine [Mass/Vol] 1.30 mg/dL Critically high 0.55-1.02 [facility] Comment on above: Performed By: #### C MP #### [facility] [address] [address] [address] Kay Singh EGFR-AF SYRIAN 48 mL/min/1.73m2 Critically low >=60 [facility] Comment on above: Performed By: #### C MP #### [facility] [address] [address] [address] Kay Singh EGFR-NON AF SYRIAN 40 mL/min/1.73m2 Critically low >=60 [facility] Comment on above: Performed By: #### C MP #### [facility] [address] [address] [address] Kay Singh Globulin (S) [Mass/Vol] 3.8 g/dL Normal [facility] Comment on above: Performed By: #### C MP #### [facility] [address] [place] [address] Dr. Kay Singh Glucose [Mass/Vol] 94 mg/dL Normal 74-106 [facility] Comment on above: Performed By: #### C MP #### [facility] [address] [place] [address] Dr. Kay Singh Potassium [Moles/Vol] 4.2 mmol/L Normal 3.5-5.1 [facility] Comment on above: Performed By: #### C MP #### [facility] [address] [place] [address] Dr. Kay Singh Protein [Mass/Vol] 7.2 g/dL Normal 6.4-8.2 [facility] Comment on above: Performed By: #### C MP #### [facility] [address] [place] [address] Dr. Kay Singh Sodium [Moles/Vol] 138 mmol/L Normal 136-145 [facility] Comment on above: Performed By: #### C MP #### [facility] [address] [place] [address] Dr. Kay Singh Urea nitrogen [Mass/Vol] 17.0 mg/dL Normal 7.0-18.0 [facility] Comment on above: Performed By: #### C MP #### [facility] [address] [place] [address] Dr. Kay Singh Urea nitrogen/Creatinine [Mass ratio] 13.1 mg/mg Normal [facility] Comment on above: Performed By: #### C MP #### [facility] [address] [place] [address] Dr. Kay Singh *MRSA/MSSA DNA NASALon 12-14 *MRSA/MSSA DNA NASAL Clinical Report: (D) Specimen: NASAL SWAB Collected: 12/14/2021 13:00 Status: Final Last Updated: 12/15/2021 14:36 MSSA DNA (Final) Methicillin Susceptible Staphylococcus aureus DNA Detected MRSA DNA (Final) Negative Normal [facility] Comment on above: Performed By: #### 3 1595 #### [facility] [address] [place] [address], [facility] BASIC METABOLIC PANELon 06-0 Calcium [Mass/Vol] 8.9 mg/dL Normal 8.6-10.3 [facility] Comment on above: Performed By: #### 0 0071 #### [facility] [address] [place] [address], [place] Chloride [Moles/Vol] 101 mmol/L Normal 98-107 [facility] Comment on above: Performed By: #### 0 0071 #### [facility] [address] [place] [address], [place] CO2 [Moles/Vol] 26 mmol/L Normal 21-31 [facility] Comment on above: Performed By: #### 0 0071 #### [facility] [address] [place] [address], [place] Creatinine [Mass/Vol] 1.18 mg/dL Normal 0.60-1.20 [facility] Comment on above: Performed By: #### 0 0071 #### [facility] [address] [place] [address], [place] eGFR- 53 ml/min/1.73sq m Abnormal >60 [facility] Comment on above: Result Comment: Calc ulation may not be valid for patients over 70 years Performed By: #### 0 0071 #### [facility] [address] [place] [address], [place] eGFR- non- 45 ml/min/1.73sq m Abnormal >60 [facility] Comment on above: Result Comment: Calc ulation may not be valid for patients over 70 years Performed By: #### 0 0071 #### [facility] [address] [place] [address], [facility] Glucose [Mass/Vol] 95 mg/dL Normal 70-100 [facility] Comment on above: Performed By: #### 0 0071 #### [facility] [address] [place] [id number], [facility] Potassium [Moles/Vol] 4.5 mmol/L Normal 3.5-5.1 [facility] Comment on above: Performed By: #### 0 0071 #### [facility] [address] [place] [address], [facility] Sodium [Moles/Vol] 133 mmol/L Low 136-145 [facility] Comment on above: Performed By: #### 0 0071 #### [facility] [address] [place] [address], [facility] Urea nitrogen [Mass/Vol] 17 mg/dL Normal 7-25 [facility] Comment on above: Performed By: #### 0 0071 #### [facility] [address] [facility] [place] [address], [facility] CBC COMPLETE BLOOD COUNTon 0 12-14-2021 Erythrocyte distribution width (RBC) [Ratio] 13.0 % Normal 11.5-15.0 [facility] Comment on above: Performed By: #### 0 0071 #### [facility] [address] [place] [address], [facility] Hematocrit (Bld) [Volume fraction] 37.7 % Normal 36.0-45.0 [facility] Comment on above: Performed By: #### 0 0071 #### [facility] [address] [place] [address], [facility] Hemoglobin (Bld) [Mass/Vol] 13.2 g/dL Normal 12.0-15.0 [facility] Comment on above: Performed By: #### 0 0071 #### [facility] [address] [place] [address], [facility] MCH (RBC) [Entitic mass] 32.9 pg Normal 27.0-33.0 [facility] Comment on above: Performed By: #### 0 0071 #### [facility] [address] [facility] [place] [address], [facility] MCHC (RBC) [Mass/Vol] 35.0 g/dL Normal 32.0-35.0 [facility] Comment on above: Performed By: #### 0 0071 #### [facility] [address] [facility] [place] [address], [facility] MCV (RBC) [Entitic vol] 94.0 fL Normal 82.0-98.0 [facility] Comment on above: Performed By: #### 0 0071 #### [facility] [facility] [address] [facility] [place] [place] [address], [facility] Nucleated RBC/100 WBC (Bld) [Ratio] 0 % Normal 0-0 [facility] Comment on above: Performed By: #### 0 [id number] #### [facility] [address] [facility] [place] [address], [facility] PLAT CNT 175 10*3/uL Normal 150-400 [facility] Comment on above: Performed By: #### 0 [id number] #### [facility] [address] [facility] [place] [address], [facility] RBC (Bld) [#/Vol] 4.01 10*6/uL Normal 3.80-5.00 [facility] Comment on above: Performed By: #### 0 [id number] #### [facility] [address] [facility] [place] [address], [facility] WBC (Bld) [#/Vol] 6.40 10*3/uL Normal 4.00-10.60 [facility] Comment on above: Performed By: #### 0 [id number] #### [facility] [address] [place] [address], [facility] CHEST AND LATERALon 12-15-19 CHEST AND LATERAL [facility] Department of Radiology [address] [place] [id number] ======== Patient Name: ODILIA SCHROEDER : 1945 [...] exam Electronically signed: Nereida Vasquez. Transcribed by: [email or web address], User Resident: Electronically Signed by: NEREIDA VASQUEZ @ 12/14/2021 03:29 PM Normal [facility] Comment on above: Order Comment: post cath procedure POC SARS COV2 IDon 2 SARS-CoV-2 (COVID-19) RNA EULA+probe Ql (Unsp spec) Negative Normal NEGATIVE [facility] Comment on above: Result Comment: [...] Accreditation. Performed By: #### 0 [id number] #### [facility] [address] [facility]. [address] Covid-19 PCR (CVDTB)on 11-15 SARS-CoV-2 (COVID-19) RNA EULA+probe Ql (Unsp spec) Not detected Normal NOT DETECTED [facility] Comment on above: Result Comment: This test is not yet approved or cleared by the [place] FDA. When there are no FDA-approved or cleared tests available, and other criteria are met, FDA can make tests available under an emergency access mechanism called an Emergency Use Authorization (EUA). The EUA for this test is supported by the Filler Sifter Helper of Health and Human Service's (HHS's) declaration [...] SARS-CoV-2. Performed By: #### C MP #### [facility] [address] [address] [address] Kay Singh FOLATE ([facility])on 2 Folate 7.3 ng/mL Normal >3.0 [facility] Comment on above: Result Comment: A se rum folate concentration of less than 3.1 ng/mL is considered to represent clinical deficiency. Performed By: #### C MP #### [facility] [address] [address] [address] Kay Singh VIT D 25-OH LABCORPon 2021 Vitamin D, 25-Hydroxy 62.3 ng/mL Normal 30.0-100.0 [facility] Comment on above: Result Comment: Nicky min D deficiency has been defined by the [place] of Medicine and an Endocrine Society practice guideline as a level of serum 25-OH vitamin D less than 20 ng/mL (1,2). The Endocrine Society went on to further define vitamin D insufficiency as a level between 21 and 29 ng/mL (2). 1. IOM ([place] of [employer]). 2010. Dietary reference intakes for calcium and D. [place]: The National Academies Press. 2. Jayesh MF, [place], Elizabet OWENS, et al. Evaluation, treatment, and prevention of vitamin D deficiency: an Endocrine Society clinical practice guideline. JCEM. 2010; 96(7):1911-30. Performed By: #### C MP #### [facility] [address] [place] [address] Dr. Kay Singh VITAMIN B12on 07-26-2021 Cobalamin (Vitamin B12) [Mass/Vol] 373 pg/mL Normal 232-1245 [facility] Comment on above: Performed By: #### V B12LC #### [facility] [address] [address] [address] Kay Singh CBC AUTO DIFFon 07-25-2021 BASO # 0.0 103/ul Normal 0.0-0.1 [facility] Comment on above: Performed By: #### C BC #### [facility] [address] [address] [address] Kay Singh Basophils/100 WBC (Bld) 0.5 % Normal 0.2-2.0 [facility] Comment on above: Performed By: #### C BC #### [facility] [address] [place] [address] Dr. Kay Singh EO # 0.7 103/ul Normal 0.0-0.7 [facility] Comment on above: Performed By: #### C BC #### [facility] [address] [place] [address] Dr. Kay Singh Eosinophils/100 WBC (Bld) 8.8 % Critically high 0.9-7.0 [facility] Comment on above: Performed By: #### C BC #### [facility] [address] [place] [address] Dr. Kay Singh Erythrocyte distribution width (RBC) [Ratio] 11.8 % Normal 11.0-15.0 [facility] Comment on above: Performed By: #### C BC #### [facility] [address] [place] [address] Dr. Kay Singh Hematocrit (Bld) [Volume fraction] 37.3 % Normal 36.0-48.0 [facility] Comment on above: Performed By: #### C BC #### [facility] [address] [place] [address] Dr. Kay Singh Hemoglobin (Bld) [Mass/Vol] 12.8 g/dL Normal 12.0-16.0 [facility] Comment on above: Performed By: #### C BC #### [facility] [address] [place] [address] Dr. Kay Singh IG # 0.03 10e3/ul Normal 0.00-0.03 [facility] Comment on above: Performed By: #### C BC #### [facility] [address] [place] [address] Dr. Kay Singh IG % 0.4 % Normal 0.0-0.5 [facility] Comment on above: Performed By: #### C BC #### [facility] [address] [place] [address] Dr. Kay Singh LYMPH # 1.6 103/ul Normal 1.2-3.8 [facility] Comment on above: Performed By: #### C BC #### [facility] [address] [place] [address] Dr. Kay Singh Lymphocytes/100 WBC (Bld) 19.5 % Critically low 20.5-60.0 [facility] Comment on above: Performed By: #### C BC #### [facility] [address] [place] [address] Dr. Kay Singh MANUAL DIFF REQ NO Normal [facility] Comment on above: Performed By: #### C BC #### [facility] [address] [place] [address] Dr. Kay Singh MCH (RBC) [Entitic mass] 32.1 pg Normal 26.7-34.0 [facility] Comment on above: Performed By: #### C BC #### [facility] [address] [place] [address] Dr. Kay Singh MCHC (RBC) [Mass/Vol] 34.3 g/dL Normal 29.9-35.2 [facility] Comment on above: Performed By: #### C BC #### [facility] [address] [place] [address] Dr. Kay Singh MCV (RBC) [Entitic vol] 93.5 fL Normal 81.0-99.0 [facility] Comment on above: Performed By: #### C BC #### [facility] [address] [place] [address] Dr. Kay Singh MONO # 0.7 103/ul Normal 0.3-0.8 [facility] Comment on above: Performed By: #### C BC #### [facility] [address] [place] [address] Dr. Kay Singh Monocytes/100 WBC (Bld) 8.3 % Normal 1.7-12.0 [facility] Comment on above: Performed By: #### C BC #### [facility] [address] [place] [address] Dr. Kay Singh NEUT # 5.2 103/ul Normal 1.4-6.5 [facility] Comment on above: Performed By: #### C BC #### [facility] [address] [address] [address] Kay Singh Neutrophils/100 WBC (Bld) 62.5 % Normal 43.0-75.0 [facility] Comment on above: Performed By: #### C BC #### [facility] [address] [address] [address] Kay Singh Platelet mean volume (Bld) [Entitic vol] 10.1 fL Normal 9.5-13.5 [facility] Comment on above: Performed By: #### C BC #### [facility] [address] [address] [address] Kay Singh PLT 221 103/ul Normal 150-450 [facility] Comment on above: Performed By: #### C BC #### [facility] [address] [address] [address] Kay Singh RBC 3.99 106/ul Critically low 4.20-5.40 [facility] Comment on above: Performed By: #### C BC #### [facility] [address] [address] [address] Kay Singh WBC 8.3 103/ul Normal 4.0-11.0 [facility] Comment on above: Performed By: #### C BC #### [facility] [address] [address] [address] Kay Singh GLYCOHEMOGLOBIN A1Con 2021 ADA RECOMMENDATION ADA THERAPEUTIC TARG ET 6.0 - 7.0 ACTION SUGGESTED > 7.0 Normal [facility] Comment on above: Performed By: #### A 1C #### [facility] [address] [address] [address] Kay Sinhg Glucose [Mass/Vol] 108 mg/dL Normal [facility] Comment on above: Performed By: #### A 1C #### [facility] [address] [address] [address] Kay Singh HbA1c (Bld) [Mass fraction] 5.4 % Normal <=6.0 [facility] Comment on above: Performed By: #### A 1C #### [facility] [address] [address] [address] Kay Singh LIPID PROFILEon 07-25-2021 CHOL-HDL RATIO NORM SEE BELOW Normal [facility] Comment on above: Result Comment: 3.3 - 4.4 LOW RISK 4.4 - 7.1 AVERAGE RISK 7.1 - 11.0 MODERATE RISK >11.0 HIGH RISK Performed By: #### T SH, LIPID, CMP #### [facility] [address] [address] [address] Kay Singh Cholesterol [Mass/Vol] 139 mg/dL Normal <=200 [facility] Comment on above: Performed By: #### T BARB, LIPID, CMP #### [facility] [address] [address] [address] Kay Singh Cholesterol in HDL [Mass/Vol] 52 mg/dL Normal [facility] Comment on above: Performed By: #### T BARB, LIPID, CMP #### [facility] [address] [address] [address] Kay Singh Cholesterol in LDL [Mass/Vol] 69.8 mg/dL Normal [facility] Comment on above: Performed By: #### T BARB, LIPID, CMP #### [facility] [address] [address] [address] Kay Singh Cholesterol.total/C holesterol in HDL [Mass ratio] 2.7 {ratio} Normal [facility] Comment on above: Performed By: #### T SH, LIPID, CMP #### [facility] [address] [address] [address] Kay Singh HDL NORMAL > or = 60 mg/dl - LO W CARDIOVASCULAR RISK <40 mg/dl - HIGH CARDIOVASCULAR RISK Normal [facility] Comment on above: Performed By: #### T SH, LIPID, CMP #### [facility] [address] [place] [address] Dr. Kay Singh LDL CALC NORMAL SEE BELOW Normal [facility] Comment on above: Result Comment: <100 mg/dl OPTIMAL 100 - 129 mg/dl NEAR OR ABOVE OPTIMAL 130 - 159 mg/dl BORDERLINE HIGH 160 - 189 mg/dl HIGH >190 mg/dl VERY HIGH Performed By: #### T SH, LIPID, CMP #### [facility] [address] [place], [place] [address] Dr. Kay Singh Triglyceride [Mass/Vol] 86 mg/dL Normal <=150 [facility] Comment on above: Performed By: #### T SH, LIPID, CMP #### [facility] [address] [place], [place] [address] Dr. Kay Singh VLDL CALC 17.2 mg/dL Normal [facility] Comment on above: Performed By: #### T SH, LIPID, CMP #### [facility] [address] [place], [place] [address] Dr. Kay Singh MG MAMM SCREEN 3D TRINITY CADon 07-25-2021 MG MAMM SCREEN 3D TRINITY CAD Patient: ODILIA SCHROEDER Exam Date: 07/25/2021 : 1945 Gender:F Ordering : DR ZAKI FLANAGAN DSalazar Admission #: [id number] Family : Order #: [id number] CLICK HERE TO VIEW EXAM RADIOLOGY REPORT [...] Treatments None Family Cancers None LOCATION: [facility] BREAST COMPOSITION: Scattered areas fibroglandular [...] MD on 07/25/2021 at 11:10 Normal [facility] PROF 14(COMP METB)on 022 Albumin [Mass/Vol] 3.7 g/dL Normal 3.5-5.0 [facility] Comment on above: Performed By: #### T SH, LIPID, CMP #### [facility] [address] [address] [address] Kay Singh Albumin/Globulin [Mass ratio] 1.1 {ratio} Normal [facility] Comment on above: Performed By: #### T SH, LIPID, CMP #### [facility] [address] [address] [address] Kay Singh ALP [Catalytic activity/Vol] 46 U/L Normal 38-126 [facility] Comment on above: Performed By: #### T BARB, LIPID, CMP #### [facility] [address] [address] [address] Kay Singh ALT [Catalytic activity/Vol] 12 U/L Normal 9-52 [facility] Comment on above: Performed By: #### T BARB, LIPID, CMP #### [facility] [address] [address] [address] Kay Singh Anion gap [Moles/Vol] 12.1 mmol/L Normal [facility] Comment on above: Performed By: #### T BARB, LIPID, CMP #### [facility] [address] [address] [address] Kay Singh AST [Catalytic activity/Vol] 18 U/L Normal 14-36 [facility] Comment on above: Performed By: #### T BARB, LIPID, CMP #### [facility] [address] [address] [address] Kay Singh Bilirubin [Mass/Vol] 0.6 mg/dL Normal 0.2-1.3 [facility] Comment on above: Performed By: #### T SH, LIPID, CMP #### [facility] [address] [address] [address] Kay Singh Calcium [Mass/Vol] 9.1 mg/dL Normal 8.4-10.2 [facility] Comment on above: Performed By: #### T SH, LIPID, CMP #### [facility] [address] [address] [address] Kay Singh Chloride [Moles/Vol] 99 mmol/L Normal 98-107 [facility] Comment on above: Performed By: #### T SH, LIPID, CMP #### [facility] [address] [place] [address] Dr. Kay Singh CO2 [Moles/Vol] 29.4 mmol/L Normal 22.0-30.0 [facility] Comment on above: Performed By: #### T SH, LIPID, CMP #### [facility] [address] [address] [address] Kay Singh Creatinine [Mass/Vol] 1.39 mg/dL Critically high 0.52-1.04 [facility] Comment on above: Performed By: #### T SH, LIPID, CMP #### [facility] [address] [place] [address] Dr. Kay Singh EGFR-AF SYRIAN 44 mL/min/1.73m2 Critically low >=60 [facility] Comment on above: Performed By: #### T SH, LIPID, CMP #### [facility] [address] [place] [address] Dr. Kay Singh EGFR-NON AF SYRIAN 37 mL/min/1.73m2 Critically low >=60 [facility] Comment on above: Performed By: #### T SH, LIPID, CMP #### [facility] [address] [place] [address] Dr. Kay Singh Globulin (S) [Mass/Vol] 3.3 g/dL Normal [facility] Comment on above: Performed By: #### T SH, LIPID, CMP #### [facility] [address] [place] [address] Dr. Kay Singh Glucose [Mass/Vol] 118 mg/dL Critically high 74-106 [facility] Comment on above: Performed By: #### T SH, LIPID, CMP #### [facility] [address] [place] [address] Dr. Kay Singh Potassium [Moles/Vol] 3.5 mmol/L Normal 3.4-5.0 [facility] Comment on above: Performed By: #### T SH, LIPID, CMP #### [facility] [address] [place] [address] Dr. Kay Singh Protein [Mass/Vol] 7.0 g/dL Normal 6.1-8.2 [facility] Comment on above: Performed By: #### T SH, LIPID, CMP #### [facility] [address] [place] [address] Dr. Kay Singh Sodium [Moles/Vol] 137 mmol/L Normal 137-145 [facility] Comment on above: Performed By: #### T SH, LIPID, CMP #### [facility] [address] [place] [address] Dr. Kay Singh Urea nitrogen [Mass/Vol] 16.0 mg/dL Normal 7.0-17.0 [facility] Comment on above: Performed By: #### T SH, LIPID, CMP #### [facility] [address] [place] [address] Dr. Kay Singh Urea nitrogen/Creatinine [Mass ratio] 11.5 mg/mg Normal [facility] Comment on above: Performed By: #### T SH, LIPID, CMP #### [facility] [address] [place] [address] Dr. Kay Singh TSHon 07-25-2021 TSH 3.226 uIU/mL Normal 0.470-4.680 [facility] Comment on above: Performed By: #### T SH, LIPID, CMP #### [facility] [address] [place] [address] Dr. Kay Singh TSH RANGE SEE BELOW Normal [facility] Comment on above: Result Comment: <0.3 4 UIU/ml HYPERTHYROID 0.34-5.60 UIU/ml EUTHYROID >5.60 UIU/ml HYPOTHYROID Performed By: #### T SH, LIPID, CMP #### [facility] [address] [place] [address] Dr. Kay Singh XR DEXA BONE DENSITYon [...] by: ETHEL SANDERSON Date: 2021-07-25 10:44 Normal [facility] Clinical Notes 02-24-2022 to 12-05-2023 Note Date & Type Note Facility 12-05-2023 Note Patient: Odilia ames Procedure Summary Date: 12/05/23 Room / Location: [facility] / [facility] (Cath) Anesthesia Start: 1322 Anesthesia [...] no known notable events for this encounter. [facility] 12-05-2023 Note Airway Date/Time: 12/05/2023 1:39 PM Urgency: elective Airway not difficult General Information and Staff Patient location during procedure: OR Anesthesiologist: Josephine Colón MD Resident/PROGRAM ARCHITECT/CAA: Luca Peterson MD Performed: resident/PROGRAM ARCHITECT/CAA Indications and Patient Condition Indications for airway [...] 1 Number of other approaches attempted: 0 [facility] 12-05-2023 Note Patient: Odilia ames Procedure Information Date/Time: 12/05/23 113 Procedure: Transcatheter mitral valve repair Location: [facility] / [facility] (Cath) Providers: Bee Guevara MD [...] Plan discussed with attending. Additional Equipment Requests [facility] 12-05-2023 Note Patient: Odilia ames Procedure Information Date/Time: 12/05/23 1130 Procedure: Transcatheter mitral valve repair Location: [facility] / [facility] (Cath) Providers: Bee Guevara MD Relevant Problems Cardio (+) Chronic systolic congestive heart failure (CMS/HCC) (+) Nonrheumatic mitral valve regurgitation (+) Paroxysmal atrial fibrillation (CMS/HCC) (+) Paroxysmal atrial flutter (CMS/HCC) (+) Primary hypertension (+) Severe mitral regurgitation /Renal (+) Chronic kidney disease, stage 3a ([facility]/HCC) Clinical information reviewed: Tobacco Allergies Meds Problems [...] with resident and attending. 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 Do not wear perfume, make-up, nail albanian, or lotions on the day of your [...] need to make any changes, please call [phone]. Notify your surgeon if you develop any illness such as a cold, cough, fever, sore throat or vomiting between now and your surgery. Thank you for entrusting us with your care. [facility] Surgical Services Team [facility] 11-21-2023 Note [facility] Note Chief Complaint: SOB HPI: Odilia Schroeder is a She is a 78-year-old woman with prior history of paroxysmal atrial fibrillation and atrial flutter. She has prior history of TIA, hypertension and hyperlipidemia. She was previously maintained on anticoagulation therapy for atrial fibrillation. Her [id number] score is 6 for age, history of [...] Bonnie Cade MD PGY-4 Cardiology Fellowship Program [facility] Pager # [phone] By using the attestations below, the signing clinician agrees that I have read and verify that the documentation has been personally reviewed by me and ensure that the documentation accurately reflects the encounter. GC: I personally saw th (more content not included)... [facility] 11-02-2023 Note MD Cardiology - [facility] Subjective Odilia Schroeder is a 78 [...] on anticoagulation therapy for atrial fibrillation. Her [id number] score is 6 for age, history of [...] Skin: General: Ski (more content not included)... [facility] 10-01-2023 Note MD Cardiology - [facility] Subjective Odilia Schroeder is a 78 [...] on anticoagulation therapy for atrial fibrillation. Her [id number]-MGSk score is 6 for age, history of [...] Neck supple. Ski (more content not included)... [facility] 09-19-2023 Note Pt is seeing Dr Nayely sawyer today in office [facility] 09-19-2023 Note Patient: Odilia ames Procedure Information Date/Time: 09/19/23 1130 Procedure: TRANSESOPHAGEAL ECHO (CELINA) W/ POSSIBLE CARDIOVERSION Location: [facility] Clinical information reviewed: Allergies Meds Physical Exam Airway Mallampati: III Cardiovascular Rhythm: irregular Dental Pulmonary Abdominal Anesthesia Plan ASA 3 other (Subconscious sedation. ) Additional Equipment Requests [facility] 07-11-2023 Note B/p currently labile 90/60 with generalized fatigue [facility] 07-11-2023 Note [facility] III- currently [...] and electrolytes- Repeat BMP in 1 week [facility] 07-11-2023 Note Currently I feel she is dehydrated, therefore again instructed her to decrease lasix to 20 mg daily. Monitor fluid status and may increase to bid for 3 days as needed for fluid overload. [facility] 07-11-2023 Note EKG today remains in A fib States anticoagulation was unaffordable and she stopped taking it, therefore persisent a.fib s/p Watchman implant Today she is agreeable to proceeding with CELINA/CV in about 2 weeks- hopefully her daughters are recovered from illness and she is feeling better herself- she will call office to schedule. [facility] 07-11-2023 Note [facility] CARDIOLOGY PROGR [...] mildly enlarged. Left (more content not included)... [facility] 07-11-2023 Note Patient here for [...] All other systems reviewed and are negative. [facility] 06-06-2023 Note Cardiovascular Medic ine [facility] [...] (paroxysmal atrial fibrillation) (CMS/HCC) Hyperlipidemia Hypertension Stroke ([facility]/HCC) TIA (transient ischemic attack) Family History Problem [...] Vitals reviewed. Constitutional: (more content not included)... [facility] 05-09-2023 Note Patient here today [...] All other systems reviewed and are negative. [facility] 05-09-2023 Note Cardiovascular Medic ine [...] edema. Left lower (more content not included)... [facility] 04-30-2023 Note Currently stable wit hout any lightheadedness, dizziness or syncope since last visit [facility] 04-30-2023 Note Currently hypertensi on is well controlled [facility] 04-30-2023 Note [facility] II-IIIc, Curren [...] she was most likely still fluid overloaded. [facility] 04-30-2023 Note Currently stable [facility] 04-30-2023 Note Patient here for 1 w pechanga follow up. Had BMP 2 days ago. [...] All other systems reviewed and are negative. [facility] 04-30-2023 Note [facility] CARDIOLOGY PROGR [...] mitral regurgitation i (more content not included)... [facility] [facility] 04-25-2023 Note [facility] IVc- currently fluid overloaded, dyspneic at [...] fluid restriction 1.5-2L/day, renal function and electrolytes [facility] 04-25-2023 Note Stable- no syncope [facility] 04-25-2023 Note Currently uncontroll ed, add entresto and farxga, continue lasix Monitor b/p at home [facility] 04-25-2023 Note stable [facility] 04-25-2023 Note [id number]= 6 Age, female, HTN, CHF, TIA No anticoagulation s/p watchman implantation Continue metoprolol tartrate- will plan to transition to GDMT- for CHF possibly at next visit- toprol, coreg or bisprolol [facility] 04-25-2023 Note [facility] CARDIOLOGY PROGR ESS NOTE HPI: Odilia Schroeder is a 78 y.o. female here for Combined Heart failure, PAF, Patient here for follow up echo done yesterday. Didn't take lasix for a few days last week. Had some chest tightness a few days ago. Reports that she ran out of lasix a while ago and was admitted to [facility]. Admits weight gain of about 3-4 pounds, increased shortness of breath- at rest and + orthopnea and difficulty sleeping. Was recently admitted to [facility] for SOB, weakness, CHF, A fib [...] is 55%, nor (more content not included)... [facility] 04-25-2023 Note Patient here for [...] All other systems reviewed and are negative. [facility] 03-28-2023 Note Patient here for [...] All other systems reviewed and are negative. [facility] 03-28-2023 Note [facility] - [facility] Subjective Odilia Schroeder is a 77 [...] 02/22/2022 502 QTC CALCULATION(BAZETT) 02/22/2022 517 P [place] 02/22/2022 58 R-[place] 02/22/2022 -57 T Wave [place] 02/22/2022 59 Diagnosis 02/22/2022 Value:Sinus rhythm with 1st degree A-V block Left axis deviation Left bundle branch block Abnormal ECG When compared with ECG of 22-FEB-2022 09:58, (unconfirmed) No significant change was found Confirmed by Julian Bolivar (80) on 02/23/2022 12:55:57 AM Blood testing 10/10/ (more content not included)... [facility] 02-24-2022 Note MR#: [id number] [facility] Pt. Name: Odilia Schroeder Admitted: [...] several physicians, including most recently Dr. Argelia Beltre from [facility] and they all agreed she should be considered for Watchman device, which is what brought her to the medical laboratory manager on admission. On 02/22/2022, she underwent successful [...] Eliquis or aspirin unless instructed by your airplane tube builder. 2. Follow up with Cardiology as scheduled, with OPTHALMIC TECH, Jose M Cabrera in the [facility]. 3. A followup transesophageal echocardiogram will be [...] me. Date Dict: 02/23/2022/02:46 P/Jose M Cabrera, LOCKS TENDER Date Trans: 02/24/2022 09:55 A/deja [id number] cc: Zaki Flanagan D.O. [address] [facility] [id number] [facility] Summary Purpose Family History No Family History Records FoundNo Family History Records FoundNo Family History Records Found Advance Directives No Advanced Directives Records FoundNo Advanced Directives Records FoundNo Advanced Directives Records Found Additional Source Comments INFORMATION SOURCE (unrecogn ized section and content) DATE CREATED AUTHOR 03/08/2022 [facility] DATE CREATED AUTHOR AUTHOR'S ORGANIZ ATION 05/06/2022 [facility] DATE CREATED AUTHOR AUTHOR'S ORGANIZ ATION 12/07/2023 [facility] FOR RECORDS PERTAINING TO PATIENTS WHO [...] BE BASED ON THE PRIMARY CLINICAL RECORDS. [facility]. provides no warranty or guarantee of the accuracy or completeness of information in this document.
[2023-12-20 15:21] LABS: Thyroid Stimulating Hormone 1.098 uIU/mL (0.358-3.740)
== END 2023-12-20 11:01 | disposition home or self-care (01) ==
LOC: LAB 11:01
PROVIDERS: PCP Family Medicine; Visit Provider Internal Medicine Cardiovascular Disease
DX: R53.83 Other fatigue (principal); M83.3 Adult osteomalacia due to malnutrition; I48.92 Unspecified atrial flutter; I48.91 Unspecified atrial fibrillation; D50.0 Iron deficiency anemia secondary to blood loss (chronic)
CPT/HCPCS: 36415; 82306; 82533; 84443

== ENCOUNTER 2024-05-08 06:59 | Outpatient (RCR) | payer MEDICARE, SELFPAY ==
--- NOTE | 2023-12-19 15:36 | CR1_ITS ---
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
--- NOTE | 2024-01-16 09:23 | CR1_ITS ---
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
--- NOTE | 2024-02-14 08:37 | CR1_ITS ---
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
--- NOTE | 2024-03-18 08:44 | CR1_ITS ---
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
--- NOTE | 2024-04-16 09:15 | CR1_ITS ---
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
--- NOTE | 2024-05-08 08:13 | CR1_ITS ---
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
== END 2024-05-08 14:50 | disposition home or self-care (01) ==
LOC: CR 06:59
PROVIDERS: PCP Family Medicine; Visit Provider Internal Medicine Cardiovascular Disease
DX: I50.22 Chronic systolic (congestive) heart failure (principal)
CPT/HCPCS: 93798

== ENCOUNTER 2024-05-28 12:42 | Outpatient (OUT) | payer MEDICARE, SELFPAY ==
--- NOTE | 2024-05-28 13:00 | CA_ITS ---
Patient Name: DEEPA GRIER MR#: [id number] : 1945 Exam Date: 05/28/2024 Ordering Doctor: DR BEE RENEE M.D. ECHOCARDIOGRAM REPORT PROCEDURE: CA ECHO DOPPLER COMPLETE INDICATIONS: Mitral valve regurgitation, hypertension COMPARISON: None. DESCRIPTION: COMPLETE ECHOCARDIOGRAM Real-time transthoracic echocardiography with 2D, M-mode, spectral and color flow Doppler performed. QUALITY: Technical quality was good. LEFT VENTRICLE: Normal chamber size. Proximal septal hypertrophy (sigmoid septum). Septal motion is abnormal likely related to bundle branch block. Systolic function is at the lower limits of normal. LV EF: Lower limits of normal left ventricular ejection fraction, (50%). DIASTOLIC: Grade 1 diastolic dysfunction. ATRIAL SEPTUM: Visually appears intact. LEFT ATRIUM: Moderately dilated. RIGHT ATRIUM: Mildly dilated. RIGHT VENTRICLE: Normal chamber size. Normal systolic function. TRICUSPID VALVE: Normal mobility and thickness. No stenosis with mild regurgitation. No evidence of pulmonary hypertension. RVSP 29 mmHg MITRAL VALVE: Normal mobility and thickness. Mild mitral annular calcification. Moderate mitral regurgitation. AORTIC VALVE: Normal trileaflet appearance. No visible sclerosis. Normal leaflet mobility. No evidence of aortic valve stenosis. No aortic regurgitation. AORTIC ROOT: Normal diameter and appearance. PULMONIC VALVE: Not well visualized. No stenosis. No regurgitation. PERICARDIUM: No evidence of pericardial effusion. IVC: Collapses with inspirations. PLEURA: CONCLUSION: 1. Left ventricle is normal in size and exhibits low normal systolic function. LVEF is estimated at 50%. 2. Normal right ventricular size and systolic function. 3. Moderately dilated left atrium. 4. Moderate mitral regurgitation. 5. Mild tricuspid regurgitation. 6. Normal right-sided pressures. Adult Echocardiography Procedure Report Left Ventricle LVEDD (3.7 - 5.6 cm): 3.92 cm LVESD (2.2 - 4.0 cm): 2.90 cm LVIVS thickness (0.6 - 1.2 cm): 1.46 cm LVPW thickness (0.5 - 1.0 cm): 1.00 cm e': 0.07 m/s E - e': 8.76 LVOT Max Gradient: 2.30 mm[Hg] LVOT Area (cm2): 0.76 m/s Peak Velocity (LVOT): 0.76 m/s Mean Velocity (LVOT): 0.52 m/s LVOT Diameter 1.98 cm Left Atrium LA Volume Index (2D A2C): 28.15 ml/m2 Left Atrium Systolic Dimension: 3.68 cm Mitral Valve MV E to A Ratio: 0.72 Mitral Valve A-Wave Peak Velocity: 0.89 m/s Mitral Valve E-Wave Peak Velocity: 0.65 m/s Right Ventricle Aorta AO Root Diam: 3.21 cm Aortic Valve AoV Area (Peak Khari): 3.08 cm2, 3.08 cm2 AoV Area (VTI): 2.84 cm2, 2.84 cm2 Peak Velocity(Antegrade Flow): 0.76 m/s Peak Gradient(Antegrade Flow): 2.32 mm[Hg] Mean Velocity(Antegrade Flow): 0.49 m/s Mean Gradient(Antegrade Flow): 1.12 mm[Hg] Velocity Time Integral: 18.15 cm Tricuspid Valve Peak Velocity (Regurgitant Flow): 2.30 m/s, 2.17 m/s, 2.54 m/s Pulmonic Valve Mean Gradient: 2.04 mm[Hg] Mean Velocity: 0.67 m/s Peak Velocity: 1.01 m/s, 0.97 m/s Peak Gradient: 3.80 mm[Hg], 4.08 mm[Hg] Right Atrium Right Atrium Systolic Pressure: 31.76 ml, 31.76 ml Dictated by: Bee Renee M.D. on 05/28/2024 at 16:53 Approved by: Bee Renee M.D. on 05/28/2024 at 17:00
--- OUTSIDE RECORDS SUMMARY | 2024-05-28 13:08 | XMS_ITS | CCD ---
Author Organization [facility] Care Team Providers Care Business Attorney Name Role Phone BEE GUEVARA V Attending [...] Unavailable BRITNIJOSE M Consulting Unavailable MOUKARBEL, DR GAMBAO Admitting Unavailable MOUKARBEL, DR GAMBOA Attending Unavailable [...] Care Unavailable MOUKARBEL, DR GAMBOA Consulting Unavailable MOUKARBELBEE Attending Unavailable MOUKARBEL, BEE Attending Unavailable ARGELIA RODAS Attending Unavailable MOVERITO, BEE Referring Unavailable MOUKAJANETH, BEE Referring Unavailable MELODIE SMALLS Attending Unavailable MOUKAJANETH, BEE Attending Unavailable JOSE M CABRERA Attending Unavailable BRITNIJOSE M MARTINEZ Attending Unavailable RODRÍGUEZ, DANIEL Referring Unavailable RODRÍGUEZ, DANIEL Referring Unavailable IRMA CORTEZ Referring Unavailable MOBEE SELLERS Admitting Unavailable MOBEE SELLERS Attending Unavailable DAPHNE, JEFFERSON Referring Unavailable RODRÍGUEZ, DANIEL Admitting Unavailable RODRÍGUEZ, DANIEL Attending Unavailable DAPHNE, JEFFERSON Attending Unavailable Allergies Allergy Classification Reported Allergen(s) Allergy Type Date of Onset Reaction(s) Facility (1 source) Diclofenac; Translations: [DICLOFENAC] Drug Allergy 06-06-2023 [facility] Repository Problems Active Problems Problem Classification Problem Date Documented Da te Episodic/Chronic Cardiac dysrhythmias (9 sources) Paroxysmal atrial fibrillation; Translations: [Unspecified atrial flutter] Onset: 12-19-2021 Chronic Chronic kidney disease (2 sources) Chronic kidney disease; Translations: [Chronic kidney disease, stage 3a] Onset: 03-28-2023 Congestive heart failure; nonhypertensive (4 sources) Chronic systolic (congestive) heart failure; Translations: [Acute combined systolic (congestive) and diastolic (congestive) heart failure] Onset: 04-25-2023 Chronic Deficiency and other anemia (2 sources) Iron deficiency anemia secondary to blood loss (chronic); Translations: [Iron deficiency anemia secondary to blood loss (chronic)] Onset: 10-12-2022 Chronic Disorders of lipid metabolism (5 sources) Mixed hyperlipidemia; Translations: [Hyperlipidemia, unspecified] Onset: 07-29-2021 Chronic Esophageal disorders (2 sources) [...] disease with heart failure] Onset: 04-25-2023 Chronic Mood disorders (2 sources) Major depressive disorder, single episode, mild; Translations: [Major depressive disorder, single episode, mild] Onset: 03-28-2023 Chronic Nutritional deficiencies (1 source) Vitamin D deficiency, unspecified; Translations: [VITAMIN D DEFICIENCY UNSPECIFIED] Onset: 07-29-2021 Chronic Other circulatory disease (2 sources) Presence of other cardiac implants and grafts; Translations: [Presence of other cardiac implants and grafts] Onset: 11-21-2023 Chronic Other lower respiratory disease (2 sources) Shortness of breath; Translations: [Shortness of breath] Onset: 03-13-2024 Episodic Chanel-; endo-; and myocarditis; cardiomyopathy (except that caused by tuberculosis or sexually transmitted disease) (2 sources) Cardiomyopathy in diseases classified elsewhere; Translations: [Cardiomyopathy in diseases classified elsewhere] Onset: 04-25-2023 Chronic Residual codes; unclassified (2 sources) Obstructive sleep apnea (adult) (pediatric); Translations: [Obstructive sleep apnea (adult) (pediatric)] Onset: 12-13-2023 Chronic Unclassified (4 sources) CONTACT W/AND (SUSP) [...] 01-25-2022 Episodic Other circulatory disease (2 sources) Personal history of transient ischemic attack (TIA), and cerebral infarction without residual deficits; Translations: [Personal history of transient ischemic attack (TIA), and cerebral infarction without residual deficits] Onset: 10-12-2022 Episodic Other circulatory disease (2 sources) Orthostatic hypotension; Translations: [Orthostatic hypotension] Onset: 10-12-2022 Episodic Other lower respiratory disease (2 sources) Other forms of dyspnea; Translations: [Other forms of dyspnea] Onset: 12-13-2023 Episodic Other screening for suspected conditions (not [...] Test Name Value Interpretation Reference Range Facility Telephoneon 04-14-2024 Telephone [id number] Ada Schroeder en N 1945 F Date Provider Department Center 04/14/2024 RUTH ANN NEWTON [facility] Family History Problem Relation Age of Onset Cancer Mother Heart attack Father Cancer Father Family Status - Relation Status Age at Mother Father [facility] Telephoneon 04-04-2024 Telephone [id number] Ada Schroeder en N 1945 F Date Provider Department [facility] Relation Age of Onset Cancer Mother Heart attack Father Cancer Father Family Status - Relation Status Age at Mother Father [facility] 36on 03-18-2024 36 Spoke with daughter Ruth Ann and made her aware that her mother should be taking 100mg daily per Dr. Guevara. She verbalized understanding. [facility] 34 Patient [facility] for a refill of metoprolol. They walked over and asked Ebony to refill it. She sent in 100mg tablets, as per your last note. She didn't take it today so her HR was elevated around 120 per cardiac rehab. Patient called and spoke with me. She told me she's taking 50mg of metoprolol in the evening. Not 100mg daily. I'm trying to get a print out of her vitals from cardiac rehab. Hopefully by the time you see this it'll be scanned into [employer] for your review. What dose would you like her on? I told Odilia to just take 50mg in the evening for now until I called her back. Please advise. Thanks. Normal [facility] Orders Onlyon 01-28-2024 Orders Only [id number] Ada Schroeder en N 1945 Date Provider Department [place] 01/28/2024 EBONY RUIZ LINH Lieberman Family History Problem Relation Age of Onset Cancer Mother Heart attack Father Cancer Father Family Status - Relation Status Age at Mother Father Normal [facility] Follow-Upon 01-10-2024 Follow-Up [id number] Ada Schroeder en N 1945 Date Provider Department [place] 01/10/2024 BEE MARIN LINH Lieberman Family History Problem Relation Age of Onset Cancer Mother Heart attack Father Cancer Father Family Status - Relation Status Age at Mother Father Level of Service:52640 [place] OFFICE/OUTPATIENT ESTABLISHED MOD MDM [address] [facility] 36on 12-25-2023 36 Regarding recent lab results: MD Rebeca Machuca MA Notify patient that TSH and a.m. cortisol level are normal. Continue current management. labs look good except creatinine which is elevated but stable in comparison to her baseline. Spoke with patient's daughter Estela and made her aware. Normal [facility] Follow-Upon 12-13-2023 Follow-Up [id number] Ada Schroeder en N 1945 Date Provider Department Center 12/13/2023 [id number] WATSON LINH Lieberman Family History Problem Relation Age of Onset Cancer Mother Heart attack Father Cancer Father Family Status - Relation Status Age at Mother Father Level of Service:63050 [place] OFFICE/OUTPATIENT ESTABLISHED MOD MDM [address] [facility] BASIC METABOLIC PANELon 11-14 Anion gap [Moles/Vol] 12 mmol/L Normal 7- [facility] Comment on above: Performed By: #### L [id number] ####[facility] ([facility]AK[facility])[address] [place] [address] Calcium [Mass/Vol] 9.5 mg/dL Normal 8.6-10.3 [facility] Comment on above: Performed By: #### L [id number] ####[facility] ([facility] [place] [address] Chloride [Moles/Vol] 97 mmol/L Low 98-107 [facility] Comment on above: Performed By: #### L [id number] ####[facility] ([facility])[address] [place] [address] CO2 [Moles/Vol] 27 mmol/L Normal 21-31 [facility] Comment on above: Performed By: #### L [id number] ####[facility] ([facility])[address] [place] [address] Creatinine [Mass/Vol] 1.64 mg/dL High 0.60-1.20 [facility] Comment on above: Performed By: #### L [id number] ####[facility] ([facility])[address] [place] [address] GLOMERULAR FILTRATION RATE ML/MIN/1.73 SQ M.PREDICTED 31.5 mL/min/1.73m*2 Low >60.0 [facility] Comment on above: Result Comment: The [facility]???s estimated glomerular filtration rate (eGFR) will no [...] of individuals. Performed By: #### L [id number] ####[facility] ([facility])[address] [place] [address] Glucose [Mass/Vol] 100 mg/dL Normal 70-100 [facility] Comment on above: Performed By: #### L [id number] ####[facility] ([facility])[address] [place] [address] Potassium [Moles/Vol] 3.9 mmol/L Normal 3.5-5.1 [facility] Comment on above: Performed By: #### L [id number] ####[facility] ([facility])[address] [place] [address] Sodium [Moles/Vol] 132 mmol/L Low 136-145 [facility] Comment on above: Performed By: #### L [id number] ####[facility] ([facility])[address] [place] [address] Urea nitrogen [Mass/Vol] 27 mg/dL High 7-25 [facility] Comment on above: Performed By: #### L [id number] ####[facility] ([facility])[address] [place] [address] UREA NITROGEN/CREATININE (MASS RATIO) IN SER/PLAS 16.5 Normal [facility] Comment on above: Performed By: #### L [id number] ####[facility] ([facility])[address] [place] [address] CBC WITH AUTO DIFFERENTIALon 12-05-2023 Basophils (Bld) [#/Vol] 0.05 10*3/uL Normal 0.00-0.20 [facility] Comment on above: Performed By: #### L [id number] #### [facility] ([facility]) [address] [place] [address] Basophils/100 WBC (Bld) 0.6 % Normal 0.0-1.0 [facility] Comment on above: Performed By: #### L [id number] #### [facility] ([facility]) [address] [place] [address] Eosinophils (Bld) [#/Vol] 0.89 10*3/uL High 0.00-0.50 [facility] Comment on above: Performed By: #### L [id number] #### [facility] ([facility] [address] [place] [address] Eosinophils/100 WBC (Bld) 10.0 % High 0.0-6.0 [facility] Comment on above: Performed By: #### L [id number] #### [facility] ([facility]) [address] [place] [address] Erythrocyte distribution width (RBC) [Ratio] 12.6 % Normal 11.5-15.0 [facility] Comment on above: Performed By: #### L [id number] #### [facility] ([facility]) [address] [place] [address] ERYTHROCYTE MEAN CORPUSCULAR HEMOGLOBIN CONCENTRATION (G/DL) BY AUTOMATED 35.5 g/dL High 32.0-35.0 [facility] Comment on above: Performed By: #### L [id number] #### [facility] ([facility]) [address] [place] [address] Hematocrit (Bld) [Volume fraction] 38.6 % Normal 36.0-48.0 [facility] Comment on above: Performed By: #### L [id number] #### [facility] ([facility]) [address] [place] [address] Hemoglobin (Bld) [Mass/Vol] 13.7 g/dL Normal 12.0-15.0 [facility] Comment on above: Performed By: #### L [id number] #### [facility] ([facility]) [address] [place] [address] Immature granulocytes (Bld) [#/Vol] 0.04 10*3/uL Normal 0.00-0.20 [facility] Comment on above: Performed By: #### L [id number] #### [facility] ([facility]) [address] [place] [address] Immature granulocytes/100 WBC (Bld) 0.4 % Normal 0.0-1.0 [facility] Comment on above: Performed By: #### L [id number] #### [facility] ([facility]) [address] [place] [address] Lymphocytes (Bld) [#/Vol] 2.11 10*3/uL Normal 1.20-4.00 [facility] Comment on above: Performed By: #### L [id number] #### [facility] ([facility]) [address] [place] [address] Lymphocytes/100 WBC (Bld) 23.7 % Normal 20.0-45.0 [facility] Comment on above: Performed By: #### L [id number] #### [facility] ([facility]) [address] [place] [address] MCH (RBC) [Entitic mass] 32.9 pg Normal 27.0-33.0 [facility] Comment on above: Performed By: #### L [id number] #### [facility] ([facility]) [address] [place] [address] MCV (RBC) [Entitic vol] 92.6 fL Normal 82.0-98.0 [facility] Comment on above: Performed By: #### L [id number] #### [facility] ([facility]) [address] [place] [address] Monocytes (Bld) [#/Vol] 0.81 10*3/uL Normal 0.10-1.00 [facility] Comment on above: Performed By: #### L [id number] #### [facility] ([facility]) [address] [place] [address] Monocytes/100 WBC (Bld) 9.1 % Normal 5.0-12.0 [facility] Comment on above: Performed By: #### L [id number] #### [facility] ([facility] [address] [place] [address] Neutrophils (Bld) [#/Vol] 5.00 10*3/uL Normal 1.60-7.60 [facility] Comment on above: Performed By: #### L [id number] #### [facility] ([facility]) [address] [place] [address] Neutrophils/100 WBC (Bld) 56.2 % Normal 40.0-72.0 [facility] Comment on above: Performed By: #### L [id number] #### [facility] ([facility]) [address] [place] [address] NRBC (PER 100 WBCS) BY AUTOMATED COUNT 0.0 % Normal 0 [facility] Comment on above: Performed By: #### L [id number] #### [facility] ([facility]) [address] [place] [address] PLATELETS (10*3/UL) IN BLOOD AUTOMATED COUNT 207 10*3/uL Normal 150-400 [facility] Comment on above: Performed By: #### L [id number] #### [facility] ([facility]) [address] [place] [address] RBC (Bld) [#/Vol] 4.17 10*6/uL Normal 3.80-5.00 [facility] Comment on above: Performed By: #### L [id number] #### [facility] ([facility]) [address] [place] [address] WBC (Bld) [#/Vol] 8.90 10*3/uL Normal 4.00-10.60 [facility] Comment on above: Performed By: #### L [id number] #### [facility] ([facility]) [address] [place] [address] DSon 12-05-2023 DS Admission Admitted 12/05/2023 for [...] is performed under the ED CLIA certificate #[id number]. MRSA/MSSA DNA NASAL TYPE AND SCREEN ABO Grouping O Rh Type NEG Ab Scrn NEG CBC AND DIFFERENTIAL Narrative: The following orders were created for panel order CBC and differential. Procedu (more content not included)... [facility] HPon 12-05-2023 HP H&P reviewed. [...] the procedure. She would like to proceed. [facility] MRSA/MSSA DNA NASALon 2023 MRSA DNA Negative Normal Negative [facility] Comment on above: Order Comment: Testi ng [...] preclude nasal colonization. Performed By: #### L [id number] ####[facility] ([facility])[address] [place] [address] MSSA DNA Positive Abnormal Negative [facility] Comment on above: Order Comment: Testi ng [...] preclude nasal colonization. Performed By: #### L [id number] ####[facility] ([facility])[address] [place] [address] POCT GLUCOSE METER UNSOLICIT ED RESULTSon 12-05-2023 Glucose [Mass/Vol] 105 mg/dL Normal 70-105 [facility] Comment on above: Order Comment: Waive d Testing in the ED is performed under the ED CLIA certificate #[id number]. Result Comment: asor ia3 Performed By: #### L [id number] ####[facility] ([facility])[address] [place] [address] TYPE AND SCREENon 12-05-2023 AB SCREEN Negative Normal [facility] Comment on above: Performed By: #### L [id number] #### [facility] , ABO group Nom (Bld) O Normal [facility] Comment on above: Performed By: #### L [id number] #### [facility] , RH TYPE IN BLOOD Negative Normal [facility] Comment on above: Performed By: #### L [id number] #### [facility] , Orders Onlyon 12-04-2023 Orders Only [id number] AlexandreAda en N 1945 F Date Provider Department Center 12/04/2023 [id number] JAEGERA [facility] Family History Problem Relation Age of Onset Cancer Mother Heart attack Father Cancer Father Family Status - Relation Status Age at Mother Father Normal [facility] [id number] 12-03-2023 [id number] ARRIVAL TIME 0930, P T COMING EARLY FOR LABS DUE TO AGE AND LIVES OUT OF TOWN. NO MEDICATIONS TO HOLD PRIOR TO PROCEDURE DATE 12/04 MEDICATIONS TO TAKE DAY OF SURGERY WITH SIP OF WATER PREVACID METOPROLOL PRE OP INSTRUCTIONS GIVEN NOTHING TO EAT OR DRINK AFTER MIDNIGHT Normal [facility] Orders Onlyon 12-03-2023 Orders Only [id number] Ada Schroeder en N 1945 F Date Provider Department Center 12/03/2023 IRMA BEGUM [facility] Family History Problem Relation Age of Onset Cancer Mother Heart attack Father Cancer Father Family Status - Relation Status Age at Mother Father Normal [facility] Telephoneon 12-03-2023 Telephone [id number] Ada Schroeder en N 1945 F Date Provider Department [place] 12/03/2023 [id number], MANDY [facility] Family History Problem Relation Age of Onset Cancer Mother Heart attack Father Cancer Father Family Status - Relation Status Age at Mother Father Reason for Visit and Comments: KCCQ [Other] Normal [facility] Orders Onlyon 11-29-2023 Orders Only [id number] AlexandreAda en N 1945 F Date Provider Department Center 11/29/2023 IRMA BEGUM [facility] Family History Problem Relation Age of Onset Cancer Mother Heart attack Father Cancer Father Family Status - Relation Status Age at Mother Father [facility] 36on 11-27-2023 Amber Gillis is organizing the clips. I'll let her know. Thanks! Normal [facility] Follow-Upon 11-21-2023 Follow-Up [id number] Ada Schroeder 1945 F Date Provider Department Center 11/21[facility]2023 [facility] Problem Relation Age of Onset Cancer Mother Heart attack Father Cancer Father Family Status - Relation Status Age at Mother Father Level of Service:79725 [place] OFFICE/OUTPATIENT ESTABLISHED MOD MDM 30 MIN (GC) Normal [facility] 11-21-2023 [facility] Note Chief Complaint: SOB HPI: Odilia Schroeder is a She is a 78-year-old woman with prior history of paroxysmal atrial fibrillation and atrial flutter. She has prior history of TIA, hypertension and hyperlipidemia. She was previously maintained on anticoagulation therapy for atrial fibrillation. Her [id number] score is 6 for age, history of [...] of breath. She is being evaluated for yogi clip by Dr. Guevara. Cardiology ROS: Negative [...] with Dr. Guevara in 3 months for Yogi Cade MD PGY-4 Cardiology Fellowship Program [facility] Pager # [phone] By using the attestations below, the signing clinician agrees that I have read and verify that the documentation has been personally reviewed by me and ensure that the documentation accurately reflects the encounter. GC: I personally saw th (more content not included)... Normal [facility] Office Visiton 11-02-2023 Follow-up visit [id number] Eldridge low N 1945 F Date Provider Department Center 11/02/2023 BEE MARIN Family History Problem Relation Age of Onset Cancer Mother Heart attack Father Cancer Father Family Status - Relation Status Age at Mother Father Level of Service:50925 [place] OFFICE/OUTPATIENT ESTABLISHED HIGH MDM 40 MIN Reason for Visit and Comments: Follow-up [[id number]] - [address] [facility] 36on 10-25-2023 36 Daughter called to make you aware of her mother's BP running low lately. She's been dizzy. BP around 90's/40's. Can she cut back her losartan until she sees you next Sunday? You also added spironolactone at last visit. Do you have other recommendations? Please advise. Normal [facility] Office Visiton 10-01-2023 Follow-up visit [id number] Eldridge low N 1945 F Date Provider Department Center 10/01/2023 BEE MARIN Family History Problem Relation Age of Onset Cancer Mother Heart attack Father Cancer Father Family Status - Relation Status Age at Mother Father Level of Service:18591 [place] OFFICE/OUTPATIENT ESTABLISHED MOD MDM [address] [facility] HPon 09-19-2023 HP History Of [...] Imaging Agent, Strain, 3D, Bubble Study 02/23/2022 [id number] Final Review of Systems Constitutional: Negative for [...] appears enlarged. N (more content not included)... [facility] NURSNOTEon 09-19-2023 NURSNOTE Pt was wheeled off o f unit with all of belongings. [facility] NURSNOTE Bedside swallow stud y completed and passed. [facility] NURSNOTE RN educated pt on d/ c instructions. RN encouraged pt to voice any questions or concerns. Pt verbalizes no questions or concerns at this time. [facility] Orders Onlyon 09-19-2023 Orders Only [id number] AlexandreAda kelsey N 1945 F Date Provider Department Center 09/19/2023 TIMMY LR [facility] Family History Problem Relation Age of Onset Cancer Mother Heart attack Father Cancer Father Family Status - Relation Status Age at Mother Father [facility] 36on 09-18-2023 36 I called and spoke with her. Thanks [facility] 36 PLEASE CALL DAUGHTER [phone] [facility] 09-13-2023 36 Regarding lab result s from 09/12/2023: Jose M Cabrera, KEVON Coles MA Can let her know her labs look okay. Kidney function is better. Thanks. LM on patient's VM. [facility] 09-11-2023 29 Addended by: JOSE M CABRERA on: 09/11/2023 12:35 PM Modules accepted: Orders [facility] Center 09-11-[address] [facility] 36 Patient is scheduled to have a CELINA with cardioversion on 09/19/2023. I called and spoke with patient that she will need to be on anticoagulation after the cardioversion x4 weeks for stroke prophylaxis. She states understanding. [facility] Telephoneon 09-11-2023 Telephone [id number] Ada Schroeder en N 1945 Date Provider Department Center 09/11/2023 JOSE M SUMMERS Family History Problem Relation Age of Onset Cancer Mother Heart attack Father Cancer Father Family Status - Relation Status Age at Mother Father Normal [facility] Telephone [id number] Ada Schroeder en N 1945 Date Provider Department [place] 09/11/2023 TIMMY LR [facility] Family History Problem Relation Age of Onset Cancer Mother Heart attack Father Cancer Father Family Status - Relation Status Age at Mother Father Normal [facility] 36on 08-15-2023 36 Please let her know her heart function remains reduced. She last saw Marley and they discussed doing the CELINA with cardioversion to help try to get her out of a.fib to help with her heart failure. Please see if she is agreeable to proceed with this. Thank you! Normal [facility] Telephoneon 08-15-2023 Telephone [id number] Ada Schroeder en N 1945 Date Provider Department [place] 08/15/2023 JOSE M SUMMERS Family History Problem Relation Age of Onset Cancer Mother Heart attack Father Cancer Father Family Status - Relation Status Age at Mother Father Normal [facility] 37on 07-11-2023 37 Stop entresto Decrease lasix/furosemide to 20 mg daily, if having increased weight- leg swelling- shortness of breath increase lasix to 20 mg twice a day for about 3 days. Decrease potassium to 1 tablet per day Continue all other medications Please have blood drawn next week to check kidney function and potassium level Normal [facility] Office Visiton 07-11-2023 Follow-up visit [id number] Ada Schroeder en N 1945 Date Provider Department [place] 07/11/2023 Diamond-JEFFERSON SERNA LINH Leiberman Family History Problem Relation Age of Onset Cancer Mother Heart attack Father Cancer Father Family Status - Relation Status Age at Mother Father Level of Service:51198 [place] OFFICE/OUTPATIENT ESTABLISHED MOD MDM [address] [facility] 36on 06-21-2023 36 Please have her star t potassium chloride 40mEq daily with follow-up BMP in [address]. [address] [facility] 37on 06-06-2023 37 *Cut lasix in half t o 20mg daily *Get labs done around 06/20/2023 *Call us if you want to proceed with cardioversion *Follow-up ECHO at the end of July [facility] Office Visiton 06-06-2023 Follow-up visit [id number] Ada Schroeder en N 1945 F Date Provider Department Center 06/06/2023 JOSE M SUMMERS Family History Problem Relation Age of Onset Cancer Mother Heart attack Father Cancer Father Family Status - Relation Status Age at Mother Father Level of Service:88441 TX OFFICE/OUTPATIENT ESTABLISHED MOD MDM 30 MIN Reason for Visit and Comments: Follow-up [062417] [facility] 2905-09-2023 29 Addended by: JOSE M CABRERA on: 05/09/2023 05:06 PM Modules accepted: Orders [facility] 37on 05-09-2023 37 *If heart [...] PCP about resuming your vitamin B12 injections. [facility] Office Visiton 05-09-2023 Follow-up visit [id number] Ada Schroeder low N 1945 F Date Provider Department Center 05/09/2023 JOSE M SUMMERS Family History Problem Relation Age of Onset Cancer Mother Heart attack Father Cancer Father Family Status - Relation Status Age at Mother Father Level of Service:92958 TX OFFICE/OUTPATIENT ESTABLISHED MOD MDM 30-39 MIN Reason for Visit and Comments: Fatigue [46] Hypotension [407] Atrial Fibrillation [80] Congestive Heart Failure [127] [facility] Covid-19 PCR (CVDTBH)on 03-17 SARS-CoV-2 (COVID-19) RNA EULA+probe Ql (Unsp spec) Detected Critically abnormal NOT DETECTED [facility] Comment on above: Result Comment: This test is not yet approved or cleared by the [place] FDA. When there are no FDA-approved or cleared tests available, and other criteria are met, FDA can make tests available under an emergency access mechanism called an Emergency Use Authorization (EUA). The EUA for this test is supported by the [place] [employer] of Health and Human Service's (HHS's) declaration [...] used). Performed By: #### C MP #### [facility] [address] [address] [address] Kay Singh CBC COMPLETE BLOOD COUNTon 0 - Erythrocyte distribution width (RBC) [Ratio] 12.1 % Normal 11.5-15.0 [facility] Comment on above: Order Comment: No: D o not add to previous draw Performed By: #### 0 0071 #### [facility] [address] [facility] [place] [address], [facility] Hematocrit (Bld) [Volume fraction] 31.6 % Low 36.0-45.0 [facility] Comment on above: Order Comment: No: D o not add to previous draw Performed By: #### 0 0071 #### [facility] [address] [place] [address], [facility] Hemoglobin (Bld) [Mass/Vol] 10.8 g/dL Low 12.0-15.0 [facility] Comment on above: Order Comment: No: D o not add to previous draw Performed By: #### 0 0071 #### [facility] [address] [place] [address], [facility] MCH (RBC) [Entitic mass] 32.8 pg Normal 27.0-33.0 [facility] Comment on above: Order Comment: No: D o not add to previous draw Performed By: #### 0 0071 #### [facility] [address] [place] [address], [facility] MCHC (RBC) [Mass/Vol] 34.2 g/dL Normal 32.0-35.0 [facility] Comment on above: Order Comment: No: D o not add to previous draw Performed By: #### 0 0071 #### [facility] [address] [facility] [place] [id number], [facility] MCV (RBC) [Entitic vol] 96.0 fL Normal 82.0-98.0 [facility] Comment on above: Order Comment: No: D o not add to previous draw Performed By: #### 0 0071 #### [facility] [address] [facility] [place] [address], [facility] Nucleated RBC/100 WBC (Bld) [Ratio] 0 % Normal 0-0 [facility] Comment on above: Order Comment: No: D o not add to previous draw Performed By: #### 0 0071 #### [facility] [address] [facility] [place] [address], [facility] PLAT CNT 160 10*3/uL Normal 150-400 [facility] Comment on above: Order Comment: No: D o not add to previous draw Performed By: #### 0 0071 #### [facility] [address] [facility] [place] [id number], [facility] RBC (Bld) [#/Vol] 3.29 10*6/uL Low 3.80-5.00 [facility] Comment on above: Order Comment: No: D o not add to previous draw Performed By: #### 0 0071 #### [facility] [address] [place] [id number], [facility] WBC (Bld) [#/Vol] 7.19 10*3/uL Normal 4.00-10.60 [facility] Comment on above: Order Comment: No: D o not add to previous draw Performed By: #### 0 0071 #### [facility] [address] *MRSA/MSSA DNA NASALon 02-22 *MRSA/MSSA DNA NASAL Clinical Report: (D) Specimen: NASAL SWAB Collected: 02/22/2022 09:45 Status: Final Last Updated: 02/22/2022 12:59 MSSA DNA (Final) Methicillin Susceptible Staphylococcus aureus DNA Detected MRSA DNA (Final) Negative Normal [facility] Comment on above: Performed By: #### 3 1595 #### [facility] [address] Cardiovascular Lab Reporton 02-22-2022 Cardiovascular Lab Report [facility] Patient Name: Odilia Schroeder [facility] MR #: [id number] Physician: Bee Durbin Department of [facility] Medicine Service Date: 02/22/2022 Division of Birthdate: 1945 Cardiology Room #: Adult Cardiovascular Services [facility] [address] [address] Cardiovascular Laboratory Report INDICATION: The patient is [...] signed informed consent. She was brought to wetlands conservation laborer in a fasting state. The right groin area was prepped and draped in usual fashion. Micropuncture technique and ultrasound guidance were used for access in the right common femoral vein. A 6-English x 11 cm sheath was placed. A [...] the transseptal sheath was exchanged to a 14-English Watchman anterior curve sheath. A pigtail catheter angled 6-English was advanced, and used to select the [...] adequate (more content not included)... Normal [facility] TYPE AND SCREENon 02-22-2022 ABO INTERPRETATION O Normal [facility] Comment on above: Performed By: #### 6 2586 #### [facility] [address] RH INTERPRETATION Negative Normal [facility] Comment on above: Performed By: #### 6 2586 #### [facility] [address] [place] [address], [facility] Covid-19 PCR (CVDTBH)on SARS-CoV-2 (COVID-19) RNA EULA+probe Ql (Unsp spec) Not detected Normal NOT DETECTED [facility] Comment on above: Result Comment: This test is not yet approved or cleared by the [place] FDA. When there are no FDA-approved or cleared tests available, and other criteria are met, FDA can make tests available under an emergency access mechanism called an Emergency Use Authorization (EUA). The EUA for this test is supported by the [place] of Health and Human Service's (HHS's) declaration [...] consistent with SARS-CoV-2. Performed By: #### [facility] #### [facility] [address] [address] [address] Kay Singh BASIC METABOLIC PANELon 07- Calcium [Mass/Vol] 9.2 mg/dL Normal 8.6-10.3 [facility] Comment on above: Performed By: #### 0 0071 #### [facility] [address] [place] [address], [facility] Chloride [Moles/Vol] 102 mmol/L Normal 98-107 [facility] Comment on above: Performed By: #### 0 0071 #### [facility] [address] [place] [address], [place] CO2 [Moles/Vol] 27 mmol/L Normal 21-31 [facility] Comment on above: Performed By: #### 0 0071 #### [facility] [address] [place] [address], [place] Creatinine [Mass/Vol] 1.38 mg/dL High 0.60-1.20 [facility] Comment on above: Performed By: #### 0 0071 #### [facility] [address] [place] [address], [place] eGFR- 45 ml/min/1.73sq m Abnormal >60 [facility] Comment on above: Result Comment: Calc ulation may not be valid for patients over 70 years Performed By: #### 0 0071 #### [facility] [address] [place] [address], [place] eGFR- non- 37 ml/min/1.73sq m Abnormal >60 [facility] Comment on above: Result Comment: Calc ulation may not be valid for patients over 70 years Performed By: #### 0 0071 #### [facility] [address] [place] [address], [place] Glucose [Mass/Vol] 102 mg/dL High 70-100 [facility] Comment on above: Performed By: #### 0 0071 #### [facility] [address] [place] [address], [place] Potassium [Moles/Vol] 3.3 mmol/L Low 3.5-5.1 [facility] Comment on above: Performed By: #### 0 0071 #### [facility] [address] [place] [address], [place] Sodium [Moles/Vol] 139 mmol/L Normal 136-145 [facility] Comment on above: Performed By: #### 0 0071 #### [facility] [address] [place] [address], [place] Urea nitrogen [Mass/Vol] 16 mg/dL Normal 7-25 [facility] Comment on above: Performed By: #### 0 0071 #### [facility] [address] [place] [address], [place] CBC COMPLETE BLOOD COUNTon 0 - Erythrocyte distribution width (RBC) [Ratio] 12.3 % Normal 11.5-15.0 [facility] Comment on above: Performed By: #### 5 0608 #### [facility] [address] [place] [address], [place] Hematocrit (Bld) [Volume fraction] 37.8 % Normal 36.0-45.0 [facility] Comment on above: Performed By: #### 5 0608 #### [facility] [address] [place] [address], [place] Hemoglobin (Bld) [Mass/Vol] 13.3 g/dL Normal 12.0-15.0 [facility] Comment on above: Performed By: #### 5 0608 #### [facility] [address] [place] [address], [facility] MCH (RBC) [Entitic mass] 32.6 pg Normal 27.0-33.0 [facility] Comment on above: Performed By: #### 5 0608 #### [facility] [address] [place] [address], [facility] MCHC (RBC) [Mass/Vol] 35.2 g/dL High 32.0-35.0 [facility] Comment on above: Performed By: #### 5 0608 #### [facility] [address] [facility] [place] [address], [facility] MCV (RBC) [Entitic vol] 92.6 fL Normal 82.0-98.0 [facility] Comment on above: Performed By: #### 5 0608 #### [facility] [address] [place] [address], [facility] Nucleated RBC/100 WBC (Bld) [Ratio] 0 % Normal 0-0 [facility] Comment on above: Performed By: #### 5 0608 #### [facility] [address] [place] [address], [facility] PLAT CNT 187 10*3/uL Normal 150-400 [facility] Comment on above: Performed By: #### 5 0608 #### [facility] [address] [place] [address], [facility] RBC (Bld) [#/Vol] 4.08 10*6/uL Normal 3.80-5.00 [facility] Comment on above: Performed By: #### 5 0608 #### [facility] [address] [place] [id number], [facility] WBC (Bld) [#/Vol] 7.62 10*3/uL Normal 4.00-10.60 [facility] Comment on above: Performed By: #### 5 0608 #### [facility] [address] [place] [address], [facility] Cardiovascular Lab Reporton 01-25-2022 Cardiovascular Lab Report [facility] Patient Name: Odilia Schroeder [facility] MR #: [id number] Physician: Bee Lewis of [facility] Service Date: 01/25/2022 Division of Birthdate: 1945 Cardiology Room #: CC Adult Cardiovascular Services [facility] [address] [place], [place] [address] Cardiovascular Laboratory Report INDICATION: Mitral regurgitation. PROCEDURES: 1. Right heart catheterization. 2. Access into the right internal jugular vein under ultrasound guidance. METHODS: Procedure was explained to the patient with risks and benefits. She signed informed consent. She was brought to wetlands conservation laborer in a fasting state. The right neck area was prepped and draped in usual fashion. Micropuncture technique and ultrasound guidance were used for access in the right internal jugular vein. A 7-English x 11 cm sheath was placed. A 7-English Morelos catheter was used for right heart [...] P/Bee Guevara M.D. Date Trans: 01/25/2022 08:47 P/mmo [id number] cc: Zaki Flanagan D.O. [address] [facility] [address] Normal [facility]on 01-13 SARS-CoV-2 (COVID-19) RNA EULA+probe Ql (Unsp spec) Not detected Normal NOT DETECTED [facility] Comment on above: Result Comment: This test is not yet approved or cleared by the [place] FDA. When there are no FDA-approved or cleared tests available, and other criteria are met, FDA can make tests available under an emergency access mechanism called an Emergency Use Authorization (EUA). The EUA for this test is supported by the [place] [employer] of Health and Human Service's (HHS's) declaration [...] consistent with SARS-CoV-2. Performed By: #### [facility] #### [facility] [address] [place] [address] Dr. Kay Singh FREE T4on 01-23-2022 Free T4 [Mass/Vol] 1.10 ng/dL Normal 0.76-1.46 [facility] Comment on above: Performed By: #### C MP #### [facility] [address] [place] [address] Dr. Kay Singh TSHon 01-23-2022 TSH 1.794 uIU/mL Normal 0.358-3.740 [facility] Comment on above: Performed By: #### T #### [facility] [id number] Kay Singh ECHOCARDIO M/2D COMPLETEon 0 12-23-2021 ECHOCARDIO M/2D COMPLETE Patient: ODILIA SCHROEDER Exam Date: 12/23/2021 : 1945 Gender:F Ordering : JOSE M CABRERA Admission #: [id number] Family : Order #: [id number] CLICK HERE TO VIEW EXAM ECHOCARDIOGRAM REPORT [...] Area(A4C): 15.50 cm2 Left Atrium Systolic Volume(A2C): 17787 mm3 Left Atrium Systolic Volume(A4C): 64783 mm3 Mitral Valve MV E to A [...] Guevara M.D. on 12/23/2021 at 15:18 Normal [facility] PROF 14(COMP METB)on 022 Albumin [Mass/Vol] 3.4 g/dL Normal 3.4-5.0 [facility] Comment on above: Performed By: #### C MP #### [facility] [address] [place] [address] Dr. Kay Singh Albumin/Globulin [Mass ratio] 0.9 {ratio} Normal [facility] Comment on above: Performed By: #### C MP #### [facility] [address] [address] [address] Kay Singh ALP [Catalytic activity/Vol] 42 U/L Critically low 46-116 [facility] Comment on above: Performed By: #### C MP #### [facility] [address] [address] [address] Kay Singh ALT [Catalytic activity/Vol] 15 U/L Normal 14-59 [facility] Comment on above: Performed By: #### C MP #### [facility] [address] [place] [address] Dr. Kay Singh Anion gap [Moles/Vol] 8.9 mmol/L Normal [facility] Comment on above: Performed By: #### C MP #### [facility] [address] [place] [address] Dr. Kay Singh AST [Catalytic activity/Vol] 16 U/L Normal 15-37 [facility] Comment on above: Performed By: #### C MP #### [facility] [address] [place] [address] Dr. Kay Singh Bilirubin [Mass/Vol] 0.5 mg/dL Normal 0.2-1.0 [facility] Comment on above: Performed By: #### C MP #### [facility] [address] [place] [address] Dr. Kay Singh Calcium [Mass/Vol] 8.8 mg/dL Normal 8.5-10.1 [facility] Comment on above: Performed By: #### C MP #### [facility] [address] [place] [address] Dr. Kay Singh Chloride [Moles/Vol] 102 mmol/L Normal 98-107 [facility] Comment on above: Performed By: #### C MP #### [facility] [address] [place] [address] Dr. Kay Singh CO2 [Moles/Vol] 31.3 mmol/L Normal 21.0-32.0 [facility] Comment on above: Performed By: #### C MP #### [facility] [address] [place] [address] Dr. Kay Singh Creatinine [Mass/Vol] 1.30 mg/dL Critically high 0.55-1.02 [facility] Comment on above: Performed By: #### C MP #### [facility] [address] [address] [address] Kay Singh EGFR-AF LIBERIAN 48 mL/min/1.73m2 Critically low >=60 [facility] Comment on above: Performed By: #### C MP #### [facility] [address] [address] [address] Kay Singh EGFR-NON AF LIBERIAN 40 mL/min/1.73m2 Critically low >=60 [facility] Comment on above: Performed By: #### C MP #### [facility] [address] [place] [address] Dr. Kay Singh Globulin (S) [Mass/Vol] 3.8 g/dL Normal [facility] Comment on above: Performed By: #### C MP #### [facility] [address] [address] [address] Kay Singh Glucose [Mass/Vol] 94 mg/dL Normal 74-106 [facility] Comment on above: Performed By: #### C MP #### [facility] [address] [place] [address] Dr. Kay Singh Potassium [Moles/Vol] 4.2 mmol/L Normal 3.5-5.1 [facility] Comment on above: Performed By: #### C MP #### [facility] [address] [address] [address] Kay Singh Protein [Mass/Vol] 7.2 g/dL Normal 6.4-8.2 [facility] Comment on above: Performed By: #### C MP #### [facility] [address] [place] [address] Dr. Kay Singh Sodium [Moles/Vol] 138 mmol/L Normal 136-145 [facility] Comment on above: Performed By: #### C MP #### [facility] [address] [place] [address] Dr. Kay Singh Urea nitrogen [Mass/Vol] 17.0 mg/dL Normal 7.0-18.0 [facility] Comment on above: Performed By: #### C MP #### [facility] [address] [place] [address] Dr. Kay Singh Urea nitrogen/Creatinine [Mass ratio] 13.1 mg/mg Normal [facility] Comment on above: Performed By: #### C MP #### [facility] [address] [address] [address] Kay Singh *MRSA/MSSA DNA NASALon 12-14 *MRSA/MSSA DNA NASAL Clinical Report: (D) Specimen: NASAL SWAB Collected: 12/14/2021 13:00 Status: Final Last Updated: 12/15/2021 14:36 MSSA DNA (Final) Methicillin Susceptible Staphylococcus aureus DNA Detected MRSA DNA (Final) Negative Normal [facility] Comment on above: Performed By: #### 3 1595 #### [facility] [address] [place] [address], [facility] BASIC METABOLIC PANELon Calcium [Mass/Vol] 8.9 mg/dL Normal 8.6-10.3 [facility] Comment on above: Performed By: #### 0 0071 #### [facility] [address] [place] [address], [facility] Chloride [Moles/Vol] 101 mmol/L Normal 98-107 [facility] Comment on above: Performed By: #### 0 0071 #### [facility] [address] [place] [address], [facility] CO2 [Moles/Vol] 26 mmol/L Normal 21-31 [facility] Comment on above: Performed By: #### 0 0071 #### [facility] [address] [place] [address], [facility] Creatinine [Mass/Vol] 1.18 mg/dL Normal 0.60-1.20 [facility] Comment on above: Performed By: #### 0 0071 #### [facility] [address] [place] [address], [facility] eGFR- 53 ml/min/1.73sq m Abnormal >60 [facility] Comment on above: Result Comment: Calc ulation may not be valid for patients over 70 years Performed By: #### 0 0071 #### [facility] [address] [place] [address], [facility] eGFR- non- 45 ml/min/1.73sq m Abnormal >60 [facility] Comment on above: Result Comment: Calc ulation may not be valid for patients over 70 years Performed By: #### 0 0071 #### [facility] [address] [place] [address], [place] Glucose [Mass/Vol] 95 mg/dL Normal 70-100 [facility] Comment on above: Performed By: #### 0 0071 #### [facility] [address] [place] [address], [facility] Potassium [Moles/Vol] 4.5 mmol/L Normal 3.5-5.1 [facility] Comment on above: Performed By: #### 0 [id number] #### [facility] [address] [place] [address], [place] Sodium [Moles/Vol] 133 mmol/L Low 136-145 [facility] Comment on above: Performed By: #### 0 [id number] #### [facility] [address] [place] [address], [place] Urea nitrogen [Mass/Vol] 17 mg/dL Normal 7-25 [facility] Comment on above: Performed By: #### 0 0071 #### [facility] [address] [place] [address], [facility] CBC COMPLETE BLOOD COUNTon 0 - Erythrocyte distribution width (RBC) [Ratio] 13.0 % Normal 11.5-15.0 [facility] Comment on above: Performed By: #### 0 [id number] #### [facility] [address] [place] [address], [facility] Hematocrit (Bld) [Volume fraction] 37.7 % Normal 36.0-45.0 [facility] Comment on above: Performed By: #### 0 [id number] #### [facility] [address] [place] [address], [facility] Hemoglobin (Bld) [Mass/Vol] 13.2 g/dL Normal 12.0-15.0 [facility] Comment on above: Performed By: #### 0 [id number] #### [facility] [address] [facility] MCH (RBC) [Entitic mass] 32.9 pg Normal 27.0-33.0 [facility] Comment on above: Performed By: #### 0 [id number] #### [facility] [address] [facility] MCHC (RBC) [Mass/Vol] 35.0 g/dL Normal 32.0-35.0 [facility] Comment on above: Performed By: #### 0 0071 #### [facility] [address] [facility] [place] [address], [facility] MCV (RBC) [Entitic vol] 94.0 fL Normal 82.0-98.0 [facility] Comment on above: Performed By: #### 0 [id number] #### [facility] [address] [facility] Nucleated RBC/100 WBC (Bld) [Ratio] 0 % Normal 0-0 [facility] Comment on above: Performed By: #### 0 0071 #### [facility] [address] [place] [address], [facility] PLAT CNT 175 10*3/uL Normal 150-400 [facility] Comment on above: Performed By: #### 0 0071 #### [facility] [place] [address], [facility] RBC (Bld) [#/Vol] 4.01 10*6/uL Normal 3.80-5.00 [facility] Comment on above: Performed By: #### 0 0071 #### [address] [place] [address], [facility] WBC (Bld) [#/Vol] 6.40 10*3/uL Normal 4.00-10.60 [facility] Comment on above: Performed By: #### 0 0071 #### [address] [address], [facility] CHEST AND LATERALon 12-15-19 CHEST AND LATERAL [facility] Department of Radiology [address] [place] [address] [id number] ======== Patient Name: ODILIA SCHROEDER : 1945 [...] exam Electronically signed: Nereida Vasquez. Transcribed by: [email or web address], User Resident: Electronically Signed by: NEREIDA VASQUEZ @ 12/14/2021 03:29 PM Normal [facility] Comment on above: Order Comment: post cath procedure POC SARS COV2 IDon SARS-CoV-2 (COVID-19) RNA EULA+probe Ql (Unsp spec) Negative Normal NEGATIVE [facility] Comment on above: Result Comment: ID [...] Accreditation. Performed By: #### 0 [id number] #### [facility] [address] [place] [address], [facility] Covid-19 PCR ([facility])on 11-15 SARS-CoV-2 (COVID-19) RNA EULA+probe Ql (Unsp spec) Not detected Normal NOT DETECTED [facility] Comment on above: Result Comment: This test is not yet approved or cleared by the [place] FDA. When there are no FDA-approved or cleared tests available, and other criteria are met, FDA can make tests available under an emergency access mechanism called an Emergency Use Authorization (EUA). The EUA for this test is supported by the [place] Apprentice of Health and Human Service's (HHS's) declaration [...] SARS-CoV-2. Performed By: #### C MP #### [facility] [address] [place] [address] Dr. Kay Singh FOLATE ([facility])on Folate 7.3 ng/mL Normal >3.0 [facility] Comment on above: Result Comment: A se rum folate concentration of less than 3.1 ng/mL is considered to represent clinical deficiency. Performed By: #### C MP #### [facility] [address] [address] [address] Kay Singh VIT D 25-[place] LABCORPon 2021 Vitamin D, 25-Hydroxy 62.3 ng/mL Normal 30.0-100.0 [facility] Comment on above: Result Comment: Nicky min D deficiency has been defined by the [place] of [employer] and an Endocrine Society practice guideline as a level of serum 25-OH vitamin D less than 20 ng/mL (1,2). The Endocrine Society went on to further define vitamin D insufficiency as a level between 21 and 29 ng/mL (2). 1. IOM ([place] [employer]). 2010. Dietary reference intakes for calcium and D. [place]: The National Academies Press. 2. Jayesh SIDHU, Fallon LANCASTER, Elizabet OWENS, et al. Evaluation, treatment, and prevention of vitamin D deficiency: an Endocrine Society clinical practice guideline. JCEM. 2010; 96(7):1911-30. Performed By: #### C MP #### [facility] [address] [place] [address] Dr. Kay Singh VITAMIN B12on 07-26-2021 Cobalamin (Vitamin B12) [Mass/Vol] 373 pg/mL Normal 232-1245 [facility] Comment on above: Performed By: #### V B12LC #### [facility] [address] [place] [address] Dr. Kay Singh CBC AUTO DIFFon 07-25-2021 BASO # 0.0 103/ul Normal 0.0-0.1 [facility] Comment on above: Performed By: #### C BC #### [facility] [address] [place] [address] Dr. Kay Singh Basophils/100 WBC (Bld) 0.5 % Normal 0.2-2.0 [facility] Comment on above: Performed By: #### C BC #### [facility] [address] [place] [address] Dr. Kay Singh EO # 0.7 103/ul Normal 0.0-0.7 [facility] Comment on above: Performed By: #### C BC #### [facility] [address] [place] [address] Dr. Kay Singh Eosinophils/100 WBC (Bld) 8.8 % Critically high 0.9-7.0 [facility] Comment on above: Performed By: #### C BC #### [facility] [address] [place] [address] Dr. Kay Singh Erythrocyte distribution width (RBC) [Ratio] 11.8 % Normal 11.0-15.0 [facility] Comment on above: Performed By: #### C BC #### [facility] [address] [place] [address] Dr. Kay Singh Hematocrit (Bld) [Volume fraction] 37.3 % Normal 36.0-48.0 [facility] Comment on above: Performed By: #### C BC #### [facility] [address] [place] [address] Dr. Kay Singh Hemoglobin (Bld) [Mass/Vol] 12.8 g/dL Normal 12.0-16.0 [facility] Comment on above: Performed By: #### C BC #### [facility] [address] [place] [address] Dr. Kay Singh IG # 0.03 10e3/ul Normal 0.00-0.03 [facility] Comment on above: Performed By: #### C BC #### [facility] [address] [place] [address] Dr. Kay Singh IG % 0.4 % Normal 0.0-0.5 [facility] Comment on above: Performed By: #### C BC #### [facility] [address] [place] [address] Dr. Kay Singh LYMPH # 1.6 103/ul Normal 1.2-3.8 [facility] Comment on above: Performed By: #### C BC #### [facility] [address] [place] [address] Dr. Kay Singh Lymphocytes/100 WBC (Bld) 19.5 % Critically low 20.5-60.0 [facility] Comment on above: Performed By: #### C BC #### [facility] [address] [place] [address] Dr. Kay Singh MANUAL DIFF REQ NO Normal [facility] Comment on above: Performed By: #### C BC #### [facility] [address] [place] [address] Dr. Kay Singh MCH (RBC) [Entitic mass] 32.1 pg Normal 26.7-34.0 [facility] Comment on above: Performed By: #### C BC #### [facility] [address] [place] [address] Dr. Kay Singh MCHC (RBC) [Mass/Vol] 34.3 g/dL Normal 29.9-35.2 [facility] Comment on above: Performed By: #### C BC #### [facility] [address] [place] [address] Dr. Kay Singh MCV (RBC) [Entitic vol] 93.5 fL Normal 81.0-99.0 [facility] Comment on above: Performed By: #### C BC #### [facility] [address] [address] [address] Kay Singh MONO # 0.7 103/ul Normal 0.3-0.8 [facility] Comment on above: Performed By: #### C BC #### [facility] [address] [address] [address] Kay Singh Monocytes/100 WBC (Bld) 8.3 % Normal 1.7-12.0 [facility] Comment on above: Performed By: #### C BC #### [facility] [address] [address] [address] Kay Singh NEUT # 5.2 103/ul Normal 1.4-6.5 [facility] Comment on above: Performed By: #### C BC #### [facility] [address] [address] [address] Kay Singh Neutrophils/100 WBC (Bld) 62.5 % Normal 43.0-75.0 [facility] Comment on above: Performed By: #### C BC #### [facility] [address] [address] [address] Kay Singh Platelet mean volume (Bld) [Entitic vol] 10.1 fL Normal 9.5-13.5 [facility] Comment on above: Performed By: #### C BC #### [facility] [address] [address] [address] Kay Singh PLT 221 103/ul Normal 150-450 [facility] Comment on above: Performed By: #### C BC #### [facility] [address] [address] [address] Kay Singh RBC 3.99 106/ul Critically low 4.20-5.40 [facility] Comment on above: Performed By: #### C BC #### [facility] [address] [address] [address] Kay Singh WBC 8.3 103/ul Normal 4.0-11.0 [facility] Comment on above: Performed By: #### C BC #### [facility] [address] [address] [address] Kay Singh GLYCOHEMOGLOBIN A1Con 2021 ADA RECOMMENDATION ADA THERAPEUTIC TARG ET 6.0 - 7.0 ACTION SUGGESTED > 7.0 Normal [facility] Comment on above: Performed By: #### A 1C #### [facility] [address] [place] [address] Dr. Kay Singh Glucose [Mass/Vol] 108 mg/dL Normal [facility] Comment on above: Performed By: #### A 1C #### [facility] [address] [place] [address] Dr. Kay Singh HbA1c (Bld) [Mass fraction] 5.4 % Normal <=6.0 [facility] Comment on above: Performed By: #### A 1C #### [facility] [address] [place] [address] Dr. Kay Singh LIPID PROFILEon 07-25-2021 CHOL-HDL RATIO NORM SEE BELOW Normal [facility] Comment on above: Result Comment: 3.3 - 4.4 LOW RISK 4.4 - 7.1 AVERAGE RISK 7.1 - 11.0 MODERATE RISK >11.0 HIGH RISK Performed By: #### T SH, LIPID, CMP #### [facility] [address] [place] [address] Dr. Kay Singh Cholesterol [Mass/Vol] 139 mg/dL Normal <=200 [facility] Comment on above: Performed By: #### T SH, LIPID, CMP #### [facility] [address] [place] [address] Dr. Kay Singh Cholesterol in HDL [Mass/Vol] 52 mg/dL Normal [facility] Comment on above: Performed By: #### T SH, LIPID, CMP #### [facility] [address] [place] [address] Dr. Kay Singh Cholesterol in LDL [Mass/Vol] 69.8 mg/dL Normal [facility] Comment on above: Performed By: #### T SH, LIPID, CMP #### [facility] [address] [place] [address] Dr. Kay Singh Cholesterol.total/C holesterol in HDL [Mass ratio] 2.7 {ratio} Normal [facility] Comment on above: Performed By: #### T BARB, LIPID, CMP #### [facility] [address] [address] [address] Kay Singh HDL NORMAL > or = 60 mg/dl - LO W CARDIOVASCULAR RISK <40 mg/dl - HIGH CARDIOVASCULAR RISK Normal [facility] Comment on above: Performed By: #### T BARB, LIPID, CMP #### [facility] [address] [address] [address] Kay Singh LDL CALC NORMAL SEE BELOW Normal [facility] Comment on above: Result Comment: <100 mg/dl OPTIMAL 100 - 129 mg/dl NEAR OR ABOVE OPTIMAL 130 - 159 mg/dl BORDERLINE HIGH 160 - 189 mg/dl HIGH >190 mg/dl VERY HIGH Performed By: #### T BARB, LIPID, CMP #### [facility] [address] [address] [address] Kay Singh Triglyceride [Mass/Vol] 86 mg/dL Normal <=150 [facility] Comment on above: Performed By: #### T BARB, LIPID, CMP #### [facility] [address] [address] [address] Kay Singh VLDL CALC 17.2 mg/dL Normal [facility] Comment on above: Performed By: #### T BARB, LIPID, CMP #### [facility] [address] [address] [address] Kay Singh MG MAMM SCREEN 3D TRINITY CADon 07-25-2021 MG MAMM SCREEN 3D TRINITY CAD Patient: ODILIA SCHROEDER Exam Date: 07/25/2021 : 1945 Gender:F Ordering : DR ZAKI FLANAGAN DSalazar Admission #: [id number] Family : Order #: [id number] CLICK HERE TO VIEW EXAM RADIOLOGY REPORT [...] Treatments None Family Cancers None LOCATION: [facility] BREAST COMPOSITION: Scattered areas fibroglandular density. [...] MD on 07/25/2021 at 11:10 Normal [facility] PROF 14(COMP METB)on 07-25- 022 Albumin [Mass/Vol] 3.7 g/dL Normal 3.5-5.0 [facility] Comment on above: Performed By: #### T SH, LIPID, CMP #### [facility] [address] [place] [address] Dr. Kay Singh Albumin/Globulin [Mass ratio] 1.1 {ratio} Normal [facility] Comment on above: Performed By: #### T SH, LIPID, CMP #### [facility] [address] [place] [address] Dr. Kay Singh ALP [Catalytic activity/Vol] 46 U/L Normal 38-126 [facility] Comment on above: Performed By: #### T SH, LIPID, CMP #### [facility] [address] [place] [address] Dr. Kay Singh ALT [Catalytic activity/Vol] 12 U/L Normal 9-52 [facility] Comment on above: Performed By: #### T SH, LIPID, CMP #### [facility] [address] [place] [address] Dr. Kay Singh Anion gap [Moles/Vol] 12.1 mmol/L Normal [facility] Comment on above: Performed By: #### T SH, LIPID, CMP #### [facility] [address] [place] [address] Dr. Kay Singh AST [Catalytic activity/Vol] 18 U/L Normal 14-36 [facility] Comment on above: Performed By: #### T SH, LIPID, CMP #### [facility] [address] [place] [address] Dr. Kay Singh Bilirubin [Mass/Vol] 0.6 mg/dL Normal 0.2-1.3 [facility] Comment on above: Performed By: #### T SH, LIPID, CMP #### [facility] [address] [address] [address] Kay Singh Calcium [Mass/Vol] 9.1 mg/dL Normal 8.4-10.2 [facility] Comment on above: Performed By: #### T SH, LIPID, CMP #### [facility] [address] [place] [address] Dr. Kay Singh Chloride [Moles/Vol] 99 mmol/L Normal 98-107 [facility] Comment on above: Performed By: #### T SH, LIPID, CMP #### [facility] [address] [place] [address] Dr. Kay Singh CO2 [Moles/Vol] 29.4 mmol/L Normal 22.0-30.0 [facility] Comment on above: Performed By: #### T SH, LIPID, CMP #### [facility] [address] [place] [address] Dr. Kay Singh Creatinine [Mass/Vol] 1.39 mg/dL Critically high 0.52-1.04 [facility] Comment on above: Performed By: #### T SH, LIPID, CMP #### [facility] [address] [place] [address] Dr. Kay Singh EGFR-AF LIBERIAN 44 mL/min/1.73m2 Critically low >=60 [facility] Comment on above: Performed By: #### T SH, LIPID, CMP #### [facility] [address] [place] [address] Dr. Kay Singh EGFR-NON AF LIBERIAN 37 mL/min/1.73m2 Critically low >=60 [facility] Comment on above: Performed By: #### T SH, LIPID, CMP #### [facility] [address] [address] [address] Kay Singh Globulin (S) [Mass/Vol] 3.3 g/dL Normal [facility] Comment on above: Performed By: #### T SH, LIPID, CMP #### [facility] [address] [address] [address] Kay Singh Glucose [Mass/Vol] 118 mg/dL Critically high 74-106 [facility] Comment on above: Performed By: #### T SH, LIPID, CMP #### [facility] [address] [address] [address] Kay Singh Potassium [Moles/Vol] 3.5 mmol/L Normal 3.4-5.0 [facility] Comment on above: Performed By: #### T SH, LIPID, CMP #### [facility] [address] [place] [address] Dr. Kay Singh Protein [Mass/Vol] 7.0 g/dL Normal 6.1-8.2 [facility] Comment on above: Performed By: #### T SH, LIPID, CMP #### [facility] [address] [address] [address] Kay Singh Sodium [Moles/Vol] 137 mmol/L Normal 137-145 [facility] Comment on above: Performed By: #### T SH, LIPID, CMP #### [facility] [address] [address] [address] Kay Singh Urea nitrogen [Mass/Vol] 16.0 mg/dL Normal 7.0-17.0 [facility] Comment on above: Performed By: #### T SH, LIPID, CMP #### [facility] [address] [address] [address] Kay Singh Urea nitrogen/Creatinine [Mass ratio] 11.5 mg/mg Normal [facility] Comment on above: Performed By: #### T SH, LIPID, CMP #### [facility] [address] [place] [address] Dr. Kay Singh TSHon 07-25-2021 TSH 3.226 uIU/mL Normal 0.470-4.680 [facility] Comment on above: Performed By: #### T SH, LIPID, CMP #### [facility] [address] [address] [address] Kay Singh TSH RANGE SEE BELOW Normal [facility] Comment on above: Result Comment: <0.3 4 UIU/ml HYPERTHYROID 0.34-5.60 UIU/ml EUTHYROID >5.60 UIU/ml HYPOTHYROID Performed By: #### T SH, LIPID, CMP #### [facility] [address] [address] [address] Kay Singh XR DEXA BONE DENSITYon [...] by: ETHEL SANDERSON Date: 2021-07-25 10:44 Normal [facility] Encounters Encounter Date Encounter Type Care Provider Facility Start: 04-29-2024 End: 04-29-2024 ambulatory [facility] Start: 03-13-2024 End: 03-13-2024 ambulatory [facility] Start: 01-10-2024 End: 01-10-2024 ambulatory [facility] Start: 12-13-2023 End: 12-13-2023 ambulatory MELODIE SLIM [facility] Start: 12-05-2023 ambulatory IRMA CORTEZ [facility] Start: 12-05-2023 End: 12-05-2023 Evaluation and management of inpatient [facility] Start: 11-21-2023 End: 11-21-2023 ambulatory ARGELIA Dowling [facility] Start: 11-02-2023 End: 11-02-2023 ambulatory [facility] Start: 10-01-2023 End: 10-01-2023 ambulatory [facility] Start: 09-19-2023 ambulatory DANIEL RODRÍGEUZ [facility] Start: 09-19-2023 End: 09-19-2023 ambulatory [facility] Start: 07-11-2023 End: 07-11-2023 ambulatory [facility] Start: 06-06-2023 End: 06-06-2023 ambulatory [facility] Start: 05-09-2023 End: 05-09-2023 ambulatory [facility] Start: 04-10-2022 End: 04-11-2022 ambulatory JOSE M CABRERA Facility:[facility] Start: 02-22-2022 End: 02-23-2022 Evaluation and management of inpatient ZAKI FLANAGAN Facility:[facility] Start: 02-20-2022 End: 02-21-2022 ambulatory JOSE M CABERRA Facility:[facility] Start: 01-25-2022 End: 01-26-2022 ambulatory BEE GUEVARA Facility:[facility] Start: 01-23-2022 End: 01-24-[address] BEE GUEVARA Facility:[facility] Start: 12-23-2021 End: 12-24-2021 ambulatory JOSE M CABRERA Facility:[facility] Start: 12-14-2021 End: 12-15-2021 ambulatory BEE GUEVARA Facility:[facility] Start: 12-12-2021 End: 12-13-[address] BEE GUEVARA Facility: Start: 07-25-2021 End: 07-26-[address] ZAKI FLANAGAN Facility:[facility] Procedures Date Procedure Procedure Detail Performing Clinician Start: 02-22-2022 Antibody screen BEE GUEVARA Comment on above: Performed By: #### 6 [id number] #### [address] Payers Date Payer Category Payer Private Health Insurance [id number] 1945 Unknown [id number] 2.16.8 [id number] 1945 Unknown [id number] 2.16.8 [id number] 1945 Unknown [id number] 2.16.8 [id number] 1945 Unknown [id number] 2.16.84 [id number] 1945 Unknown [id number] 2.16.84 [id number] 1945 Unknown [id number] 2.16.84 [id number] 1945 Unknown [id number] 2.16.84 [id number] 1945 Unknown [id number] 2.16.84 [id number] 1945 Unknown [id number] 2.16.84 [id number] 1945 Unknown [id number] 2.16.84 [id number] Clinical Notes 02-24-2022 to 03-05-2024 Note Date & Type Note Facility 03-05-2024 Note car [facility] 01-10-2024 Note [place] [facility] Subjective Odilia Schroeder is a 78 y.o. year old female patient being seen for follow up aborted MitraClip and Holter monitor. She is attending cardiac rehab twice a week. Denies chest pain and LE edema. Says her SIMS is stable and unchanged. Patient Active Problem List Diagnosis Tremor of [...] Major depressive disorder, single episode, mild (CMS/HCC) Chronic systolic congestive heart failure (CMS/HCC) Severe mitral regurgitation Presence of Watchman left atrial appendage closure device Primary hypertension Nonrheumatic mitral valve regurgitation SIMS (dyspnea on exertion) Family History Problem Relation Name Age of [...] on anticoagulation therapy for atrial fibrillation. Her [id number]-OSCr score is 6 for age, history of [...] mg daily due to low blood pressure. After last visit with me on November 02, 2023 and due to excessive symptoms and evidence of significant mitral regurgitation on transesophageal echocardiogram we proceeded with plans for MitraClip. On the day of the procedure she underwent CELINA under general anesthesia. Her blood pressure was low and that there was no significant mitral regurgitation. During the procedure the blood pressure was raised and mitral regurgitation became significant. It appeared that her mitral regurgitation was very blood pressure sensitive. We decided to cancel the MitraClip procedure. She was seen in follow-up after in clinic with medication adjustment. She was referred to cardiac rehab. Today she reports that her blood pressure has been maintained in good range between 100 and 130 systolic. She is enrolled in cardiac rehab and is doing relatively well. She continues to have shortness of breath on exertion. She feels tired with no energy. Review of Systems Constitutional: Positive for decreased appetite and malaise/fatigue. Cardiovascular: Positive for dyspnea on exertion, irregular heartbeat and palpitations. Respiratory: Positive for shortness of breath. Hematologic/Lymphatic: Bruises/bleeds easily. Musculoskeletal: Positive for muscle weakness. Gastrointestinal: Positive for diarrhea. Neurological: Positive for light-headedness, loss of balance, vertigo and weakness. All other systems reviewed and are negative. Objective Visit Vitals BP 138/80 (BP Location: Left arm, Patient Position: Sitting) Pulse 71 Ht 1.524 m (5') Wt 69.9 kg (154 lb) SpO2 98% BMI 30.08 kg/m??? OB Statu (more content not included)... [facility] 12-13-2023 Note [place] [facility] Subjective: Patient is here today for follow-up visit after attempt of mitral valve clip placement Patient Active Problem List Diagnosis Tremor of [...] Major depressive disorder, single episode, mild (CMS/HCC) Chronic systolic congestive heart failure (CMS/HCC) Severe mitral regurgitation Presence of Watchman left atrial appendage closure device Primary hypertension Nonrheumatic mitral valve regurgitation Family History Problem Relation Name Age of Onset Cancer Mother Heart attack Father Cancer Father Social History Tobacco Use Smoking status: Never Passive exposure: Current Smokeless tobacco: Never Substance Use Topics Alcohol use: Not Currently HPI 12/13/2023 Odilia Schroeder is a 78 y.o. year old female patient being seen for follow up after attempts of mitral valve clip placement. Actually after she went under general anesthesia and her blood pressure was between 90s and 100 she had only mild to moderate mitral regurgitation on CELINA and when blood pressure was brought into 140s to 150s the mitral regurgitation became worse, that was tried many times and it was felt that the best approach is to abort the procedure and make sure that her blood pressure is well-controlled at all times and see if that helps with her symptoms. Of note the patient was also in sinus rhythm at that time. She is here today with her daughter for follow-up visit. She states that she feels tired and short of breath with any activity. The patient states that her blood pressure has been on the low side for the last couple months since her blood pressure medications were adjusted last time. She states that she checks her blood pressure 3 times a day and it is usually between 80-100 over 60s. It never gets above 120 except when she is in the doctors offices and even then it is usually in the 120s. She states that she does not feel any difference when her blood pressure is down in the 80s but in general she feels tired, weak and short of breath all the time. She never been a smoker. She admits snoring and she was referred for a sleep study in the past however she could not tolerate it because of claustrophobia from the facemask and did not finish the study. She was seen by a legal transcriber in the past who reported that her spirometry was unremarkable other than DLCO 78%. . She was started on couple inhaler but that did not help at all. She also had a sleep study 09/03/2019 which showed moderate obstructive sleep apnea with drop in O2 saturation to 83% however the patient could not come back for CPAP trial due to panic attack from claustrophobia She also states that she has episodes of fluttering in her neck which occurs on and off and that she feels more short of breath with that. She continues to have vertigo episodes during which her blood pressure is normal. 11/02/[address] Kirkpatrick She is a 78-year-old woman with prior history of paroxysmal atrial fibrillation and atrial flutter. She has prior history of TIA, hypertension and hyperlipidemia. She was previously maintained on anticoagulation therapy for atrial fibrillation. Her IBH2RY8-PIFs score is 6 for age, history of [...] a lot of shortness of breath and whee (more content not included)... [facility] 12-13-2023 Note This report has been cancelled. [facility] 12-05-2023 Note Patient: Odilia ames Procedure Summary Date: 12/05/23 Room / Location: [facility] / [facility] (Cath) Anesthesia Start: 1322 [...] no known notable events for this encounter. [facility] 12-05-2023 Note Airway Date/Time: 12/05/2023 1:39 PM Urgency: elective Airway not difficult General Information and Staff Patient location during procedure: OR Anesthesiologist: Josephine Colón MD Resident/STAKING PRESS OPERATOR/CAA: Luca Peterson MD Performed: resident/STAKING PRESS OPERATOR/CAA Indications and Patient Condition Indications for airway [...] 1 Number of other approaches attempted: 0 [facility] 12-05-2023 Note Patient: Odilia ames Procedure Information Date/Time: 12/05/23 1130 Procedure: Transcatheter mitral valve repair Location: [facility] / [facility] (Cath) Providers: Bee Guevara [...] Plan discussed with attending. Additional Equipment Requests [facility] 12-05-2023 Note Patient: Odilia ames Procedure Information Date/Time: 12/05/23 1130 Procedure: Transcatheter mitral valve repair Location: [facility] / [facility] (Cath) Providers: Bee Guevara MD Relevant Problems Cardio (+) Chronic systolic congestive heart failure (CMS/HCC) (+) Nonrheumatic mitral valve regurgitation (+) Paroxysmal atrial fibrillation (CMS/HCC) (+) Paroxysmal atrial flutter (CMS/HCC) (+) Primary hypertension (+) Severe mitral regurgitation /Renal (+) Chronic kidney disease, stage 3a (CMS/HCC) Clinical information reviewed: Tobacco Allergies Meds Problems [...] with resident and attending. Additional Equipment Requests [facility] 12-03-2023 Note Medications to take AM day of procedure with sips water only: Medication Hold instructions: NSAIDs (Motrin,Aleve): 5 days prior to procedure Vitamins/Supplements: 5 days prior to procedure IF YOU ARE GOING HOME AFTER YOUR SURGERY OR PROCEDURE, FOR YOUR SAFETY, YOUR SURGERY WILL BE CANCELLED IF BOTH OF THE FOLLOWING ARE NOT AVAILABLE: An adult auto haulaway driver over the age of 18, that [...] lenses. Do not wear perfume, make-up, nail setswana, or lotions on the day of your [...] need to make any changes, please call [phone]. Notify your surgeon if you develop any illness such as a cold, cough, fever, sore throat or vomiting between now and your surgery. Thank you for entrusting us with your care. [facility] Surgical Services Team [facility] 11-21-2023 Note [facility] Cardiology Clinic Note Chief Complaint: SOB HPI: Odilia Schroeder is a She is a 78-year-old woman with prior history of paroxysmal atrial fibrillation and atrial flutter. She has prior history of TIA, hypertension and hyperlipidemia. She was previously maintained on anticoagulation therapy for atrial fibrillation. Her QIY0ZI2-ECZc score is 6 for age, history of [...] of breath. She is being evaluated for yogi clip by Dr. Guevara. Cardiology ROS: Negative except as mentioned. Past Medical History She has a past medical history of AF (paroxysmal atrial fibrillation) ([facility]), Hyperlipidemia, Hypertension, Stroke (CMS/HCC), and TIA (transient [...] with Dr. Guevara in 3 months for Yogi Clip Bonnie Cade MD PGY-4 Cardiology Fellowship Program [facility] Pager # [phone] By using the attestations below, the signing clinician agrees that I have read and verify that the documentation has been personally reviewed by me and ensure that the documentation accurately reflects the encounter. GC: I personally saw th (more content not included)... [facility] 11-02-2023 Note [place] [facility] Subjective Odilia Schroeder is a 78 [...] on anticoagulation therapy for atrial fibrillation. Her ZXR7RH1-SESp score is 6 for age, history of [...] Skin: General: Ski (more content not included)... [facility] 10-01-2023 Note [facility] Subjective Odilia Schroeder is a 78 [...] on anticoagulation therapy for atrial fibrillation. Her EDH7YW3-JZXr score is 6 for age, history of [...] Neck supple. Ski (more content not included)... [facility] 09-19-2023 Note Pt is seeing Dr Nayely sawyer today in office [facility] 09-19-2023 Note Patient: Odilia ames Procedure Information Date/Time: 09/19/23 1130 Procedure: TRANSESOPHAGEAL ECHO (CELINA) W/ POSSIBLE CARDIOVERSION Location: [facility] Vascular Lab Clinical information reviewed: Allergies Meds Physical Exam Airway Mallampati: III Cardiovascular Rhythm: irregular Dental Pulmonary Abdominal Anesthesia Plan ASA 3 other (Subconscious sedation. ) Additional Equipment Requests [facility] 07-11-2023 Note B/p currently labile 90/60 with generalized fatigue [facility] 07-11-2023 Note [facility] III- currently euvolemic if [...] and electrolytes- Repeat BMP in 1 week [facility] 07-11-2023 Note Currently I feel she is dehydrated, therefore again instructed her to decrease lasix to 20 mg daily. Monitor fluid status and may increase to bid for 3 days as needed for fluid overload. [facility] 07-11-2023 Note EKG today remains in A fib States anticoagulation was unaffordable and she stopped taking it, therefore persisent a.fib s/p Watchman implant Today she is agreeable to proceeding with CELINA/CV in about 2 weeks- hopefully her daughters are recovered from illness and she is feeling better herself- she will call office to schedule. [facility] 07-11-2023 Note [facility] CARDIOLOGY PROGR ESS [...] with elevated Rt sided pressures [id number] CELINA (7/13/22) Left Ventricle: The left ventricle is normal size. Global left ventricular systolic function is normal. The EF is 55 % visually. No regional wall motion abnormality. Right Ventricle: The right ventricle is normal in size. Normal right ventricular systolic function. Left Atrium: The left atrium is mildly enlarged. Left (more content not included)... [facility] 07-11-2023 Note Patient here for 1 [...] All other systems reviewed and are negative. [facility] 06-06-2023 Note Cardiovascular Medic [facility] SUBJECTIVE Chief Complaint Patient presents with [...] Vitals reviewed. Constitutional: (more content not included)... [facility] 05-09-2023 Note Patient here today f [...] All other systems reviewed and are negative. [facility] 05-09-2023 Note Cardiovascular Medic [facility] SUBJECTIVE Chief Complaint Patient presents with [...] edema. Left lower (more content not included)... [facility] 02-24-2022 Note MR#: [id number] [facility] Pt. Name: Odilia Schroeder Admitted: 02/22/2022 [...] including most recently Dr. Argelia Rodas from [place] [facility] and they all agreed she should be considered for Watchman device, which is what brought her to the wetlands conservation laborer on admission. On 02/22/2022, she underwent successful [...] Eliquis or aspirin unless instructed by your structural steel equipment erector. 2. Follow up with Cardiology as scheduled, with PHOTOGRAPH ENLARGER, Jose M Cabrera in the [facility]. 3. A followup transesophageal echocardiogram will [...] from me. Date Dict: 02/23/2022/02:46 P/Jose M Cabrera CNP Date Trans: 02/24/2022 09:55 Asiya/deja [id number] cc: Zaki Flanagan D.O. [address] [place] [address] [facility] Summary Purpose Family History No Family History Records FoundNo Family History Records FoundNo Family History Records Found Advance Directives No Advanced Directives Records FoundNo Advanced Directives Records FoundNo Advanced Directives Records Found Additional Source Comments INFORMATION SOURCE (unrecogn ized section and content) DATE CREATED AUTHOR 03/08/2022 [facility] DATE CREATED AUTHOR AUTHOR'S ORGANIZ ATION 05/06/2022 [facility] DATE CREATED AUTHOR AUTHOR'S ORGANIZ ATION 05/01/2024 [facility] FOR RECORDS PERTAINING TO PATIENTS WHO ARE [...] BE BASED ON THE PRIMARY CLINICAL RECORDS. [facility]. provides no warranty or guarantee of the accuracy or completeness of information in this document.
== END 2024-05-28 12:43 | disposition home or self-care (01) ==
LOC: CARD 12:43
PROVIDERS: PCP Family Medicine; Visit Provider Internal Medicine Interventional Cardiology
DX: I34.0 Nonrheumatic mitral (valve) insufficiency (principal)
CPT/HCPCS: 93306

== ENCOUNTER 2024-06-10 15:10 | Outpatient (OUT) | payer MEDICARE, SELFPAY ==
[2024-06-10 15:45] LABS: Basophils Absolute Auto 0.1 10^3/uL (0.0-0.1); Basophils Percent Auto 0.7 % (0.2-2.0); Eosinophils Absolute Auto 1.1 10^3/uL (0.0-0.7); Eosinophils Percent Auto 13.5 % (0.9-7.0); Hematocrit 37.8 % (36.0-48.0); Hemoglobin 12.9 g/dL (12.0-16.0); Immature Granulocytes Abs Auto 0.02 10^3/uL (0.00-0.03); Immature Granulocytes Pct Auto 0.2 % (0.0-0.5); Lymphocytes Absolute Auto 2.5 10^3/uL (1.2-3.8); Lymphocytes Percent Auto 30.2 % (20.5-60.0); Mean Corpuscular HGB Conc 34.1 g/dL (29.9-35.2); Mean Corpuscular Hemoglobin 33.9 pg (26.7-34.0); Mean Corpuscular Volume 99.5 fL (81.0-99.0); Mean Platelet Volume 10.3 fL (9.5-13.5); Monocytes Absolute Auto 0.6 10^3/uL (0.3-0.8); Monocytes Percent Auto 7.7 % (1.7-12.0); Neutrophils Percent Auto 47.7 % (43.0-75.0); Platelet Count 177 10^3/uL (150-450); Red Cell Distribution Width 11.9 % (11.0-15.0); White Blood Count 8.4 10^3/uL (4.0-11.0)
[2024-06-10 16:00] LABS: Anion Gap 12.6; BUN Creatinine Ratio 12.9; Calcium 8.8 mg/dL (8.5-10.1); Carbon Dioxide 27.4 mmol/L (21.0-32.0); Chloride 103 mmol/L (98-107); Estimated GFR (African America 35 (>=60 mL/min/1.73m^2); Estimated GFR (Non-African Ame 29 (>=60 mL/min/1.73m^2); Glucose 105 mg/dL (74-106); Sodium 139 mmol/L (136-145)
== END 2024-06-10 15:11 | disposition home or self-care (01) ==
LOC: LAB 15:11
PROVIDERS: PCP Family Medicine; Visit Provider Internal Medicine Interventional Cardiology
DX: I34.0 Nonrheumatic mitral (valve) insufficiency (principal)
CPT/HCPCS: 36415; 80048; 85025

== ENCOUNTER 2024-11-17 17:04 | Observation (INO) | payer MEDICARE, SELFPAY ==
[2024-11-17] VITALS (16 sets, daily range): BP systolic 103–130; BP diastolic 65–84; PULSE 68–95; TEMP 36.3–36.8; O2SAT 95–100; BMI 29.5
--- NOTE | 2024-11-17 17:21 | ECG_ITS ---
[facility] Test Date: 2024-11-17 Pat Name: DEEPA GRIER Department: Room: - Gender: Female Movie Operator: : 1945 Requested By: [id number] Order Number: [id number] Maxi MD: BEE GUEVARA M.D. Measurements Intervals [place] Rate: 83 P: [id number] ID: [id number] QRS: -60 QRSD: 136 T: 83 QT: 426 QTc: 466 Interpretive Statements 1210 Atrial fibrillation 2550 Left bundle branch block 7200 Abnormal left axis deviation 9150 abnormal ECG Compared to ECG 03/17/2023 09:57:06 Aberrant conduction of supraventricular beat(s) no longer present Electronically Signed On 11-17-2024 17:59:56 EDT by BEE GUEVARA M.D.
[2024-11-17 17:40] LABS: Basophils Absolute Auto 0.1 10^3/uL (0.0-0.1); Eosinophils Absolute Auto 1.4 10^3/uL (0.0-0.7); Eosinophils Percent Auto 15.2 % (0.9-7.0); Hematocrit 44.1 % (36.0-48.0); Hemoglobin 15.1 g/dL (12.0-16.0); Immature Granulocytes Abs Auto 0.04 10^3/uL (0.00-0.03); Immature Granulocytes Pct Auto 0.4 % (0.0-0.5); Lymphocytes Absolute Auto 2.6 10^3/uL (1.2-3.8); Lymphocytes Percent Auto 29.1 % (20.5-60.0); Mean Corpuscular HGB Conc 34.2 g/dL (29.9-35.2); Mean Corpuscular Volume 96.5 fL (81.0-99.0); Mean Platelet Volume 10.4 fL (9.5-13.5); Monocytes Absolute Auto 0.7 10^3/uL (0.3-0.8); Neutrophils Absolute Auto 4.2 10^3/uL (1.4-6.5); Neutrophils Percent Auto 46.3 % (43.0-75.0); Platelet Count 242 10^3/uL (150-450); Red Blood Count 4.57 10^6/uL (4.20-5.40); Red Cell Distribution Width 11.9 % (11.0-15.0)
[2024-11-17 18:05] LABS: Anion Gap 11.8; Calcium 9.3 mg/dL (8.5-10.1); Carbon Dioxide 30.3 mmol/L (21.0-32.0); Chloride 99 mmol/L (98-107); Estimated GFR (African America 30 (>=60 mL/min/1.73m^2); Estimated GFR (Non-African Ame 25 (>=60 mL/min/1.73m^2); Glucose 108 mg/dL (74-106); Potassium 4.1 mmol/L (3.5-5.1); Sodium 137 mmol/L (136-145); Troponin I High Sensitivity 7.2 pg/mL (4.0-51.3)
--- NOTE | 2024-11-17 18:31 | ED.GENADUL1 ---
HPI HPI - General Adult General Chief complaint: Shortness of Breath/Dyspnea Stated complaint: Shortness of Breath Time Seen by Provider: 11/17/24 17:10 Source: patient Mode of arrival: walk-in Limitations: no limitations History of Present Illness HPI narrative: 79-year-old female to the emergency department with chief complaint of cough. Patient reports that for the last week she has had a worsening dry cough. She reports wheezing. Patient was unsure if it was fluid on her lungs or pneumonia so she was doubling her Lasix dose for the last week. She reports that this did not seem to be very effective. She denies any fever, sweats, chills. She does report she feels short of breath when she gets up and walks around. Her daughter made her an emergency appoint with her host and hostess today for evaluation who sent her to the emergency department. Related Data Home Medications ?Medication ?Instructions ?Recorded ?Confirmed aspirin 81 mg capsule 81 mg PO DAILY 03/17/23 11/17/24 eszopiclone 1 mg tablet 1 mg PO .qhs PRN sleep 03/17/23 11/17/24 lansoprazole 30 mg capsule,delayed 30 mg PO DAILY 03/17/23 11/17/24 release loratadine 10 mg tablet 10 mg PO DAILY 03/17/23 11/17/24 meclizine 25 mg tablet 25 mg PO TID PRN dizziness 03/17/23 11/17/24 pravastatin 40 mg tablet 40 mg PO BEDTIME 03/17/23 11/17/24 cyanocobalamin (vitamin B-12) 1,000 mcg IM Q30D 11/17/24 11/17/24 1,000 mcg/mL injection solution furosemide 20 mg tablet 20 mg PO DAILY 11/17/24 11/17/24 losartan 25 mg tablet 25 mg PO DAILY 11/17/24 11/17/24 metoprolol succinate 50 mg 50 mg PO .qhs 11/17/24 11/17/24 tablet,extended release 24 hr potassium chloride 20 mEq 20 meq PO DAILY 11/17/24 11/17/24 tablet,extended release spironolactone 25 mg tablet 12.5 mg PO DAILY 11/17/24 11/17/24 Allergies Allergy/AdvReac Type Severity Reaction Status Date / Time No Known Drug Allergies Allergy Verified 03/17/23 09:58 Review of Systems ROS Status of ROS 10 or more systems reviewed and unremarkable except as noted in history and below [facility] Medical History (Updated 11/17/24 @ 18:35 by Catrachito Reyna MD) Stage 3a chronic kidney disease ?N18.31 - Chronic kidney disease, stage 3a (ICD-10) [place] (obstructive sleep apnea) ?G47.33 - Obstructive sleep apnea (adult) (pediatric) (ICD-10) Mitral regurgitation ?I34.0 - Nonrheumatic mitral (valve) insufficiency (ICD-10) Paroxysmal atrial fibrillation ?I48.0 - Paroxysmal atrial fibrillation (ICD-10) Chronic heart failure with preserved ejection fraction (HFpEF) ?I50.32 - Chronic diastolic (congestive) heart failure (ICD-10) GERD (gastroesophageal reflux disease) ?K21.9 - Gastro-esophageal reflux disease without esophagitis (ICD-10) Vertigo ?R42 - Dizziness and giddiness (ICD-10) A-fib ?I48.91 - Unspecified atrial fibrillation (ICD-10) Presence of Watchman left atrial appendage closure device ?Z95.818 - Presence of other cardiac implants and grafts (ICD-10) Hyperlipidemia ?E78.5 - Hyperlipidemia, unspecified (ICD-10) TIA (transient ischemic attack) ?G45.9 - Transient cerebral ischemic attack, unspecified (ICD-10) Hypertension ?I10 - Essential (primary) hypertension (ICD-10) Congestive heart failure ?I50.9 - Heart failure, unspecified (ICD-10) Community acquired pneumonia ?J18.9 - Pneumonia, unspecified organism (ICD-10) Congestive heart failure ?I50.9 - Heart failure, unspecified (ICD-10) Surgical History (Updated 03/17/23 @ 12:31 by Kathirn Gonsalves) Cataract (lens) fragments in eye following cataract surgery, bilateral ?H59.023 - Cataract (lens) fragments in eye following cataract surgery, bilateral (ICD-10) H/O: hysterectomy ?Z90.710 - Acquired absence of both cervix and uterus (ICD-10) H/O left heart catheterization by ventricular puncture ?Z98.890 - Other specified postprocedural states (ICD-10) Family History (Updated 03/17/23 @ 12:32 by Kathrin Gonsalves) Mother Family history of CHF (congestive heart failure) Family history of cancer Family history of diabetes mellitus Family history of hypertension Father Family history of cancer Family history of hypertension Family history of myocardial infarction Sister Family history of cancer Family history of diabetes mellitus Family history of hypertension Social History (Updated 03/17/23 @ 12:33 by Kathrin Gonsalves) Within the past year, how often did you have a drink containing alcohol: never Within the past year, how many standard drinks containing alcohol did you have on a typical day: 1 or 2 Within the past year, how often did you have six or more drinks on one occasion: never Total score: 0 Score interpretation: A score less than 3 is consistent with normal alcohol consumption. Smoking status: Never smoker Non-prescribed substance use: denies use Previous occupational history: retired Highest level of school completed/degree received: high school graduate Are you now , , , , never or living with a partner: In a typical week, how many times do you talk on the telephone with family, friends, or neighbors: 3 or more times per week How often do you get together with friends or relatives: 3 or more times per week How often do you attend mandaen or hindu services: 1-3 times per year Do you belong to any clubs or organizations such as mandaen groups unions, fraternal or athletic groups, or school groups: no Total score: 1 Score interpretation: A score of less than or equal to 1 indicates the most socially isolated. Little interest or pleasure in doing things: not at all Feeling down, depressed, or hopeless: not at all Feel stressed/tense/nervous/anxious/difficulty sleeping: not at all Do you think of yourself as: straight/heterosexual Gender Identity: female Exam Narrative Exam Narrative: VITALS: I have reviewed the triage vital signs. GENERAL: Well developed, well appearing adult in no acute distress. NEURO: Alert and oriented. Moves all extremities. Face is symmetric and expressive. EYES: PERRL. No scleral icterus or conjunctival injection. No discharge. HENT: Normocephalic, atraumatic. Hearing is grossly intact. Nares grossly patent and without discharge. Mucous membranes moist. NECK: No JVD. Patient moves neck without restriction. CARDIO: Rhythm regular. Normal rate. No murmur, rub, or gallop. Pulses equal bilaterally in the upper and lower extremity. No lower extremity edema. PULM: Rhonchi that clear with coughing. Wheezes throughout. Mild conversational dyspnea. No increased work of breathing. GI/: Abdomen is soft and non-tender. Normoactive bowel sounds. EXTREMITIES: Symmetric muscle bulk. No joint swelling. No clubbing, cyanosis, or deformity. SKIN: Warm and dry. Normal turgor. No rash or lesions appreciated. PSYCH: Mood, affect, and interaction is appropriate to the setting. Constitutional Vital Signs, click to edit/add: Last Vital Signs Temp 98.2 F 11/17/24 17:12 Pulse 76 11/17/24 17:12 Resp 20 11/17/24 17:12 BP 130/84 11/17/24 17:12 Pulse Ox 96 11/17/24 17:25 O2 Del Method Room Air 11/17/24 17:25 Course Vital Signs Vital signs: Vital Signs Temperature 98.2 F 11/17/24 17:12 Pulse Rate 76 11/17/24 17:12 Respiratory Rate 20 11/17/24 17:12 Blood Pressure 130/84 11/17/24 17:12 Pulse Oximetry 99 11/17/24 17:12 Oxygen Delivery Method Room Air 11/17/24 17:12 Temperature 98.2 F 11/17/24 17:12 Pulse Rate 76 11/17/24 17:12 Respiratory Rate 20 11/17/24 17:12 Blood Pressure 130/84 11/17/24 17:12 Pulse Oximetry 96 11/17/24 17:25 Oxygen Delivery Method Room Air 11/17/24 17:25 Medical Decision Making MDM Narrative Medical decision making narrative: 79-year-old female to the emergency department with chief complaint of cough and shortness of breath. Vital stable, the patient is afebrile. She is wheezing throughout on exam as well as some mild conversational dyspnea. Basic labs, chest x-ray ordered. Patient agrees with this plan. She was reluctant but agreed to try breathing treatment to see if this would affect the wheezing. No acute ischemic pattern on EKG. Her chest x-ray is without acute findings. Medical Records Medical records reviewed: Yes I reviewed the patient's medical records Lab Data Lab results reviewed: Yes I reviewed the patient's lab results Labs: Lab Results 11/17/24 Range/Units 17:20 WBC 9.0 (4.0-11.0) 10^3/uL RBC 4.57 (4.20-5.40) 10^6/uL Hgb 15.1 (12.0-16.0) g/dL Hct 44.1 (36.0-48.0) % MCV 96.5 (81.0-99.0) fL MCH 33.0 (26.7-34.0) pg MCHC 34.2 (29.9-35.2) g/dL RDW 11.9 (11.0-15.0) % Plt Count 242 (150-450) 10^3/uL MPV 10.4 (9.5-13.5) fL Neut % (Auto) 46.3 (43.0-75.0) % Lymph % (Auto) 29.1 (20.5-60.0) % [place] % (Auto) 8.0 (1.7-12.0) % Eos % (Auto) 15.2 H (0.9-7.0) % Baso % (Auto) 1.0 (0.2-2.0) % Neut # (Auto) 4.2 (1.4-6.5) 10^3/uL Lymph # (Auto) 2.6 (1.2-3.8) 10^3/uL [place] # (Auto) 0.7 (0.3-0.8) 10^3/uL Eos # (Auto) 1.4 H (0.0-0.7) 10^3/uL Baso # (Auto) 0.1 (0.0-0.1) 10^3/uL Abs Immat Gran (auto) 0.04 H (0.00-0.03) 10^3/uL Imm/Tot Granulo (auto) 0.4 (0.0-0.5) % Sodium 137 (136-145) mmol/L Potassium 4.1 (3.5-5.1) mmol/L Chloride 99 (98-107) mmol/L Carbon Dioxide 30.3 (21.0-32.0) mmol/L Anion Gap 11.8 BUN 29.0 H (7.0-18.0) mg/dL Creatinine 1.93 H (0.55-1.02) mg/dL Est GFR ( Amer) 30 L (>=60 mL/min/1.73m^2) Est GFR (Non-Af Amer) 25 L (>=60 mL/min/1.73m^2) BUN/Creatinine Ratio 15.0 Glucose 108 H (74-106) mg/dL Calcium 9.3 (8.5-10.1) mg/dL Troponin I High Sens 7.2 (4.0-51.3) pg/mL NT-Pro-B Natriuret Pep 3279.0 H* (<=1800.0) pg/mL Imaging Data Chest x-ray: Attestation: I have reviewed the pertinent imaging results. Radiologist's impression: See separate PACS document ECG Data Attestation: I personally reviewed and interpreted this ECG as follows: (Atrial fibrillation. No STEMI. Normal QTc) Discharge Plan Discharge Patient Disposition: Still a Patient
[2024-11-17] MEDS: ALBUTEROL SULFATE 2.5 MG/3 ML VIAL NEB IH (18:34)
[2024-11-17] MEDS: PREDNISONE 20 MG TABLET 60 MG PO (19:42)
--- NOTE | 2024-11-17 20:57 | PC.NURSE ---
Coarse wheezes through out
[2024-11-17 22:45] LABS: Glucometer 199 mg/dL (74-106)
[2024-11-17] MEDS: IPRATROPIUM/ALBUTEROL SULFATE 3 ML AMPUL.NEB IH (22:52)
[2024-11-18 00:03] VITALS: BP 155/72; PULSE 92; TEMP 36.4; O2SAT 93
[2024-11-18] MEDS: METOPROLOL SUCCINATE 50 MG TAB.ER.24H PO (00:28)
[2024-11-18] MEDS: ZOLPIDEM TARTRATE 5 MG TABLET PO (00:29)
[2024-11-18] MEDS: ATORVASTATIN CALCIUM 10 MG TABLET PO (00:29)
[2024-11-18] MEDS: MECLIZINE HCL 12.5 MG TABLET 25 MG PO (00:29)
[2024-11-18 04:00] VITALS: BP 102/69; PULSE 77; TEMP 36.7; O2SAT 94
[2024-11-18 06:06] LABS: Basophils Percent Auto 0.2 % (0.2-2.0); Hematocrit 37.1 % (36.0-48.0); Hemoglobin 13.1 g/dL (12.0-16.0); Immature Granulocytes Abs Auto 0.01 10^3/uL (0.00-0.03); Immature Granulocytes Pct Auto 0.2 % (0.0-0.5); Lymphocytes Absolute Auto 0.8 10^3/uL (1.2-3.8); Lymphocytes Percent Auto 19.5 % (20.5-60.0); Mean Corpuscular HGB Conc 35.3 g/dL (29.9-35.2); Mean Corpuscular Hemoglobin 33.3 pg (26.7-34.0); Mean Corpuscular Volume 94.4 fL (81.0-99.0); Mean Platelet Volume 10.4 fL (9.5-13.5); Monocytes Absolute Auto 0.1 10^3/uL (0.3-0.8); Monocytes Percent Auto 1.2 % (1.7-12.0); Neutrophils Absolute Auto 3.3 10^3/uL (1.4-6.5); Neutrophils Percent Auto 78.9 % (43.0-75.0); Platelet Count 207 10^3/uL (150-450); Red Blood Count 3.93 10^6/uL (4.20-5.40); Red Cell Distribution Width 11.6 % (11.0-15.0); White Blood Count 4.2 10^3/uL (4.0-11.0)
[2024-11-18 06:23] LABS: Alanine Aminotransferase 9 U/L (14-59); Albumin Globulin Ratio 0.8; Alkaline Phosphatase 54 U/L (46-116); Anion Gap 13.7; Aspartate Amino Transferase 15 U/L (15-37); BUN Creatinine Ratio 17.7; Bilirubin Total 0.4 mg/dL (0.2-1.0); Calcium 8.4 mg/dL (8.5-10.1); Carbon Dioxide 26.4 mmol/L (21.0-32.0); Chloride 101 mmol/L (98-107); Estimated GFR (African America 33 (>=60 mL/min/1.73m^2); Estimated GFR (Non-African Ame 27 (>=60 mL/min/1.73m^2); Globulin 3.7 g/dL; Glucose 251 mg/dL (74-106); Magnesium 1.8 mg/dL (1.8-2.4); Potassium 4.1 mmol/L (3.5-5.1); Sodium 137 mmol/L (136-145); Total Protein 6.7 g/dL (6.4-8.2)
[2024-11-18] MEDS: PANTOPRAZOLE SODIUM 40 MG TABLET.DR PO (06:40)
[2024-11-18] MEDS: METHYLPREDNISOLONE SOD SUCC PF 40 MG/ML VIAL IVP (06:40)
[2024-11-18 07:35] LABS: Internal Control Within Normal Limits; SARS-CoV-2 Ag NEGATIVE (NEGATIVE)
[2024-11-18 07:36] LABS: Influenza Virus A Antigen Negative; Influenza Virus B Antigen Negative; Internal Control Within Normal Limits
[2024-11-18 08:00] VITALS: BP 114/71; PULSE 79; TEMP 36.5; O2SAT 92
[2024-11-18] MEDS: AZITHROMYCIN 250 MG TABLET 500 MG PO (08:43)
[2024-11-18] MEDS: ASPIRIN 81 MG TABLET.DR PO (08:43)
[2024-11-18] MEDS: FUROSEMIDE 20 MG TABLET PO (08:43)
[2024-11-18] MEDS: LOSARTAN POTASSIUM 25 MG TABLET PO (08:43)
[2024-11-18] MEDS: POTASSIUM CHLORIDE 10 MEQ ER TABLET 20 MEQ PO (08:43)
[2024-11-18] MEDS: CETIRIZINE HCL 10 MG TABLET PO (08:43)
[2024-11-18] MEDS: SPIRONOLACTONE 25 MG TABLET 12.5 MG PO (08:43)
--- NOTE | 2024-11-18 10:37 | SWNOTE1 ---
SW met with pt to discuss dc needs. SW also consulted for Advanced Directives. Pt lives at home with her daughter, her daughter is on disability. Pt does still drive and takes her daughter to appointments. Pt uses a cane at home. Pt does not go grocery shopping in store anymore, too hard to walk around for that amount of time. Pt spoke about her heart and having various things done. 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 Pt stated she is going home today at some point. SW asked her about completing health care power of transactional attorney. She asked if her daughter had to be present. SW advised no that as long as she is alert and oriented, pt can complete with SW at anytime. Pt would like the booklet and would like to review it and let SW know if she would like to complete it today prior to leaving. SW advised if she does not complete it today, she can call and schedule time with SW. Pt voiced understanding.
--- NOTE | 2024-11-18 10:45 | SWNOTE1 ---
SW provided pt with advanced directive booklet and SW contact card. She voiced her daughter would want to be present. SW let her know to call anytime to schedule appointment. Pt voiced understanding.
--- NOTE | 2024-11-18 11:11 | PM.HP ---
HPI H&P: HPI History of Present Illness Chief complaint: Bronchospasms Narrative: HPI and Hospital Course: 79-year-old female with with past medical history of heart failure with preserved ejection action, hyperlipidemia presented to ED with 4-day history of cough, worsening shortness of breath associated with wheezing. She doubled up on her oral Lasix thinking that her shortness of breath is secondary to volume overload from heart failure but noticed no improvement in her symptoms. She presented to ER last evening for further evaluation. Patient had a normal chest x-ray with no evidence of volume overload on imaging/clinical exam. She was given IV Solu-Medrol and inhaled DuoNebs with improvement in her symptoms and was admitted for overnight observation. Earlier today when I evaluated her, she felt better overall but was still complaining of dry cough and intermittent wheezing. She denies prior history of asthma or COPD. She reports her symptoms started with rhinorrhea and nasal congestion and subsequently she developed hacking dry cough with wheezing and shortness of breath. She denies fever, chills. Patient tested negative for influenza and COVID. Patient likely had upper respiratory illness with bronchospasm and has no ongoing need for inpatient admission/treatment. Patient is medically stable for discharge on oral prednisone, oral Ceftin along with albuterol as needed. Patient was educated on worrisome signs and symptoms and was instructed to return to ED if she develop worsening cough, shortness of breath, persistent fever. Patient was also instructed to follow-up with PCP in 1 to 2 weeks. Discharge disposition: Home Discharge status: Stable Discharge diagnosis Upper respiratory illness with rhonchi spasms/wheezing Opioid HPI Opioid Management Most Recent Pain and Opioid Data: Last Pain Assessment 11/17/24, 22:19 Last ORT Total Score 0 11/17/24, 22:28 Last ORT Risk Category Low Risk 11/17/24, 22:28 Review of Systems ROS Status of ROS 10 or more systems reviewed and unremarkable except as noted in history and below [facility] Medical History (Updated 11/18/24 @ 11:16 by Shaikh Millicent MD) Stage 3a chronic kidney disease ?N18.31 - Chronic kidney disease, stage 3a (ICD-10) [place] (obstructive sleep apnea) ?G47.33 - Obstructive sleep apnea (adult) (pediatric) (ICD-10) Mitral regurgitation ?I34.0 - Nonrheumatic mitral (valve) insufficiency (ICD-10) Paroxysmal atrial fibrillation ?I48.0 - Paroxysmal atrial fibrillation (ICD-10) Chronic heart failure with preserved ejection fraction (HFpEF) ?I50.32 - Chronic diastolic (congestive) heart failure (ICD-10) GERD (gastroesophageal reflux disease) ?K21.9 - Gastro-esophageal reflux disease without esophagitis (ICD-10) Vertigo ?R42 - Dizziness and giddiness (ICD-10) A-fib ?I48.91 - Unspecified atrial fibrillation (ICD-10) Presence of Watchman left atrial appendage closure device ?Z95.818 - Presence of other cardiac implants and grafts (ICD-10) Hyperlipidemia ?E78.5 - Hyperlipidemia, unspecified (ICD-10) TIA (transient ischemic attack) ?G45.9 - Transient cerebral ischemic attack, unspecified (ICD-10) Hypertension ?I10 - Essential (primary) hypertension (ICD-10) Congestive heart failure ?I50.9 - Heart failure, unspecified (ICD-10) Community acquired pneumonia ?J18.9 - Pneumonia, unspecified organism (ICD-10) Congestive heart failure ?I50.9 - Heart failure, unspecified (ICD-10) Surgical History Cataract (lens) fragments in eye following cataract surgery, bilateral ?H59.023 - Cataract (lens) fragments in eye following cataract surgery, bilateral (ICD-10) H/O: hysterectomy ?Z90.710 - Acquired absence of both cervix and uterus (ICD-10) H/O left heart catheterization by ventricular puncture ?Z98.890 - Other specified postprocedural states (ICD-10) Family History Mother Family history of CHF (congestive heart failure) Family history of cancer Family history of diabetes mellitus Family history of hypertension Father Family history of cancer Family history of hypertension Family history of myocardial infarction Sister Family history of cancer Family history of diabetes mellitus Family history of hypertension Social History Within the past year, how often did you have a drink containing alcohol: never Within the past year, how many standard drinks containing alcohol did you have on a typical day: 1 or 2 Within the past year, how often did you have six or more drinks on one occasion: never Total score: 0 Score interpretation: A score less than 3 is consistent with normal alcohol consumption. Smoking status: Never smoker Non-prescribed substance use: denies use Previous occupational history: retired Highest level of school completed/degree received: high school graduate Are you now , , , , never or living with a partner: In a typical week, how many times do you talk on the telephone with family, friends, or neighbors: 3 or more times per week How often do you get together with friends or relatives: 3 or more times per week How often do you attend samaritan or yazidi services: 1-3 times per year Do you belong to any clubs or organizations such as samaritan groups unions, [employer] or athletic groups, or school groups: no Total score: 1 Score interpretation: A score of less than or equal to 1 indicates the most socially isolated. Little interest or pleasure in doing things: not at all Feeling down, depressed, or hopeless: not at all Feel stressed/tense/nervous/anxious/difficulty sleeping: not at all Do you think of yourself as: straight/heterosexual Gender Identity: female Meds Home Medications and Allergies Home Medications ?Medication ?Instructions ?Recorded ?Confirmed ?Type aspirin 81 mg capsule 81 mg PO DAILY 03/17/23 11/17/24 History eszopiclone 1 mg tablet 1 mg PO .qhs PRN sleep 03/17/23 11/17/24 History lansoprazole 30 mg capsule,delayed 30 mg PO DAILY 03/17/23 11/17/24 History release loratadine 10 mg tablet 10 mg PO DAILY 03/17/23 11/17/24 History meclizine 25 mg tablet 25 mg PO TID PRN dizziness 03/17/23 11/17/24 History pravastatin 40 mg tablet 40 mg PO BEDTIME 03/17/23 11/17/24 History cyanocobalamin (vitamin B-12) 1,000 mcg IM Q30D 11/17/24 11/17/24 History 1,000 mcg/mL injection solution furosemide 20 mg tablet 20 mg PO DAILY 11/17/24 11/17/24 History losartan 25 mg tablet 25 mg PO DAILY 11/17/24 11/17/24 History metoprolol succinate 50 mg 50 mg PO .qhs 11/17/24 11/17/24 History tablet,extended release 24 hr potassium chloride 20 mEq 20 meq PO DAILY 11/17/24 11/17/24 History tablet,extended release spironolactone 25 mg tablet 12.5 mg PO DAILY 11/17/24 11/17/24 History albuterol sulfate 90 mcg/actuation 2 inh inhalation Q6H PRN shortness 11/18/24 Rx aerosol inhaler of breath or wheezing #6.7 grams benzonatate 100 mg capsule 100 mg PO TID PRN cough #20 caps 11/18/24 Rx cefuroxime axetil 500 mg tablet 500 mg PO BID 7 days #14 tabs 11/18/24 Rx prednisone 20 mg tablet 20 mg PO BID #10 tabs 11/18/24 Rx Allergies Allergy/AdvReac Type Severity Reaction Status Date / Time No Known Drug Allergies Allergy Verified 11/17/24 22:19 Exam Constitutional Vital Signs, click to edit/add: Last Vital Signs Temp 97.7 F 11/18/24 08:00 Pulse 79 11/18/24 08:00 Resp 18 11/18/24 08:00 BP 114/71 11/18/24 08:00 Pulse Ox 92 L 11/18/24 08:00 O2 Del Method Room Air 11/18/24 08:00 Documenting provider has reviewed patient's vital signs: yes Common normals: no apparent distress and oriented x3 General appearance: cooperative Respiratory Common normals: normal respiratory effort and clear to auscultation bilaterally Effort & inspection: able to speak in complete sentences and actively coughing non-productive, dry, hacking and bronchospastic Auscultation: clear to auscultation bilaterally Cardio Common normals: regular rate, S1 normal heart sound and S2 normal heart sound Rate: regular rate Heart sounds: S1 normal and S2 normal GI Common normals: Normal to inspection, nondistended, normoactive bowel sounds present, soft to palpation, non-tender and no hepatosplenomegaly Palpation: soft and no hepatosplenomegaly Extremity Common normals: no clubbing, cyanosis or edema Neuro Common normals: oriented x3, moves all extremities and no focal motor deficits Psych Common normals: mental status grossly normal, denies hallucinations, denies homicidal ideation and denies suicidal ideation Results Labs Labs: Short CBC 11/17/24 11/18/24 Range/Units 17:20 05:39 WBC 9.0 4.2 (4.0-11.0) 10^3/uL Hgb 15.1 13.1 (12.0-16.0) g/dL Hct 44.1 37.1 (36.0-48.0) % Plt Count 242 207 (150-450) 10^3/uL BMP 11/17/24 11/18/24 17:20 05:39 Sodium 137 137 Potassium 4.1 4.1 Chloride 99 101 Carbon Dioxide 30.3 26.4 BUN 29.0 H 32.0 H Creatinine 1.93 H 1.81 H Glucose 108 H 251 H Calcium 9.3 8.4 L Liver Function 11/18/24 Range/Units 05:39 Total Bilirubin 0.4 (0.2-1.0) mg/dL AST 15 (15-37) U/L ALT 9 L (14-59) U/L Alkaline Phosphatase 54 (46-116) U/L Albumin 3.0 L (3.4-5.0) g/dL Assessment and Plan Assessment and Plan (1) Bronchitis: (2) Chronic heart failure with preserved ejection fraction (HFpEF): (3) Paroxysmal atrial fibrillation: (4) Stage 3a chronic kidney disease: (5) Hyperlipidemia: Qualifiers: Hyperlipidemia type: unspecified Qualified Code(s): E78.5 - Hyperlipidemia, unspecified (6) Hypertension: Qualifiers: Hypertension type: primary hypertension Qualified Code(s): I10 - Essential (primary) hypertension Plan Patient presents with cough, shortness of breath along with wheezing. Patient's symptoms likely secondary to upper respiratory illness associated with bronchospasm resulting in wheezing and shortness of breath. No evidence of pneumonia on chest x-ray. While she had an elevated BNP, she clinically appears euvolemic with no evidence of acute congestive heart failure. Patient was treated overnight with Solu-Medrol and DuoNebs with improvement in her symptoms. She is still complaining of cough but overall feels better. Patient is medically stable for discharge on oral prednisone, Ceftin and albuterol as needed. Patient will need follow-up with PCP in 1 to 2 weeks.
--- NOTE | 2024-11-18 11:14 | CM.NOTE ---
Rounds made with Dr. Ricks, pt will discharge to home today. No discharge needs identified. Pt does have cane and walker at home for ambulation, pt lives with daughter.
--- NOTE | 2024-11-18 11:22 | CM.NOTE ---
Medical Outpatient Observation Notice discussed with pt, pt verbalizes understanding and signs paper. Original given to pt and copy placed on pt's chart.
[2024-11-18] MEDS: IPRATROPIUM/ALBUTEROL SULFATE 3 ML AMPUL.NEB IH (11:35)
[2024-11-18 11:38] VITALS: O2SAT 97
--- NOTE | 2024-11-20 14:32 | CM.DCFOLLOWU ---
1st attempt 11/20/24, no answer
--- NOTE | 2024-11-24 13:45 | CM.DCFOLLOWU ---
2nd attempt 11/24/24, no answer
--- NOTE | 2024-11-25 13:31 | CM.DCFOLLOWU ---
3rd attempt 11/25/24, no answer
== END 2024-11-18 13:35 | disposition home or self-care (01) ==
LOC: ER 21:12 → MS 22:10
PROVIDERS: Registered Nurse; Admitting Provider Internal Medicine; Emergency Provider Student in an Organized Health Care Education/Training Program; PCP Family Medicine; Visit Provider Internal Medicine
DX: J98.01 Acute bronchospasm (principal); R06.02 Shortness of breath; J40 Bronchitis, not specified as acute or chronic; I50.32 Chronic diastolic (congestive) heart failure; N18.31 Chronic kidney disease, stage 3a; I48.0 Paroxysmal atrial fibrillation; J39.9 Disease of upper respiratory tract, unspecified; R06.2 Wheezing; Z90.710 Acquired absence of both cervix and uterus; E78.5 Hyperlipidemia, unspecified; I13.0 Hypertensive heart and chronic kidney disease with heart failure and stage 1 through stage 4 chronic kidney disease, or unspecified chronic kidney disease
CPT/HCPCS: 36415; 71046; 80048; 80053; 82947; 83735; 83880; 84484; 85025; 87804; 87811; 93005; 94640; 94667; 94668; 94761; 96374; 99285; G0378; J2919; J7512

== ENCOUNTER 2025-01-05 12:59 | Outpatient (OUT) | payer MEDICARE, SELFPAY ==
--- OUTSIDE RECORDS SUMMARY | 2025-01-05 13:04 | XMS_ITS | Referral Summary ---
Author Organization [facility] Address [address] [place] [address] Care Team Providers Care Bolt Cutter Name Role Phone WynnZaki Primary Care Provider [phone] Encounters Date Type Department Care Team Description 11/17/2024 3:30 PM EDT Follow-Up [facility] Heart at [place] [address] [place] [address] Zhou Renee MD Acute cough (Primary Dx); Shortness of breath; Nonrheumatic mitral valve regurgitation; Paroxysmal atrial fibrillation (CMS/HCC); Chronic systolic heart failure (CMS/HCC); Presence of Watchman left atrial appendage closure device; Primary hypertension from Last 3 Months Allergies No known active allergies Medications loratadine (Claritin) 10 mg tablet Take 10 mg by mouth in the morning. Active meclizine (Antivert) 25 mg tablet Take 25 mg by mouth if needed in the morning, at noon, and at bedtime for dizziness. Active aspirin 81 mg EC tablet Take 81 mg by mouth in the morning. Active eszopiclone (Lunesta) 1 mg tablet 1 (one) time each day at the same time. 03/08/20 23 Active lansoprazole (Prevacid) [address] capsuleIndication s:Gastroesophagea l reflux disease without esophagitis TAKE 1 CAPSULE BY MOUTH ONCE DAILY before a meal 90 capsule 3 05/11/20 23 Active cholecalciferol (Vitamin D3) 25 MCG (1000 units) tablet Take 1,000 Units by mouth in the morning. Active pravastatin (Pravachol) 40 mg tabletIndications :Mixed hyperlipidemia TAKE 1 TABLET BY MOUTH AT BEDTIME 90 tablet 3 12/17/19 24 Active cyanocobalamin (Vitamin B-12) 1,000 mcg/mL injection INJECT 1 (ONE) ml INTRAMUSCULARLY or SUBCUTANEOUSLY EVERY month 12/15/19 24 Active losartan (Cozaar) 25 mg tabletIndications :Benign hypertensive heart disease with heart failure (CMS/HCC) Take 1 tablet (25 mg) by mouth once daily as directed. 90 tablet 3 02/01/20 24 025 Active metoprolol succinate XL (Toprol-XL) 50 mg 24 hr tabletIndications :Chronic systolic heart failure (CMS/HCC) Take 1 tablet (50 mg) by mouth at bedtime. Do not crush or chew. 90 tablet 3 06/10/20 24 025 Active furosemide (Lasix) 20 mg tabletIndications :Congestive heart failure, NYHA class IV, acute, combined (CMS/HCC) Take 1 tablet (20 mg) by mouth in the morning. 90 tablet 3 06/11/20 24 025 Active Additional Information Patient taking differently: (No dose reported), oral Daily,Patient states she has been taking 40mg x 2 days, Reported on 11/17/2024 spironolactone (Aldactone) 25 mg tabletIndications :Chronic systolic heart failure (CMS/HCC) Take 0.5 tablets (12.5 mg) by mouth in the morning. 45 tablet 3 06/16/20 24 025 Active HYDROcodone-aceta minophen ([place]) 5-325 mg tablet Take 1 tablet by mouth if needed in the morning and at bedtime. 06/18/20 24 Active potassium chloride CR (K-Tab) 20 mEq ER tabletIndications :Benign hypertensive heart disease with heart failure (CMS/HCC) Take 1 tablet (20 mEq) by mouth once daily as directed. Do not crush, chew, or split. 90 tablet 3 09/19/19 25 026 Active Active Problems Problem Noted Date Diagnosed Date Age-related osteoporosis wit hout current pathological fracture 01/10/2024 SIMS (dyspnea on exertion) 12/13/2023 Nonrheumatic mitral valve regurgitation 11/29/19 Chronic systolic congestive heart failure 2023 Severe mitral regurgitation 11/21/2023 Presence of Watchman left atrial appendage closu re device 11/21/2023 Primary hypertension 11/21/2023 Congestive heart failure, NYHA class IV, acute, combined 03/28/2023 03/28/2023 Assessment & Plan (07/11/2023 3:27 PM EST): [facility] III- currently euvolemic if not a [...] and electrolytes- Repeat BMP in 1 week Assessment & Plan (04/30/2023 10:24 AM EDT): [facility] II-IIIc, Currently pt is euvolemic without Continue GDMT- Aspirin, [...] she was most likely still fluid overloaded. Assessment & Plan (04/25/2023 1:02 PM EDT): [facility] IVc- currently fluid overloaded, dyspneic at [...] fluid restriction 1.5-2L/day, renal function and electrolytes Chronic kidney disease, stage 3a 03/28/2023 03/28/2023 Major depressive disorder, single episode, mild 03/28/2023 03/28/2023 Paroxysmal atrial fibrillation 03/08/2022 Assessment & Plan (09/11/2023 9:44 AM EST): EKG today remains in A fib States anticoagulation was unaffordable and she stopped taking it, therefore persisent a.fib s/p Watchman implant Today she is agreeable to proceeding with CELINA/CV in about 2 weeks- hopefully her daughters are recovered from illness and she is feeling better herself- she will call office to schedule. Assessment & Plan (04/25/2023 1:10 PM EDT): [id number]= 6 Age, female, HTN, CHF, TIA No anticoagulation s/p watchman implantation Continue metoprolol tartrate- will plan to transition to GDMT- for CHF possibly at next visit- toprol, coreg or bisprolol Iron deficiency anemia due to chronic blood loss 01/05/2022 Normocytic anemia 10/06/2021 Tremor of right hand 09/22/2021 Syncope and collapse 09/22/2021 Assessment & Plan (04/30/2023 9:59 AM EDT): Currently stable without any lightheadedness, dizziness or syncope since last visit Assessment & Plan (04/25/2023 12:55 PM EDT): Stable- no syncope Orthostatic hypotension 09/22/2021 Assessment & Plan (07/11/2023 2:50 PM EST): Currently I feel she is dehydrated, therefore again instructed her to decrease lasix to 20 mg daily. Monitor fluid status and may increase to bid for 3 days as needed for fluid overload. Assessment & Plan (04/30/2023 9:56 AM EDT): Currently stable Assessment & Plan (04/25/2023 12:52 PM EDT): stable Paroxysmal atrial flutter 08/26/2019 History of transient ischemic attack 08/26/2019 Benign hypertensive cardiomyopathy with heart fa ilure 08/26/2019 Assessment & Plan (07/11/2023 3:27 PM EST): B/p currently labile 90/60 with generalized fatigue Assessment & Plan (04/30/2023 9:58 AM EDT): Currently hypertension is well controlled Assessment & Plan (04/25/2023 12:55 PM EDT): Currently uncontrolled, add entresto and farxga, continue lasix Monitor b/p at home Dyslipidemia 08/26/2019 Immunizations Immunization Administration Dates Next Due Influenza, High Dose Seasona l, Preservative Free 07/29/2016 Influenza, Seasonal, Quadriv alent, Adjuvanted 08/03/2022,04/14/2021 Influenza, seasonal, injectable 04/24/2015 Influenza, trivalent, adjuvanted 04/23/2019,06/15 Pneumococcal Conjugate PCV 13 04/24/2015 Pneumococcal Polysaccharide PPV23 06/26/2018 Unspecified Sars-Cov-2 Vaccination 07/27/2021,,08/18/2020 Social History Tobacco Use Types Packs/Day Years Used Date Smoking Tobacco: Never Passive Smoke Exposure: Current Smokeless Tobacco: Never Tobacco Cessation:Counseling Given: Not Answered Alcohol Use Standard Drinks/Week Comments Not Currently 0 (1 standard drink = 0.6 oz pur e alcohol) [place] Safety & Environment Answer Date Rec orded Fear of Current or Ex-Partner Not on file Emotionally Abused Not on file 09/06/2023 Physically Abused Not on file 09/06/2023 Sexually Abused Not on file 09/06/2023 Physically or Sexually Abused Not on file Comments No Sex and Gender Information Value Date Recorded Sex Assigned at Female 03/13/2024 1:25 PM EDT Legal Sex Female 12:22 AM EDT Gender Identity Female 03/13/2024 1:25 PM EDT Sexual Orientation Don't know 03/13/2024 1: 25 PM EDT Last Filed Vital Signs Vital Sign Reading Time Taken Comments Blood Pressure 118/62 11/17/2024 3:46 PM EDT Pulse 70 11/17/2024 3:46 PM EDT Temperature 36.3 C (97.3 F) 12/05/2023 3:15 PM EDT Respiratory Rate 13 07/04/2024 9:30 AM EST Oxygen Saturation 98% 11/17/2024 3:46 PM EDT Inhaled Oxygen Concentration - - Weight 68.5 kg (151 lb) 11/17/2024 3:46 PM EDT Height 152.4 cm (5') 11/17/2024 3:46 PM EDT Body Mass Index 29.49 11/17/2024 3:46 PM EDT Plan of Treatment Upcoming Encounters Date Type Department Care Team (Late st Contact Info) Description 02/02/2025 2:30 PM EDT Office Visit [facility] Heart at [facility] [address] [place] [address] Zhou Renee MD [address] [facility] [address] [facility] [place] [address] Medical Devices Implanted Type Area Assembly Inspector Device Identifier Shelf Expiration Date Model / Serial / Lot Watchman Implanted:02/13 (Quantity not on file) Device N/A: Heart Insurance [employer] MEDICARE ADVANTAGE Care Teams Bolt Cutter Relationship Specialty Start Date End Date Zaki Wynn DO [address] [place] [address] [facility] - General 04/21/22
--- OUTSIDE RECORDS SUMMARY | 2025-01-05 13:04 | XMS_ITS | Encounter Summary ---
Author Organization [facility] Address [id number] [address] [place] [address] Care Team Providers Care Side Gluer Name Role Phone Zaki Wynn Primary Care Provider Encounter Details Date Type Department Care Team (Late st Contact Info) Description 09/28/2021 Telephone Jacy Brewster [facility] - Medical Oncology [address] [place] [phone] Yumiko Greenberg RMA Social History Tobacco Use Types Packs/Day Years Used Date Smoking Tobacco: Never Smokeless Tobacco: Never Alcohol Use Standard Drinks/Week Comments Never 0 (1 standard drink = 0.6 oz pur e alcohol) Childcare Answer Date Recorded Childcare Unknown 12/25/2018 Employment Answer Date Recorded Employment Unknown 12/25/2018 Comments No Sex and Gender Information Value Date Recorded Sex Assigned at Not on file Legal Sex Female 11:29 AM EDT Gender Identity Not on file Sexual Orientation Not on file COVID-19 Exposure Response Date Recorded In the last 10 days, have yo u been in contact with someone who was confirmed or suspected to have Coronavirus/COVID-19? No / Unsure 09/21/2021 11:15 PM EST documented as of this encounter Miscellaneous Notes * Telephone Encounter - Yumiko Greenberg MA - 09/28/2021 1:04 PM EDT Association Executive called salvador Vallecillo to inform about appt. [phone]. Daughter in on contact list and asks to be informed of all appts. documented in this encounter Plan of Treatment Not on file documented as of this encounter Goals Goal Patient Goal Type Associated Problems Recent Progress Patient-Stated? Author safe discharge to SNF General Yes Trinidad Galaviz, RN Note: Evaluation of progress towards goal:safe transition to SNF documented as of this encounter Visit Diagnoses Not on filedocumented in this encounter Care Teams Side Gluer Relationship Specialty Start Date End Date Zaki Wynn DO [address] [id number] PCP - General Family Medicine 09/21/21 documented as of this encounter
--- OUTSIDE RECORDS SUMMARY | 2025-01-05 13:04 | XMS_ITS | Clinical Summary ---
Author Organization [facility] Address [address] [place] [address] Care Team Providers Care Rn Cardiac Rehab Name Role Phone Zaki Wynn DO Primary Care Provider [phone] Allergies No known active allergies Medications loratadine [...] 3 06/16/20 24 025 Active HYDROcodone-aceta minophen ([place]) 5-325 mg tablet Take 1 tablet by [...] exertion) 12/13/2023 Nonrheumatic mitral valve regurgitation 11/29/19 24 Chronic systolic congestive heart failure 2023 Severe mitral regurgitation 11/21/2023 Presence of Watchman left atrial appendage closu re device 11/21/2023 Primary hypertension 11/21/2023 Congestive heart failure, NYHA class IV, acute, combined 03/28/2023 03/28/2023 Assessment & Plan (07/11/2023 3:27 PM EST): [facility] III- currently euvolemic if not a [...] Assessment & Plan (04/30/2023 10:24 AM EDT): [facility] II-IIIc, Currently pt is euvolemic without Continue [...] Assessment & Plan (04/25/2023 1:02 PM EDT): [facility] IVc- currently fluid overloaded, dyspneic at rest [...] Assessment & Plan (04/25/2023 1:10 PM EDT): [id number]= 6 Age, female, HTN, CHF, TIA No [...] lasix Monitor b/p at home Dyslipidemia 08/26/2019 Encounters Date Type Department Care Team Description 11/17/2024 3:30 PM EDT Follow-Up [facility] Heart at [facility] [address] [place] [address] Zhou Renee MD Acute cough (Primary Dx); Shortness of breath; Nonrheumatic mitral valve regurgitation; Paroxysmal atrial fibrillation (CMS/HCC); Chronic systolic heart failure (CMS/HCC); Presence of Watchman left atrial appendage closure device; Primary hypertension from Last 3 Months Immunizations Immunization Administration Dates Next Due Influenza, High Dose Seasona l, Preservative Free 07/29/2016 Influenza, Seasonal, Quadriv alent, Adjuvanted 08/03/2022,04/14/2021 Influenza, seasonal, injectable 04/24/2015 Influenza, trivalent, adjuvanted 04/23/2019,06/15 Pneumococcal Conjugate PCV 13 04/24/2015 Pneumococcal Polysaccharide PPV23 06/26/2018 Unspecified Sars-Cov-2 Vaccination 07/27/2021,,08/18/2020 Family History Medical History Relation Name Comments Cancer Father Heart attack Father Cancer Mother Cancer Sister Relation Name Status Comments Brother Alive Father Mother Sister Social History Tobacco Use Types Packs/Day Years [...] Description 02/02/2025 2:30 PM EDT Office Visit [facility] Heart at [place] [address] [place] [address] Zhou Renee MD [address] [facility] [address] [facility] [place] [address] Health Maintenance Due Date Last Done Comments Medicare Annual Wellness (AWV) 1945 Depression Screening 1955 Adult Tetanus 1965 Zoster Vaccines (1 of 2) 1993 Fall Risk Screening 2008 COVID-19 Vaccine ( season) 2024 07/27/2021, 07/27/2021, 09/15/2020, Additional history exists Pneumococcal Vaccine: 50+ Years Completed 06/26/2018, 04/24/2015 Influenza Vaccine Completed 04/11/2024, , 08/03/2022, Additional history exists HIB Vaccines Aged Out No longer eligi ble based on patient's age to complete this topic HPV Vaccines Aged Out No longer eligi ble based on patient's age to complete this topic IPV Vaccines Aged Out No longer eligi ble based on patient's age to complete this topic Meningococcal B Vaccine Aged Out No l onger eligible based on patient's age to complete this topic Meningococcal Vaccine Aged Out No tena nj eligible based on patient's age to complete this topic Rotavirus Vaccines Aged Out No longer eligible based on patient's age to complete this topic Medical Devices Implanted Type Area Paste Plant Supervisor Device Identifier Shelf Expiration Date Model / Serial / Lot Watchman Implanted:02/13 (Quantity not on file) Device N/A: Heart Insurance [address] [place] [address] A[employer]NA MEDICARE ADVANTAGE Care Teams Rn Cardiac Rehab Relationship Specialty Start Date End Date Zaki Wynn DO [address] [place] [address] PCP - General 04/21/22
--- OUTSIDE RECORDS SUMMARY | 2025-01-05 13:04 | XMS_ITS | Clinical Summary ---
Author Organization [facility] Address [address] [place] [address] Care Team Providers Care Exercise Instruct Name Role Phone Zaki Wynn MD Primary Care Provider Social History Tobacco Use Types Packs/Day Years Used Date Smoking Tobacco: Never Assessed Comments Unknown Sex and Gender Information Value Date Recorded Sex Assigned at Not on file Legal Sex Female 6:56 PM EDT Gender Identity Not on file Sexual Orientation Not on file Last Filed Vital Signs Vital Sign Reading Time Taken Comments Blood Pressure 132/70 02/26/2020 12:00 PM EDT Pulse - - Temperature - - Respiratory Rate - - Oxygen Saturation - - Inhaled Oxygen Concentration - - Weight 82.6 kg (182 lb) 02/26/2020 12:00 PM EDT Height 154.9 cm (5' 1 ) 02/26/2020 12:00 PM EDT Body Mass Index 34.39 02/26/2020 12:00 PM EDT Plan of Treatment Health Maintenance Due Date Last Done Comments Influenza Vaccine (Season Ended) 2025 08/03/2022, 04/14/2021, 04/23/2019, Additional history exists Pneumococcal Vaccine: 65+ Years Completed 8, 04/24/2015 Insurance AETNA MEDICARE ADVANTAGE Care Teams Exercise Instruct Relationship Specialty Start Date End Date Zaki Wynn MD [address] [place] [address] [address] [place] [address] PCP - General Family Medicine 12/15/24
[2025-01-05 13:43] LABS: Basophils Percent Auto 0.2 % (0.2-2.0); Eosinophils Absolute Auto 0.7 10^3/uL (0.0-0.7); Eosinophils Percent Auto 6.2 % (0.9-7.0); Hematocrit 43.6 % (36.0-48.0); Hemoglobin 14.9 g/dL (12.0-16.0); Immature Granulocytes Abs Auto 0.05 10^3/uL (0.00-0.03); Immature Granulocytes Pct Auto 0.5 % (0.0-0.5); Lymphocytes Absolute Auto 2.9 10^3/uL (1.2-3.8); Lymphocytes Percent Auto 27.8 % (20.5-60.0); Mean Corpuscular HGB Conc 34.2 g/dL (29.9-35.2); Mean Corpuscular Hemoglobin 32.5 pg (26.7-34.0); Mean Corpuscular Volume 95.2 fL (81.0-99.0); Mean Platelet Volume 10.5 fL (9.5-13.5); Monocytes Absolute Auto 0.9 10^3/uL (0.3-0.8); Monocytes Percent Auto 8.2 % (1.7-12.0); Neutrophils Percent Auto 57.1 % (43.0-75.0); Platelet Count 236 10^3/uL (150-450); Red Blood Count 4.58 10^6/uL (4.20-5.40); Red Cell Distribution Width 12.6 % (11.0-15.0); White Blood Count 10.5 10^3/uL (4.0-11.0)
[2025-01-05 13:55] LABS: Alanine Aminotransferase 21 U/L (14-59); Albumin Globulin Ratio 1.2; Albumin Level 3.9 g/dL (3.4-5.0); Alkaline Phosphatase 53 U/L (46-116); Aspartate Amino Transferase 20 U/L (15-37); BUN Creatinine Ratio 16.8; Bilirubin Total 1.1 mg/dL (0.2-1.0); Calcium 9.1 mg/dL (8.5-10.1); Carbon Dioxide 30.3 mmol/L (21.0-32.0); Chloride 103 mmol/L (98-107); Chol HDL Ratio 2.5; Cholesterol 144 mg/dL (<=200); Estimated GFR (African America 28 (>=60 mL/min/1.73m^2); Estimated GFR (Non-African Ame 23 (>=60 mL/min/1.73m^2); Free T3 1.84 pg/mL (2.18-3.98); Globulin 3.3 g/dL; Glucose 109 mg/dL (74-106); HDL Cholesterol 58 mg/dL (40-60); LDL Cholesterol Calculated 70.2 mg/dL; Potassium 4.3 mmol/L (3.5-5.1); Sodium 141 mmol/L (136-145); Thyroid Stimulating Hormone 0.872 uIU/mL (0.358-3.740); Total Protein 7.2 g/dL (6.4-8.2); Triglycerides 79 mg/dL (<=150); VLDL CHOLESTEROL 15.8 mg/dL
[2025-01-05 14:10] LABS: Free T4 1.17 ng/dL (0.76-1.46)
[2025-01-06 06:09] LABS: Vitamin B12 >2000 pg/mL (232-1245)
== END 2025-01-05 13:00 | disposition home or self-care (01) ==
LOC: LAB 13:01
PROVIDERS: PCP Family Medicine; Visit Provider Family Medicine
DX: R53.82 Chronic fatigue, unspecified (principal); E55.9 Vitamin D deficiency, unspecified; I10 Essential (primary) hypertension
CPT/HCPCS: 36415; 80053; 80061; 82043; 82306; 82570; 82607; 82746; 84439; 84443; 84481; 85025

== ENCOUNTER 2025-01-06 11:51 | Outpatient (REF) | payer MEDICARE, SELFPAY ==
--- OUTSIDE RECORDS SUMMARY | 2024-12-05 07:09 | XMS_ITS ---
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 Name Role Phone Zaki Wynn Primary Care Provider [phone] REASON FOR VISIT referral Encounters Encounter Location Date Provider Diagnosis [address] [address] 12/05/2024 Zaki Wynn Plan Of Treatment Next Appt Details Provider Name:Zaki gillis, 04/08/2025 01:30:00 PM, [address] [place], [address], Progress Notes * ALEXANDRE AdaKimOB:1945 (79 yo F)Acc No.[id number]:12/05/2024 Patient: Odilia SHULTZ :1945 A ge:79 Y S ex:Female Address:[address] [place] [address], [address], [place], [address] * true * Date: Generated for Juan gillis/Faxing/eTransmitting on: 0 01/06/2025 11:53 AM EDT
--- OUTSIDE RECORDS SUMMARY | 2024-12-22 12:27 | XMS_ITS ---
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 [address] [place] [address] 12/22/2024 Zaki Wynn Gastroesophageal ref lux disease without esophagitis K21.9 Assessments Encounter Date Diagnosis (ICD Code) Assessment Notes Treatment Notes Treatment Clinical Notes Section Notes 12/22/2024 Gastroesophageal reflux disease without esophagitis (ICD-10 - K21.9) Plan Of Treatment Medication Medication Name Sig Start Date Stop Date Notes Meclizine HCl 25 MG 1 tablet as needed O rally tid prn for 90 days Lansoprazole 30 MG 1 capsule before a m eal Orally Once a day for 90 days 05/23/2022 Next Appt Details Provider Name:Zaki gillis, 04/08/2025 01:30:00 PM, [address] [place], [address], Progress Notes * Matty SCHROEDEROB:1945 (79 yo F)Acc No.[id number]:12/22/2024 Patient: Abbie CHRYSTALAda SOSAen :1945 A ge:79 Y S ex:Female Address:[address] [place] [address], [address], [place], [address] * Refills Refill Meclizine HCl Tablet, 25 MG, Orally, 270, 1 tablet as needed, tid prn, 90 days, Refills=2 Refill Lansoprazole Capsule Delayed Release, 30 MG, Orally, 90, 1 capsule before a meal, Once a day, 90 days, Refills=3 * true * Date: Generated for Juan gillis/Tiffanie/Ramonitting on: 0 01/06/2025 11:53 AM EDT
--- OUTSIDE RECORDS SUMMARY | 2024-12-31 10:00 | XMS_ITS ---
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 Role Phone Zaki Wynn Primary Care Provider Allergies Allergen (clinical drug ingredient) Drug/Non Drug Allergy documented on EMR Reaction Allergy Type Onset Date Status diclofenac Diclofenac diarrhea/stomach cramping Drug Allergy Active REASON FOR VISIT medicare wellness Medications Medication SIG (Take, Route, Frequency, Duration) Notes Start Date End Date Status HYDROcodone-Acetaminop hen 5-325 MG 1 tablet as needed Orally bid for 7 days 12/31/2024 Active HYDROcodone-Acetaminop hen 5-325 MG 1 tablet as needed Orally bid for 5 days 01/03/2023 Not-Taking Prolia 60 MG/ML as directed Subcutaneous q6 months for 180 days dispense 1 pen per 6 months 11/01/2022 Not-Taking Tylenol prn otc Active Baby Aspirin Not-Duncan ing Meclizine HCl 25 MG 1 tablet as needed Orally tid prn for 90 days Active Metoprolol Tartrate 100 MG 1 tablet with food Orally once daily Active Potassium Chloride ER 20 MEQ 2 tablets with food Orally Once a day Active Pravastatin Sodium 40 MG 1 tablet Orally Once a day for 90 days Active Spironolactone 25 MG 1/2 tablet Orally daily Active Lansoprazole 30 MG 1 capsule before a meal Orally Once a day for 90 days 05/23/2022 Active Loratadine 10 MG 1 tablet Orally Once a day Active Losartan Potassium 50 MG TAKE 1/2 TABLET BY MOUTH IN THE MORNING Oral Active Lunesta 1 MG 1 tablet Orally qhs prn for 30 days do not fill until 12/04/24 11/27/2024 Active Furosemide 40 MG 1 tablet Orally Once a day Active Biofreeze prn Active Cholecalciferol 50 MCG (2000 UT) 1 capsule Orally Once a day Active Cyanocobalamin 1000 MCG/ML 1 mL Injection qmonth for 30 days 03/23/2023 Active DULoxetine HCl 30 MG 1 capsule Orally Once a day Active Evenity 105 MG/1.17ML 2.34 mL Subcutaneous qmonthly for 30 days 01/08/2024 Not-Taking Social History Tobacco Use: Social History Observation Description Date Details (start date - stop date) Never Smoker NA - NA Tobacco Use/Smoking Question Answer Notes Patient is a nonsmoker Problems Problem Type SNOMED Code ICD Code Onset Dates Problem Status W/U Status Risk Notes Problem [id number] Spondylosis without myelopathy or radiculopathy, lumbar region (M47.816) Active confirmed Problem [id number] Unilateral primary osteoarthritis, left knee (M17.12) Active confirmed Vital Signs Weight 157.4 lbs 12/31/2024 Height 60 in 12/31/2024 Blood pressure systolic 98 mm Hg 01/01/20 25 Blood pressure diastolic 62 mm Hg 025 Heart Rate 78 /min 12/31/2024 Respiratory Rate 16 /min 12/31/2024 BMI 30.74 kg/m2 12/31/2024 Oximetry 98 % 12/31/2024 . Encounters Encounter Location Date Provider Diagnosis [address] [address] 12/31/2024 Zaki Wynn Encounter for Medicare annual wellness exam Z00.00 ; Other vitamin B12 deficiency anemias D51.8 ; Spondylosis without myelopathy or radiculopathy, lumbar region M47.816 and Unilateral primary osteoarthritis, left knee M17.12 Assessments Encounter Date Diagnosis (ICD Code) Assessment Notes Treatment Notes Treatment Clinical Notes Section Notes 12/31/2024 Encounter for Medicare annual wellness exam (ICD-10 - Z00.00) 12/31/2024 Other vitamin B12 deficiency anemias (ICD-10 - D51.8) 12/31/2024 Spondylosis without myelopathy or radiculopathy, lumbar region (ICD-10 - M47.816) oars ok no LE edema per pt 12/31/2024 Unilateral primary osteoarthritis, left knee (ICD-10 - M17.12) Plan Of Treatment Medication Medication Name Sig Start Date Stop Date Notes HYDROcodone-Acetaminophen 5- 325 MG 1 tablet as needed Orally bid for 7 days 12/31/2024 Treatment Notes Assessment Notes Spondylosis without myelopat hy or radiculopathy, lumbar region oars ok no LE edema per pt Next Appt Details Provider Name:Zaki Santiago carlin, 04/08/2025 01:30:00 PM, [address] [place], [address], Medications Administered Medication Instructions Date of Administration Dosage Notes Cyanocobalamin 12/31/2024 1 mL Triamcinolone 40 mg/ml 12/31/2024 1 mL Progress Notes * Ada SCHROEDERKimOB:1945 (79 yo F)Acc No.[id number]:12/31/2024 UNLOCKED PROGRESS NOTE Progress Note Patient: Odilia SHULTZ Provider: Rebel Wynn DO :1945 A ge:79 Y S ex:Female Date:12/31/2024 Address:[address] [place] [address], [address] Check In:01:58 PM ESTCheck O ut:02:58 PM EST Subjective: * Chief Complaints: * 1 . Medicare wellness. * HPI: Linda arredondo Annual Wellness Visit: Patient presents today for mwv. Patient states she has still been sturggling with a lack of energy. Patient states she has not noticed a difference in using the b12. She states at first she thought it was but is not sure anymore.-MV - - - - - - - - pt not sure if B12 helps her fatigue +general weakness b/l UE/LE no recent falls +myalgias and arthralgias L knee pain more lately - worse at night +chronic LBP - - - - - - - - - - - - no f/c/URI s/s no cough +GERD - med helps no dysphagia - - - - - - - no dysuria/hematuria +urinary incontinence +D/C on/off but more diarrhea no abd pains usually - - - - - - no rashes no change in vision/hearing - needs eye exam +vertigo - uses antivert bid - helps some no CP/SOB occ heart fluttering - - - - - - ?a fib now pt has watchman pt sees cardio appt 01/13/25 with nephrology 12/2023 dexa + lunesta helps sleep on/off per pt pain med helps prn for back and leg pains not checking BP lately at home low today irreg ireg decrease metoprolol 50mg daily - rec 1/2 daily L knee injection 40 kenalog. Type of Visit: S [facility] Annual Wellness Visit (SAWV).? Visual Acuity: N /A. Other Providers of Care: C are Team reviewed with patient: Mookie carolyn, and updates made in [facility] Physical Activity: D o you exercise regularly? N o patient declines to answer these questions Nutrition/Diet: O n a typical day, how many servings of fruits and vegetables do you consume? 0 I n a typical week, how many servings of fried or high fat (such as cheese, fatty meat) do you consume? 0 I n a typical week, how many servings of high fiber or whole grain foods do you consume? 0 Seat Belt: D o you always use your seat belt in your car??Yes A re you having difficulties driving your car??No C an you get to places out of walking distance without help? Y es Dental: H ow would you describe the condition of your mouth and teeth, including any false teeth or dentures? E xcellent Medication List Follow-Up: D uring the past four weeks, how much bodily pain do you have? N o pain D o you have a current opioid prescription??No Self Assessment of Health: H ow would you rate your overall health the past four weeks? E xcellent H ow confident are you that you can control and manage most of your health problems? V pauline confident H ow have things been going for you during the past four weeks? V pauline well; could hardly be better D uring the past four weeks, was someone available to help you if you needed and wanted help? Y es, as much as I wanted (Example: if you felt nervous, lonely, or blue; got sick and had to stay in bed; needed someone to talk to; help with daily chores; or needed help just taking care of yourself) D o you have any sexual problems? N o D o you have any troubles eating well? N o D o you have any problems with tiredness or fatigue? N o H ave you noticed any hearing difficulties??No Sun Exposure: D o you protect yourself from over exposure to the sun when outdoors? Y es Mental Wellness: D uring the past four weeks, how much have you been bothered by emotional problems such as feeling anxious, depressed, irritable, sad, or downhearted and blue? N ot at all D uring the past four weeks, has your physical and emotional health limited your social activities with family, friends, neighbors, or groups??Not at all Functional Ability and Safety Screening: D o you need assistance with any of the following? Select all that apply. N one D oes your home have rugs in the hallway, lack grab bars in the bathroom, lack handrails on the stairs or have poor lighting? N o D o you feel unsteady and/or dizzy when standing or walking? N o D o you have smoke detectors in your home and routinely change the batteries? Y es D o you have a fire extinguisher and know how to use it properly? Y es D o you have any problems with your living situation, food, transportation, utilities, or safety? N o Cognitive Screening: H ave you experienced any memory issues or problems with thinking? N o H ave your family members, friends, caretakers, or others raised any concerns? N o D o you get confused or easily distracted more than you used to? N o H as your ability to concentrate seem to have declined recently? N o End of Life Planning: D o you have a living will? Y es D o you have a Durable Power of [employer] [place]? Y es W ould you like to discuss this topic today??Yes SDOH A gree to complete Social Determinants of Health questionnaire Y es W ithin the past 12 months, did you worry that your food would run out before you got money to buy more? N o W ithin the past 12 months, did the food you bought just not last and you didn't have money to buy more? N o W ithin the past 12 months, have you ever stayed: outside, in a car, in a a tent, in an overnight long term, or temporarily in someone else's home??No A re you worried about losing your housing??No W ithin the past 12 months, have you been able to get utilities (heat, electricity) when it was really needed? N o W ithin the past 12 months, has a lack of transportation kept you from medical appointments or from doing things needed for daily living? N o D o you feel physically or emotionally unsafe where you currently live? N o W ould you like help with any of these needs that you have identified? N o * Medical History: O steoporosis, Mitral valve regurgitation, Diastolic dysfunction, Prediabetes, Left ventricular hypertrophy, Insomnia, Patent foramen ovale, Transient cerebral ischemia, Atrial fibrillation, vitamin D deficiency, Unsteady gait, Degeneration of thoracic intervertebral disc, Obstructive sleep apnea syndrome, Aquired hammer toe of right foot, Hallux valgus and bunion, Fibromyalgia, Depressive disorder, Lumbar spondylosis, Dry eyes, Mixed hyperlipidemia, Female stress incontinence, Essential hypertension, Chronic kidney disease stage 3b, Osteoarthritis, Gastroesophageal reflux disease, Hypokalemia. * Surgical History: h ysterectomy w/o bso , tubal ligation , colonoscopy-normal per pt 09/22/2021, cataract surgery 02/04/2019, esophagogastroduodenoscopy 09/13/2016, colonoscopy-diverticulosis/hem 02/13/2011, watchman procedure , CELINA , heart cath - negative in past . * Family History: F ather: , heart diseasemyocardial infarction(: age 58). M other: , heart diseasemyocardial infraction( age:76). S ister(s): malignant tumor of lung. * Social History: T obacco Use: T obacco Use/Smoking P atient is a n onsmoker * Medications: T marcosg Biofreeze , Notes to Pharmacist: prn, Taking Cholecalciferol 50 MCG (2000 UT) Capsule 1 capsule Orally Once a day , Taking Cyanocobalamin 1000 MCG/ML Solution 1 mL Injection qmonth , Taking DULoxetine HCl 30 MG Capsule Delayed Release Particles 1 capsule Orally Once a day , Taking Furosemide 40 MG Tablet 1 tablet Orally Once a day , Taking HYDROcodone-Acetaminophen 5-325 MG Tablet 1 tablet as needed Orally bid , Taking Lansoprazole 30 MG Capsule Delayed Release 1 capsule before a meal Orally Once a day , Taking Loratadine 10 MG Tablet 1 tablet Orally Once a day , Taking Losartan Potassium 50 MG Tablet TAKE 1/2 TABLET BY MOUTH IN THE MORNING Oral , Taking Lunesta 1 MG Tablet 1 tablet Orally qhs prn , Notes to Pharmacist: do not fill until 12/04/24, Taking Meclizine HCl 25 MG Tablet 1 tablet as needed Orally tid prn , Taking Metoprolol Tartrate 100 MG Tablet 1 tablet with food Orally once daily , Taking Potassium Chloride ER 20 MEQ Tablet Extended Release 2 tablets with food Orally Once a day , Taking Pravastatin Sodium 40 MG Tablet 1 tablet Orally Once a day , Taking Spironolactone 25 MG Tablet 1/2 tablet Orally daily , Taking Tylenol , Notes to Pharmacist: prn otc, Not-Taking/PRN Baby Aspirin , Not-Taking/PRN Evenity(Romosozumab-aqqg) 105 MG/1.17ML Solution Prefilled Syringe 2.34 mL Subcutaneous qmonthly , Not-Taking/PRN HYDROcodone-Acetaminophen 5-325 MG Tablet 1 tablet as needed Orally bid , Not-Taking/PRN Prolia(Denosumab) 60 MG/ML Solution Prefilled Syringe as directed Subcutaneous q6 months , Notes to Pharmacist: dispense 1 pen per 6 months, Medication List reviewed and reconciled with the patient * Allergies: D iclofenac: diarrhea/stomach cramping. Objective: * Vitals: W t:157.4lbs, Ht: 60 in, BP:98/62mm Hg, HR:78/min, RR:16/min, BMI:30.74Index, Oxygen sat %:98%, Ht-cm: 152.4 cm, Wt-k.4 kg. . Assessment: * Assessment: 1. E ncounter for Medicare annual wellness exam - Z00.00 (Primary) 2 . O ther vitamin B12 deficiency anemias - D51.8 3 . S pondylosis without myelopathy or radiculopathy, lumbar region - M47.816 4 . U nilateral primary osteoarthritis, left knee - M17.12 Plan: * Treatment: * Therapeutic Injections: Triamcinolone 40 mg/ml : 1 mL (Route: Intramuscular) given by Zaki Wynn , DO on Knee Joint Lt (Unilateral primary osteoarthritis, left knee) Cyanocobalamin : 1 mL (Route: Intramuscular) given by Leanna Hartman on right deltoid (Other vitamin B12 deficiency anemias) * Procedure Codes: G 0439 ANNUAL WELLNESS, SUBSEQ, J3420 VITAMIN B-12 < 1000 MCG, [address]9025 THERAP.INJ. OF MED. INTRAMUSCULAR OR SUBCUTANEOUS, J3301 TMC ACET,PER 10MG. * Preventive Medicine: Screenings/Counseling: F ALL RISK SCREENING Fall Risk Assessment: N o falls in the past year Are you afraid of falling? N o * * Electronic signature of Ryne Wynn DO, [id number] on 01/06/2025 at 11:53 AM EDT Sign off status: Pending Visit Status: C HK (Check Out) * Provider: Rebel Wynn DO Date: 12/31/2024 Generated for Juan gillis/Tiffanie/Alton on: 01/06/2025 11:53 AM EDT History and Physical Notes * HPI (History of Present Illness) Category Sub-Category Detail Notes Category Not es Medicare Annual Wellness Visit Type of Visit: Subsequent Annual Wellness Visit (SAWV) Cognitive Screening: Have you experience d any memory issues or problems with thinking?: No Have your family members, fr iends, caretakers, or others raised any concerns?: No Do you get confused or easily distracted more than you used to?: No Has your ability to concentrate seem to have declined recently?: No Self Assessment of Health: How would you rate your overall health the past four weeks?: Excellent How confident are you that y ou can control and manage most of your health problems?: Very confident How have things been going f or you during the past four weeks?: Very well; could hardly be better During the past four weeks, was someone available to help you if you needed and wanted help?: Yes, as much as I wanted (Example: if you felt nervous, lonely, o r blue; got sick and had to stay in bed; needed someone to talk to; help with daily chores; or needed help just taking care of yourself) Do you have any sexual problems?: No Do you have any troubles eating well?: N o Do you have any problems wit h tiredness or fatigue?: No Have you noticed any hearing difficulties?: No Physical Activity: Do you exercise regu larly?: No patient declines to answer these questions Functional Ability and Safet y Screening: Do you need assistance with any of the following? Select all that apply.: None Does your home have rugs in the hallway, lack grab bars in the bathroom, lack handrails on the stairs or have poor lighting?: No Do you feel unsteady and/or dizzy when s tanding or walking?: No Do you have smoke detectors in your home and routinely change the batteries?: Yes Do you have a fire extinguisher and know how to use it properly?: Yes Do you have any problems wit h your living situation, food, transportation, utilities, or safety?: No Visual Acuity: N/A Nutrition/Diet: On a typical day, ho w many servings of fruits and vegetables do you consume?: 0 In a typical week, how many servings of fried or high fat (such as cheese, fatty meat) do you consume?: 0 In a typical week, how many servings of high fiber or whole grain foods do you consume?: 0 Seat Belt: Do you always use your seat belt in your car?: Yes Are you having difficulties driving your car?: No Can you get to places out of walking dis tance without help?: Yes Dental: How would you descri be the condition of your mouth and teeth, including any false teeth or dentures?: Excellent Medication List Follow-Up: During the four weeks, how much bodily pain do you have?: No pain Do you have a current opioid prescriptio n?: No Mental Wellness: During the past four weeks, how much have you been bothered by emotional problems such as feeling anxious, depressed, irritable, sad, or downhearted and blue?: Not at all During the past four weeks, has your physical and emotional health limited your social activities with family, friends, neighbors, or groups?: Not at all Sun Exposure: Do you protect yours elf from over exposure to the sun when outdoors?: Yes End of Life Planning: Do you have a living will? : Yes Do you have a Durable Power of [employer] [place]? : Yes Would you like to discuss this topic tod ay?: Yes Other Providers of Care: Care Team saurabh ness with patient:: Yes, and updates made in [facility] of Care SDOK Agree to complete [facility] Determinants of Health questionnaire: Yes Within the past 12 months, did you worry that your food would run out before you got money to buy more?: No Within the past 12 months, did the food you bought just not last and you didn't have money to buy more?: No Within the past 12 months, have you ever stayed: outside, in a car, in a a tent, in an overnight long term, or temporarily in someone else's home?: No Are you worried about losing your housing?: No Within the past 12 months, have you been able to get utilities (heat, electricity) when it was really needed?: No Within the past 12 months, has a lack of transportation kept you from medical appointments or from doing things needed for daily living?: No Do you feel physically or emotionally unsafe where you currently live?: No Would you like help with any of these needs that you have identified?: No
--- OUTSIDE RECORDS SUMMARY | 2025-01-05 13:47 | XMS_ITS | Encounter Summary ---
Author Organization [employer] tem Address [id number] [address] [place] [address] Care Team Providers Care Quality Process Engineer Name Role Phone Zaki Wynn Primary Care Provider Encounter Details Date Type Department Care Team (Late st Contact Info) Description 09/28/2021 Telephone Jacy Brewster [facility] - Medical Oncology [address] [place] [phone] Yumiko Greenberg RMA Social History Tobacco Use [...] Greenberg MA - 09/28/2021 1:04 PM EDT Semiconductor Lab Technician called salvador Vallecillo to inform about appt. [phone]. Daughter in on contact list and asks [...] on filedocumented in this encounter Care Teams Quality Process Engineer Relationship Specialty Start Date End Date Zaki Wynn DO [address] [id number] PCP - General Family Medicine 09/21/21 documented as of this encounter
--- OUTSIDE RECORDS SUMMARY | 2025-01-05 13:47 | XMS_ITS | Clinical Summary ---
Author Organization [facility] Address [address] [place] [address] Care Team Providers Care Head Of Training And Development Name Role Phone Zaki Wynn MD Primary Care Provider [phone] Social History Tobacco Use Types Packs/Day Years [...] 04/24/2015 Insurance AETNA MEDICARE ADVANTAGE Care Teams Head Of Training And Development Relationship Specialty Start Date End Date Zaki Wynn MD [address] [place] [address] [address] [place] [address] PCP - General Family Medicine 12/15/24
--- OUTSIDE RECORDS SUMMARY | 2025-01-05 13:47 | XMS_ITS | Referral Summary ---
Author Organization [facility] Address [address] [place] [address] Care Team Providers Care Blank Driller Name Role Phone WynnZaki Primary Care Provider [phone] Encounters Date Type Department Care Team Description 11/17/2024 3:30 PM EDT Follow-Up [facility] Heart at [place] [address] [place] [address] Zhou Renee MD Acute cough [...] 3 06/16/20 24 025 Active HYDROcodone-aceta minophen ([place]) 5-325 mg tablet Take 1 tablet by [...] Assessment & Plan (07/11/2023 3:27 PM EST): [facility] III- currently euvolemic if not a [...] Assessment & Plan (04/30/2023 10:24 AM EDT): [facility] II-IIIc, Currently pt is euvolemic without [...] Assessment & Plan (04/25/2023 1:02 PM EDT): [facility] IVc- currently fluid overloaded, dyspneic at [...] Assessment & Plan (04/25/2023 1:10 PM EDT): [id number]= [id number] Age, female, HTN, CHF, TIA No [...] Description 02/02/2025 2:30 PM EDT Office Visit [facility] Heart at [facility] [address] [place] [address] Zhou Renee MD [address] [facility] [address] [facility] [place] [address] Medical Devices Implanted Type Area Golf Cart Attendant Device Identifier Shelf Expiration Date Model / Serial / Lot Watchman Implanted:02/13 (Quantity not on file) Device N/A: Heart Insurance A[employer]NA MEDICARE ADVANTAGE Care Teams Blank Driller Relationship Specialty Start Date End Date Zaki Wynn DO [address] [place] [address] [facility] - General 04/21/22
--- OUTSIDE RECORDS SUMMARY | 2025-01-05 13:47 | XMS_ITS | Clinical Summary ---
Author Organization [facility] Address [address] [place] [address] Care Team Providers Care Patient Account Specialist Name Role Phone Zaki Wynn DO Primary Care Provider [phone] Allergies No known active allergies Medications loratadine [...] 3 06/16/20 24 025 Active HYDROcodone-aceta minophen ([place]) 5-325 mg tablet Take 1 tablet by [...] Assessment & Plan (04/30/2023 10:24 AM EDT): [facility] II-IIIc, Currently pt is euvolemic without [...] Assessment & Plan (04/25/2023 1:02 PM EDT): [facility] IVc- currently fluid overloaded, dyspneic at [...] Assessment & Plan (04/25/2023 1:10 PM EDT): [id number]= [id number] Age, female, HTN, CHF, TIA No [...] Team Description 11/17/2024 3:30 PM EDT Follow-Up [facility] Heart at [facility] [address] [place] [address] Zhou Renee MD Acute cough [...] Description 02/02/2025 2:30 PM EDT Office Visit [facility] Heart at [place] [address] [place] [address] Zhou Renee MD [address] [facility] [address] [place] [address] Health Maintenance Due Date Last [...] this topic Medical Devices Implanted Type Area Clinical Data Programmer Device Identifier Shelf Expiration Date Model / Serial / Lot Watchman Implanted:02/13 (Quantity not on file) Device N/A: Heart Insurance [address] [place] [address] A[employer]NA MEDICARE ADVANTAGE Care Teams Patient Account Specialist Relationship Specialty Start Date End Date Zaki Wynn DO [address] [place] [address] PCP - General 04/21/22
--- OUTSIDE RECORDS SUMMARY | 2025-01-06 11:53 | XMS_ITS | Encounter Summary ---
Author Organization [employer] tem Address [id number] [address] [place] [address] Care Team Providers Care Ice Crusher Name Role Phone Zaki Wynn Primary Care Provider Encounter Details Date Type Department Care Team (Late st Contact Info) Description 09/28/2021 Telephone Jacy Brewster [facility] - Medical Oncology [address] [place] [phone] Yumiko Greenberg RMA Social History Tobacco Use [...] Greenberg MA - 09/28/2021 1:04 PM EDT Cable Television Technician called salvador Vallecillo to inform about appt. [phone]. Daughter in on contact list and asks [...] on filedocumented in this encounter Care Teams Ice Crusher Relationship Specialty Start Date End Date Zaki Wynn DO [address] [id number] PCP - General Family Medicine 09/21/21 documented as of this encounter
--- OUTSIDE RECORDS SUMMARY | 2025-01-06 11:53 | XMS_ITS | Clinical Summary ---
Author Organization [employer] tem Address [id number] [address] [place] [address] Care Team Providers Care Produce Associate Name Role Phone WynnZaki Primary Care Provider Allergies No known active allergies Medications pravastatin (PRAVACHOL) 40 mg tablet Take 40 mg by mouth in the morning. Active lansoprazole (PREVACID) 30 mg capsule Take 30 mg by mouth in the morning. Active cholecalciferol , vitamin D3, 2,000 units tablet Take 2,000 Units by mouth in the morning. Active loratadine (CLARITIN) 10 mg tablet Take 10 mg by mouth in the morning. Active metoprolol tartrate (LOPRESSOR) 25 mg tablet Take 1 tablet (25 mg total) by mouth in the morning and 1 tablet (25 mg total) before bedtime. 09/29/2021 Active cyclobenzaprine (FLEXERIL) 5 mg tablet Take 1 tablet (5 mg total) by mouth every 8 (eight) hours as needed for muscle spasms. 30 tablet 09/29/2021 Active polyethylene glycol (GLYCOLAX) 17 gram packet Take 17 g by mouth daily as needed (constipatio n.). 09/29/2021 Active Active Problems Problem Noted Date Diagnosed Date Age-related osteoporosis wit hout current pathological fracture 01/10/2024 Iron deficiency anemia due to chronic blood loss 01/05/2022 Normocytic anemia 10/06/2021 Syncope, unspecified syncope type 09/29/2021 Syncope and collapse 09/22/2021 Tremor of right hand 09/22/2021 Orthostatic hypotension 09/22/2021 Dyslipidemia 08/26/2019 Essential hypertension 08/26/2019 Paroxysmal atrial flutter 08/26/2019 Social History Tobacco Use Types Packs/Day Years [...] Sign Reading Time Taken Comments Blood Pressure 139/79 03/09/2023 3:22 PM EDT Pulse 72 03/09/2023 3:22 PM EDT Temperature 36.3 C (97.4 F) 03/09/2023 3:22 PM EDT Respiratory Rate 16 03/09/2023 3:22 PM EDT Oxygen Saturation 100% 03/09/2023 3:22 PM EDT Inhaled Oxygen Concentration - - Weight 77.1 kg (170 lb) 03/09/2023 3:22 PM EDT Height 152.4 cm (5') 03/09/2023 3:22 PM EDT Body Mass Index 33.2 03/09/2023 3:22 PM EDT Plan of Treatment Health Maintenance Due Date Last Done Comments Depression Screening 1957 Tobacco Screening 1957 DTaP,Tdap and Td Vaccines (1 - Tdap) 1962 Zoster (Shingles) Vaccine (1 of 2) 1993 Fall Risk Screening 2008 COVID-19 Vaccine (4 - 2023-2 5 season) 2024 07/27/2021, 09/15/2020, 08/18/2020 Influenza Vaccine 03/16/2025 03/23/2023, , 04/14/2021, Additional history exists Goals Goal Patient Goal Type Associated Problems Recent Progress Patient-Stated? Author safe discharge to SNF General Yes Trinidad Galaviz, RN Note: Evaluation of progress towards goal:safe transition to SNF Medical Devices Not on file Insurance [address] [place] [address] A[employer] MEDICARE Advance Directives * Full Code (Latest Code Status on File) Date Activated Date Inactivated Comments 09/22/2021 6:17 AM 09/29/2021 6:43 PM Care Teams Produce Associate Relationship Specialty Start Date End Date Zaki Wynn DO [address] [place] [address] PCP - General Family Medicine 09/21/21
--- OUTSIDE RECORDS SUMMARY | 2025-01-06 11:54 | XMS_ITS | Clinical Summary ---
Author Organization [facility] Address [address] [place] [address] Care Team Providers Care Publisher Assistant Name Role Phone Zaki Wynn MD Primary [...] 04/24/2015 Insurance [employer] MEDICARE ADVANTAGE Care Teams Publisher Assistant Relationship Specialty Start Date End Date Zaki Wynn MD [address] [place] [address] [address] [place] [address] PCP - General Family Medicine 12/15/24
--- OUTSIDE RECORDS SUMMARY | 2025-01-06 11:54 | XMS_ITS | Clinical Summary ---
Author Organization [facility] Address [address] [place] [address] Care Team Providers Care Lab Rn Name Role Phone Zaki Wynn DO Primary Care Provider [phone] Allergies No known active allergies Medications loratadine [...] 3 06/16/20 24 025 Active HYDROcodone-aceta minophen ([place]) 5-325 mg tablet Take 1 tablet by [...] Assessment & Plan (04/30/2023 10:24 AM EDT): [facility] II-IIIc, Currently pt is euvolemic without [...] Assessment & Plan (04/25/2023 1:02 PM EDT): [facility] IVc- currently fluid overloaded, dyspneic at [...] Assessment & Plan (04/25/2023 1:10 PM EDT): [id number]= [id number] Age, female, HTN, CHF, TIA No [...] Team Description 11/17/2024 3:30 PM EDT Follow-Up [facility] at [facility] [address] [place] [address] Zhou Renee MD Acute cough [...] Description 02/02/2025 2:30 PM EDT Office Visit [facility] at [place] [address] [place] [address] Zhou Renee MD [address] [facility] [address] [facility] [place] [address] Health Maintenance Due Date Last [...] this topic Medical Devices Implanted Type Area Supervisor [employer] Device Identifier Shelf Expiration Date Model / Serial / Lot Watchman Implanted:02/13 (Quantity not on file) Device N/A: Heart Insurance [address] [place] [address] [employer] MEDICARE ADVANTAGE Care Teams Lab Rn Relationship Specialty Start Date End Date Zaki Wynn DO [address] [place] [address] PCP - General 04/21/22
--- OUTSIDE RECORDS SUMMARY | 2025-01-06 11:54 | XMS_ITS | Referral Summary ---
Author Organization [facility] Address [address] [place] [address] Care Team Providers Care Medical Biller/Coder Name Role Phone WynnZaki Primary Care Provider [phone] Encounters Date Type Department Care Team Description 11/17/2024 3:30 PM EDT Follow-Up [facility] Heart at [place] [address] [place] [address] Zhou Renee MD Acute cough [...] 3 06/16/20 24 025 Active HYDROcodone-aceta minophen ([place]) 5-325 mg tablet Take 1 tablet by [...] Assessment & Plan (07/11/2023 3:27 PM EST): [facility] III- currently euvolemic if not a [...] Assessment & Plan (04/30/2023 10:24 AM EDT): [facility] II-IIIc, Currently pt is euvolemic [...] Assessment & Plan (04/25/2023 1:02 PM EDT): [facility] IVc- currently fluid overloaded, dyspneic [...] Assessment & Plan (04/25/2023 1:10 PM EDT): [id number]= 6 Age, female, HTN, CHF, TIA No [...] Description 02/02/2025 2:30 PM EDT Office Visit [facility] Heart at [facility] [address] [place] [address] Zohu Renee MD [address] [facility] [address] [facility] [place] [address] Medical Devices Implanted Type Area Insulation Engineman Device Identifier Shelf Expiration Date Model / Serial / Lot Watchman Implanted:02/13 (Quantity not on file) Device N/A: Heart Insurance [employer] MEDICARE ADVANTAGE Care Teams Medical Biller/Coder Relationship Specialty Start Date End Date Zaki Wynn DO [address] [place] [address] [facility] - General 04/21/22
--- OUTSIDE RECORDS SUMMARY | 2025-01-06 11:54 | XMS_ITS | Patient Health Record ---
Author Organization The [facility] [place] Address [address] [place] [address] Care Team Providers Care Engineer Specialist Name Role Phone Zaki Wynn Primary Care Provider Allergies Allergen (clinical drug ingredient) Drug/Non Drug Allergy documented on EMR Reaction Allergy Type Onset Date Status diclofenac Diclofenac diarrhea/stomach cramping Drug Allergy Active Reason For Referral Reason eval and treat Diagnosis 1 Pain in right should er (M25.511) Diagnosis 2 Pain in left shoulde r (M25.512) Referral Organization [facility] Referring Provider First Name Zaki Referring Provider Last Name Kingsley Referring Provider [facility] Family Med icine Referred Provider Zhou Bird Referred Provider Specialty Orthopedic S urgery Referral Priority Routine Reason Please eval and bong t Diagnosis 1 Chronic kidney disea se, stage 3b (N18.32) Diagnosis 2 Chronic kidney disea se, stage 3a (N18.31) Referral Organization [facility] Referring Provider First Name Zaki Referring Provider Last Name Kingsley Referring Provider Speciality Family Med icine Referred Provider Ashleigh Soliman Referred Provider Specialty Nephrology Referral Priority Routine Reason CKD-3b Diagnosis 1 Chronic kidney disea se, stage 3b (N18.32) Referral Organization [facility] Referring Provider First Name Zaki Referring Provider Last Name Kingsley Referring Provider [facility] Family Med icine Referred Provider Homar Boyd Referred Provider Specialty Nephrology General Notes Zaki Wynn 08:14:28 PM >please call pts daughter for appt - [phone] daughter, Zaki Wynn 12/30/2024 08:17:18 PM >pt wants [place] office Referral Priority Routine Medications Medication SIG (Take, Route, Frequency, Duration) Notes Start Date End Date Status HYDROcodone-Acetaminop hen 5-325 MG 1 tablet as needed Orally bid for 7 days 12/31/2024 Active Biofreeze prn Active Meclizine HCl 25 MG 1 tablet as needed Orally tid prn for 90 days Active Cholecalciferol 50 MCG (2000 UT) 1 capsule Orally Once a day Active Metoprolol Tartrate 100 MG 1 tablet with food Orally once daily Active Cyanocobalamin 1000 MCG/ML 1 mL Injection qmonth for 30 days 03/23/2023 Active Potassium Chloride ER 20 MEQ 2 tablets with food Orally Once a day Active DULoxetine HCl 30 MG 1 capsule Orally Once a day Active Lansoprazole 30 MG 1 capsule before a meal Orally Once a day for 90 days 05/23/2022 Active HYDROcodone-Acetaminop hen 5-325 MG 1 tablet as needed Orally bid for 5 days 01/03/2023 Not-Taking Loratadine 10 MG 1 tablet Orally Once a day Active Prolia 60 MG/ML as directed Subcutaneous q6 months for 180 days dispense 1 pen per 6 months 11/01/2022 Not-Taking Losartan Potassium 50 MG TAKE 1/2 TABLET BY MOUTH IN THE MORNING Oral Active Lunesta 1 MG 1 tablet Orally qhs prn for 30 days do not fill until 12/04/24 11/27/2024 Active Pravastatin Sodium 40 MG 1 tablet Orally Once a day for 90 days Active Evenity 105 MG/1.17ML 2.34 mL Subcutaneous qmonthly for 30 days 01/08/2024 Not-Taking Spironolactone 25 MG 1/2 tablet Orally daily Active Furosemide 40 MG 1 tablet Orally Once a day Active Tylenol prn otc Active Baby Aspirin Not-Duncan ing Immunizations Vaccine Route Administration Date Status Comme nts Flu, Fluad ([id number]) (29008) 65 yrs+, single-dose syringe IM Intramuscular 03/23/2023 Administered Flu, Fluad (39478) 65 yrs and older, single-dose syringe IM Intramuscular 04/11/2024 Administered Flu, Fluad (57837) 65 yrs+, single-dose syringe ([id number]) IM Intramuscular 08/03/2022 Administered Pneumococcal (Pneumovax 23) Unknown 06/26/2018 Administered Pneumococcal (Prevnar 13) Unknown 04/24/2015 Administer ed Social History Tobacco Use: Social History Observation Description Date Details (start date - stop date) Never Smoker NA - NA Tobacco Use/Smoking Question Answer Notes Patient is a nonsmoker Alcohol Screen (Audit-C) Question Answer Notes Did you have a drink containing alcohol in the p ast year? 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) Active confirmed Problem 50907741 Vitamin D deficiency, unspecified (E55.9) Active confirmed Problem 702783121 Other obesity du e to excess calories (E66.09) Active confirmed Problem 324075638 Obesity, unspeci fied (E66.9) Active confirmed Problem 57001842 Major depressive disorder, single episode, 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) Active confirmed Problem 1060563 Primary insomnia (F51.01) Active confirmed Problem 34603361 Other chronic pa in (G89.29) Active confirmed Problem 215479772 Paroxysmal atria l fibrillation (I48.0) Active confirmed Problem 776337503 Acute diastolic (congestive) heart failure (I50.31) Active confirmed Problem 248142303770879 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) Active confirmed Problem 1158705 Other ill-define d heart diseases (I51.89) Active confirmed Problem 616326737 Irritable bowel syndrome with diarrhea (K58.0) Active confirmed Problem 915109898656213 Unilateral prima ry osteoarthritis, left knee (M17.12) Active confirmed Problem 986671713 Spondylosis with out myelopathy or radiculopathy, lumbar region (M47.816) Active confirmed Problem 489705459 Fibromyalgia (M79.7) Active confirmed Problem 54557913 Chronic fatigue, unspecified (R53.82) Active confirmed Problem 99364494 Vitamin D defici ency (E55.9) Active confirmed Problem 114015371 Gastroesophageal reflux disease without esophagitis (K21.9) Active confirmed Problem 582111332 Permanent atrial fibrillation (I48.21) Active confirmed Problem 250490644 Chronic kidney disease, stage 3a (N18.31) Active confirmed Problem 843685922 Chronic kidney disease, stage 3b (N18.32) Active confirmed Problem 947877804 Body mass index [BMI] 30.0-30.9, adult (Z68.30) Active confirmed Vital Signs Heart Rate 78 /min 12/31/2024 . Respiratory Rate 16 /min 12/31/2024 . Oximetry 98 % 12/31/2024 . Blood pressure diastolic 62 mm Hg 12/31/2024 . Height 60 in 12/31/2024 . Blood pressure systolic 98 mm Hg 12/31/2024 . Weight 157.4 lbs 12/31/2024 . BMI 30.74 kg/m2 12/31/2024 . Encounters Encounter Location Date Provider Diagnosis [address] [address] 04/11/2024 Zaki Wynn Encounter for immuni zation Z23 ; Pain in right shoulder M25.511 ; Other chronic pain G89.29 ; Pain in left shoulder M25.512 ; Obesity, unspecified E66.9 ; Body mass index [BMI] 30.0-30.9, adult Z68.30 ; Primary insomnia F51.01 ; Other thrombophilia D68.69 ; Secondary hyperaldosteronism E26.1 and Chronic kidney disease, stage 3b N18.[address] [address] 06/18/2024 Zaki Wynn Primary insomnia F51 .01 ; Impingement syndrome of right shoulder M75.41 ; Other chronic pain G89.29 ; Other obesity due to excess calories E66.09 ; Body mass index [BMI] 30.0-30.9, adult Z68.30 and Obesity, class [address] [address] 11/27/2024 Zaki Wynn Other vitamin B12 deficiency anemias D51.8 ; Primary insomnia F51.01 ; Chronic fatigue, unspecified R53.82 ; Essential (primary) hypertension I10 ; Vitamin D deficiency, unspecified E55.9 ; Acute bronchitis, unspecified J20.9 ; Chronic kidney disease, stage 3b N18.32 and Chronic combined systolic (congestive) and diastolic (congestive) heart failure I50.42 [facility] [address] [place] [address] 12/31/2024 Zaki Wynn Encounter for Medica re annual wellness exam Z00.00 ; Other vitamin B12 deficiency anemias D51.8 ; Spondylosis without myelopathy or radiculopathy, lumbar region M47.816 and Unilateral primary osteoarthritis, left knee M17.12 [facility] [address] [place] [address] 07/30/2024 Zaki Wynn Other vitamin B12 deficiency anemias D51.8 [facility] [address] [place] [address] 09/03/2024 Zaki Wynn Other vitamin B12 deficiency anemias D51.8 [facility] [address] [place] [address] 10/01/2024 Zaki Wynn Other vitamin B12 deficiency anemias D51.8 [facility] [address] [place] [address] 10/30/2024 Zaki Wynn Other vitamin B12 deficiency anemias D51.8 [facility] [address] [place] [address] 04/07/2024 Zaki Wynn Other vitamin B12 deficiency anemias D51.8 [facility] [address] [place] [address] 05/09/2024 Zaki Wynn Other vitamin B12 deficiency anemias D51.8 [facility] [address] [place] [address] 06/11/2024 Zaki Wynn Other vitamin B12 deficiency anemias D51.8 [facility] [address] [place] [address] 07/03/2024 Zaki Wynn Other vitamin B12 deficiency anemias D51.8 [facility] [address] [place] [address] 01/09/2024 Zaki Wynn Other vitamin B12 deficiency anemias D51.8 [facility] [address] [place] [address] 02/06/2024 Zaki Wynn Other vitamin B12 deficiency anemias D51.8 [facility] [address] [place] [address] 03/05/2024 Zaki Wynn Other vitamin B12 deficiency anemias D51.8 [facility] [address] [place] [address] 10/30/2024 Zaki Wynn Primary insomnia F51 .01 [facility] [address] [place] [address] 12/04/2024 Zaki Wynn [facility] [address] [place] [address] 12/05/2024 Zaki Wynn [facility] [address] [place] [address] 12/22/2024 Zaki Wynn Gastroesophageal ref lux disease without esophagitis K21.9 [facility] [address] [place] [address] 07/02/2024 Zaki Wynn Other vitamin B12 deficiency anemias D51.8 [facility] [address] [place] [address] 07/06/2024 Zaki Wynn [facility] [address] [place] [address] 07/30/2024 Zaki Wynn Primary insomnia F51 .01 [facility] [address] [place] [address] 09/03/2024 Zaki Wynn Primary insomnia F51 .01 [facility] [address] [place] [address] 09/09/2024 Zaki Wynn Gastroesophageal ref lux disease without esophagitis K21.9 and Other vitamin B12 deficiency anemias D51.8 [facility] [address] [place] [address] 10/07/2024 Zaki Wynn Primary insomnia F51 .01 [facility] [address] [place] [address] 03/05/2024 Zaki Wynn Primary insomnia F51 .01 [facility] [address] [place] [address] 03/20/2024 Zaki Wynn Primary insomnia F51 .01 [facility] [address] [place] [address] 04/01/2024 Zaki Wynn [facility] [address] [place] [address] 04/07/2024 Zaki Wynn Primary insomnia F51 .01 [facility] [address] [place] [address] 05/16/2024 Zaki Wynn [facility] [address] [place] [address] 05/20/2024 Zaki Wynn Primary insomnia F51 .01 [facility] [address] [place] [address] 01/09/2024 Zaki Wynn Primary insomnia F51 .01 [facility] [address] [place] [address] 02/06/2024 Zaki Wynn Primary insomnia F51 .01 Assessments Encounter Date Diagnosis (ICD Code) Assessment Notes Treatment Notes Treatment Clinical Notes Section Notes 01/09/2024 Other vitamin B12 deficiency anemias (ICD-10 - D51.8) 02/06/2024 Other vitamin B12 deficiency anemias (ICD-10 - D51.8) 03/05/2024 Other vitamin B12 deficiency anemias (ICD-10 - D51.8) 04/07/2024 Other vitamin B12 deficiency anemias (ICD-10 - D51.8) 04/11/2024 Encounter for immunization (ICD-10 - Z23) 04/11/2024 Pain in right shoulder (ICD-10 - M25.511) MRI - tx based on this 05/09/2024 Other vitamin B12 deficiency anemias (ICD-10 - D51.8) 06/11/2024 Other vitamin B12 deficiency anemias (ICD-10 - D51.8) 06/18/2024 Primary insomnia (ICD-10 - F51.01) oarrs ok continue med and monitor for side effects - pt understands risk and is ok with it rtc 3 months 06/18/2024 Impingement syndrome of right shoulder (ICD-10 - M75.41) oars ok erx norco to use prn pain set up MRI R shoulder d/w pt that if MRI denied again then we will refer to ortho for eval I dont think PT will help due to her pain and motion dificulties and age r/o rotator cuff tear and determine if abnormality on xray is fx or spur 07/03/2024 Other vitamin B12 deficiency anemias (ICD-10 - D51.8) 07/30/2024 Other vitamin B12 deficiency anemias (ICD-10 - D51.8) 09/03/2024 Other vitamin B12 deficiency anemias (ICD-10 - D51.8) 10/01/2024 Other vitamin B12 deficiency anemias (ICD-10 - D51.8) 10/30/2024 Other vitamin B12 deficiency anemias (ICD-10 - D51.8) 12/31/2024 Encounter for Medicare annual wellness exam (ICD-10 - Z00.00) 01/09/2024 Primary insomnia (ICD-10 - F51.01) 02/06/2024 Primary insomnia (ICD-10 - F51.01) 03/05/2024 Primary insomnia (ICD-10 - F51.01) 03/20/2024 Primary insomnia (ICD-10 - F51.01) 04/07/2024 Primary insomnia (ICD-10 - F51.01) 05/20/2024 Primary insomnia (ICD-10 - F51.01) 07/02/2024 Other vitamin B12 deficiency anemias (ICD-10 - D51.8) 07/30/2024 Primary insomnia (ICD-10 - F51.01) 09/03/2024 Primary insomnia (ICD-10 - F51.01) 11/27/2024 Other vitamin B12 deficiency anemias (ICD-10 - D51.8) b12 shot today and montly stable monitor lab 11/27/2024 Primary insomnia (ICD-10 - F51.01) oars ok sleep hygeine rtc 3 months 12/31/2024 Other vitamin B12 deficiency anemias (ICD-10 - D51.8) 09/09/2024 Gastroesophageal reflux disease without esophagitis (ICD-10 - K21.9) 10/07/2024 Primary insomnia (ICD-10 - F51.01) 10/30/2024 Primary insomnia (ICD-10 - F51.01) 12/22/2024 Gastroesophageal reflux disease without esophagitis (ICD-10 - K21.9) 12/31/2024 Spondylosis without myelopathy or radiculopathy, lumbar region (ICD-10 - M47.816) oars ok no LE edema per pt 11/27/2024 Chronic fatigue, unspecified (ICD-10 - R53.82) labs - tx if abnormal diet/exercise 09/09/2024 Other vitamin B12 deficiency anemias (ICD-10 - D51.8) 06/18/2024 Other chronic pain (ICD-10 - G89.29) 04/11/2024 Other chronic pain (ICD-10 - G89.29) 06/18/2024 Other obesity due to excess calories (ICD-10 - E66.09) diet/exercise 04/11/2024 Pain in left shoulder (ICD-10 - M25.512) oars ok set up MRI - tx based on this did mobic/celebrex in past - caused GI upset 11/27/2024 Essential (primary) hypertension (ICD-10 - I10) labs and urine diet/exercise bp check daily goal ~130/80 12/31/2024 Unilateral primary osteoarthritis, left knee (ICD-10 - M17.12) 11/27/2024 Vitamin D deficiency, unspecified (ICD-10 - E55.9) monitor lab and adjust tx based on this 06/18/2024 Body mass index [BMI] 30.0-30.9, adult (ICD-10 - Z68.30) 04/11/2024 Obesity, unspecified (ICD-10 - E66.9) diet/exercise 04/11/2024 Body mass index [BMI] 30.0-30.9, adult (ICD-10 - Z68.30) 06/18/2024 Obesity, class 1 (ICD-10 - E66.811) 11/27/2024 Acute bronchitis, unspecified (ICD-10 - J20.9) resolved rtc prn s/s rec flu/rsv/pn vaccines to be UTD 11/27/2024 Chronic kidney disease, stage 3b (ICD-10 - N18.32) bp control refer to neph monitor bmp and urine microalbumin 04/11/2024 Primary insomnia (ICD-10 - F51.01) oarrs ok erx lunesta recently rtc 3 months sleep hygeine 04/11/2024 Other thrombophilia (ICD-10 - D68.69) due to Afib and CHADS 5 hold on blood thinners due to fall risk 11/27/2024 Chronic combined systolic (congestive) and diastolic (congestive) heart failure (ICD-10 - I50.42) f/u cardio monitor for edema/weight gain/etc stable bp control 04/11/2024 Secondary hyperaldosteronism (ICD-10 - E26.1) f/u cardio continue aldactone stable monitor weight monitor bmp 04/11/2024 Chronic kidney disease, stage 3b (ICD-10 - N18.32) rec neph bp control rec PTH labs to r/o secondary hyperparathyroidism Plan Of Treatment Pending Test Test Name Order Date LIPID PANEL (CHOL/TRIG/HDL/LDL) 11/28/19 25 T3 FREE (T3FR) 11/27/2024 T4 FREE (T4FR) 11/27/2024 TSH 11/27/2024 VITAMIN D, 25 LEVEL (TOTAL) 11/27/2024 MRI Shoulder LT w/o contrast 04/11/2024 MRI Shoulder RT w/o contrast 06/18/2024 MRI Shoulder RT w/o contrast 04/11/2024 VITAMIN B12 LEVEL AND FOLATE (FOLIC ACID ) 11/27/2024 MICROALBUMIN w APPLICATIONS [employer]ATIO 11/27/2024 CMP (COMP MET RENAE) w/eGFR CKD-EPI 2024 CBC WITH DIFF 11/27/2024 Next Appt Details Provider Name:Zaki gillis, 04/08/2025 01:30:00 PM, [address] [place], [address], Insurance Providers Payer Name Payer Address Payer Phone Subscriber Number Group Number Insured Name Patient Relationship to Insured Coverage Start Date Coverage End Date [employer] [address] [place], [place] [id number] Odilia Schroeder Self - patient is the insured 2 Medications Administered Medication Instructions Date of Administration Dosage Notes Cyanocobalamin 03/23/2022 1 mL Cyanocobalamin 03/28/2022 1 mL Cyanocobalamin 2022 1 mL Cyanocobalamin 04/13/2022 1 mL Cyanocobalamin 05/23/2022 1 mL Cyanocobalamin 07/04/2022 1 mL Cyanocobalamin 07/04/2022 1 mL Cyanocobalamin 07/04/2022 1 mL Cyanocobalamin 08/03/2022 1 mL Cyanocobalamin 09/04/2022 1 mL Cyanocobalamin 09/04/2022 1 mL Cyanocobalamin 09/04/2022 1 mL Cyanocobalamin 09/04/2022 1 mL Cyanocobalamin 09/04/2022 1 mL Cyanocobalamin 09/27/2022 1 mL Cyanocobalamin 09/27/2022 1 mL Cyanocobalamin 09/27/2022 1 mL Cyanocobalamin 10/25/2022 1 mL Cyanocobalamin 11/29/2022 1 mL Cyanocobalamin 01/03/2023 1000 ug Cyanocobalamin 02/07/2023 1 mL Cyanocobalamin 09/12/2023 1 mL Cyanocobalamin 10/10/2023 1 mL Cyanocobalamin 11/07/2023 1 mL Cyanocobalamin 12/12/2023 1 mL Cyanocobalamin 01/09/2024 1 mL Cyanocobalamin 02/06/2024 1 mL Cyanocobalamin 03/05/2024 1 mL Cyanocobalamin 04/07/2024 1 mL Cyanocobalamin 05/09/2024 1 mL Cyanocobalamin 06/11/2024 1 mL Cyanocobalamin 07/03/2024 1 mL Cyanocobalamin 07/30/2024 1 mL Cyanocobalamin 09/03/2024 1 mL Cyanocobalamin 10/01/2024 1 mL Cyanocobalamin 10/30/2024 1 mL Cyanocobalamin 11/27/2024 1 mL Cyanocobalamin 12/31/2024 1 mL Triamcinolone 40 mg/ml 12/31/2024 1 mL Medical (General) History Medical History History ICD Code osteoporosis mitral valve regurgitation diastolic dysfunction prediabetes left ventricular hypertrophy insomnia patent foramen ovale transient cerebral ischemia atrial fibrillation vitamin D deficiency unsteady gait degeneration of thoracic intervertebral disc obstructive sleep apnea syndrome aquired hammer toe of right foot hallux valgus and bunion fibromyalgia depressive disorder lumbar spondylosis dry eyes mixed hyperlipidemia female stress incontinence essential hypertension chronic kidney disease stage 3b osteoarthritis gastroesophageal reflux disease hypokalemia Surgical History Surgery Date(Month/Year) heart cath - negative in past [facility] watchman procedure colonoscopy-diverticulosis/hem 02/13/2011 esophagogastroduodenoscopy 09/13/2016 cataract surgery 02/04/2019 hysterectomy w/o bso tubal ligation colonoscopy-normal per pt 09/22/2021
[2025-01-06 12:08] LABS: Creatinine Urine Random 20.75 mg/dL (20.00-300.00); Microalbumin Urine Random <1.3 mg/dL (<=30.0)
== END 2025-01-06 11:52 | disposition home or self-care (01) ==
LOC: LAB 11:51
PROVIDERS: PCP Family Medicine; Visit Provider Family Medicine
DX: I10 Essential (primary) hypertension (principal)
CPT/HCPCS: 82043; 82570

== ENCOUNTER 2025-04-17 15:36 | Outpatient (OUT) | payer MEDICARE, SELFPAY ==
--- OUTSIDE RECORDS SUMMARY | 2025-04-17 15:53 | XMS_ITS | CCD ---
Author Organization [facility] Care Team Providers Care [employer] Licensee Name Role Phone BEE GUEVARA V Attending Unavailable FLANAGANZAKI Primary Care Unavailable FLANAGANZAKI Referring Unavailable MOUKARBEL, BEE Martino Admitting Unavailable MOUKARBELBEE V Attending Unavailable FLANAGANZAKI Primary Care Unavailable FLANAGANZAKI Referring Unavailable MOUKARBEL, BEE Martino Admitting Unavailable FLANAGANZAKI Primary Care Unavailable FLANAGANZAKI Referring Unavailable MOUKARBELBEE V Admitting Unavailable MOUKARBELBEE V Attending Unavailable BRITNI, JOSE M Admitting Unavailable BRITNIJOSE [...] Unavailable BRITNI, JOSE M Consulting Unavailable BRITNI, JOSE M Admitting Unavailable BRITNIJOSE M Attending Unavailable FLANAGAN, DR ZAKI Braden Primary Care Unavailable BRITNI, JOSE M Consulting Unavailable BRITNI, JOSE M Admitting [...] Care Unavailable MOUKARBEL, DR GAMBOA Consulting Unavailable Flanagan DOZaki A Primary Care Provider Zaki Flanagan DO Primary Care Provider Zaki Flanagan DO Primary Care Provider Areli Galvez MD Attending Provider [phone] BEE GUEVARA Referring Unavailable PAOLA, BEE Attending Unavailable PAOLA, BEE Attending Unavailable MOVERITO, BEE Attending Unavailable MOVERITO, BEE Attending Unavailable PAOLA, BEE Referring Unavailable PAOLA, BEE Referring Unavailable Areli Galvez Admitting Unavailable Areli Galvez Attending Unavailable Zaki Flanagan Primary Care Unavailable Allergies Allergy Classification Reported Allergen(s) Allergy Type Date of Onset Reaction(s) Facility (1 source) Diclofenac Drug Allergy 01-28-2025 [facility] Repository Medications Current Medications Medication Drug Class(es) Dates Sig (Normalized) Sig (Original) acetaminophen 500 mg oral tablet (2 sources) Start: 01-28-2025 take 1 tablet by mouth every six hours as needed acetaminophen 325 mg / HYDROcodone bitartrate 5 mg oral tablet (2 sources) Opioid Agonist Start: 01-28-2025 take 1 tablet by mouth twice daily as needed cholecalciferol 0.05 mg oral capsule (5 sources) Vitamin D Start: 01-28-2025 take 1 capsule by mouth once daily take 1 tablet by mouth in the mo rning cholecalciferol, vitamin D3, 2,000 units tablet Take 2,000 Units by mouth in the morning. Active cyclobenzaprine hydrochloride 5 mg oral tablet (3 sources) Muscle Relaxant Start: 09-29-2021 take 1 tablet by mouth every eight hours as needed cyclobenzaprine (FLEXERIL) 5 mg tablet Take 1 tablet (5 mg total) by mouth every 8 (eight) hours as needed for muscle spasms. 30 tablet 09/29/2021 Active eszopiclone 1 mg oral tablet (4 sources) Start: 01-28-2025 End: 01-28-2025 take 1 tablet by mouth once daily at bedtime furosemide 40 mg oral tablet (4 sources) Loop Diuretic Start: 01-28-2025 Start: 01-28-2025 End: 01-28-2025 take 1 tablet by mouth once daily Furosemide 40 mg tablet Discontinued 40 MG PO Daily January 28, 2025 12:00am January 28, 2025 1:54pm lansoprazole 30 mg delayed release oral capsule (7 sources) Proton Pump Inhibitor Start: 01-28-2025 End: 01-28-2025 take 1 capsule by mouth once daily take 1 capsule by mouth in the m orning lansoprazole (PREVACID) 30 mg capsule Take 30 mg by mouth in the morning. Active loratadine 10 mg oral tablet (5 sources) Start: 01-28-2025 take 1 tablet by mouth once da cleve take 1 tablet by mouth in the mo rning loratadine (CLARITIN) 10 mg tablet Take 10 mg by mouth in the morning. Active losartan potassium 50 mg oral tablet (2 sources) Angiotensin 2 Receptor [facility] Start: 01-28-2025 meclizine hydrochloride 25 mg oral tablet (2 sources) Antiemetic Start: 01-28-2025 take 1 tablet by mouth three times daily as needed 24 hr metoprolol succinate 50 mg extended release oral tablet (7 sources) beta-Adrenergic [facility] Start: 01-28-2025 take 2 tablets by mouth once daily Start: 01-28-2025 End: 01-28-2025 take 1 tablet by mouth once daily Metoprolol Succinate 50 mg tablet extended release 24 hr Discontinued 50 MG PO daily January 28, 2025 12:00am January 28, 2025 1:54pm Start: 09-29-2021 take 1 tablet by diandra th in the morning, then take 1 tablet by mouth at bedtime metoprolol tartrate (LOPRESSOR) 25 mg tablet Take 1 tablet (25 mg total) by mouth in the morning and 1 tablet (25 mg total) before bedtime. 09/29/2021 Active polyethylene glycol 3350 51176 mg powder for oral solution (3 sources) Osmotic Laxative Start: 09-29-2021 polyethylene glycol (GLYCOLAX) 17 gram packet Take 17 g by mouth daily as needed (constipation.). 09/29/2021 Active potassium chloride 20 meq extended release oral tablet (4 sources) Start: 01-28-2025 take 1 tablet by mouth once daily Start: 01-28-2025 End: 01-28-2025 take 2 tablets by mouth once Potassium Chloride 20 mEq tablet extended release Discontinued 40 MEQ PO Once January 28, 2025 12:00am January 28, 2025 1:54pm pravastatin sodium 40 mg oral tablet (5 sources) HMG-CoA Reductase Inhibitor Start: 01-28-2025 take 1 tablet by mouth once daily at bedtime take 1 tablet by mouth in the mo rning pravastatin (PRAVACHOL) 40 mg tablet Take 40 mg by mouth in the morning. Active spironolactone 25 mg oral tablet (2 sources) Aldosterone Antagonist Start: 01-28-2025 vitamin b12 1 mg/ml injectable solution (2 sources) Vitamin B12 Start: 01-28-2025 inject 1000 ug by intramuscular injection every month Completed/Discontinued Medications Medication Drug Class(es) Dates Sig (Normalized) Sig (Original) DULoxetine 30 mg delayed release oral capsule (2 sources) Serotonin and Norepinephrine Reuptake Inhibitor Start: 01-28-2025 End: 01-28-2025 take 1 capsule by mouth once daily Duloxetine 30 mg capsule,delayed release(DR/EC) Discontinued 30 MG PO Daily January 28, 2025 12:00am January 28, 2025 1:48pm 1.17 ml romosozumab-aqqg 89.7 mg/ml prefilled syringe (2 sources) Start: 01-28-2025 End: 01-28-2025 Romosozumab-Aqqg (Evenity) 105 mg/1.17 mL syringe Discontinued 210 MG SUBCUT every month January 28, 2025 12:00am January 28, 2025 1:52pm Problems Active Problems Problem Classification Problem Date Documented Da te Episodic/Chronic Cardiac dysrhythmias (10 sources) Paroxysmal atrial fibrillation; Translations: [Paroxysmal atrial flutter] Onset: 08-26-2019 Chronic Chronic kidney disease (7 sources) Chronic kidney disease stage 4; Translations: [Chronic kidney disease, stage 4 (severe)] Onset: 02-02-2025 01-28-2025 Chronic Congestive heart failure; nonhypertensive (2 sources) Chronic systolic (congestive) heart failure; Translations: [Chronic systolic (congestive) heart failure] Onset: 06-09-2024 Chronic Deficiency and other anemia (3 sources) Iron deficiency anemia due to blood loss; Translations: [Iron deficiency anemia secondary to blood loss (chronic)] Onset: 01-05-2022 01-05-2022 Chronic Disorders of lipid metabolism (4 sources) Mixed hyperlipidemia; Translations: [Dyslipidemia] Onset: 08-26-2019 09-22-2021 Chronic Essential hypertension (6 sources) Essential (primary) hypertension; Translations: [Essential hypertension] Onset: 08-26-2019 09-22-2021 Chronic Fluid and electrolyte disorders (4 sources) Hypokalemia; Translations: [Hypokalemia] 01-28-2025 Episodic Heart valve disorders (6 sources) Nonrheumatic mitral (valve) insufficiency; Translations: [NONRHEUMATIC MITRAL INSUFFICIENCY] Onset: 01-23-2022 Chronic Hypertension with complications and secondary hypertension (4 sources) Hypertensive renal disease; Translations: [Hypertensive chronic kidney disease with stage 1 through stage 4 chronic kidney disease, or unspecified chronic kidney disease] 01-28-2025 Chronic Nutritional deficiencies (5 sources) Vitamin D deficiency, unspecified; Translations: [Vitamin D deficiency] Onset: 07-29-2021 01-28-2025 Chronic Nutritional deficiencies (4 sources) Cobalamin deficiency; Translations: [Deficiency of other specified B group vitamins] 01-28-2025 Episodic Osteoporosis (4 sources) Senile osteoporosis; Translations: [Age-related osteoporosis without current pathological fracture] Onset: 01-10-2024 01-10-2024 Chronic Other circulatory disease (2 sources) Presence of other cardiac implants and grafts; Translations: [Presence of other cardiac implants and grafts] Onset: 11-21-2023 Chronic Unclassified (4 sources) CONTACT W/AND (SUSP) EXPOS COVID-19; Translations: [CONTACT W/AND (SUSP) EXPOS COVID-19] Onset: 01-25-2022 Unclassified (2 sources) Other persistent atrial fibrillation; Translations: [Other persistent atrial fibrillation] Onset: 09-19-2023 Unclassified (1 source) Acute cough; Translations: [Acute cough] Onset: 11-17-2024 Viral infection (1 source) COVID-19; Translations: [COVID-19] Onset: 04-12-2022 Past or Other Problems Problem Classification Problem Date Documented Da te Episodic/Chronic Deficiency and other anemia (3 sources) Normocytic anemia; Translations: [Anemia, unspecified] Onset: 10-06-2021 10-06-2021 Episodic Diabetes mellitus without complication (1 source) Prediabetes; Translations: [PREDIABETES] Onset: 07-29-2021 Episodic Malaise and fatigue (1 source) Other fatigue; Translations: [OTHER FATIGUE] Onset: 01-25-2022 Episodic Other circulatory disease (3 sources) Orthostatic hypotension; Translations: [Orthostatic hypotension] Onset: 09-22-2021 09-22-2021 Episodic Other lower respiratory disease (2 sources) Shortness of breath; Translations: [Shortness of breath] Onset: 03-13-2024 Episodic Other nervous system disorders (3 sources) Finding of hand region; Translations: [Tremor, unspecified] Onset: 09-22-2021 09-22-2021 Episodic Other screening for suspected conditions (not mental disorders or infectious disease) (1 source) Encounter for screening mammogram for malignant neoplasm of breast; Translations: [ENC SCR MAMMO MALIG NEOPLASM BREAST] Onset: 07-29-2021 Episodic Residual codes; unclassified (4 sources) Asymptomatic menopausal state; Translations: [ASYMPTOMATIC MENOPAUSAL STATE] Onset: 07-25-2021 Episodic Syncope (6 sources) Syncope and collapse; Translations: [Syncope and collapse] Onset: 09-22-2021 09-22-2021 Episodic Unclassified (1 source) CONTACT W/AND (SUSP) EXPOS COVID-19; Translations: [CONTACT W/AND (SUSP) EXPOS COVID-19] Onset: 02-20-2022 Unclassified (1 source) Acute cough; Translations: [Acute cough] Onset: 11-17-2024 Results Test Name Value Interpretation Reference Range Facility US renal BIon 02-25-2025 US renal BI [facility] [place] [address] Ultrasound Report Signed Patient: Odilia Schroeder MR#: [id number] 0 : 1945 Acct:[id number] Age/Sex: 79 / F ADM Date: 02/25/25 Loc: Room: Type: [facility] Attending Dr: Areli Galvez MD Ordering Provider: Areli Galvez MD Date of Service: 02/25/25 US/US renal BI: N18.4 - Chronic kidney disease, stage 4 (severe) Copies to: Areli Galvez MD BILATERAL RENAL AND BLADDER ULTRASOUND CLINICAL HISTORY: Stage IV chronic kidney disease COMPARISON: None FINDINGS: Estimation of renal size is approximately 6.93 cm on the right and 8.87 cm on the left. No contour deforming mass, shadowing stone or hydronephrosis. 1.8 cm cyst inferior pole right kidney. The urinary bladder is partially distended with a volume of 80.48 ml. No shadowing stone or focal lesion. No significant postvoid residual. US/US renal BI IMPRESSION: No acute findings. Impression dictated by: Bi Velarde Jr., Adolfo 02/25/2025 4:47 PM Dictation Location: [place] [address] Tech: Gayathri Mcnally Transcribed By: QING 02/25/251646 Dictated By: Bi Velarde Jr, DO 02/25/251645 Signed By: 02/25/251646 Normal [facility] Office Visiton 02-02-2025 Follow-up visit [id number] Odilia Schroeder N 1945 F Date Provider Department Center 02/02/2025 BEE MARIN LINH [facility] Family History Problem Relation Age of Onset Cancer Mother Heart attack Father Cancer Father Cancer Sister Family Status - Relation Status Age at Mother Father Sister Brother Alive Level of Service:[id number] ID OFFICE/OUTPATIENT ESTABLISHED MOD MDM 30 MIN (25) [facility] Follow-Upon 11-17-2024 Follow-Up [id number] Odilia Schroeder N 1945 F Date Provider Department Center 11/17/2024 BEE MARIN Family History Problem Relation Age of Onset Cancer Mother Heart attack Father Cancer Father Cancer Sister Family Status - Relation Status Age at Mother Father Sister Brother Alive Level of Service:[id number] ID OFFICE/OUTPATIENT ESTABLISHED HIGH MDM 40 MIN [facility] 09-18-2024 36 RX sent into [facility] in [place]. [facility] 09-17-2024 36 We received a refill request for potassium CL 20mEq once daily. When you saw her in May 2024 it was listed on her med list. When you saw her in Jul 2024 it was not on her med list. I spoke with Odilia and she said she's been taking it the entire time. Is it ok to fill this? Please advise. [facility] Office Visiton 08-01-2024 Follow-up visit [id number] Odilia Schroeder 1945 F Date Provider Department Center 08/01/2024 Qian-BEE GUEVARA [facility] Family History Problem Relation Age of Onset Cancer Mother Heart attack Father Cancer Father Family Status - Relation Status Age at Mother Father Level of Service:[id number] ID OFFICE/OUTPATIENT ESTABLISHED LOW MDM 20 MIN [facility] ANESon 07-04-2024 ANES - Attestation signed by Argelia Rodas MD at 07/04/2024 8:35 AM By using the attestations below, the signing clinician agrees that I have read and verify that the documentation has been personally reviewed by me and ensure that the documentation accurately reflects the encounter. GC: I personally saw this patient on the day of the encounter, performed the marin portion(s) of the service and participated in the management and confirm the resident's documentation. Please note there may be an additional personal documentation from me. Patient: Odilia Schroeder Procedure Information Date/Time: 07/04/24 0900 Procedure: TRANSESOPHAGEAL ECHO (CELINA) Location: [facility] Clinical information reviewed: Allergies Meds OB Status Physical Exam Airway Mallampati: III Cardiovascular Rhythm: regular Dental Pulmonary Abdominal Anesthesia Plan ASA 3 other (Conscious sedation. ) Additional Equipment Requests [facility] HPon 07-04-2024 HP - Attestation signed by Argelia Rodas MD at 07/04/2024 8:35 AM By using the attestations below, the signing clinician agrees that I have read and verify that the documentation has been personally reviewed by me and ensure that the documentation accurately reflects the encounter. GC: I personally saw this patient on the day of the encounter, performed the marin portion(s) of the service and participated in the management and confirm the resident's documentation. Please note there may be an additional personal documentation from me. H&P reviewed. The patient was examined and there are no changes to the H&P. Will proceed with CELINA for mitral regurgitation evaluation. Didi Lehman MD Hearing Consultant - PGY6 [facility] NURSNOTEon 07-04-2024 NURSNOTE Bedside swallow stud y completed and passed. RN educated pt on d/c instructions. This included: site care, limited physical activity, resume normal diet, future appointments, medications, and moderate sedation instructions. RN educated pt on when to notify physician and when to go to the hospital. RN encouraged pt to voice any questions or concerns, and answered any questions or concerns if pt verbalized. Pt was wheeled off of unit with all of belongings. [facility] 06-09-2024 [facility] Cardiology - [facility] Subjective Odilia Schroeder is a 79 y.o. year old female patient being seen for follow up echo performed 05/28/2024. Patient Active Problem List Diagnosis Tremor of [...] mitral valve regurgitation SIMS (dyspnea on exertion) Age-related osteoporosis without current pathological fracture Family History Problem Relation Name Age of Onset Cancer Mother Heart attack Father Cancer Father Social History Tobacco Use Smoking status: Never Passive exposure: Current Smokeless tobacco: Never Substance Use Topics Alcohol use: Not Currently HPI Odilia is seen in follow-up. She is a 79-year-old woman with prior history of paroxysmal atrial fibrillation and atrial flutter. She has prior history of TIA, hypertension and hyperlipidemia. She was previously maintained on anticoagulation therapy for atrial fibrillation. Her [id number] score is 6 for age, history of [...] adjustment. She was referred to cardiac rehab. Her medications were adjusted for good blood pressure control. I then proceeded with cardiopulmonary exercise stress test due to continued shortness of breath on exertion and this showed significant cardiac limitation with normal pulmonary function. A follow-up echocardiogram May 2024 showed LVEF around 50% with moderate mitral regurgitation. Today she reports that she continues to have significant shortness of breath on exertion, NYHA class III symptoms. She feels that she cannot perform any significant physical activity. She is very tired. She has no energy. Review of Systems Constitutional: Positive for malaise/fatigue. Cardiovascular: Positive for dyspnea on exertion, irregular heartbeat and palpitations. Respiratory: Positive for shortness of breath. Hematologic/Lymphatic : Bruises/bleeds easily. Musculoskeletal: Positive for muscle weakness. Gastrointestinal: Positive for diarrhea. Neurological: Positive for light-headedness, loss of balance, vertigo and (more content not included)... [facility] Office Visiton 06-09-2024 Follow-up visit [id number] Odilia Schroeder 1945 F Date Provider Department Center 06/09/2024 BEE MARIN LINH Lieberman Family History Problem Relation Age of Onset Cancer Mother Heart attack Father Cancer Father Family Status - Relation Status Age at Mother Father Level of Service:[id number] ID OFFICE/OUTPATIENT ESTABLISHED [facility] 40 MIN [facility] Telephoneon 04-14-2024 Telephone [id number] Odilia Schroeder N 1945 F Date Provider Department Center 04/14/2024 DELONTE NEWTON [facility] Family History Problem Relation Age of Onset Cancer Mother Heart attack Father Cancer Father Family Status - Relation Status Age at Mother Father [facility] Telephoneon 04-04-2024 Telephone [id number] Odilia Schroeder N 1945 F Date Provider Department Center 04/04/2024 DELONTE NEWTON [facility] Family History Problem Relation Age of Onset Cancer Mother Heart attack Father Cancer Father Family Status - Relation Status Age at Mother Father [facility] 36on 03-18-2024 36 Spoke with daughter Delonte and made her aware that her mother should be taking 100mg daily per Dr. Guevara. She verbalized understanding. [facility] 34 Patient [facility] for a refill of metoprolol. They walked over and asked Laura to refill it. She sent in 100mg [...] you see this it'll be scanned into media manger for your review. What dose would you like her on? I told Odilia to just take 50mg in the evening for now until I called her back. Please advise. Thanks. [facility] DXA Skeletal system Views fo r bone densityOrdered By: Saadia Coleman on 02-04-2024 Radiology Study observation (narrative) MD [facility] DXA Skeletal system Views fo r bone densityOrdered By: Saadia Coleman on 12-19-2023 [facility] Cov[facility] PCR (CVDTBH)on 03-17 SARS-CoV-2 (COVID-19) RNA EULA+probe Ql (Unsp spec) Detected Critically abnormal NOT DETECTED [facility] Comment on above: Result Comment: This test is not yet approved or cleared by the [place] FDA. When there are no FDA-approved or cleared tests available, and other criteria are met, FDA can make tests available under an emergency access mechanism called an Emergency Use Authorization (EUA). The EUA for this test is supported by the [place] of Health and Human Service's (HHS's) declaration [...] used). Performed By: #### C MP #### [facility] [address] [place] [address] Dr. Kay Singh CBC COMPLETE BLOOD COUNTon 0 - Erythrocyte distribution width (RBC) [Ratio] 12.1 % Normal 11.5-15.0 [facility] Comment on above: Order Comment: No: D o not add to previous draw Performed By: #### 0 0071 #### [facility] [address] [facility]. [address] Hematocrit (Bld) [Volume fraction] 31.6 % Low 36.0-45.0 [facility] Comment on above: Order Comment: No: D o not add to previous draw Performed By: #### 0 0071 #### [facility] [address] [place] [address], [facility] Hemoglobin (Bld) [Mass/Vol] 10.8 g/dL Low 12.0-15.0 [facility] Comment on above: Order Comment: No: D o not add to previous draw Performed By: #### 0 0071 #### [facility] [address] [place] [address], [facility] MCH (RBC) [Entitic mass] 32.8 pg Normal 27.0-33.0 [facility] Comment on above: Order Comment: No: D o not add to previous draw Performed By: #### 0 0071 #### [facility] [address] [place] [address], [facility] MCHC (RBC) [Mass/Vol] 34.2 g/dL Normal 32.0-35.0 [facility] Comment on above: Order Comment: No: D o not add to previous draw Performed By: #### 0 0071 #### [facility] [address] [place] [address], [facility] MCV (RBC) [Entitic vol] 96.0 fL Normal 82.0-98.0 [facility] Comment on above: Order Comment: No: D o not add to previous draw Performed By: #### 0 0071 #### [facility] [address] [place] [address], [facility] Nucleated RBC/100 WBC (Bld) [Ratio] 0 % Normal 0-0 [facility] Comment on above: Order Comment: No: D o not add to previous draw Performed By: #### 0 0071 #### [facility] [address] [facility] [place] [address], [facility] PLAT CNT 160 10*3/uL Normal 150-[address] [facility] Comment on above: Order Comment: No: D o not add to previous draw Performed By: #### 0 0071 #### [facility] [address] [facility] [place] [address], [facility] RBC (Bld) [#/Vol] 3.29 10*6/uL Low 3.80-5.00 The [facility] Comment on above: Order Comment: No: D o not add to previous draw Performed By: #### 0 0071 #### [facility] [address] [facility] [place] [address], [facility] WBC (Bld) [#/Vol] 7.19 10*3/uL Normal 4.00-10.60 The [facility] Comment on above: Order Comment: No: D o not add to previous draw Performed By: #### 0 [id number] #### [facility] [address] [facility]. [address] *MRSA/MSSA DNA NASALon 02-22 *MRSA/MSSA DNA NASAL Clinical Report: (D) Specimen: NASAL SWAB Collected: 02/22/2022 09:45 Status: Final Last Updated: 02/22/2022 12:59 MSSA DNA (Final) Methicillin Susceptible Staphylococcus aureus DNA Detected MRSA DNA (Final) Negative Normal [facility] Comment on above: Performed By: #### [id number] #### [facility] [address] [facility]. [address] Cardiovascular Lab Reporton 02-22-2022 Cardiovascular Lab Report [facility] Patient Name: Odilia Schroeder [facility] MR #: [id number] Physician: Bee Lewis of [facility] Guevara Medicine Service Date: 02/22/2022 Division of Birthdate: 1945 Cardiology Room #: Adult Cardiovascular Services [facility] [address] [facility]. [place] [address] Cardiovascular Laboratory Report INDICATION: The patient is [...] signed informed consent. She was brought to rn cardiac cath in a fasting state. The right groin area was prepped and draped in usual fashion. Micropuncture technique and ultrasound guidance were used for access in the right common femoral vein. A 6-Wallisian x 11 cm sheath was placed. A [...] the transseptal sheath was exchanged to a 14-Wallisian Watchman anterior curve sheath. A pigtail catheter angled 6-Wallisian was advanced, and used to select the [...] adequate (more content not included)... Normal [facility] TYPE AND SCREENon 02-22-2022 ABO INTERPRETATION O Normal [facility] Comment on above: Performed By: #### 6 [id number] #### [facility] [address] RH INTERPRETATION Negative Normal [facility] Comment on above: Performed By: #### 6 [id number] #### [facility] [address] [facility]. [address] Covid-19 PCR (CVDTBH)on SARS-CoV-2 (COVID-19) RNA EULA+probe Ql (Unsp spec) Not detected Normal NOT DETECTED [facility] Comment on above: Result Comment: This test is not yet approved or cleared by the [place] FDA. When there are no FDA-approved or cleared tests available, and other criteria are met, FDA can make tests available under an emergency access mechanism called an Emergency Use Authorization (EUA). The EUA for this test is supported by the Press Reader of Health and Human Service's (HHS's) declaration [...] consistent with SARS-CoV-2. Performed By: #### [facility] #### [facility] [address] [address] [address] Kay Singh BASIC METABOLIC PANELon 01-13 Calcium [Mass/Vol] 9.2 mg/dL Normal 8.6-10.3 [facility] Comment on above: Performed By: #### 0 0071 #### [facility] [address] [place] [address], [facility] Chloride [Moles/Vol] 102 mmol/L Normal 98-107 [facility] Comment on above: Performed By: #### 0 0071 #### [facility] [address] [place] [address], [facility] CO2 [Moles/Vol] 27 mmol/L Normal 21-31 The [facility] Comment on above: Performed By: #### 0 0071 #### [facility] [address] [place] [address], [facility] Creatinine [Mass/Vol] 1.38 mg/dL High 0.60-1.20 [facility] Comment on above: Performed By: #### 0 0071 #### [facility] [address] [facility] [place] [address], [facility] eGFR- 45 ml/min/1.73sq m Abnormal >[address] [facility] Comment on above: Result Comment: Calc ulation may not be valid for patients over 70 years Performed By: #### 0 0071 #### [facility] [address] [place] [id number], [facility] eGFR- non- 37 ml/min/1.73sq m Abnormal >[address] [facility] Comment on above: Result Comment: Calc ulation may not be valid for patients over 70 years Performed By: #### 0 0071 #### [facility] [address] [place] [address], [facility] Glucose [Mass/Vol] 102 mg/dL High 70-100 The [facility] Comment on above: Performed By: #### 0 0071 #### [facility] [address] [place] [address], [facility] Potassium [Moles/Vol] 3.3 mmol/L Low 3.5-5.1 [facility] Comment on above: Performed By: #### 0 0071 #### [facility] [address] [place] [address], [place] Sodium [Moles/Vol] 139 mmol/L Normal 136-145 The [facility] Comment on above: Performed By: #### 0 0071 #### [facility] [address] [place] [address], [facility] Urea nitrogen [Mass/Vol] 16 mg/dL Normal 7-25 [facility] Comment on above: Performed By: #### 0 0071 #### [facility] [address] [place] [address], [facility] CBC COMPLETE BLOOD COUNTon 0 - Erythrocyte distribution width (RBC) [Ratio] 12.3 % Normal 11.5-15.0 [facility] Comment on above: Performed By: #### 5 0608 #### [facility] [address] [place] [address], [place] Hematocrit (Bld) [Volume fraction] 37.8 % Normal 36.0-45.0 [facility] Comment on above: Performed By: #### 5 0608 #### [facility] [address] [place] [address], [place] Hemoglobin (Bld) [Mass/Vol] 13.3 g/dL Normal 12.0-15.0 [facility] Comment on above: Performed By: #### 5 0608 #### [facility] [address] [place] [address], [facility] MCH (RBC) [Entitic mass] 32.6 pg Normal 27.0-33.0 [facility] Comment on above: Performed By: #### 5 0608 #### [facility] [address] [place] [address], [facility] MCHC (RBC) [Mass/Vol] 35.2 g/dL High 32.0-35.0 [facility] Comment on above: Performed By: #### 5 0608 #### [facility] [address] [facility] [place] [address], [facility] MCV (RBC) [Entitic vol] 92.6 fL Normal 82.0-98.0 [facility] Comment on above: Performed By: #### 5 0608 #### [facility] [address] [facility]. [address] Nucleated RBC/100 WBC (Bld) [Ratio] 0 % Normal 0-0 [facility] Comment on above: Performed By: #### 5 0608 #### [facility] [address] [facility] [place] [address], [facility] PLAT CNT 187 10*3/uL Normal 150-[address] [facility] Comment on above: Performed By: #### 5 0608 #### [facility] [address] [facility] [place] [place] [address], [facility] RBC (Bld) [#/Vol] 4.08 10*6/uL Normal 3.80-5.00 The [facility] Comment on above: Performed By: #### 5 0608 #### [facility] [address] [place] [address], [facility] WBC (Bld) [#/Vol] 7.62 10*3/uL Normal 4.00-10.60 The [facility] Comment on above: Performed By: #### 5 0608 #### [facility] [address] [place] [address], [facility] Cardiovascular Lab Reporton 01-25-2022 Cardiovascular Lab Report [facility] Patient Name: Odilia Schroeder [facility] MR #: [id number] Physician: Bee Lewis of [facility] Guevara Medicine Service Date: 01/25/2022 Division of Birthdate: 1945 Cardiology Room #: CC Adult Cardiovascular Services [facility] [address] [place], [place] [address] Cardiovascular Laboratory Report INDICATION: Mitral regurgitation. PROCEDURES: 1. Right heart catheterization. 2. Access into the right internal jugular vein under ultrasound guidance. METHODS: Procedure was explained to the patient with risks and benefits. She signed informed consent. She was brought to rn cardiac cath in a fasting state. The right neck area was prepped and draped in usual fashion. Micropuncture technique and ultrasound guidance were used for access in the right internal jugular vein. A 7-Wallisian x 11 cm sheath was placed. A 7-Wallisian Morelos catheter was used for right heart [...] Guevara M.D. Date Trans: 01/25/2022 08:47 P/mmo [id number] cc: Zaki Flanagan D.O. [address] [place], [place] [address]debra Verdin [address] [place] [id number] Normal [facility] Covid-19 PCR ([facility])on 01-13 SARS-CoV-2 (COVID-19) RNA EULA+probe Ql (Unsp spec) Not detected Normal NOT DETECTED [facility] Comment on above: Result Comment: This test is not yet approved or cleared by the [place] FDA. When there are no FDA-approved or cleared tests available, and other criteria are met, FDA can make tests available under an emergency access mechanism called an Emergency Use Authorization (EUA). The EUA for this test is supported by the Press Reader of Health and Human Service's (HHS's) declaration [...] consistent with SARS-CoV-2. Performed By: #### C VDTB #### [facility] [address] [place] [address] Dr. Kay Singh FREE T4on 01-23-2022 Free T4 [Mass/Vol] 1.10 ng/dL Normal 0.76-1.46 [facility] Comment on above: Performed By: #### C #### [facility] [address] [address] [address] Kay Singh TSHon 01-23-2022 TSH 1.794 uIU/mL Normal 0.358-3.740 [facility] Comment on above: Performed By: #### T #### [facility] [address] [address] [address] Kay Singh ECHOCARDIO M/2D COMPLETEon 0 12-23-2021 ECHOCARDIO M/2D COMPLETE Patient: ODILIA SCHROEDER Exam Date: 12/23/2021 : 1945 Gender:F Ordering : JOSE M CABRERA Admission #: [id number] Family : Order #: [id number] CLICK HERE TO VIEW EXAM ECHOCARDIOGRAM REPORT [...] Area(A4C): 15.50 cm2 Left Atrium Systolic Volume(A2C): 31213 mm3 Left Atrium Systolic Volume(A4C): 39340 mm3 Mitral Valve MV E to A [...] Guevara M.D. on 12/23/2021 at 15:18 Normal [facility] PROF 14(COMP METB)on 022 Albumin [Mass/Vol] 3.4 g/dL Normal 3.4-5.0 [facility] Comment on above: Performed By: #### C MP #### [facility] [address] [place] [address] Dr. Kay Singh Albumin/Globulin [Mass ratio] 0.9 {ratio} Normal [facility] Comment on above: Performed By: #### C MP #### [facility] [address] [address] [address] Kay Singh ALP [Catalytic activity/Vol] 42 U/L Critically low 46-116 [facility] Comment on above: Performed By: #### C MP #### [facility] [address] [address] [address] Kay Singh ALT [Catalytic activity/Vol] 15 U/L Normal 14-59 [facility] Comment on above: Performed By: #### C MP #### [facility] [address] [place] [address] Dr. Kay Singh Anion gap [Moles/Vol] 8.9 mmol/L Normal [facility] Comment on above: Performed By: #### C MP #### [facility] [address] [place] [address] Dr. Kay Singh AST [Catalytic activity/Vol] 16 U/L Normal 15-37 [facility] Comment on above: Performed By: #### C MP #### [facility] [address] [place] [address] Dr. Kay Singh Bilirubin [Mass/Vol] 0.5 mg/dL Normal 0.2-1.0 [facility] Comment on above: Performed By: #### C MP #### [facility] [address] [place] [address] Dr. Kay Singh Calcium [Mass/Vol] 8.8 mg/dL Normal 8.5-10.1 [facility] Comment on above: Performed By: #### C MP #### [facility] [address] [place] [address] Dr. Kay Singh Chloride [Moles/Vol] 102 mmol/L Normal 98-107 [facility] Comment on above: Performed By: #### C MP #### [facility] [address] [place] [address] Dr. Kay Singh CO2 [Moles/Vol] 31.3 mmol/L Normal 21.0-32.0 The [facility] Comment on above: Performed By: #### C MP #### [facility] [address] [place] [address] Dr. Kay Singh Creatinine [Mass/Vol] 1.30 mg/dL Critically high 0.55-1.02 [facility] Comment on above: Performed By: #### C MP #### [facility] [address] [address] [address] Kay Singh EGFR-AF ANGUILLAN 48 mL/min/1.73m2 Critically low >=60 [facility] Comment on above: Performed By: #### C MP #### [facility] [address] [address] [address] Kay Singh EGFR-NON AF ANGUILLAN 40 mL/min/1.73m2 Critically low >=60 [facility] Comment on above: Performed By: #### C MP #### [facility] [address] [place] [address] Dr. Kay Singh Globulin (S) [Mass/Vol] 3.8 g/dL Normal [facility] Comment on above: Performed By: #### C MP #### [facility] [address] [address] [address] Kay Singh Glucose [Mass/Vol] 94 mg/dL Normal 74-106 [facility] Comment on above: Performed By: #### C MP #### [facility] [address] [place] [address] Dr. Kay Singh Potassium [Moles/Vol] 4.2 mmol/L Normal 3.5-5.1 [facility] Comment on above: Performed By: #### C MP #### [facility] [address] [address] [address] Kay Singh Protein [Mass/Vol] 7.2 g/dL Normal 6.4-8.2 The [facility] Comment on above: Performed By: #### C MP #### [facility] [address] [place] [address] Dr. Kay Singh Sodium [Moles/Vol] 138 mmol/L Normal 136-145 [facility] Comment on above: Performed By: #### C MP #### [facility] [address] [address] [address] Kay Singh Urea nitrogen [Mass/Vol] 17.0 mg/dL Normal 7.0-18.0 [facility] Comment on above: Performed By: #### C MP #### [facility] [address] [place] [address] Dr. Kay Singh Urea nitrogen/Creatinine [Mass ratio] 13.1 mg/mg Normal [facility] Comment on above: Performed By: #### C MP #### [facility] [address] [address] [address] Kay Singh *MRSA/MSSA DNA NASALon 12-14 *MRSA/MSSA DNA NASAL Clinical Report: (D) Specimen: NASAL SWAB Collected: 12/14/2021 13:00 Status: Final Last Updated: 12/15/2021 14:36 MSSA DNA (Final) Methicillin Susceptible Staphylococcus aureus DNA Detected MRSA DNA (Final) Negative Normal [facility] Comment on above: Performed By: #### 3 1595 #### [facility] [address] BASIC METABOLIC PANELon Calcium [Mass/Vol] 8.9 mg/dL Normal 8.6-10.3 [facility] Comment on above: Performed By: #### 0 0071 #### [facility] [address] [place] [address], [facility] Chloride [Moles/Vol] 101 mmol/L Normal 98-107 [facility] Comment on above: Performed By: #### 0 0071 #### [facility] [address] [id number], [facility] CO2 [Moles/Vol] 26 mmol/L Normal 21-31 [facility] Comment on above: Performed By: #### 0 0071 #### [facility] [address] [place] [address], [facility] Creatinine [Mass/Vol] 1.18 mg/dL Normal 0.60-1.20 [facility] Comment on above: Performed By: #### 0 0071 #### [facility] [address] [place] [address], [place] eGFR- 53 ml/min/1.73sq m Abnormal >[address] [facility] Comment on above: Result Comment: Calc ulation may not be valid for patients over 70 years Performed By: #### 0 0071 #### [facility] [address] [place] [address], [place] eGFR- non- 45 ml/min/1.73sq m Abnormal >[address] [facility] Comment on above: Result Comment: Calc ulation may not be valid for patients over 70 years Performed By: #### 0 0071 #### [facility] [address] [place] [address], [place] Glucose [Mass/Vol] 95 mg/dL Normal 70-100 [facility] Comment on above: Performed By: #### 0 0071 #### [facility] [address] [place] [address], [place] Potassium [Moles/Vol] 4.5 mmol/L Normal 3.5-5.1 [facility] Comment on above: Performed By: #### 0 0071 #### [facility] [address] [place] [address], [place] Sodium [Moles/Vol] 133 mmol/L Low 136-145 The [facility] Comment on above: Performed By: #### 0 0071 #### [facility] [address] [place] [address], [place] Urea nitrogen [Mass/Vol] 17 mg/dL Normal 7-25 [facility] Comment on above: Performed By: #### 0 0071 #### [facility] [address] [place] [address], [place] CBC COMPLETE BLOOD COUNTon 0 12-14-2021 Erythrocyte distribution width (RBC) [Ratio] 13.0 % Normal 11.5-15.0 [facility] Comment on above: Performed By: #### 0 0071 #### [facility] [address] [place] [address], [facility] Hematocrit (Bld) [Volume fraction] 37.7 % Normal 36.0-45.0 [facility] Comment on above: Performed By: #### 0 0071 #### [facility] [address] [place] [address], [facility] Hemoglobin (Bld) [Mass/Vol] 13.2 g/dL Normal 12.0-15.0 [facility] Comment on above: Performed By: #### 0 0071 #### [facility] [address] [facility] [place] [address], [facility] MCH (RBC) [Entitic mass] 32.9 pg Normal 27.0-33.0 [facility] Comment on above: Performed By: #### 0 0071 #### [facility] [address] [facility] [address] MCHC (RBC) [Mass/Vol] 35.0 g/dL Normal 32.0-35.0 [facility] Comment on above: Performed By: #### 0 0071 #### [facility] [address] [place] [address], [facility] MCV (RBC) [Entitic vol] 94.0 fL Normal 82.0-98.0 [facility] Comment on above: Performed By: #### 0 0071 #### [facility] [address] [facility] [place] [address], [facility] Nucleated RBC/100 WBC (Bld) [Ratio] 0 % Normal 0-0 [facility] Comment on above: Performed By: #### 0 0071 #### [facility] [address] [place] [address], [facility] PLAT CNT 175 10*3/uL Normal 150-[address] [facility] Comment on above: Performed By: #### 0 0071 #### [facility] [address] [facility] [place] [address], [facility] RBC (Bld) [#/Vol] 4.01 10*6/uL Normal 3.80-5.00 The [facility] Comment on above: Performed By: #### 0 0071 #### [facility] [address] [place] [address], [facility] WBC (Bld) [#/Vol] 6.40 10*3/uL Normal 4.00-10.60 The [facility] Comment on above: Performed By: #### 0 0071 #### [facility] [address] [facility] [place] [address], [facility] CHEST AND LATERALon 12-15-19 CHEST AND LATERAL [facility] Department of Radiology [address] [place] [id number] Patient Name: ODILIA SCHROEDER : 1945 [...] exam Electronically signed: Nereida Vasquez. Transcribed by: [email or web address], User Resident: Electronically Signed by: NEREIDA VASQUEZ @ 12/14/2021 03:29 PM Normal [facility] Comment on above: Order Comment: post cath procedure POC SARS COV2 IDon SARS-CoV-2 (COVID-19) RNA EULA+probe Ql (Unsp spec) Negative Normal NEGATIVE [facility] Comment on above: Result Comment: ID [...] Accreditation. Performed By: #### 0 0071 #### [address] [place] [address], [facility] Covid-19 PCR ([facility]VD[facility])on 11-15 SARS-CoV-2 (COVID-19) RNA EULA+probe Ql (Unsp spec) Not detected Normal NOT DETECTED [facility] Comment on above: Result Comment: This test is not yet approved or cleared by the [place] FDA. When there are no FDA-approved or cleared tests available, and other criteria are met, FDA can make tests available under an emergency access mechanism called an Emergency Use Authorization (EUA). The EUA for this test is supported by the [place] of Health and Human Service's (HHS's) declaration [...] SARS-CoV-2. Performed By: #### C MP #### [facility] [address] [address] [address] Kay Singh FOLATE ([facility])on 2 Folate 7.3 ng/mL Normal >3.0 [facility] Comment on above: Result Comment: A se rum folate concentration of less than 3.1 ng/mL is considered to represent clinical deficiency. Performed By: #### C MP #### [facility] [address] [address] [address] Kay Singh VIT D 25-[place] LABCORPon 2021 Vitamin D, 25-Hydroxy 62.3 ng/mL Normal 30.0-100.0 [facility] Comment on above: Result Comment: Nicky min D deficiency has been defined by the [place] of [employer] and an Endocrine Society practice guideline as a level of serum 25-OH vitamin D less than 20 ng/mL (1,2). The Endocrine Society went on to further define vitamin D insufficiency as a level between 21 and 29 ng/mL (2). 1. IOM ([place] [employer]). 2010. Dietary reference intakes for calcium and D. [place]: The National Academies Press. 2. Jayesh MF, [place], Elizabet OWENS, et al. Evaluation, treatment, and prevention of vitamin D deficiency: an Endocrine Society clinical practice guideline. JCEM. 2011 Issac; 96(7):1911-30. Performed By: #### C MP #### [facility] [address] [place] [address] Dr. Kay Singh VITAMIN B12on 07-26-2021 Cobalamin (Vitamin B12) [Mass/Vol] 373 pg/mL Normal 232-1245 [facility] Comment on above: Performed By: #### V B12LC #### [facility] [address] [place] [address] Dr. Kay Singh CBC AUTO DIFFon 07-25-2021 BASO # 0.0 103/ul Normal 0.0-0.1 [facility] Comment on above: Performed By: #### C BC #### [facility] [address] [place] [address] Dr. Kay Singh Basophils/100 WBC (Bld) 0.5 % Normal 0.2-2.0 [facility] Comment on above: Performed By: #### C BC #### [facility] [address] [place] [address] Dr. Kay Singh EO # 0.7 103/ul Normal 0.0-0.7 [facility] Comment on above: Performed By: #### C BC #### [facility] [address] [place] [address] Dr. Kay Singh Eosinophils/100 WBC (Bld) 8.8 % Critically high 0.9-7.0 [facility] Comment on above: Performed By: #### C BC #### [facility] [address] [place] [address] Dr. Kay Singh Erythrocyte distribution width (RBC) [Ratio] 11.8 % Normal 11.0-15.0 [facility] Comment on above: Performed By: #### C BC #### [facility] [address] [place] [address] Dr. Kay Singh Hematocrit (Bld) [Volume fraction] 37.3 % Normal 36.0-48.0 [facility] Comment on above: Performed By: #### C BC #### [facility] [address] [place] [address] Dr. Kay Singh Hemoglobin (Bld) [Mass/Vol] 12.8 g/dL Normal 12.0-16.0 [facility] Comment on above: Performed By: #### C BC #### [facility] [address] [place] [address] Dr. Kay Singh IG # 0.03 10e3/ul Normal 0.00-0.03 [facility] Comment on above: Performed By: #### C BC #### [facility] [address] [place] [address] Dr. Kay Singh IG % 0.4 % Normal 0.0-0.5 [facility] Comment on above: Performed By: #### C BC #### [facility] [address] [place] [address] Dr. Kay Singh LYMPH # 1.6 103/ul Normal 1.2-3.8 [facility] Comment on above: Performed By: #### C BC #### [facility] [address] [place] [address] Dr. Kay Singh Lymphocytes/100 WBC (Bld) 19.5 % Critically low 20.5-60.0 [facility] Comment on above: Performed By: #### C BC #### [facility] [address] [place] [address] Dr. Kay Singh MANUAL DIFF REQ NO Normal [facility] Comment on above: Performed By: #### C BC #### [facility] [address] [place] [address] Dr. Kay Singh MCH (RBC) [Entitic mass] 32.1 pg Normal 26.7-34.0 [facility] Comment on above: Performed By: #### C BC #### [facility] [address] [place] [address] Dr. Kay Singh MCHC (RBC) [Mass/Vol] 34.3 g/dL Normal 29.9-35.2 [facility] Comment on above: Performed By: #### C BC #### [facility] [address] [place] [address] Dr. Kay Singh MCV (RBC) [Entitic vol] 93.5 fL Normal 81.0-99.0 [facility] Comment on above: Performed By: #### C BC #### [facility] [address] [place] [address] Dr. Kay Singh MONO # 0.7 103/ul Normal 0.3-0.8 [facility] Comment on above: Performed By: #### C BC #### [facility] [address] [place] [address] Dr. Kay Singh Monocytes/100 WBC (Bld) 8.3 % Normal 1.7-12.0 [facility] Comment on above: Performed By: #### C BC #### [facility] [address] [place] [address] Dr. Kay Singh NEUT # 5.2 103/ul Normal 1.4-6.5 [facility] [facility] Comment on above: Performed By: #### C BC #### [facility] [address] [place] [address] Dr. Kay Singh Neutrophils/100 WBC (Bld) 62.5 % Normal 43.0-75.0 [facility] Comment on above: Performed By: #### C BC #### [facility] [address] [place] [address] Dr. Kay Singh Platelet mean volume (Bld) [Entitic vol] 10.1 fL Normal 9.5-13.5 [facility] Comment on above: Performed By: #### C BC #### [facility] [address] [place] [address] Dr. Kay Singh PLT 221 103/ul Normal 150-450 [facility] Comment on above: Performed By: #### C BC #### [facility] [address] [place] [address] Dr. Kay Singh RBC 3.99 106/ul Critically low 4.20-5.40 [facility] Comment on above: Performed By: #### C BC #### [facility] [address] [place] [address] Dr. Kay Singh WBC 8.3 103/ul Normal 4.0-11.0 [facility] Comment on above: Performed By: #### C BC #### [facility] [address] [address] [address] Kay Singh GLYCOHEMOGLOBIN A1Con 2021 ADA RECOMMENDATION ADA THERAPEUTIC TARGET 6.0 - 7.0 ACTION SUGGESTED > 7.0 Normal [facility] Comment on above: Performed By: #### A 1C #### [facility] [address] [address] [address] Kay Singh Glucose [Mass/Vol] 108 mg/dL Normal [facility] Comment on above: Performed By: #### A 1C #### [facility] [address] [address] [address] Kay Singh HbA1c (Bld) [Mass fraction] 5.4 % Normal <=6.0 [facility] Comment on above: Performed By: #### A 1C #### [facility] [address] [place] [address] Dr. Kay Singh LIPID PROFILEon 07-25-2021 CHOL-HDL RATIO NORM SEE BELOW Normal [facility] Comment on above: Result Comment: 3.3 - 4.4 LOW RISK 4.4 - 7.1 AVERAGE RISK 7.1 - 11.0 MODERATE RISK >11.0 HIGH RISK Performed By: #### T SH, LIPID, CMP #### [facility] [address] [place] [address] Dr. Kay Singh Cholesterol [Mass/Vol] 139 mg/dL Normal <=200 [facility] Comment on above: Performed By: #### T SH, LIPID, CMP #### [facility] [address] [place] [address] Dr. Kay Singh Cholesterol in HDL [Mass/Vol] 52 mg/dL Normal [facility] Comment on above: Performed By: #### T SH, LIPID, CMP #### [facility] [address] [place] [address] Dr. Kay Singh Cholesterol in LDL [Mass/Vol] 69.8 mg/dL Normal [facility] Comment on above: Performed By: #### T SH, LIPID, CMP #### [facility] [address] [address] [address] Kay Singh Cholesterol.total/C holesterol in HDL [Mass ratio] 2.7 {ratio} Normal [facility] Comment on above: Performed By: #### T BARB, LIPID, CMP #### [facility] [address] [address] [address] Kay Singh HDL NORMAL > or = 60 mg/dl - LO W CARDIOVASCULAR RISK <40 mg/dl - HIGH CARDIOVASCULAR RISK Normal [facility] Comment on above: Performed By: #### T BARB, LIPID, CMP #### [facility] [address] [address] [address] Kay Singh LDL CALC NORMAL SEE BELOW Normal [facility] Comment on above: Result Comment: <100 mg/dl OPTIMAL 100 - 129 mg/dl NEAR OR ABOVE OPTIMAL 130 - 159 mg/dl BORDERLINE HIGH 160 - 189 mg/dl HIGH >190 mg/dl VERY HIGH Performed By: #### T BARB, LIPID, CMP #### [facility] [address] [address] [address] Kay Singh Triglyceride [Mass/Vol] 86 mg/dL Normal <=150 [facility] Comment on above: Performed By: #### T BARB, LIPID, CMP #### [facility] [address] [address] [address] Kay Singh VLDL CALC 17.2 mg/dL Normal [facility] Comment on above: Performed By: #### T BARB, LIPID, CMP #### [facility] [address] [address] [address] Kay Singh MG MAMM SCREEN 3D TRINITY CADon 07-25-2021 MG MAMM SCREEN 3D TRINITY CAD Patient: ODILIA SCHROEDER Exam Date: 07/25/2021 : 1945 Gender:F Ordering : DR ZAKI FLANAGAN D.O. Admission #: [id number] Family : Order #: [id number] CLICK HERE TO VIEW EXAM RADIOLOGY REPORT [...] Treatments None Family Cancers None LOCATION: [facility] BREAST COMPOSITION: Scattered areas fibroglandular density. [...] Tirado MD on 07/25/2021 at 11:10 Normal [facility] PROF 14(COMP METB)on 07-25- 022 Albumin [Mass/Vol] 3.7 g/dL Normal 3.5-5.0 [facility] Comment on above: Performed By: #### T SH, LIPID, CMP #### [facility] [address] [place] [address] Dr. Kay Singh Albumin/Globulin [Mass ratio] 1.1 {ratio} Normal [facility] Comment on above: Performed By: #### T SH, LIPID, CMP #### [facility] [address] [place] [address] Dr. Kay Singh ALP [Catalytic activity/Vol] 46 U/L Normal 38-126 [facility] Comment on above: Performed By: #### T SH, LIPID, CMP #### [facility] [address] [place] [address] Dr. Kay Singh ALT [Catalytic activity/Vol] 12 U/L Normal 9-52 [facility] Comment on above: Performed By: #### T SH, LIPID, CMP #### [facility] [address] [place] [address] Dr. Kay Singh Anion gap [Moles/Vol] 12.1 mmol/L Normal [facility] Comment on above: Performed By: #### T SH, LIPID, CMP #### [facility] [address] [address] [address] Kay Singh AST [Catalytic activity/Vol] 18 U/L Normal 14-36 [facility] Comment on above: Performed By: #### T SH, LIPID, CMP #### [facility] [address] [address] [address] Kay Singh Bilirubin [Mass/Vol] 0.6 mg/dL Normal 0.2-1.3 [facility] Comment on above: Performed By: #### T SH, LIPID, CMP #### [facility] [address] [address] [address] Kay Singh Calcium [Mass/Vol] 9.1 mg/dL Normal 8.4-10.2 [facility] Comment on above: Performed By: #### T SH, LIPID, CMP #### [facility] [address] [address] [address] Kay Singh Chloride [Moles/Vol] 99 mmol/L Normal 98-107 [facility] Comment on above: Performed By: #### T SH, LIPID, CMP #### [facility] [address] [address] [address] Kay Singh CO2 [Moles/Vol] 29.4 mmol/L Normal 22.0-30.0 [facility] Comment on above: Performed By: #### T SH, LIPID, CMP #### [facility] [address] [address] [address] Kay Singh Creatinine [Mass/Vol] 1.39 mg/dL Critically high 0.52-1.04 [facility] Comment on above: Performed By: #### T SH, LIPID, CMP #### [facility] [address] [address] [address] Kay Singh EGFR-AF ANGUILLAN 44 mL/min/1.73m2 Critically low >=60 [facility] Comment on above: Performed By: #### T SH, LIPID, CMP #### [facility] [address] [place] [address] Dr. Kay Singh EGFR-NON AF ANGUILLAN 37 mL/min/1.73m2 Critically low >=60 [facility] Comment on above: Performed By: #### T SH, LIPID, CMP #### [facility] [address] [address] [address] Kay Singh Globulin (S) [Mass/Vol] 3.3 g/dL Normal [facility] Comment on above: Performed By: #### T SH, LIPID, CMP #### [facility] [address] [address] [address] Kay Singh Glucose [Mass/Vol] 118 mg/dL Critically high 74-106 [facility] Comment on above: Performed By: #### T SH, LIPID, CMP #### [facility] [address] [place] [address] Dr. Kay Singh Potassium [Moles/Vol] 3.5 mmol/L Normal 3.4-5.0 [facility] Comment on above: Performed By: #### T SH, LIPID, CMP #### [facility] [address] [place] [address] Dr. Kay Singh Protein [Mass/Vol] 7.0 g/dL Normal 6.1-8.2 [facility] Comment on above: Performed By: #### T SH, LIPID, CMP #### [facility] [address] [place] [address] Dr. Kay Singh Sodium [Moles/Vol] 137 mmol/L Normal 137-145 [facility] Comment on above: Performed By: #### T SH, LIPID, CMP #### [facility] [address] [place] [address] Dr. Kay Singh Urea nitrogen [Mass/Vol] 16.0 mg/dL Normal 7.0-17.0 [facility] Comment on above: Performed By: #### T SH, LIPID, CMP #### [facility] [address] [place] [address] Dr. Kay Singh Urea nitrogen/Creatinine [Mass ratio] 11.5 mg/mg Normal [facility] Comment on above: Performed By: #### T SH, LIPID, CMP #### [facility] [address] [place] [address] Dr. Kay Diamond 07-25-2021 TSH 3.226 uIU/mL Normal 0.470-4.[address] [facility] Comment on above: Performed By: #### T SH, LIPID, CMP #### [facility] [address] [place], [place] [address] Dr. Kay Singh TSH RANGE SEE BELOW Normal [facility] Comment on above: Result Comment: <0.3 4 UIU/ml HYPERTHYROID 0.34-5.60 UIU/ml EUTHYROID >5.60 UIU/ml HYPOTHYROID Performed By: #### T SH, LIPID, CMP #### [facility] [address] [place], [place] [address] Dr. Kay Singh XR DEXA BONE DENSITYon [...] by: ETHEL SANDERSON Date: 2021-07-25 10:44 Normal [facility] Vital Signs Date Time Vital Sign Value Performing Clinician Monica nunez 01-28-2025 13:46-0400 Body height 152.4 cm Zaki Flanagan DO Work Phone: [facility] 01-28-2025 13:46-0400 Body mass index (BMI) [Ratio] 29.9 kg/m2 Zaki Flanagan DO Work Phone: [facility] 01-28-2025 13:46-0400 Body weight 69.39 kg Zaki Flanagan DO Work Phone: [facility] 01-28-2025 13:46-0400 Diastolic blood pressure 74 mm[Hg] Zaki Flanagan DO Work Phone: [facility] 01-28-2025 13:46-0400 Heart rate 93 /min Zaki Flanagan DO Work Phone: [facility] 01-28-2025 13:46-0400 Respiratory rate 16 /min Zaki Flanagan DO Work Phone: [facility] 01-28-2025 13:46-0400 SaO2% (BldA) [Mass fraction] 99 % Zaik Flanagan DO Work Phone: [facility] 01-28-2025 13:46-0400 Systolic blood pressure 107 mm[Hg] Zaki Flanagan DO Work Phone: [facility] Encounters Encounter Date Encounter Type Care Provider Facility Start: 02-25-2025 End: 02-25-2025 Patient encounter procedure Areli Galvez MD -[facility] [place] Work Phone: Start: 02-25-2025 End: 02-25-2025 ambulatory Zaki A Flanagan DO Work Phone: [facility] Work Phone: Start: 02-02-2025 End: 02-02-2025 ambulatory [facility] Start: 01-28-2025 End: 01-28-2025 ambulatory Zaki A Flanagan DO Work Phone: [facility] Work Phone: Start: 01-28-2025 End: 01-28-2025 Patient encounter procedure Areli Galvez MD -[facility] [place] Work Phone: Start: 01-14-2025 End: 01-14-2025 Telephone encounter Scanning Provider External [facility] Gr[address] Start: 11-17-2024 End: 11-17-2024 ambulatory [facility] Start: 08-01-2024 End: 08-01-2024 ambulatory [facility] Start: 07-04-2024 End: 07-04-2024 ambulatory [facility] Start: 06-09-2024 End: 06-09-2024 ambulatory [facility] Start: 04-29-2024 End: 04-29-2024 ambulatory [facility] Start: 03-13-2024 End: 03-13-2024 ambulatory [facility] Start: 02-04-2024 End: 02-04-2024 Chart abstracting Saadia jacinto [facility] Start: 01-10-2024 End: 01-10-2024 Orders Only Delonte jacinto [facility] Comment on above: Age-related osteopor osis without current pathological fracture (Primary Dx) Start: 04-10-2022 End: 04-11-2022 ambulatory JOSE M CABRERA Facility: Start: 02-22-2022 End: 02-23-2022 Evaluation and management of inpatient ZAKI FLANAGAN Facility:[facility] Start: 02-20-2022 End: 02-21-2022 ambulatory JOSE M CABRERA Facility:[facility] Start: 01-25-2022 End: 01-26-2022 ambulatory BEE GUEVARA Facility:[facility] Start: 01-23-2022 End: 01-24-[address] BEE GUEVARA Facility:[facility] Start: 12-23-2021 End: 12-24-2021 ambulatory JOSE M CABRERA Facility:[facility] Start: 12-14-2021 End: 12-15-2021 ambulatory BEE GUEVARA Facility:[facility] Start: 12-12-2021 End: 12-13-[address] BEE GUEVARA Facility: Start: 07-25-2021 End: 07-26-[address] ZAKI FLANAGAN Facility: Procedures Date Procedure Procedure Detail Performing Clinician Start: 02-25-2025 Ultrasonography of b ilateral kidneys Zaki Flanagan DO Work Phone: Start: 12-19-2023 Dxa bone density yosi dy 1/> sites axial skel Not In System Ref Prov Start: 02-22-2022 Antibody screen BEE GUEVARA Comment on above: Performed By: #### 6 [id number] #### [address] Plan of Treatment Date Care Activity Detail Author Start: 03-16-2025 Influenza vaccination Influenza Vaccine [facility] Start: 03-16-2024 COVID-19 Vaccine ( season) COVID-19 Vaccine ( season) [facility] Start: 03-16-2024 Influenza vaccination Influenza Vaccine [facility] Start: 03-09-2024 Adult BMI Screening Adult BMI Screening [facility] Start: 03-16-2023 COVID-19 Vaccine ( season) COVID-19 Vaccine ( season) [facility] Start: 2008 Fall Risk Screening Fall Risk Screening [facility] Start: 1993 Administration of varicella zoster vaccine Zoster (Shingles) Vaccine (1 of 2) [facility] Start: 1962 DTaP,Tdap and Td Vaccines (1 - Tdap) DTaP,Tdap and Td Vaccines (1 - Tdap) [facility] Start: 1961 Adult BMI Follow Up Plan Adult BMI Follow Up Plan [facility] Start: 1955 Depression Screening Depression Screening [facility] Start: 1955 Tobacco Screening Tobacco Screening [facility] Start: 1945 Medicare Annual Wellness Visit Medicare Annual Wellness Visit [facility] Renal function 2000 panel - Serum or Plasma [facility] Immunizations Immunization Date Immunization Notes Care Provider Fa taraty 03-23-2023 influenza virus vacc ine, unspecified formulation Saadia Coleman [facility] 08-03-2022 influenza virus vacc ine, unspecified formulation Delonte Cain RN [facility] Payers Date Payer Category Payer Self-pay 2021 Medicare A[employer] MEDICARE A ETNA MEDICARE PLAN (PPO) [id number] 2021-Present [phone] [address] [place] [address] [id number] 2021 Medicare HMO [employer] MEDICARE [id number] 1959 Private Health Insurance [id number] 1945 Unknown [id number] 647 1945 Unknown [id number]. 647 1945 Unknown [id number]. 647 1945 Unknown [id number] [id number]. 593 1945 Unknown [id number]. 593 1945 Unknown [id number] [id number]. 593 1945 Unknown [id number] [id number]. 593 1945 Unknown [id number] [id number]. 593 1945 Unknown [id number] [id number]. 593 1945 Unknown [id number] [id number]. 593 Unknown [id number]. 531 Social History Date Type Detail Facility Start: 09-21-2021 End: 01-28-2025 Tobacco smoking status NHIS Never smoked tobacco [facility] Start: 09-21-2021 Tobacco use and exposure Smokeless tobacco non-user [facility] Start: 09-29-2021 Alcoholic beverage intake Lifetime non-drinker (finding) [facility] Start: 12-25-2018 End: 09-29-2021 History of Social function [facility] Start: 12-25-2018 End: 09-29-2021 Tobacco use panel [facility] Childcare Unknown [facility] Start: 1945 Sex assigned at Not on file [facility] Start: 02-18-2015 Sex Female (finding) [facility] Start: 1945 Sex Assigned At Female F [facility] Goals Date Patient Goal Desired Activity /State Personal health goal Comment on above: Formatting of this n ote might be different from the original. Evaluation of progress towards goal:safe transition to SNF Clinical Notes 02-24-2022 to 02-25-2025 Note Date & Type Note Facility 02-25-2025 Radiology Diagnostic study note [facility] [place] [address] Ultrasound Report Signed Patient: Odilia Schroeder MR#: [id number] : 1945 Acct:[id number] Age/Sex: 79 / F ADM Date: 5 Loc: Room: Type: [facility] Attending Dr: Areli Galvez MD Ordering Provider: Areli Galvez MD Date of Service: 02/25/25 US/US renal BI: N18.4 - Chronic kidney disease, stage4 (severe) Copies to: Areli Galvez MD~ BILATERAL RENAL AND BLADDER ULTRASOUND CLINICAL HISTORY: Stage IV chronic kidney disease COMPARISON: None FINDINGS: Estimation of renal size is approximately 6.93 cm on the right and 8.87 cm on the left. No contour deforming mass, shadowing stone or hydronephrosis. 1.8 cmcyst inferior pole right kidney. The urinary bladder is partially distended with a volume of 80.48 ml. No shadowing stone or focal lesion. No significant postvoid residual. US/US renal BI IMPRESSION: No acute findings. Impression dictated by: Bi Velarde Jr., D.O. 02/25/2025 4:47 PM Dictation Location: [place] [address] Tech: Gayathri Mcnally Transcribed By: QING 02/25/251646 Dictated By: Bi Velarde Jr, DO 02/25/251645 Signed By: 02/25/251646 [facility] 02-02-2025 Note [place] Cardiology - [facility] Subjective Odilia Schroeder is a 79 y.o. year old female patient being seen for 2 mo follow up PAF, valve disorder, CHF, and hypertension. She had routine labs with lipid panel drawn last month. Dr. Flanagan cut her metoprolol in half due to fatigue. Daughter states her BP has been really good since the decrease, and wants to know if she could possibly take something else. Says her SOB is a little better . Patient Active Problem List Diagnosis Tremor of [...] (CMS/HCC) Major depressive disorder, single episode, mild Chronic systolic congestive heart failure (CMS/HCC) Severe mitral regurgitation Presence of Watchman left atrial appendage closure device Primary hypertension Nonrheumatic mitral valve regurgitation SIMS (dyspnea on exertion) Age-related osteoporosis without current pathological fracture Family History Problem Relation Name Age of Onset Cancer Mother Heart attack Father Cancer Father Cancer Sister Social History Tobacco Use Smoking status: Never Passive exposure: Current Smokeless tobacco: Never Substance Use Topics Alcohol use: Not Currently Drug use: Never HPI Odilia is seen in follow-up. She is a 79-year-old woman with prior history of paroxysmal atrial fibrillation and atrial flutter. She has prior history of TIA, hypertension and hyperlipidemia. She was previously maintained on anticoagulation therapy for atrial fibrillation. Her [id number] score is 6 for age, history of [...] adjustment. She was referred to cardiac rehab. Her medications were adjusted for good blood pressure control. I then proceeded with cardiopulmonary exercise stress test due to continued shortness of breath on exertion and this showed significant cardiac limitation with normal pulmonary function. A follow-up echocardiogram May 2024 showed LVEF around 50% with moderate mitral regurgitation. After the visit of 06/09/2024 I ordered a transesophageal echocardiogram to reexamine the mitral regurgitation. This showed mild to moderate mitral regurgitation with normal ventricular systolic function. I saw her on 11/17/2024 and she had an upper respiratory tract infection and I admitted her to the hospital for zach (more content not included)... [facility] 01-28-2025 Evaluation note Diagnosis Onset Date Resolution Chronic kidney disease, stage IV (severe) acute January 28 1:42pm Hypertensive nephropathy acute January 28, 2025 1:42pm Hypokalemia acute January 28 1:42pm Vitamin B12 deficiency acute Ju 2024 1:42pm Vitamin D deficiency acute January 28, 2025 1:42pm [facility] Work Phone: 1(906) 418-622007-02-2025 Miscellaneous Notes* Telephone Encounter - Mickie Goyal - 01/14/2025 12:25 PM EDT Called to schedule new pt appt. Pt stated she already has a new pt appt scheduled with a paper reclaiming machine operator in [place]. [facility] [id number] Telephone encounter Note* Telephone Encounter - Mickie Goyal - 01/14/2025 12:25 PM EDT Called to schedule new pt appt. Pt stated she already has a new pt appt scheduled with a paper reclaiming machine operator in [place]. MD [facility]05-05-2025 NoteUT Cardiology - [facility] Subjective Odilia Schroeder is a 79 y.o. year old female patient being seen for follow up. Patient is here for wheezing, cough and fluid build up. Patient states she has doubled up on her lasix patient normal takes 20 and had been taking 40mg for the last 2 days. Patient states the lasix in no longer working, patient states she didn't get up last night to go to the restroom, and has only gone once today.Patient states she has taken a bottle of tussin D max trying to break up the cough and wheezing. Patient complains of wheezing, cough, fatigue, weakness. Patient denies swelling in her legs, abd,face, or hands, dizziness, chest pain. Patient Active Problem List Diagnosis [...] (CMS/HCC) Major depressive disorder, single episode, mild Chronic systolic congestive heart failure (CMS/HCC) Severe mitral regurgitation Presence of Watchman left atrial appendage closure device Primary hypertension Nonrheumatic mitral valve regurgitation SIMS (dyspnea on exertion) Age-related osteoporosis without current pathological fracture Family History Problem Relation Name Age of Onset Cancer Mother Heart attack Father Cancer Father Cancer Sister Social History Tobacco Use Smoking status: Never Passive exposure: Current Smokeless tobacco: Never Substance Use Topics Alcohol use: Not Currently Drug use: Never TAMIA Odilia is seen in follow-up. She is a 79-year-old woman with prior history of paroxysmal atrial fibrillation and atrial flutter. She has prior history of TIA, hypertension and hyperlipidemia. She was previously maintained on anticoagulation therapy for atrial fibrillation. Her [id number] score is 6 for age, history of [...] adjustment. She was referred to cardiac rehab. Her medications were adjusted for good blood pressure control. I then proceeded with cardiopulmonary exercise stress test due to continued shortness of breath on exertion and this showed significant cardiac limitation with normal pulmonary function. A follow-up echocardiogram May 2024 showed LVEF around 50% with moderate mitral regurgitation. After the visit of 06/09/2024 I ordered a transesophageal echocardiogram to reexamine the (more content not included)...[facility] 08-01-2024 NoteUT Cardiology - [facility] Subjective Odilia Schroeder is a 79 y.o. year old female patient being seen for follow up CELINA performed 07/04/2024. She still thinks she's supposed to cut losartan 25mg tablets in half, and has been doing so daily. Denies chest pain, but states she gets a quiver across her chest and up to her chin. Patient Active Problem List Diagnosis Tremor of [...] mitral valve regurgitation SIMS (dyspnea on exertion) Age-related osteoporosis without current pathological fracture Family History Problem Relation Name Age of Onset Cancer Mother Heart attack Father Cancer Father Social History Tobacco Use Smoking status: Never Passive exposure: Current Smokeless tobacco: Never Substance Use Topics Alcohol use: Not Currently HPI Odilia is seen in follow-up. She is a 79-year-old woman with prior history of paroxysmal atrial fibrillation and atrial flutter. She has prior history of TIA, hypertension and hyperlipidemia. She was previously maintained on anticoagulation therapy for atrial fibrillation. Her [id number] score is 6 for age, history of [...] adjustment. She was referred to cardiac rehab. Her medications were adjusted for good blood pressure control. I then proceeded with cardiopulmonary exercise stress test due to continued shortness of breath on exertion and this showed significant cardiac limitation with normal pulmonary function. A follow-up echocardiogram May 2024 showed LVEF around 50% with moderate mitral regurgitation. After the visit of 06/09/2024 I ordered a transesophageal echocardiogram to reexamine the mitral regurgitation. This showed mild to moderate mitral regurgitation with normal ventricular systolic function. Today she reports that she continues to have significant shortness of breath on exertion, NYHA class II-III symptoms. She feels that she cannot perform any significant physical activity. She is very tired. She has no energy. Review of Systems C (more content not included)...[facility]11-25-2024 [facility] Subjective Odilia Schroeder is a 79 y.o. year old female patient being seen for follow up echo performed 05/28/2024. Patient Active Problem List Diagnosis Tremor of [...] mitral valve regurgitation SIMS (dyspnea on exertion) Age-related osteoporosis without current pathological fracture Family History Problem Relation Name Age of Onset Cancer Mother Heart attack Father Cancer Father Social History Tobacco Use Smoking status: Never Passive exposure: Current Smokeless tobacco: Never Substance Use Topics Alcohol use: Not Currently HPI Odilia is seen in follow-up. She is a 79-year-old woman with prior history of paroxysmal atrial fibrillation and atrial flutter. She has prior history of TIA, hypertension and hyperlipidemia. She was previously maintained on anticoagulation therapy for atrial fibrillation. Her [id number] score is 6 for age, history of [...] adjustment. She was referred to cardiac rehab. Her medications were adjusted for good blood pressure control. I then proceeded with cardiopulmonary exercise stress test due to continued shortness of breath on exertion and this showed significant cardiac limitation with normal pulmonary function. A follow-up echocardiogram May 2024 showed LVEF around 50% with moderate mitral regurgitation. Today she reports that she continues to have significant shortness of breath on exertion, NYHA class III symptoms. She feels that she cannot perform any significant physical activity. She is very tired. She has no energy. Review of Systems Constitutional: Positive for malaise/fatigue. Cardiovascular: Positive for dyspnea on exertion, irregular heartbeat and palpitations. Respiratory: Positive for shortness of breath. Hematologic/Lymphatic: Bruises/bleeds easily. Musculoskeletal: Positive for muscle weakness. Gastrointestinal: Positive for diarrhea. Neurological: Positive for light-headedness, loss of balance, vertigo and (more content not included)...[facility] [id number] I [facility] Pt. Name: Odilia Schroeder Admitted: 02/22/2022 Discharged: 02/23/2022 Date of : 1945 Physician: Bee Ramakrishna Moukarbel, M.D. DISCHARGE SUMMARY PRIMARY DIAGNOSIS: Paroxysmal atrial [...] including most recently Dr. Argelia Rodas from [facility] and they all agreed she should be considered for Watchman device, which is what brought her to the rn cardiac cath on admission. On 02/22/2022, she underwent successful [...] Eliquis or aspirin unless instructed by your pre algebra teacher. 2. Follow up with Cardiology as scheduled, with PURCHASING ADMINISTRATOR, Jose M Cabrera in the [facility]. 3. A followup transesophageal echocardiogram will be performed around 6 weeks post implant for Watchman protocol. 4. She will need endocarditis prophylaxis for 6 months following the Watchman procedure. Electronically Signed by: Bee Guevara M.D. 02/26/2022 09:50 P Bee Guevara M.D. I have reviewed this discharge summary and confirmed the resident's documentation. Please note that there may be additional documentation from [place]. Date Dict: 02/23/2022/02:46 P/Jose M Cabrera, SHEET IRONWORKER Date Trans: 02/24/2022 09:55 A/mmo [id number] cc: Zaki Flanagan D.O. [address] [facility] [id number]* Diagnosis Age-related osteoporosis without current pathological fracture- Primary documented [facility] this [facility] Diagnosis Onset Date Resolution Status Admit Date Chronic kidney disease, stag e IV (severe) acute January 28, 2025 1:42pm Hypertensive nephropathy acute January 28, 2025 1:42pm Hypokalemia acute January 28 1:42pm Vitamin B12 deficiency acute Ju 2024 1:42pm Vitamin D deficiency acute January 28, 2025 1:42pm [facility] Work Phone: InstructionsNot on filedocumented in this encounter [facility]ructionsNot on filedocumented in this encounter [facility] for [facility] (narrative)No reason for referral information [facility] Work Phone: Summary Purpose Family History No Family History Records Found Relationship Condition Age at Onset Recorded Date/T ar father Myocardial infarction Unknown Heart disease Unknown mother Heart disease Unknown Myocardial infarction Unknown Advance Directives No Advanced Directives Records Found Date Activated Date Inactivated Comments 09/22/2021 6:17 AM 09/29/2021 6:43 PM Advance Directive Response Recorded Date/ Time Advance Directives No December 09 3:34pm Chief Complaint and Reason for Visit Chief Complaint Admit Date ckd 3 January 28, 2025 1:42 pm N18.4 February 25, 2025 11 :25am Reason for Visit Admit Date Chronic kidney disease, stage IV (severe ) January 28, 2025 1:42pm Hypertensive nephropathy January 28, 2025 1:42pm Hypokalemia January 28, 2025 1:42 pm Vitamin B12 deficiency January 28, 2025 1 :42pm Vitamin D deficiency January 28, 2025 1:4 2pm Chief Complaint Admit Date ckd 3 January 28, 2025 1:42 pm Additional Source Comments INFORMATION SOURCE (unrecogn ized section and content) DATE CREATED AUTHOR 03/08/2022 [facility] DATE CREATED AUTHOR AUTHOR'S ORGANIZ ATION 05/06/2022 [facility] DATE CREATED AUTHOR AUTHOR'S ORGANIZ ATION 02/04/2025 [facility] DATE CREATED AUTHOR AUTHOR'S ORGANIZ ATION 03/01/[address] [facility] Care Teams (unrecognized sec tion and content) [employer] Licensee Relationship Specialty Start Date End Date Kingsley Zakilucho Braden DO [address] [place] [address] PCP - General Family Medicine 09/21/21 [employer] Licensee Relationship Specialty Start Date End Date Zaki Flanagan DO [address] [place] [address] PCP - General Family Medicine 09/21/21 [employer] Licensee Relationship Specialty Start Date End Date Zaki Flanagan DO [address] [place] [address] PCP - General Family Medicine 09/21/21 Team Status: Active Member Role Status Dates Zaki Flanagan DO Primary Care Provider Active Team Status: Inactive Member Role Status Dates Zaki Flanagan DO Primary Care Provider Active Start: January 28, 2025 End: January 28, 2025 Areli Galvez MD Attending Provider Active Star t: January 28, 2025 End: January 28, 2025 Team Status: Inactive Member Role Status Dates Zaki Flanagan DO Primary Care Provider Active Start: February 25, 2025 End: February 25, 2025 Areli Galvez MD Attending Provider Active Star t: February 25, 2025 End: February 25, 2025 Goals (unrecognized section and content) Goals may be documented in a n alternate sectionGoals may be documented in an alternate section FOR RECORDS PERTAINING TO PATIENTS WHO ARE [...] BE BASED ON THE PRIMARY CLINICAL RECORDS. [facility]. provides no warranty or guarantee of the accuracy or completeness of information in this document.
[2025-04-17 16:14] LABS: Hematocrit 41.7 % (36.0-48.0); Hemoglobin 14.3 g/dL (12.0-16.0); Mean Corpuscular HGB Conc 34.3 g/dL (29.9-35.2); Mean Corpuscular Hemoglobin 33.2 pg (26.7-34.0); Mean Corpuscular Volume 96.8 fL (81.0-99.0); Platelet Count 173 10^3/uL (150-450); Red Blood Count 4.31 10^6/uL (4.20-5.40); White Blood Count 10.3 10^3/uL (4.0-11.0)
[2025-04-17 16:16] LABS: Glucose Urine UA NEGATIVE (NEGATIVE)
[2025-04-17 16:30] LABS: Protein Creatinine Ratio Urine 0.13; Total Protein Urine Random 8.3 mg/dL (<=11.9)
[2025-04-17 16:57] LABS: Albumin Level 3.7 g/dL (3.4-5.0); Anion Gap 12.6; Blood Urea Nitrogen 20.0 mg/dL (7.0-18.0); Calcium 9.0 mg/dL (8.5-10.1); Carbon Dioxide 29.0 mmol/L (21.0-32.0); Chloride 101 mmol/L (98-107); Estimated GFR (African America 44 (>=60 mL/min/1.73m^2); Estimated GFR (Non-African Ame 36 (>=60 mL/min/1.73m^2); Glucose 105 mg/dL (74-106); Magnesium 1.8 mg/dL (1.8-2.4); Potassium 3.6 mmol/L (3.5-5.1); Sodium 139 mmol/L (136-145); Uric Acid 7.1 mg/dL (2.6-6.0)
[2025-04-17 16:58] LABS: Iron 104.0 ug/dL (50.0-170.0); Percent Iron Saturation 37.3 %; Total Iron Binding Capacity 279.0 ug/dL (250.0-450.0)
[2025-04-17 20:00] LABS: Ferritin 96.0 ng/mL (8.0-252.0); Folate 9.40 ng/mL (8.60-58.90)
[2025-04-19 07:09] LABS: Vitamin B12 1892 pg/mL (232-1245)
== END 2025-04-17 15:37 | disposition home or self-care (01) ==
PROVIDERS: PCP Family Medicine; Visit Provider Internal Medicine Nephrology
DX: E87.6 Hypokalemia (principal); E53.8 Deficiency of other specified B group vitamins; E55.9 Vitamin D deficiency, unspecified; I12.9 Hypertensive chronic kidney disease with stage 1 through stage 4 chronic kidney disease, or unspecified chronic kidney disease; N18.4 Chronic kidney disease, stage 4 (severe)
CPT/HCPCS: 36415; 80069; 81003; 82043; 82306; 82570; 82607; 82728; 82746; 83540; 83550; 83735; 83970; 84156; 84550; 85027